=== PATIENT | female | born 1935 | race Caucasian/White ===

== ENCOUNTER → 2020-03-02 08:36 | Outpatient (ROUT) | payer OTHER, SELFPAY ==
[2020-03-02 09:22] LABS: Appearance Urine UA SL CLOUDY; Bilirubin Urine UA NEGATIVE (NEGATIVE); Color Urine UA YELLOW; Glucose Urine UA NEGATIVE (Negative); Ketones Urine UA NEGATIVE (NEGATIVE); Leukocyte Esterase Urine UA 1+ (NEGATIVE); Nitrite Urine UA NEGATIVE (Negative); Occult Blood Urine UA 1+ (Negative); Protein Urine UA TRACE (Negative); Specific Gravity Urine UA 1.015 (1.000-1.035); Urobilinogen Urine UA 0.2 E.U./dL (0.2)
[2020-03-02 09:31] LABS: RBC Urine 1-5/HPF (0-5/HPF); WBC Urine 30-100/HPF (0-5/HPF)
[2020-03-02 09:32] LABS: Bacteria Urine Many (>30); Culture Indicated Urine Specimen Cultured
== END ==
PROVIDERS: PCP Family Medicine; Visit Provider Internal Medicine
DX: N39.0 Urinary tract infection, site not specified (principal)
CPT/HCPCS: 81001; 87077; 87086; 87186

== ENCOUNTER 2020-03-22 11:11 | Emergency (ER) | payer OTHER, SELFPAY ==
[2020-03-22] VITALS (15 sets, daily range): BP systolic 172–206; BP diastolic 74–101; PULSE 75–96; RESP 12–23; TEMP 35.9; O2SAT 90–99; BMI 30.4
--- NOTE | 2020-03-22 12:10 | ED_ITS ---
HPI - Abdominal Pain General Chief Complaint: Abdominal Pain Stated Complaint: Abdominal Pain Time Seen by Provider: 03/22/20 11:28 Source: patient Mode of arrival: EMS Limitations: no limitations History of Present Illness HPI narrative: Patient is an 84-year-old female who resides at [facility] after total hip arthroplasty presenting today with left lower quadrant pain. She says she feels like she needs to have a bowel movement. She feels pressure in her rectum she was given an enema yesterday and manual disimpaction was attempted there as well and unsuccessful. She denies fever chills nausea or vom iting. But she is quite tender in her left lower quadrant pain. This been ongoing for for about 1 week. MD complaint: abdominal pain Onset (ago): day(s) Pain Consistency: constant Related Data Previous Rx's Medication Instructions Recorded prednisone 40 mg PO [facility] 4 Days #0 tab 12/14/15 Allergies Allergy/AdvReac Type Severity Reaction Status Date / Time Sulfa (Sulfonamide Allergy Unknown Unverified 03/22/20 11:18 Antibiotics) [SULFA (SULFONAMIDE ANTIBIOTICS)] Review of Systems Review of Systems Narrative: GENERAL: Denies chills, fatigue, malaise, fever, sweats, travel HEENT: Denies sinus pain, ear pain, sore throat, difficulty swallowing, neck pain RESPIRATORY: Denies dyspnea, cough, wheezing, hemoptysis, sputum. CARDIOVASCULAR: Denies chest pain, palpitations, orthopnea, edema GASTROINTESTINAL: See HPI : Denies dysuria, frequency, incontinence, hematuria, urinary retention, flank pain. MUSCULOSKELETAL: Denies weakness, joint pain, or bony pain SKIN: No rash, no erythema, no pruritus NEUROLOGIC: Denies weakness, dizziness, headache, numbness, change in speech, confusion PSYCHIATRIC: No concerning psychosocial issues. 12 point review of systems is negative except for those stated above and HPI Patient History Social History Smoking Status: Never smoker Smoking Status: Never smoker Substance Use Type: does not use Exam Initial Vital Signs Initial Vital Signs: Vital Signs Pulse Oximetry 90 L 03/22/20 11:11 GENERAL: Alert well-appearing elderly female and in no acute distress. HEENT: Head atraumatic,EOMI, pupils reactive, face symmetric, moist mucous membranes CARDIOVASCULAR: Regular rate and rhythm without murmurs, rubs or gallops. RESPIRATORY: Breath sounds equal bilaterally, no wheezes rales or rhonchi. ABDOMEN: Soft, tender left lower quadrant EXTREMITIES: Normal range of motion, no clubbing or edema. Neurovascularly intact NEUROLOGICAL: Alert and oriented x4.Normal gait and speech. Cranial nerves II th rough XII grossly intact. SKIN: Warm, dry, no laceration, no petechiae, no rashes or lesions. Course Orders Ordered: ED Orders 03/22/20 12:12 Complete Blood Count AUTO DIFF Stat Comprehensive Metabolic Panel Stat Lipase Stat 03/22/20 12:45 CT abdomen pelvis w con Stat 03/22/20 14:50 Urine Microscopic Stat Discontinued Medications Sodium Chloride (Normal Saline 0.9%) 1,000 mls @ 150 mls/hr IV CONT RIAZ Last Infusion: 03/22/20 16:06 Dose: 0 mls/hr Documented by: Admin: 03/22/20 12:26 Dose: 150 mls/hr Documented by: KURTIS Ketorolac Tromethamine (Ketorolac 60 Mg/2 Ml Vial) 30 mg IV NOW ONE Stop: 03/22/20 12:01 Last Admin: 03/22/20 12:29 Dose: 30 mg Documented by: KURTIS Sodium Biphosphate/Sodium Phosphate (Fleets Enema) 1 each VT NOW ONE Stop: 03/22/20 13:51 Last Admin: 03/22/20 15:14 Dose: 1 each Documented by: KURTIS Vital Signs Vital signs: Vital Signs - 8 hr 03/22/20 11:11 03/22/20 11:12 03/22/20 11:16 Temperature 96.7 F L Pulse Rate 83 96 H Respiratory Rate 12 Blood Pressure 201/101 H 201/101 H Pulse Oximetry 90 L 97 98 03/22/20 11:30 03/22/20 12:00 03/22/20 12:30 Temperature Pulse Rate 79 90 81 Respiratory Rate 19 21 21 Blood Pressure 203/82 H 206/86 H Pulse Oximetry 96 97 98 03/22/20 12:33 03/22/20 13:04 03/22/20 13:06 Temperature Pulse Rate 81 76 82 Respiratory Rate 21 23 Blood Pressure 201/92 H 180/75 H Pulse Oximetry 98 98 03/22/20 13:30 03/22/20 14:00 03/22/20 14:30 Temperature Pulse Rate 78 75 75 Respiratory Rate 20 18 17 Blood Pressure 175/74 H 197/84 H 188/80 H Pulse Oximetry 98 97 96 03/22/20 15:00 03/22/20 16:30 03/22/20 17:14 Temperature Pulse Rate 76 80 80 Respiratory Rate 21 16 16 Blood Pressure 174/79 H 172/82 H 172/82 H Pulse Oximetry 98 99 MDM - Abdominal Pain Lab Data Attestation: I reviewed the patient's lab results. Result diagrams: 03/22/20 12:12 03/22/20 12:12 Labs: Lab Results 03/22/20 03/22/20 03/22/20 Range/Units 12:12 12:12 14:50 WBC 12.7 H (4.5-11.0) X10^3/uL RBC 4.08 (4.0-5.2) X10^6/uL Hgb 12.1 (12.0-16.0) g/dL Hct 36.9 (36-46) % MCV 90.6 (80-100) fL MCH 29.8 (26-34) PG MCHC 32.9 (30-36) % RDW 15.6 H (11.6-14.8) % Plt Count 505 H (150-400) X10^3/uL Neut % (Auto) 77.8 H (50-75) % Lymph % (Auto) 9.9 L (25-40) % [place] % (Auto) 8.3 (3-14) % Eos % (Auto) 2.9 (2-4) % Baso % (Auto) 1.1 (0-2) % Neut # (Auto) 9900 H (8971-2049) /uL Lymph # (Auto) 1300 (5641-2085) /uL [place] # (Auto) 1100 H (0-900) /uL Eos # (Auto) 400 (0-450) /uL Baso # (Auto) 100 (0-100) /uL Sodium 135 L (137-145) mmol/L Potassium 3.8 (3.4-5.1) mmol/L Chloride 101 (98-107) mmol/L Carbon Dioxide 32 (22-32) mmol/L BUN 14 (7-17) mg/dL Creatinine 0.61 (0.52-1.04) mg/dL Estimated GFR > 60.0 (>60) mL/min BUN/Creatinine Ratio 23.0 H (6-22) Glucose 117 H (80-110) mg/dL Calcium 9.1 (8.4-10.2) mg/dL Total Bilirubin 0.7 (0.2-1.3) mg/dL AST 66 H (14-36) IU/L ALT 58 H (<35) IU/L Alkaline Phosphatase 201 H (38-126) U/L Total Protein 6.5 (6.3-8.2) g/dL Albumin 3.7 (3.5-5.0) g/dL Globulin 2.8 (1.7-4.1) g/dL Albumin/Globulin Ratio 1.3 (1.0-2.8) Lipase 88 (23-300) U/L Urine RBC 0-1/hpf (0-5/HPF) Urine WBC 0-1/hpf (0-5/HPF) Amorphous Sediment 1+ Urine Bacteria None seen (None) Ur Culture Indicated? Cult not indicated Point of care testing: Urine Dip Bedside Urine Glucose Negative Bedside Urine Bilirubin - Negative Bedside Urine Ketone - Negative Urine Specific [place] 1.010 Bedside Urine Occult Blood + Bedside Urine pH 6 Bedside Urine Protein + 30 Bedside Urine Urobilinogen - Negative Bedside Urine Nitrite - Negative Bedside Urine Leukocytes - Negative Esterase Imaging Data CT scan - abdomen/pelvis: Radiologist's Impression: PROCEDURE: CT ABDOMEN PELVIS W CON COMPARISON: [facility], , CHEST 1 VIEW, 12/14/2015, 18:25. INDICATIONS: LLQ pain FINDINGS: Image quality: Excellent. Lung bases: Lung bases are clear. Heart size is normal. There is mild bibasilar atelectasis. Cardiac chambers are normal. The coronary arteries have atherosclerotic calcifications. Solid organs: Liver: The liver has no mass or intrahepatic biliary ductal dilatation. The portal vein and hepatic veins are patent. Biliary: Status post cholecystectomy. Pancreas: The pancreas has no mass or ductal dilatation. There is no surrounding inflammation. Spleen: Normal size. There are no masses. Adrenals: No hypertrophy or nodules. Kidneys: No obstructive calculus or hydronephrosis. No solid mass. Both kidneys have simple renal cysts. The left lower pole has a septated cyst with thin septation s and a calcification within the septation. The left kidney is several simple cysts. Peritoneum and bowel: The distal esophagus and stomach are normal. The small bowel has a normal caliber and appearance. The terminal ileum is normal. The large bowel has a normal caliber and appearance. The appendix is normal. No free fluid or air. Nodes and vessels: No retroperitoneal or mesenteric adenopathy by size criteria. The aorta has atherosclerosis with no aneurysmal dilatation. Miscellaneous: No abdominal wall mass or hernia. PELVIS: Genitourinary: The bladder is not well visualized due to artifact from both hips.. No bladder calcifications. Miscellaneous: No inguinal hernias or adenopathy. Bones: The lumbar spine as multilevel degenerative changes. There is no vertebral body height loss. There is mild height loss of the L1 vertebral body and concavity of the superior endplate of L3 which both appear remote. Both hips have prior total hip arthroplasty. IMPRESSION: 1. No acute abdominal or pelvic abnormality. 2. Other incidental findings as above. 3. No bowel obstruction. Dictated by: Blas Schilling M.D. on 03/22/2020 at 13:11 MDM Narrative Medical decision making narrative: Mild leukocytosis but no sign of infection. CT is negative. Enema is tried in the again unsuccessful. At this time pain management only. Discharge Plan Departure Patient Disposition: Home Clinical Impression: Abdominal pain Qualifiers: Abdominal location: left lower quadrant Qualified Code(s): R10.32 - Left lower quadrant pain Instructions: Acute Abdominal Pain Activity Restrictions/Additional Instructions: *You have been diagnosed with abdominal pain *What to do: At this time no sign of infection. There is no sign of constipation. However I recommend you continue your bowel regimen of MiraLax you may add Colace and/or Metamucil as well *Continue to take medications as directed *Follow up with your primary care provider in 2-3 days *Return to ER if you should have increasing abdominal pain, fever, confusion or any new, worsening or concerning symptoms Prescriptions: No Action prednisone 20 MG tablet 40 mg PO AMCC 4 Days Qty: 0 RF: 0 Referrals: Navin Steele DO [Primary Care Provider] -
[2020-03-22 12:23] LABS: Add Manual Diff / Slide Review NO; Basophils Absolute Auto 100 /uL (0-100); Basophils Percent Auto 1.1 % (0-2); Eosinophils Absolute Auto 400 /uL (0-450); Eosinophils Percent Auto 2.9 % (2-4); Hematocrit 36.9 % (36-46); Hemoglobin 12.1 g/dL (12.0-16.0); Lymphocytes Absolute Auto 1300 /uL (1100-4500); Lymphocytes Percent Auto 9.9 % (25-40); Mean Corpuscular HGB Conc 32.9 % (30-36); Mean Corpuscular Hemoglobin 29.8 PG (26-34); Mean Corpuscular Volume 90.6 fL (80-100); Monocytes Absolute Auto 1100 /uL (0-900); Monocytes Percent Auto 8.3 % (3-14); Neutrophils Absolute Auto 9900 /uL (1500-7000); Neutrophils Percent Auto 77.8 % (50-75); Platelet Count 505 X10^3/uL (150-400); Red Blood Cell Count 4.08 X10^6/uL (4.0-5.2); Red Cell Distribution Width 15.6 % (11.6-14.8); White Blood Cell Count 12.7 X10^3/uL (4.5-11.0)
[2020-03-22] MEDS: SODIUM CHLORIDE 0.9% 1,000 ML 150 ML IV (12:26)
[2020-03-22] MEDS: KETOROLAC 60 MG/2 ML VIAL 30 MG IV (12:29)
[2020-03-22 12:35] LABS: Alanine Aminotransferase 58 IU/L (<35); Albumin 3.7 g/dL (3.5-5.0); Albumin Globulin Ratio 1.3 (1.0-2.8); Alkaline Phosphatase 201 U/L (38-126); Aspartate Aminotransferase 66 IU/L (14-36); Bilirubin Total 0.7 mg/dL (0.2-1.3); Blood Urea Nitrogen 14 mg/dL (7-17); Calcium 9.1 mg/dL (8.4-10.2); Carbon Dioxide 32 mmol/L (22-32); Chloride 101 mmol/L (98-107); Estimated Glomerular Filt Rate > 60.0 mL/min (>60); Globulin 2.8 g/dL (1.7-4.1); Glucose 117 mg/dL (80-110); HEMOLYSIS 26 (0-50); Lipase 88 U/L (23-300); Potassium 3.8 mmol/L (3.4-5.1); Sodium 135 mmol/L (137-145); Total Protein 6.5 g/dL (6.3-8.2)
--- NOTE | 2020-03-22 12:45 | DI.CT.S_ITS ---
PROCEDURE: CT ABDOMEN PELVIS W CON COMPARISON: [facility], CR, CHEST 1 VIEW, 12/14/2015, 18:25. INDICATIONS: LLQ pain FINDINGS: Image quality: Excellent. Lung bases: Lung bases are clear. Heart size is normal. There is mild bibasilar atelectasis. Cardiac chambers are normal. The coronary arteries have atherosclerotic calcifications. Solid organs: Liver: The liver has no mass or intrahepatic biliary ductal dilatation. The portal vein and hepatic veins are patent. Biliary: Status post cholecystectomy. Pancreas: The pancreas has no mass or ductal dilatation. There is no surrounding inflammation. Spleen: Normal size. There are no masses. Adrenals: No hypertrophy or nodules. Kidneys: No obstructive calculus or hydronephrosis. No solid mass. Both kidneys have simple renal cysts. The left lower pole has a septated cyst with thin septations and a calcification within the septation. The left kidney is several simple cysts. Peritoneum and bowel: The distal esophagus and stomach are normal. The small bowel has a normal caliber and appearance. The terminal ileum is normal. The large bowel has a normal caliber and appearance. The appendix is normal. No free fluid or air. Nodes and vessels: No retroperitoneal or mesenteric adenopathy by size criteria. The aorta has atherosclerosis with no aneurysmal dilatation. Miscellaneous: No abdominal wall mass or hernia. PELVIS: Genitourinary: The bladder is not well visualized due to artifact from both hips.. No bladder calcifications. Miscellaneous: No inguinal hernias or adenopathy. Bones: The lumbar spine as multilevel degenerative changes. There is no vertebral body height loss. There is mild height loss of the L1 vertebral body and concavity of the superior endplate of L3 which both appear remote. Both hips have prior total hip arthroplasty. IMPRESSION: 1. No acute abdominal or pelvic abnormality. 2. Other incidental findings as above. 3. No bowel obstruction. Dictated by: Blas Schilling M.D. on 03/22/2020 at 13:11 Approved by: Blas Schilling M.D. on 03/22/2020 at 13:21
[2020-03-22 15:11] LABS: Bacteria Urine None Seen
[2020-03-22] MEDS: FLEETS ENEMA 1 EACH PR (15:14)
[2020-03-22 15:41] LABS: Amorphous Sediment Urine 1+; Culture Indicated Urine Cult Not Indicated; RBC Urine 0-1/HPF (0-5/HPF); WBC Urine 0-1/HPF (0-5/HPF)
== END 2020-03-22 17:17 | disposition home or self-care (01) ==
PROVIDERS: Emergency Provider Emergency Medicine; PCP Family Medicine
DX: R10.32 Left lower quadrant pain (principal)
CPT/HCPCS: 36415; 74177; 80053; 81003; 81015; 83690; 85025; 96361; 96374; 99283; 99284; J1885; Q9967

== ENCOUNTER 2021-03-30 09:35 | Emergency (ER) | payer OTHER, SELFPAY ==
[2021-03-30] VITALS (13 sets, daily range): BP systolic 136–195; BP diastolic 65–122; PULSE 81–97; RESP 18–28; TEMP 36.2; O2SAT 94–99
--- NOTE | 2021-03-30 09:54 | ED_ITS ---
HPI - Abdominal Pain General Chief Complaint: Abdominal Pain Stated Complaint: R abd pain Time Seen by Provider: 03/30/21 09:53 Source: patient Mode of arrival: Ambulatory Limitations: no limitations History of Present Illness HPI narrative: This an 85-year-old female comes emergency department with complaint of xiong prapubic pain, dysuria and frequency and a sense of incomplete emptying for the past week which has been increasingly painful and up into her right flank. Patient denies fevers or chills. She has had nausea but no vomiting. Patient denies any left-sided back or flank pain. She has developed a bit of a cough in the last 12 hours. Patient states no chest pain or shortness of breath but her pain does go up towards her right posterior ribs. Patient denies any constipation. She has had several episodes of diarrhea yesterday but states they were brown there was no melena or hematochezia. She has not had any urinary retention that she appreciates. 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 She has had a cholecystectomy but denies other surgeries. No prior cardiac interventions cording to the patient. She is allergic to sulfa. She lives independently with her but does normally use a walker. She came in today because her back was continuing to become increasingly painful. She has had prior fractures to her vertebrae which she states she did not have trauma for suggesting osteoporotic compression fractures and has had 2 prior hip frac tures according to the patient. Related Data Previous Rx's Medication Instructions Recorded prednisone 20 mg tablet 40 mg [facility] #0 tab 12/14/15 cephalexin 500 mg capsule 500 mg PO BID #20 cap 03/30/21 hydrocodone 5 mg-acetaminophen 325 1 tab PO Q6H PRN #10 tab 03/30/21 mg tablet Allergies Allergy/AdvReac Type Severity Reaction Status Date / Time Sulfa (Sulfonamide Allergy Unknown Unverified 03/22/20 11:18 Antibiotics) [SULFA (SULFONAMIDE ANTIBIOTICS)] Review of Systems Review of Systems ROS Unobtainable: All systems reviewed & are unremarkable except as noted in HPI and below Patient History Social History Smoking Status: Never smoker Smoking Status: Never smoker Substance Use Type: does not use Exam Narrative Exam Narrative: GENERAL: Alert and oriented x three, elderly female in mild distress. HEENT: Head normocephalic, atraumatic, EOMI, pupils reactive, face symmetric, moist mucous membranes NECK: Supple, full range of motion CARDIOVASCULAR: Regular rate and rhythm without murmurs, rubs or gallops. RESPIRATORY: Breath sounds equal bilaterally, no wheezes rales or rhonchi. ABDOMEN: Soft, mild suprapubic tenderness. Normoactive bowel sounds all 4 quadrants. No guarding or rebound, rigidity, no mass : Positive for right CVA tenderness, negative for left CVA tenderness. EXTREMITIES: Normal range of motion, no clubbing or edema. Neurovascularly intact. Patient did ambulate with walker to the bathroom and back. NEUROLOGICAL: Cranial nerves II through XII grossly intact. Moving all extremities SKIN: Warm, dry, no petechiae, no rashes or lesions. Initial Vital Signs Initial Vital Signs: Vital Signs Pulse Rate 89 03/30/21 09:40 Pulse Oximetry 98 03/30/21 09:40 Course Orders Ordered: ED Orders 03/30/21 10:05 Urine Culture Stat Urine Microscopic Stat 03/30/21 10:33 COVID19 -Nasal swab/Pre-Proc Stat 03/30/21 11:25 Complete Blood Count AUTO DIFF Stat Comprehensive Metabolic Panel Stat Lipase Stat Prothrombin Time INR Stat 03/30/21 11:35 Lactate (Lactic Acid) Stat 03/30/21 11:54 CT kidney ureter bladder (KUB) Stat 03/30/21 12:15 Blood Culture Stat Discontinued Medications Hydrocodone Bitart/Acetaminophen (Hydrocodone/Acet 5/325 Tablet) 2 tab PO NOW ONE Stop: 03/30/21 11:00 Last Admin: 03/30/21 11:07 Dose: 2 tab Documented by: RAVINDER Cephalexin HCl (Cephalexin 250 Mg Capsule) 500 mg PO NOW ONE Stop: 03/30/21 11:00 Last Admin: 03/30/21 11:07 Dose: 500 mg Documented by: RAVINDER Sodium Chloride (Normal Saline 0.9%) 1,000 mls @ 150 mls/hr IV CONT RIAZ Last Admin: 03/30/21 11:00 Dose: Not Given Documented by: RAVINDER Morphine Sulfate (Morphine 2 Mg/Ml Inj) 2 mg IV NOW ONE Stop: 03/30/21 10:19 Last Admin: 03/30/21 11:00 Dose: Not Given Documented by: RAVINDER Vital Signs Vital signs: Vital Signs - 8 hr 03/30/21 11:00 03/30/21 11:30 03/30/21 12:10 Pulse Rate 82 86 92 H Respiratory Rate 20 20 19 Blood Pressure 142/71 H Pulse Oximetry 99 98 03/30/21 12:30 03/30/21 12:31 03/30/21 13:00 Pulse Rate 89 81 87 Respiratory Rate 18 Blood Pressure 174/80 H 188/122 H Pulse Oximetry 97 97 99 MDM - Abdominal Pain Lab Data Result diagrams: 03/30/21 11:25 03/30/21 11:25 Labs: Lab Results 03/30/21 03/30/21 03/30/21 Range/Units 10:05 10:33 11:25 WBC 13.3 H (4.5-11.0) X10^3/uL RBC 4.01 (4.0-5.2) X10^6/uL Hgb 11.6 L (12.0-16.0) g/dL Hct 35.4 L (36-46) % MCV 88.4 (80-100) fL MCH 28.8 (26-34) PG MCHC 32.6 (30-36) % RDW 14.8 (11.6-14.8) % Plt Count 509 H (150-400) X10^3/uL Neut % (Auto) 69.9 (50-75) % Lymph % (Auto) 17.9 L (25-40) % [place] % (Auto) 8.7 (3-14) % Eos % (Auto) 2.6 (2-4) % Baso % (Auto) 0.9 (0-2) % Neut # (Auto) 9300 H (0758-0343) /uL Lymph # (Auto) 2400 (2902-3961) /uL [place] # (Auto) 1200 H (0-900) /uL Eos # (Auto) 300 (0-450) /uL Baso # (Auto) 100 (0-100) /uL PT (10.1-12.7) SECONDS INR (0.9-1.3) Sodium (137-145) mmol/L Potassium (3.4-5.1) mmol/L Chloride (98-107) mmol/L Carbon Dioxide (22-32) mmol/L BUN (7-17) mg/dL Creatinine (0.52-1.04) mg/dL Estimated GFR (>60) mL/min BUN/Creatinine Ratio (6-22) Glucose (80-110) mg/dL Lactate (0.7-2.1) mmol/L Calcium (8.4-10.2) mg/dL Total Bilirubin (0.2-1.3) mg/dL AST (14-36) IU/L ALT (<35) IU/L Alkaline Phosphatase (38-126) U/L Total Protein (6.3-8.2) g/dL Albumin (3.5-5.0) g/dL Globulin (1.7-4.1) g/dL Albumin/Globulin Ratio (1.0-2.8) Lipase (23-300) U/L Urine RBC 0-1/hpf (0-5/HPF) Urine WBC 5-10/hpf H (0-5/HPF) Ur Squamous Epith Cells 0-1 /hpf (0-5/HPF) Urine Bacteria Moderate (10-30) H (None) Ur Culture Indicated? Specimen cultured SARS-CoV-2 (PCR) Negative (Negative) 03/30/21 03/30/21 03/30/21 Range/Units 11:25 11:25 11:35 WBC (4.5-11.0) X10^3/uL RBC (4.0-5.2) X10^6/uL Hgb (12.0-16.0) g/dL Hct (36-46) % MCV (80-100) fL MCH (26-34) PG MCHC (30-36) % RDW (11.6-14.8) % Plt Count (150-400) X10^3/uL Neut % (Auto) (50-75) % Lymph % (Auto) (25-40) % [place] % (Auto) (3-14) % Eos % (Auto) (2-4) % Baso % (Auto) (0-2) % Neut # (Auto) (4358-7011) /uL Lymph # (Auto) (7233-5822) /uL [place] # (Auto) (0-900) /uL Eos # (Auto) (0-450) /uL Baso # (Auto) (0-100) /uL PT 67.5 H (10.1-12.7) SECONDS INR 5.7 H* (0.9-1.3) Sodium 139 (137-145) mmol/L Potassium 3.9 (3.4-5.1) mmol/L Chloride 104 (98-107) mmol/L Carbon Dioxide 28 (22-32) mmol/L BUN 14 (7-17) mg/dL Creatinine 0.55 (0.52-1.04) mg/dL Estimated GFR > 60.0 (>60) mL/min BUN/Creatinine Ratio 25.5 H (6-22) Glucose 81 (80-110) mg/dL Lactate 1.4 (0.7-2.1) mmol/L Calcium 8.9 (8.4-10.2) mg/dL Total Bilirubin 0.5 (0.2-1.3) mg/dL AST 39 H (14-36) IU/L ALT 27 (<35) IU/L Alkaline Phosphatase 173 H (38-126) U/L Total Protein 6.1 L (6.3-8.2) g/dL Albumin 3.7 (3.5-5.0) g/dL Globulin 2.4 (1.7-4.1) g/dL Albumin/Globulin Ratio 1.5 (1.0-2.8) Lipase 167 (23-300) U/L Urine RBC (0-5/HPF) Urine WBC (0-5/HPF) Ur Squamous Epith Cells (0-5/HPF) Urine Bacteria (None) Ur Culture Indicated? SARS-CoV-2 (PCR) (Negative) Point of care testing: Urine Dip Bedside Urine Glucose Negative Bedside Urine Bilirubin - Negative Bedside Urine Ketone - Negative Urine Specific [place] 1.015 Bedside Urine Occult Blood + Bedside Urine pH 7.0 Bedside Urine Protein + 30 Bedside Urine Urobilinogen 0.2 Bedside Urine Nitrite + Positive Bedside Urine Leukocytes + [address] scan - abdomen/pelvis: Radiologist's Impression: Launch?[address] [address] [address] Scan Report Signed Patient: Anna Jamison MR#: [id number] : 1935 Acct:[id number] Age/Sex: 85 / F Date of Service: 03/30/21 Loc: ED Accession Number: [id number] ?? Procedure: CT kidney ureter bladder (KUB) Ordering Provider: Natasha Palomo D.O. PROCEDURE:? CT KIDNEY URETER BLADDER (KUB) ? INDICATIONS:? right flank pain, pelvic pain ? TECHNIQUE:? Axial sections were acquired from the lung bases to the pubic symphysis.? Coronal and sagittal reformats were performed.? For radiation dose reduction, the following was used: ?automated exposure control, adjustment of mA and/or kV according to patient size.? ? COMPARISON:? [facility], CT, CT ABDOMEN PELVIS W CON, 03/22/2020, 12:52. ? FINDINGS:? Image quality:? There is artifact associated with the metallic hardware. ? Artifact from the metallic hardware is reduced by metal reconstruction algorithm.? ? Lung bases:? Unremarkable.? ? Heart:? No significant findings.? Moderate coronary artery calcification is seen. ? URINARY: Right Kidney: ? No stones or hydronephrosis.? At the inferior pole of the right kidney medially, there is a simple cyst cyst seen that measures 1.6 cm.? Mild calcification can be seen along the margin of this cyst. Right Ureter:? No hydroureter.? ? Left Kidney: ? No stones or hydronephrosis.? At the superior pole of the left kidney, there is a cyst that measures 3.3 cm.? A small amount of calcification can be seen along the margins of this cyst.? A simple appearing water density cyst is seen in volving the left kidney that measures 3.5 cm. Left Ureter:? No hydroureter.? ? Bladder:? No significant bladder abnormality is seen. ? ABDOMEN: Liver:? Unremarkable.? ? Gallbladder:? Removed.? ? Biliary ducts:? Unremarkable.? ? Pancreas:? Unremarkable.? ? Spleen:? Unremarkable.? ? Adrenal Glands:? Unremarkable.? ? ? Stomach and Bowel:? Stomach, small bowel loops, and colon are unremarkable.? Peritoneum:? No abnormal intraperitoneal fluid.? No free air.? ? Ventral Wall: ? No hernia.? Abdominal Nodes:? No enlarged retroperitoneal or mesenteric lymph nodes.? Vessels:? Aorta and inferior vena cava are normal in size.? Atherosclerotic calcification is noted.? ? PELVIS: Pelvic Organs:? The uterus is atrophic.? No adnexal masses are seen.? Pelvic Nodes: Unremarkable. Miscellaneous: No inguinal hernias are seen. ? ? ? Bones:? At the T11 level, there is 40-50% loss of height centrally, which is c learly progressed compared to 2020.? At the L1 level, there is approximately 80% loss of height anteriorly, which is clearly progressed compared to the prior 2020 CT examination.? At the L3 level, there is approximately 30% loss of height centrally, which is stable compared to 2020.? ? These fractures do not demonstrate significant posterior displacement of fracture fragments. ? Bilateral hip arthroplasty hardware is seen, with prominent streak artifact through the pelvis. ? IMPRESSION:? ? Negative for kidney stones or obstructive uropathy. ? Clear interval progression of T11 and L1 fractures compared to 2020. No romel acute features are seen.? However, this could be a cause of flank pain. If it would be helpful for clinical management decision making, please consider a dedicated, scheduled lumbar spine MRI for further evaluation (assuming that there is no contraindication).? ? Bilateral renal cysts are seen, with a mild amount of calcification seen along the margins of these cysts.? These cysts demonstrate no suspicious abnormality on the prior contrast-enhanced CT. ? ? Incidental note is made of: Moderate coronary artery calcification Cholecystectomy Stable L3 fracture. Bilateral hip arthroplasty hardware ? Dictated by: Sebastien Max M.D. on 03/30/2021 at 11:15 ? ? Approved by: Sebastien Max M.D. on 03/30/2021 at 11:22?? MDM Narrative Medical decision making narrative: This is an 85-year-old female comes in with lower abdominal patient has had some right-sided flank chest pain. She is noted to have T11-L1 compression fracture that is worsened but not new. She does have UTI. She was difficult stick so had non contrasted CT. Patient's labs otherwise do not show any major abnormalities and patient was discharged home after tolerating oral pain medication and antibiotics. She is noted to have renal cyst but does not appear to have abscess. Does not appear to have kidney stone or to be septic today. Discharge Plan Departure Patient Disposition: Home Clinical Impression: Acute UTI, Renal cyst, Traumatic compression fracture of T11 thoracic vertebra, Closed compression fracture of L1 vertebra Instructions: DI for Urinary Tract Infection (UTI) Activity Restrictions/Additional Instructions: Your labs today show an elevated INR at 5.7. Do not take your warfarin today or tomorrow(Wednesday) and have your level rechecked on Wednesday morning with your physician. Your urine does show signs of an infection today and is likely the cause of her lower pain. Take antibiotics until completely gone. Prescription was sent to [facility] in [place]. It is also noted on your CT imaging that you have compression fractures at T11 and L1 which have worsened compared to 2020 and likely are related to your flank back pain. You may take pain medication as prescribed. This medication can make you sleepy do not drive, perform hazardous activities or make any major decisions while taking it. This medication will make you constipated please take a stool softener once to twice daily until stools are soft and regular. Please return for fevers, new or worsening chest pain, shortness of breath, abdominal, back or flank pain, new numbness, tingling or weakness, lightheadedness or passing out or other new or concerning symptoms. Prescriptions: New cephalexin 500 mg capsule 500 mg PO BID Qty: 20 0RF hydrocodone-acetaminophen 5-325 mg tablet 1 tab PO Q6H PRN (Reason: pain) Qty: 10 0RF No Action prednisone 20 MG tablet 40 mg PO [facility] 4 Days Qty: 0 0RF Referrals: Navin Steele DO [Non-Staff] -
[2021-03-30 10:27] LABS: Bacteria Urine Moderate (10-30); Culture Indicated Urine Specimen Cultured; RBC Urine 0-1/HPF (0-5/HPF); Squamous Epithelial Cell Urine 0-1 /HPF (0-5/HPF); WBC Urine 5-10/HPF (0-5/HPF)
[2021-03-30 10:55] LABS: COVID19 -Nasal RAPID Negative (Negative)
[2021-03-30] MEDS: HYDROCODONE/ACET 5/325 TABLET 2 TAB PO (11:07)
[2021-03-30] MEDS: cephALEXin 250 MG CAPSULE 500 MG PO (11:07)
[2021-03-30 11:40] LABS: Add Manual Diff / Slide Review NO; Basophils Absolute Auto 100 /uL (0-100); Basophils Percent Auto 0.9 % (0-2); Eosinophils Absolute Auto 300 /uL (0-450); Eosinophils Percent Auto 2.6 % (2-4); Hematocrit 35.4 % (36-46); Hemoglobin 11.6 g/dL (12.0-16.0); Lymphocytes Absolute Auto 2400 /uL (1100-4500); Lymphocytes Percent Auto 17.9 % (25-40); Mean Corpuscular HGB Conc 32.6 % (30-36); Mean Corpuscular Hemoglobin 28.8 PG (26-34); Mean Corpuscular Volume 88.4 fL (80-100); Monocytes Absolute Auto 1200 /uL (0-900); Monocytes Percent Auto 8.7 % (3-14); Neutrophils Absolute Auto 9300 /uL (1500-7000); Neutrophils Percent Auto 69.9 % (50-75); Platelet Count 509 X10^3/uL (150-400); Red Blood Cell Count 4.01 X10^6/uL (4.0-5.2); Red Cell Distribution Width 14.8 % (11.6-14.8); White Blood Cell Count 13.3 X10^3/uL (4.5-11.0)
[2021-03-30 11:48] LABS: Alanine Aminotransferase 27 IU/L (<35); Albumin 3.7 g/dL (3.5-5.0); Albumin Globulin Ratio 1.5 (1.0-2.8); Alkaline Phosphatase 173 U/L (38-126); Aspartate Aminotransferase 39 IU/L (14-36); BUN Creatinine Ratio 25.5 (6-22); Bilirubin Total 0.5 mg/dL (0.2-1.3); Blood Urea Nitrogen 14 mg/dL (7-17); Calcium 8.9 mg/dL (8.4-10.2); Carbon Dioxide 28 mmol/L (22-32); Chloride 104 mmol/L (98-107); Estimated Glomerular Filt Rate > 60.0 mL/min (>60); Globulin 2.4 g/dL (1.7-4.1); Glucose 81 mg/dL (80-110); HEMOLYSIS < 15 (0-50); Lipase 167 U/L (23-300); Potassium 3.9 mmol/L (3.4-5.1); Sodium 139 mmol/L (137-145); Total Protein 6.1 g/dL (6.3-8.2)
--- NOTE | 2021-03-30 11:54 | DI.CT.S_ITS ---
PROCEDURE: CT KIDNEY URETER BLADDER (KUB) INDICATIONS: right flank pain, pelvic pain TECHNIQUE: Axial sections were acquired from the lung bases to the pubic symphysis. Coronal and sagittal reformats were performed. For radiation dose reduction, the following was used: automated exposure control, adjustment of mA and/or kV according to patient size. COMPARISON: [facility], CT, CT ABDOMEN PELVIS W CON, 03/22/2020, 12:52. FINDINGS: Image quality: There is artifact associated with the metallic hardware. Artifact from the metallic hardware is reduced by metal reconstruction algorithm. Lung bases: Unremarkable. Heart: No significant findings. Moderate coronary artery calcification is seen. URINARY: Right Kidney: No stones or hydronephrosis. At the inferior pole of the right kidney medially, there is a simple cyst cyst seen that measures 1.6 cm. Mild calcification can be seen along the margin of this cyst. Right Ureter: No hydroureter. Left Kidney: No stones or hydronephrosis. At the superior pole of the left kidney, there is a cyst that measures 3.3 cm. A small amount of calcification can be seen along the margins of this cyst. A simple appearing water density cyst is seen involving the left kidney that measures 3.5 cm. Left Ureter: No hydroureter. Bladder: No significant bladder abnormality is seen. ABDOMEN: Liver: Unremarkable. Gallbladder: Removed. Biliary ducts: Unremarkable. Pancreas: Unremarkable. Spleen: Unremarkable. Adrenal Glands: Unremarkable. Stomach and Bowel: Stomach, small bowel loops, and colon are unremarkable. Peritoneum: No abnormal intraperitoneal fluid. No free air. Ventral Wall: No hernia. Abdominal Nodes: No enlarged retroperitoneal or mesenteric lymph nodes. Vessels: Aorta and inferior vena cava are normal in size. Atherosclerotic calcification is noted. PELVIS: Pelvic Organs: The uterus is atrophic. No adnexal masses are seen. Pelvic Nodes: Unremarkable. Miscellaneous: No inguinal hernias are seen. Bones: At the T11 level, there is 40-50% loss of height centrally, which is clearly progressed compared to 2020. At the L1 level, there is approximately 80% loss of height anteriorly, which is clearly progressed compared to the prior 2019 CT examination. At the L3 level, there is approximately 30% loss of height centrally, which is stable compared to 2020. These fractures do not demonstrate significant posterior displacement of fracture fragments. Bilateral hip arthroplasty hardware is seen, with prominent streak artifact through the pelvis. IMPRESSION: Negative for kidney stones or obstructive uropathy. Clear interval progression of T11 and L1 fractures compared to 2020. No romel acute features are seen. However, this could be a cause of flank pain. If it would be helpful for clinical management decision making, please consider a dedicated, scheduled lumbar spine MRI for further evaluation (assuming that there is no contraindication). Bilateral renal cysts are seen, with a mild amount of calcification seen along the margins of these cysts. These cysts demonstrate no suspicious abnormality on the prior contrast-enhanced CT. Incidental note is made of: Moderate coronary artery calcification Cholecystectomy Stable L3 fracture. Bilateral hip arthroplasty hardware Dictated by: Sebastien Max M.D. on 03/30/2021 at 11:15 Approved by: Sebastien Max M.D. on 03/30/2021 at 11:22
[2021-03-30 11:56] LABS: Prothrombin Time 67.5 SECONDS (10.1-12.7)
[2021-03-30 12:03] LABS: Lactate (Lactic Acid) 1.4 mmol/L (0.7-2.1)
[2021-03-30 12:07] LABS: INR 5.7 (0.9-1.3)
== END 2021-03-30 15:59 | disposition home or self-care (01) ==
PROVIDERS: Emergency Provider Emergency Medicine; PCP Internal Medicine
DX: N39.0 Urinary tract infection, site not specified (principal); Q61.01 Congenital single renal cyst; Z20.822 Contact with and (suspected) exposure to COVID-19
CPT/HCPCS: 36415; 74176; 80053; 81003; 81015; 83605; 83690; 85025; 85610; 87040; 87086; 87635; 99283; 99284; C9803

== ENCOUNTER 2021-04-10 10:50 | Inpatient (IN) | payer OTHER, SELFPAY ==
[2021-04-10] VITALS (40 sets, daily range): BP systolic 105–184; BP diastolic 51–84; PULSE 83–119; RESP 18–32; TEMP 37.6; O2SAT 89–100; BMI 27.8
--- NOTE | 2021-04-10 10:58 | DI.RAD.S_ITS ---
PROCEDURE: XR HIP W PEL IF DONE RT 2V INDICATIONS: pain TECHNIQUE: AP pelvis with lateral view(s) of the right hip(s). COMPARISON: None. FINDINGS: Bones: No fractures or dislocations. Pelvic ring appears intact. No suspicious bony lesions. Bilateral hip arthroplasties with no evidence of hardware failure or loosening. Soft tissues: The visualized bowel gas pattern is normal. No suspicious soft tissue calcifications. IMPRESSION: Expected appearance of bilateral hip arthroplasties. No evidence acute bony abnormality of the pelvis and right hip. Dictated by: Xavi Cornejo M.D. on 04/10/2021 at 11:12 Approved by: Xavi Cornejo M.D. on 04/10/2021 at 11:13
--- NOTE | 2021-04-10 11:01 | DI.RAD.S_ITS ---
PROCEDURE: XR CHEST 1V INDICATIONS: hypoxic TECHNIQUE: One view of the chest was acquired. COMPARISON: [facility], , CHEST 1 VIEW, 12/14/2015, 18:25. FINDINGS: Surgical changes and devices: None. Lungs and pleura: Patchy bibasilar atelectasis. Minimal left pleural effusion. No pleural effusions or pneumothorax. Mediastinum: Mediastinal contours appear normal. Mild cardiomegaly, exaggerated by the presence of a left pericardial fat pad. Bones and chest wall: No suspicious bony lesions. Overlying soft tissues appear unremarkable. IMPRESSION: Mild cardiomegaly, patchy bibasilar atelectasis, minimal left pleural effusion. Dictated by: Xavi Cornejo M.D. on 04/10/2021 at 11:13 Approved by: Xavi Cornejo M.D. on 04/10/2021 at 11:14
--- NOTE | 2021-04-10 11:24 | DI.CT.S_ITS ---
PROCEDURE: CT HEAD/BRAIN WO CON INDICATIONS: fall, headaches, warfarin TECHNIQUE: Noncontrast 4.5 mm thick angled axial sections acquired from the foramen magnum to the vertex, with coronal and sagittal reformats. For radiation dose reduction, the following was used: automated exposure control, adjustment of mA and/or kV according to patient size. COMPARISON: None. FINDINGS: Image quality: Excellent. CSF spaces: Basal cisterns are patent. No extra-axial fluid collections. The ventricles are symmetric in size and shape. Brain: No intracranial bleeds or masses. Small chronic right parietal infarct. There is cerebral volume loss for age, with resultant ventricular and sulcal prominence. There are periventricular and deep white matter chronic small vessel ischemic changes. There is intracranial internal carotid artery and vertebral artery atherosclerosis. Skull and face: Calvarium and visualized facial bones appear intact, without suspicious lesions. Sinuses: Visualized sinuses and mastoids are clear. IMPRESSION: No acute intracranial disease process. Dictated by: Shelley Ferreira MD, PhD on 04/10/2021 at 11:47 Approved by: Shelley Ferreira MD, PhD on 04/10/2021 at 11:49
--- NOTE | 2021-04-10 11:26 | ED.SOB ---
HPI - SOB/Dyspnea <Natashapadmini Palomo, DO - Last Filed: 04/18/21 18:11> General Chief Complaint: Weakness Stated Complaint: R hip pain Time Seen by Provider: 04/10/21 11:13 Source: EMS Mode of arrival: EMS Limitations: no limitations History of Present Illness HPI Narrative: This is an 86-year-old female that arrives via EMS for complaint of right hip pain. Patient had a fall on the and was seen at [facility]. She had negative imaging and has a skin tear on her right gomez with dressing that has not been red or hot or swollen she describes the pain as being a little bit higher up. She has full range of motion. She takes oxycodone but it did not help today. She has also noted some shortness of breath and EMS noted oxygen was 90% upon their arrival. She was started on 4 L in improved. She is also currently on antibiotics for recent UTI or was on antibiotics. She was seen here 03/30. Patient is not aware of any fevers. She does note she has had a headache for several weeks. The light in the room bothers her but has not been bothering her home. She denies any neck pain. She does describe some lower abdominal pain. She has had shortness of breath but denies any chest pain. Patient states her discomfort seems suprapubic. Does not go to or flank or back. Patient denies any new numbness, tingling. She states she has been on cephalexin for her UTI. 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 She has had a cholecystectomy she denies any cardiac interventions. She has had prior compression fractures in her back and prior hip fractures with repair. Patient is allergic for sulfa. Related Data Home Medications Medication Instructions Recorded Confirmed losartan 25 mg tablet 25 mg PO DAILY 04/10/21 04/11/21 metoprolol succinate 25 mg 25 mg PO DAILY 04/10/21 04/11/21 tablet,extended release 24 hr alprazolam 0.5 mg tablet 0.5 mg PO BID PRN 04/11/21 04/11/21 calcitonin (salmon) 200 1 spray INTRANASAL DAILY 04/11/21 04/11/21 unit/actuation nasal spray ibandronate 150 mg tablet 150 mg PO QMONTH 04/11/21 04/11/21 levothyroxine 88 mcg tablet 88 mcg PO QAM 04/11/21 04/11/21 omeprazole 20 mg capsule,delayed 20 mg PO QAM 04/11/21 04/11/21 release prednisone 5 mg tablet 5 mg PO DAILY 04/11/21 04/11/21 Previous Rx's Medication Instructions Recorded alprazolam 0.5 mg tablet (Xanax) 0.5 mg PO BID #30 tab 04/16/21 apixaban 5 mg tablet (Eliquis) 5 mg PO BID 30 Days #60 tab 04/16/21 oxycodone-acetaminophen 5 mg-325 1 tab PO BID PRN #20 tab 04/16/21 mg tablet Allergies Allergy/AdvReac Type Severity Reaction Status Date / Time Sulfa (Sulfonamide Allergy Unknown Verified 04/10/21 12:03 Antibiotics) [SULFA (SULFONAMIDE ANTIBIOTICS)] Review of Systems <Natasha Palomo DO - Last Filed: 04/18/21 18:11> Review of Systems ROS Unobtainable: All systems reviewed & are unremarkable except as noted in HPI and below Patient History <Natasha Palomo DO - Last Filed: 04/18/21 18:11> Medical History (Updated 04/14/21 @ 00:00 by ) Anxiety Essential hypertension GERD (gastroesophageal reflux disease) History of shingles Hyperlipidemia Hypothyroidism (acquired) Osteoporosis Paroxysmal atrial fibrillation with RVR Surgical History (Updated 04/12/21 @ 00:53 by JAZ Qiu) History of bilateral hip replacements History of cholecystectomy Family History (Updated 04/12/21 @ 00:55 by JAZ Qiu) Mother Stroke Brother Diabetes mellitus Sister Heart attack Social History household members: spouse Smoking Status: Former smoker alcohol intake: former Smoking Status: Never smoker Substance Use Type: does not use Exam <Natasha Palmoo DO - Last Filed: 04/18/21 18:11> Narrative Exam Narrative: GEN: Elderly female, alert and oriented x 3, patient appears to be in mild distress. Patient feels warm to touch. HEENT: Atraumatic, pupils are equal round reactive to light, extraocular movements are intact, no photophobia, nares are clear, TMs are clear with no fluid, there is no conjunctival pallor. Throat is clear without any exudates, erythema, tonsillar enlargement or uvular deviation HEART: Irregularly irregular rate and rhythm without murmur, clicks, rubs. Pulses are equal in upper and lower extremities LUNGS:Lungs clear to auscultation, no wheezes, rales, crackles, chest moves symmetrically, no tachypnea. Speaks in full sentences. ABD:bowel sounds normal, soft, non-tender, no guarding, rebound, rigidity, no masses noted, no hepatosplenomegaly :No CVA tenderness MSCL: Non-tender to palpation, no muscle atrophy, muscles strength 5/5 upper and lower extremities, full range of motion of bilateral hips passive and actively. Patient has a large skin tear on her right anterior gomez with ecchymosis underlying. The skin tear itself has a clear reason will bandage over it and I am able to easily visualize that there does not appear to be any warmth, erythema or drainage. NEURO:CN 2-12 intact, sensation normal SKIN: Rash, erythema or other changes noted other than above. Initial Vital Signs Initial Vital Signs: Vital Signs Temperature 99.6 F 04/10/21 10:55 Pulse Rate 112 H 04/10/21 10:55 Respiratory Rate 18 04/10/21 10:55 Blood Pressure 184/75 H 04/10/21 10:55 Pulse Oximetry 93 04/10/21 10:55 <Casper Mendoza DO - Last Filed: 04/11/21 19:51> Initial Vital Signs Initial Vital Signs: Vital Signs Temperature 99.6 F 04/10/21 10:55 Pulse Rate 112 H 04/10/21 10:55 Respiratory Rate 18 04/10/21 10:55 Blood Pressure 184/75 H 04/10/21 10:55 Pulse Oximetry 93 04/10/21 10:55 <Thang Alcaarz MD - Last Filed: 04/11/21 17:56> Initial Vital Signs Initial Vital Signs: Vital Signs Temperature 99.6 F 04/10/21 10:55 Pulse Rate 112 H 04/10/21 10:55 Respiratory Rate 18 04/10/21 10:55 Blood Pressure 184/75 H 04/10/21 10:55 Pulse Oximetry 93 04/10/21 10:55 Scores <Natasha Palomo DO - Last Filed: 04/18/21 18:11> GCS Elke coma scale eye opening: Spontaneous [place] coma scale verbal response: Orientated [place] coma scale motor response: Obey commands [place] coma scale total score: 15 <Casper Mendoza DO - Last Filed: 04/11/21 19:51> GCS Elke coma scale total score: 15 <Thang Alcaraz MD - Last Filed: 04/11/21 17:56> GCS [place] coma scale total score: 15 Course <Natasha Palomo DO - Last Filed: 04/18/21 18:11> Orders Ordered: Discontinued Medications Acetaminophen (Acetaminophen 325 Mg Tablet) 650 mg PO Q6HR PRN PRN Reason: Pain, Moderate (4-6) Last Admin: 04/12/21 05:21 Dose: 650 mg Documented by: PRINCE Acetaminophen (Acetaminophen 325 Mg Tablet) 650 mg PO Q6HR PRN PRN Reason: Fever/Mild Pain (1-3) Last Admin: 04/16/21 07:30 Dose: 650 mg Documented by: Admin: 04/15/21 19:37 Dose: 650 mg Documented by: Admin: 04/15/21 08:18 Dose: 650 mg Documented by: Admin: 04/15/21 00:06 Dose: 650 mg Documented by: Admin: 04/14/21 18:27 Dose: 650 mg Documented by: Admin: 04/14/21 05:33 Dose: 650 mg Documented by: Admin: 04/13/21 21:01 Dose: 650 mg Documented by: Admin: 04/13/21 01:22 Dose: 650 mg Documented by: Admin: 04/12/21 19:56 Dose: 650 mg Documented by: Admin: 04/12/21 09:17 Dose: 650 mg Documented by: PJ Alprazolam (Alprazolam 0.5 Mg Tablet) 0.5 mg PO Q12HR PRN PRN Reason: Anxiety Alprazolam (Alprazolam 0.5 Mg Tablet) 0.5 mg PO BID PRN PRN Reason: Anxiety Last Admin: 04/16/21 00:17 Dose: 0.5 mg Documented by: Admin: 04/14/21 21:08 Dose: 0.5 mg Documented by: Admin: 04/14/21 10:11 Dose: 0.5 mg Documented by: Admin: 04/13/21 05:26 Dose: 0.5 mg Documented by: Admin: 04/12/21 20:42 Dose: 0.5 mg Documented by: PRINCE Apixaban (Apixaban 5 Mg Tablet) 5 mg PO BID [facility] Last Admin: 04/16/21 09:20 Dose: 5 mg Documented by: CARMEN Aspirin (Aspirin 81 Mg Chew Tab) 324 mg PO NOW ONE Stop: 04/10/21 12:32 Last Admin: 04/10/21 12:47 Dose: 324 mg Documented by: BRUCE Aspirin (Aspirin 81 Mg Chew Tab) 324 mg PO DAILY [facility] Last Admin: 04/12/21 09:18 Dose: 324 mg Documented by: Admin: 04/11/21 08:34 Dose: 324 mg Documented by: RAVINDER Aspirin (Aspirin 81 Mg Chew Tab) 81 mg PO DAILY [facility] Last Admin: 04/16/21 09:21 Dose: 81 mg Documented by: Admin: 04/15/21 10:24 Dose: 81 mg Documented by: Admin: 04/14/21 09:38 Dose: 81 mg Documented by: Admin: 04/13/21 09:39 Dose: 81 mg Documented by: PJ Atorvastatin Calcium (Atorvastatin 20 Mg Tablet) 80 mg PO DAILY [facility] Last Admin: 04/10/21 20:44 Dose: 80 mg Documented by: BRUCE Atorvastatin Calcium (Atorvastatin 20 Mg Tablet) 80 mg PO BEDTIME [facility] Last Admin: 04/11/21 21:52 Dose: 80 mg Documented by: PRINCE Atorvastatin Calcium (Atorvastatin 20 Mg Tablet) 40 mg PO BEDTIME [facility] Last Admin: 04/15/21 20:33 Dose: 40 mg Documented by: Admin: 04/14/21 21:03 Dose: 40 mg Documented by: Admin: 04/13/21 21:01 Dose: 40 mg Documented by: Admin: 04/12/21 20:43 Dose: 40 mg Documented by: PRINCE Bisacodyl (Bisacodyl 10 Mg Supp) 10 mg AR DAILY PRN PRN Reason: Constipation Last Admin: 04/12/21 15:58 Dose: 10 mg Documented by: PJ Clopidogrel Bisulfate (Clopidogrel 75 Mg Tablet) 75 mg PO DAILY [facility] Last Admin: 04/16/21 09:21 Dose: 75 mg Documented by: Admin: 04/15/21 10:25 Dose: 75 mg Documented by: Admin: 04/14/21 09:37 Dose: 75 mg Documented by: Admin: 04/13/21 15:15 Dose: 75 mg Documented by: PJ Cyclobenzaprine HCl (Cyclobenzaprine 10 Mg Tablet) 5 mg PO Q8HR PRN PRN Reason: Muscle Pain Last Admin: 04/15/21 15:00 Dose: 5 mg Documented by: Admin: 04/15/21 00:26 Dose: 5 mg Documented by: NELSON Diltiazem HCl (Diltiazem 5 Mg/Ml Sdv) 10 mg IV NOW ONE Stop: 04/10/21 13:43 Last Admin: 04/10/21 14:11 Dose: 10 mg Documented by: BRUCE Fentanyl (Fentanyl 100 Mcg/2 Ml Inj) 25 mcg IV NOW ONE Stop: 04/10/21 16:35 Last Admin: 04/10/21 16:59 Dose: 25 mcg Documented by: ATAYLXIOMY Furosemide (Furosemide 40 Mg/4 Ml Vial) 40 mg IV NOW ONE Stop: 04/10/21 12:37 Last Admin: 04/10/21 12:47 Dose: 40 mg Documented by: ATAOLLIE Furosemide (Furosemide 40 Mg/4 Ml Vial) 40 mg IV BID [facility] Last Admin: 04/15/21 10:25 Dose: 40 mg Documented by: Admin: 04/14/21 21:03 Dose: 40 mg Documented by: Admin: 04/14/21 09:38 Dose: 40 mg Documented by: Admin: 04/13/21 21:01 Dose: 40 mg Documented by: Admin: 04/13/21 09:39 Dose: 40 mg Documented by: Admin: 04/12/21 20:42 Dose: 40 mg Documented by: Admin: 04/12/21 09:16 Dose: 40 mg Documented by: Admin: 04/11/21 21:52 Dose: 40 mg Documented by: Admin: 04/11/21 08:34 Dose: 40 mg Documented by: Admin: 04/10/21 20:45 Dose: 40 mg Documented by: ATAYLOR Heparin Sodium (Porcine) (Heparin 5,000 Unit/Ml Vial) 4,000 unit IV NOW ONE Stop: 04/10/21 14:37 Last Admin: 04/10/21 15:34 Dose: 4,000 unit Documented by: ATAYLOR Heparin Sodium (Porcine) (Heparin 5,000 Unit/Ml Vial) 3,000 unit IV NOW ONE Stop: 04/12/21 09:01 Last Admin: 04/12/21 09:17 Dose: 3,000 unit Documented by: CLEOPAR Sodium Chloride (Normal Saline 0.9%) 1,000 mls @ 1,000 mls/hr IV BOLUS ONE Stop: 04/10/21 12:05 Last Infusion: 04/10/21 12:20 Dose: 0 mls/hr Documented by: Admin: 04/10/21 12:03 Dose: 1,000 mls/hr Documented by: ATAYLOR Piperacillin Sod/Tazobactam (Sod 4.5 gm/ Sodium Chloride) 100 mls @ 200 mls/hr IV NOW ONE Stop: 04/10/21 11:25 Last Infusion: 04/10/21 13:20 Dose: 0 mls/hr Documented by: Admin: 04/10/21 12:46 Dose: 200 mls/hr Documented by: ATAYLOR Diltiazem HCl 125 mg/ Dextrose 125 mls @ 5 mls/hr IV TITRATE RIAZ; Protocol Last Titration: 04/11/21 03:04 Dose: 0 mg/hr, 0 mls/hr Documented by: Titration: 04/11/21 01:06 Dose: 5 mg/hr, 5 mls/hr Documented by: Titration: 04/10/21 15:28 Dose: 10 mg/hr, 10 mls/hr Documented by: Admin: 04/10/21 14:13 Dose: 5 mg/hr, 5 mls/hr Documented by: ATAYLOR Heparin Sodium/Dextrose (Heparin Drip) 25,000 unit in 500 mls @ 17.636 mls/hr IV CONT RIAZ; Protocol Stop: 04/13/21 14:44 Last Titration: 04/12/21 14:20 Dose: 7.89 units/kg/hr, 11.6 mls/hr Documented by: Admin: 04/12/21 05:24 Dose: 6.53 units/kg/hr, 9.6 mls/hr Documented by: Titration: 04/12/21 05:12 Dose: 6.53 units/kg/hr, 9.6 mls/hr Documented by: Titration: 04/12/21 02:09 Dose: 6.53 units/kg/hr, 9.6 mls/hr Documented by: Titration: 04/12/21 01:08 Dose: 0 units/kg/hr, 0 mls/hr Documented by: Titration: 04/11/21 17:52 Dose: 8.57 units/kg/hr, 12.6 mls/hr Documented by: Titration: 04/11/21 05:43 Dose: 9.25 units/kg/hr, 13.6 mls/hr Documented by: Titration: 04/10/21 23:56 Dose: 9.96 units/kg/hr, 14.636 mls/hr Documented by: Titration: 04/10/21 22:55 Dose: 0 units/kg/hr, 0 mls/hr Documented by: Admin: 04/10/21 15:35 Dose: 12 units/kg/hr, 17.636 mls/hr Documented by: ATAYLOR Piperacillin Sod/Tazobactam (Sod 4.5 gm/ Sodium Chloride) 100 mls @ 25 mls/hr IV Q8H [facility] Last Infusion: 04/11/21 09:11 Dose: 0 mls/hr Documented by: Admin: 04/11/21 04:58 Dose: 25 mls/hr Documented by: Infusion: 04/11/21 00:41 Dose: 0 mls/hr Documented by: Admin: 04/10/21 20:43 Dose: 25 mls/hr Documented by: ATAYLOR Piperacillin Sod/Tazobactam (Sod 3.375 gm/ Sodium Chloride) 100 mls @ 25 mls/hr IV Q8H [facility] Last Admin: 04/11/21 13:22 Dose: Not Given Documented by: DENNIS Ceftriaxone Sodium 1,000 mg/ (Sodium Chloride) 100 mls @ 200 mls/hr IV Q24H [facility] Last Infusion: 04/12/21 03:05 Dose: 0 mls/hr Documented by: Admin: 04/12/21 02:24 Dose: 200 mls/hr Documented by: PRINCE Sodium Chloride (Normal Saline 0.9%) 250 mls @ 21 mls/hr IV Q24H PRN PRN Reason: Flush Last Infusion: 04/12/21 15:20 Dose: 0 mls/hr Documented by: Admin: 04/12/21 02:29 Dose: 21 mls/hr Documented by: PRINCE Levothyroxine Sodium (Levothyroxine 88 Mcg Tablet) 88 mcg PO DAILY@0600 [facility] Levothyroxine Sodium (Levothyroxine 88 Mcg Tablet) 88 mcg PO QACBREAK [facility] Last Admin: 04/16/21 06:21 Dose: 88 mcg Documented by: Admin: 04/15/21 06:20 Dose: 88 mcg Documented by: Admin: 04/14/21 05:32 Dose: 88 mcg Documented by: Admin: 04/13/21 05:27 Dose: 88 mcg Documented by: Admin: 04/12/21 06:54 Dose: 88 mcg Documented by: PRINCE Lorazepam (Lorazepam 2 Mg/Ml Inj) 1 mg IV Q4HR PRN PRN Reason: Anxiety Last Admin: 04/16/21 09:50 Dose: 1 mg Documented by: CARMEN Losartan Potassium (Losartan 25 Mg Tablet) 25 mg PO DAILY [facility] Last Admin: 04/11/21 09:47 Dose: 25 mg Documented by: RYAN Losartan Potassium (Losartan 25 Mg Tablet) 25 mg PO DAILY [facility] Last Admin: 04/16/21 09:21 Dose: 25 mg Documented by: Admin: 04/15/21 10:24 Dose: 25 mg Documented by: Admin: 04/14/21 09:38 Dose: 25 mg Documented by: Admin: 04/13/21 15:13 Dose: Not Given Documented by: Admin: 04/12/21 15:03 Dose: 25 mg Documented by: PJ Metoprolol Succinate (Metoprolol Er 25 Mg Tablet) 25 mg PO DAILY [facility] Last Admin: 04/11/21 09:47 Dose: 25 mg Documented by: RYAN Metoprolol Succinate (Metoprolol Er 25 Mg Tablet) 25 mg PO DAILY [facility] Last Admin: 04/16/21 09:21 Dose: 25 mg Documented by: Admin: 04/15/21 10:39 Dose: Not Given Documented by: Admin: 04/14/21 09:38 Dose: 25 mg Documented by: Admin: 04/13/21 13:12 Dose: 25 mg Documented by: Admin: 04/12/21 09:38 Dose: 25 mg Documented by: PJ Naloxone HCl (Naloxone 0.4 Mg/Ml Vial) 0.2 mg IV Q2MIN PRN PRN Reason: Opiate Reversal Nitroglycerin (Nitroglycerin 0.3 Mg Sl Tab) 0.3 mg SL NOW ONE Stop: 04/13/21 00:58 Last Admin: 04/13/21 01:15 Dose: Not Given Documented by: PRINCE Nitroglycerin (Nitroglycerin 0.4 Mg Sl Tab) 0.4 mg SL NOW ONE Stop: 04/13/21 01:10 Last Admin: 04/13/21 01:41 Dose: Not Given Documented by: PRINCE Ondansetron HCl (Ondansetron 4 Mg/2 Ml Inj) 4 mg IV Q8HR PRN PRN Reason: Nausea And Vomiting Last Admin: 04/12/21 09:16 Dose: 4 mg Documented by: Admin: 04/11/21 21:14 Dose: 4 mg Documented by: LIZ Ondansetron HCl (Ondansetron 4 Mg Odt) 4 mg SL Q4HR PRN PRN Reason: Nausea Last Admin: 04/13/21 04:56 Dose: 4 mg Documented by: PRINCE Oxycodone/Acetaminophen (Oxycodone/Acetaminophen 5/325 Tablet) 1 tab PO Q12HR PRN PRN Reason: Pain, Severe (7-10) Last Admin: 04/11/21 09:46 Dose: 1 tab Documented by: RYAN Oxycodone/Acetaminophen (Oxycodone/Acetaminophen 5/325 Tablet) 1 tab PO BID PRN PRN Reason: Pain (Scale Score 7-10) Pantoprazole Sodium (Pantoprazole Dr 20 Mg Tablet) 20 mg PO DAILY [facility] Last Admin: 04/11/21 09:03 Dose: 20 mg Documented by: RAVINDER Pantoprazole Sodium (Pantoprazole Dr 20 Mg Tablet) 20 mg PO 0600 [facility] Last Admin: 04/16/21 06:21 Dose: 20 mg Documented by: Admin: 04/15/21 06:20 Dose: 20 mg Documented by: Admin: 04/14/21 05:33 Dose: 20 mg Documented by: Admin: 04/13/21 05:27 Dose: 20 mg Documented by: Admin: 04/12/21 06:54 Dose: 20 mg Documented by: PRINCE Polyethylene Glycol (Polyethylene Glycol 3350 17 Gm Powd.Pack) 17 gm PO BID [facility] Last Admin: 04/16/21 09:22 Dose: 17 gm Documented by: Admin: 04/15/21 20:34 Dose: Not Given Documented by: Admin: 04/15/21 08:19 Dose: Not Given Documented by: Admin: 04/14/21 21:02 Dose: 17 gm Documented by: Admin: 04/14/21 09:39 Dose: 17 gm Documented by: Admin: 04/13/21 21:00 Dose: 17 gm Documented by: Admin: 04/13/21 09:40 Dose: Not Given Documented by: Admin: 04/12/21 20:42 Dose: 17 gm Documented by: Admin: 04/12/21 09:16 Dose: 17 gm Documented by: PJ Potassium Chloride (Potassium Chloride 20 Meq Tab) 40 meq PO Q6H [facility] Stop: 04/12/21 18:46 Last Admin: 04/12/21 15:21 Dose: Not Given Documented by: PJ Potassium Chloride (Potassium Chloride 20 Meq Tab) 40 meq PO Q6H [facility] Stop: 04/12/21 20:46 Last Admin: 04/12/21 20:44 Dose: 40 meq Documented by: Admin: 04/12/21 15:03 Dose: 40 meq Documented by: PJ Prednisone (Prednisone 20 Mg Tablet) 5 mg PO DAILY [facility] Last Admin: 04/11/21 09:04 Dose: 5 mg Documented by: RAVINDER Prednisone (Prednisone 5 Mg Tablet) 5 mg PO DAILY [facility] Last Admin: 04/16/21 09:20 Dose: 5 mg Documented by: Admin: 04/15/21 10:29 Dose: 5 mg Documented by: Admin: 04/14/21 09:37 Dose: 5 mg Documented by: Admin: 04/13/21 09:39 Dose: 5 mg Documented by: Admin: 04/12/21 09:21 Dose: 5 mg Documented by: PJ Sennosides (Sennosides 8.6 Mg Tablet) 17.2 mg PO BEDTIME [facility] Admin: 04/15/21 20:34 Dose: Not Given Documented by: Admin: 04/14/21 21:03 Dose: 17.2 mg Documented by: Admin: 04/13/21 21:00 Dose: 17.2 mg Documented by: Admin: 04/12/21 20:43 Dose: 17.2 mg Documented by: Admin: 04/11/21 21:52 Dose: 17.2 mg Documented by: PRINCE Sodium Chloride (Sodium Chloride 0.9% Flush) 10 ml IV PRN PRN PRN Reason: Flush Last Admin: 04/12/21 02:25 Dose: 10 ml Documented by: PRINCE Sodium Chloride (Sodium Chloride 0.9% Flush) 10 ml IV BID [facility] Admin: 04/16/21 09:22 Dose: 10 ml Documented by: Admin: 04/15/21 20:34 Dose: 10 ml Documented by: Admin: 04/15/21 10:29 Dose: 10 ml Documented by: Admin: 04/14/21 21:54 Dose: 10 ml Documented by: Admin: 04/14/21 09:39 Dose: 10 ml Documented by: Admin: 04/13/21 21:01 Dose: 10 ml Documented by: Admin: 04/13/21 09:40 Dose: 10 ml Documented by: Admin: 04/12/21 20:44 Dose: 10 ml Documented by: Admin: 04/12/21 09:21 Dose: 10 ml Documented by: Admin: 04/11/21 21:52 Dose: 10 ml Documented by: PRINCE Warfarin Sodium (Warfarin 5 Mg Tablet) 2.5 mg PO DAILY@1700 RIAZ Last Admin: 04/15/21 18:43 Dose: 2.5 mg Documented by: Admin: 04/14/21 16:49 Dose: 2.5 mg Documented by: ALEK Reevaluation(s) Reevaluation #1: Patient and a reviewed her findings today. Plan for CT angio. She positive troponin, she has AFib RVR may be demand ischemia but she has also complained of some suprapubic and right hip pain. With her hypoxia, hip pain and cardiac enzyme changes CT angio was obtained. Patient asked me to speak with her but she states at this time she is full code at least for a day or 2 temporizing she does not wish to be intubated for a prolonged period of time we discussed being transferred for potential cardiology intervention. Reevaluation #2: Reviewed patient's findings. I also spoke with her . They are both in accordance that she would wish to be full code at this time at least for a short period time would be open to intubation. She is reluctant to be transferred but is open to potential cardiac intervention. Consultations Consultation #1: Spoke with Dr. Johnson, recommends aspirin, heparin, diltaizem drip for rate control and transfer for cardiac evaluation if beds at [facility] or other facility. Consultation #2: Spoke with Dr. Hunt, secretarial teacher at [facility] [employer]. Will review with cardiology attending and recontact. Vital Signs Vital signs: Vital Signs - 8 hr 04/11/21 09:55 04/11/21 12:16 04/11/21 14:03 Pulse Rate 91 H 80 83 Respiratory Rate 16 18 Blood Pressure 132/64 110/55 L Blood Pressure [Right Arm] 125/60 Pulse Oximetry 98 93 94 <Casper Mendoza, DO - Last Filed: 04/11/21 19:51> Orders Ordered: Discontinued Medications Acetaminophen (Acetaminophen 325 Mg Tablet) 650 mg PO Q6HR PRN PRN Reason: Pain, Moderate (4-6) Last Admin: 04/12/21 05:21 Dose: 650 mg Documented by: PRINCE Acetaminophen (Acetaminophen 325 Mg Tablet) 650 mg PO Q6HR PRN PRN Reason: Fever/Mild Pain (1-3) Last Admin: 04/16/21 07:30 Dose: 650 mg Documented by: Admin: 04/15/21 19:37 Dose: 650 mg Documented by: Admin: 04/15/21 08:18 Dose: 650 mg Documented by: Admin: 04/15/21 00:06 Dose: 650 mg Documented by: Admin: 04/14/21 18:27 Dose: 650 mg Documented by: Admin: 04/14/21 05:33 Dose: 650 mg Documented by: Admin: 04/13/21 21:01 Dose: 650 mg Documented by: Admin: 04/13/21 01:22 Dose: 650 mg Documented by: Admin: 04/12/21 19:56 Dose: 650 mg Documented by: Admin: 04/12/21 09:17 Dose: 650 mg Documented by: PJ Alprazolam (Alprazolam 0.5 Mg Tablet) 0.5 mg PO Q12HR PRN PRN Reason: Anxiety Alprazolam (Alprazolam 0.5 Mg Tablet) 0.5 mg PO BID PRN PRN Reason: Anxiety Last Admin: 04/16/21 00:17 Dose: 0.5 mg Documented by: Admin: 04/14/21 21:08 Dose: 0.5 mg Documented by: Admin: 04/14/21 10:11 Dose: 0.5 mg Documented by: Admin: 04/13/21 05:26 Dose: 0.5 mg Documented by: Admin: 04/12/21 20:42 Dose: 0.5 mg Documented by: PRINCE Apixaban (Apixaban 5 Mg Tablet) 5 mg PO BID [facility] Last Admin: 04/16/21 09:20 Dose: 5 mg Documented by: CARMEN Aspirin (Aspirin 81 Mg Chew Tab) 324 mg PO NOW ONE Stop: 04/10/21 12:32 Last Admin: 04/10/21 12:47 Dose: 324 mg Documented by: BRUCE Aspirin (Aspirin 81 Mg Chew Tab) 324 mg PO DAILY [facility] Last Admin: 04/12/21 09:18 Dose: 324 mg Documented by: Admin: 04/11/21 08:34 Dose: 324 mg Documented by: RAVINDER Aspirin (Aspirin 81 Mg Chew Tab) 81 mg PO DAILY [facility] Last Admin: 04/16/21 09:21 Dose: 81 mg Documented by: Admin: 04/15/21 10:24 Dose: 81 mg Documented by: Admin: 04/14/21 09:38 Dose: 81 mg Documented by: Admin: 04/13/21 09:39 Dose: 81 mg Documented by: PJ Atorvastatin Calcium (Atorvastatin 20 Mg Tablet) 80 mg PO DAILY [facility] Last Admin: 04/10/21 20:44 Dose: 80 mg Documented by: BRUCE Atorvastatin Calcium (Atorvastatin 20 Mg Tablet) 80 mg PO BEDTIME [facility] Last Admin: 04/11/21 21:52 Dose: 80 mg Documented by: PRINCE Atorvastatin Calcium (Atorvastatin 20 Mg Tablet) 40 mg PO BEDTIME [facility] Last Admin: 04/15/21 20:33 Dose: 40 mg Documented by: Admin: 04/14/21 21:03 Dose: 40 mg Documented by: Admin: 04/13/21 21:01 Dose: 40 mg Documented by: Admin: 04/12/21 20:43 Dose: 40 mg Documented by: PRINCE Bisacodyl (Bisacodyl 10 Mg Supp) 10 mg AR DAILY PRN PRN Reason: Constipation Last Admin: 04/12/21 15:58 Dose: 10 mg Documented by: PJ Clopidogrel Bisulfate (Clopidogrel 75 Mg Tablet) 75 mg PO DAILY [facility] Last Admin: 04/16/21 09:21 Dose: 75 mg Documented by: Admin: 04/15/21 10:25 Dose: 75 mg Documented by: Admin: 04/14/21 09:37 Dose: 75 mg Documented by: Admin: 04/13/21 15:15 Dose: 75 mg Documented by: PJ Cyclobenzaprine HCl (Cyclobenzaprine 10 Mg Tablet) 5 mg PO Q8HR PRN PRN Reason: Muscle Pain Last Admin: 04/15/21 15:00 Dose: 5 mg Documented by: Admin: 04/15/21 00:26 Dose: 5 mg Documented by: NELSON Diltiazem HCl (Diltiazem 5 Mg/Ml Sdv) 10 mg IV NOW ONE Stop: 04/10/21 13:43 Last Admin: 04/10/21 14:11 Dose: 10 mg Documented by: BRUCE Fentanyl (Fentanyl 100 Mcg/2 Ml Inj) 25 mcg IV NOW ONE Stop: 04/10/21 16:35 Last Admin: 04/10/21 16:59 Dose: 25 mcg Documented by: BRUCE Furosemide (Furosemide 40 Mg/4 Ml Vial) 40 mg IV NOW ONE Stop: 04/10/21 12:37 Last Admin: 04/10/21 12:47 Dose: 40 mg Documented by: BRUCE Furosemide (Furosemide 40 Mg/4 Ml Vial) 40 mg IV BID RIAZ Last Admin: 04/15/21 10:25 Dose: 40 mg Documented by: Admin: 04/14/21 21:03 Dose: 40 mg Documented by: Admin: 04/14/21 09:38 Dose: 40 mg Documented by: Admin: 04/13/21 21:01 Dose: 40 mg Documented by: Admin: 04/13/21 09:39 Dose: 40 mg Documented by: Admin: 04/12/21 20:42 Dose: 40 mg Documented by: Admin: 04/12/21 09:16 Dose: 40 mg Documented by: Admin: 04/11/21 21:52 Dose: 40 mg Documented by: Admin: 04/11/21 08:34 Dose: 40 mg Documented by: Admin: 04/10/21 20:45 Dose: 40 mg Documented by: BRUCE Heparin Sodium (Porcine) (Heparin 5,000 Unit/Ml Vial) 4,000 unit IV NOW ONE Stop: 04/10/21 14:37 Last Admin: 04/10/21 15:34 Dose: 4,000 unit Documented by: BRUCE Heparin Sodium (Porcine) (Heparin 5,000 Unit/Ml Vial) 3,000 unit IV NOW ONE Stop: 04/12/21 09:01 Last Admin: 04/12/21 09:17 Dose: 3,000 unit Documented by: PJ Sodium Chloride (Normal Saline 0.9%) 1,000 mls @ 1,000 mls/hr IV BOLUS ONE Stop: 04/10/21 12:05 Last Infusion: 04/10/21 12:20 Dose: 0 mls/hr Documented by: Admin: 04/10/21 12:03 Dose: 1,000 mls/hr Documented by: BRUCE Piperacillin Sod/Tazobactam (Sod 4.5 gm/ Sodium Chloride) 100 mls @ 200 mls/hr IV NOW ONE Stop: 04/10/21 11:25 Last Infusion: 04/10/21 13:20 Dose: 0 mls/hr Documented by: Admin: 04/10/21 12:46 Dose: 200 mls/hr Documented by: ATAYLOR Diltiazem HCl 125 mg/ Dextrose 125 mls @ 5 mls/hr IV TITRATE RIAZ; Protocol Last Titration: 04/11/21 03:04 Dose: 0 mg/hr, 0 mls/hr Documented by: Titration: 04/11/21 01:06 Dose: 5 mg/hr, 5 mls/hr Documented by: Titration: 04/10/21 15:28 Dose: 10 mg/hr, 10 mls/hr Documented by: Admin: 04/10/21 14:13 Dose: 5 mg/hr, 5 mls/hr Documented by: ATAYLOR Heparin Sodium/Dextrose (Heparin Drip) 25,000 unit in 500 mls @ 17.636 mls/hr IV CONT RIAZ; Protocol Stop: 04/13/21 14:44 Last Titration: 04/12/21 14:20 Dose: 7.89 units/kg/hr, 11.6 mls/hr Documented by: Admin: 04/12/21 05:24 Dose: 6.53 units/kg/hr, 9.6 mls/hr Documented by: Titration: 04/12/21 05:12 Dose: 6.53 units/kg/hr, 9.6 mls/hr Documented by: Titration: 04/12/21 02:09 Dose: 6.53 units/kg/hr, 9.6 mls/hr Documented by: Titration: 04/12/21 01:08 Dose: 0 units/kg/hr, 0 mls/hr Documented by: Titration: 04/11/21 17:52 Dose: 8.57 units/kg/hr, 12.6 mls/hr Documented by: Titration: 04/11/21 05:43 Dose: 9.25 units/kg/hr, 13.6 mls/hr Documented by: Titration: 04/10/21 23:56 Dose: 9.96 units/kg/hr, 14.636 mls/hr Documented by: Titration: 04/10/21 22:55 Dose: 0 units/kg/hr, 0 mls/hr Documented by: Admin: 04/10/21 15:35 Dose: 12 units/kg/hr, 17.636 mls/hr Documented by: ATAYLOR Piperacillin Sod/Tazobactam (Sod 4.5 gm/ Sodium Chloride) 100 mls @ 25 mls/hr IV Q8H [facility] Last Infusion: 04/11/21 09:11 Dose: 0 mls/hr Documented by: Admin: 04/11/21 04:58 Dose: 25 mls/hr Documented by: Infusion: 04/11/21 00:41 Dose: 0 mls/hr Documented by: Admin: 04/10/21 20:43 Dose: 25 mls/hr Documented by: JADEYLOR Piperacillin Sod/Tazobactam (Sod 3.375 gm/ Sodium Chloride) 100 mls @ 25 mls/hr IV Q8H [facility] Last Admin: 04/11/21 13:22 Dose: Not Given Documented by: DENNIS Ceftriaxone Sodium 1,000 mg/ (Sodium Chloride) 100 mls @ 200 mls/hr IV Q24H [facility] Last Infusion: 04/12/21 03:05 Dose: 0 mls/hr Documented by: Admin: 04/12/21 02:24 Dose: 200 mls/hr Documented by: PRINCE Sodium Chloride (Normal Saline 0.9%) 250 mls @ 21 mls/hr IV Q24H PRN PRN Reason: Flush Last Infusion: 04/12/21 15:20 Dose: 0 mls/hr Documented by: Admin: 04/12/21 02:29 Dose: 21 mls/hr Documented by: PRINCE Levothyroxine Sodium (Levothyroxine 88 Mcg Tablet) 88 mcg PO DAILY@0600 [facility] Levothyroxine Sodium (Levothyroxine 88 Mcg Tablet) 88 mcg PO QACBREAK [facility] Last Admin: 04/16/21 06:21 Dose: 88 mcg Documented by: Admin: 04/15/21 06:20 Dose: 88 mcg Documented by: Admin: 04/14/21 05:32 Dose: 88 mcg Documented by: Admin: 04/13/21 05:27 Dose: 88 mcg Documented by: Admin: 04/12/21 06:54 Dose: 88 mcg Documented by: PRINCE Lorazepam (Lorazepam 2 Mg/Ml Inj) 1 mg IV Q4HR PRN PRN Reason: Anxiety Last Admin: 04/16/21 09:50 Dose: 1 mg Documented by: CARMEN Losartan Potassium (Losartan 25 Mg Tablet) 25 mg PO DAILY [facility] Last Admin: 04/11/21 09:47 Dose: 25 mg Documented by: RYAN Losartan Potassium (Losartan 25 Mg Tablet) 25 mg PO DAILY [facility] Last Admin: 04/16/21 09:21 Dose: 25 mg Documented by: Admin: 04/15/21 10:24 Dose: 25 mg Documented by: Admin: 04/14/21 09:38 Dose: 25 mg Documented by: Admin: 04/13/21 15:13 Dose: Not Given Documented by: Admin: 04/12/21 15:03 Dose: 25 mg Documented by: PJ Metoprolol Succinate (Metoprolol Er 25 Mg Tablet) 25 mg PO DAILY [facility] Last Admin: 04/11/21 09:47 Dose: 25 mg Documented by: RYAN Metoprolol Succinate (Metoprolol Er 25 Mg Tablet) 25 mg PO DAILY [facility] Last Admin: 04/16/21 09:21 Dose: 25 mg Documented by: Admin: 04/15/21 10:39 Dose: Not Given Documented by: Admin: 04/14/21 09:38 Dose: 25 mg Documented by: Admin: 04/13/21 13:12 Dose: 25 mg Documented by: Admin: 04/12/21 09:38 Dose: 25 mg Documented by: PJ Naloxone HCl (Naloxone 0.4 Mg/Ml Vial) 0.2 mg IV Q2MIN PRN PRN Reason: Opiate Reversal Nitroglycerin (Nitroglycerin 0.3 Mg Sl Tab) 0.3 mg SL NOW ONE Stop: 04/13/21 00:58 Last Admin: 04/13/21 01:15 Dose: Not Given Documented by: PRINCE Nitroglycerin (Nitroglycerin 0.4 Mg Sl Tab) 0.4 mg SL NOW ONE Stop: 04/13/21 01:10 Last Admin: 04/13/21 01:41 Dose: Not Given Documented by: PRINCE Ondansetron HCl (Ondansetron 4 Mg/2 Ml Inj) 4 mg IV Q8HR PRN PRN Reason: Nausea And Vomiting Last Admin: 04/12/21 09:16 Dose: 4 mg Documented by: Admin: 04/11/21 21:14 Dose: 4 mg Documented by: LIZ Ondansetron HCl (Ondansetron 4 Mg Odt) 4 mg SL Q4HR PRN PRN Reason: Nausea Last Admin: 04/13/21 04:56 Dose: 4 mg Documented by: PRINCE Oxycodone/Acetaminophen (Oxycodone/Acetaminophen 5/325 Tablet) 1 tab PO Q12HR PRN PRN Reason: Pain, Severe (7-10) Last Admin: 04/11/21 09:46 Dose: 1 tab Documented by: RYAN Oxycodone/Acetaminophen (Oxycodone/Acetaminophen 5/325 Tablet) 1 tab PO BID PRN PRN Reason: Pain (Scale Score 7-10) Pantoprazole Sodium (Pantoprazole Dr 20 Mg Tablet) 20 mg PO DAILY [facility] Last Admin: 04/11/21 09:03 Dose: 20 mg Documented by: RAVINDER Pantoprazole Sodium (Pantoprazole Dr 20 Mg Tablet) 20 mg PO 0600 [facility] Last Admin: 04/16/21 06:21 Dose: 20 mg Documented by: Admin: 04/15/21 06:20 Dose: 20 mg Documented by: Admin: 04/14/21 05:33 Dose: 20 mg Documented by: Admin: 04/13/21 05:27 Dose: 20 mg Documented by: Admin: 04/12/21 06:54 Dose: 20 mg Documented by: PRINCE Polyethylene Glycol (Polyethylene Glycol 3350 17 Gm Powd.Pack) 17 gm PO BID [facility] Last Admin: 04/16/21 09:22 Dose: 17 gm Documented by: Admin: 04/15/21 20:34 Dose: Not Given Documented by: Admin: 04/15/21 08:19 Dose: Not Given Documented by: Admin: 04/14/21 21:02 Dose: 17 gm Documented by: Admin: 04/14/21 09:39 Dose: 17 gm Documented by: Admin: 04/13/21 21:00 Dose: 17 gm Documented by: Admin: 04/13/21 09:40 Dose: Not Given Documented by: Admin: 04/12/21 20:42 Dose: 17 gm Documented by: Admin: 04/12/21 09:16 Dose: 17 gm Documented by: PJ Potassium Chloride (Potassium Chloride 20 Meq Tab) 40 meq PO Q6H RIAZ Stop: 04/12/21 18:46 Last Admin: 04/12/21 15:21 Dose: Not Given Documented by: PJ Potassium Chloride (Potassium Chloride 20 Meq Tab) 40 meq PO Q6H [facility] Stop: 04/12/21 20:46 Last Admin: 04/12/21 20:44 Dose: 40 meq Documented by: Admin: 04/12/21 15:03 Dose: 40 meq Documented by: PJ Prednisone (Prednisone 20 Mg Tablet) 5 mg PO DAILY [facility] Last Admin: 04/11/21 09:04 Dose: 5 mg Documented by: RAVINDER Prednisone (Prednisone 5 Mg Tablet) 5 mg PO DAILY [facility] Last Admin: 04/16/21 09:20 Dose: 5 mg Documented by: Admin: 04/15/21 10:29 Dose: 5 mg Documented by: Admin: 04/14/21 09:37 Dose: 5 mg Documented by: Admin: 04/13/21 09:39 Dose: 5 mg Documented by: Admin: 04/12/21 09:21 Dose: 5 mg Documented by: PJ Sennosides (Sennosides 8.6 Mg Tablet) 17.2 mg PO BEDTIME [facility] Last Admin: 04/15/21 20:34 Dose: Not Given Documented by: Admin: 04/14/21 21:03 Dose: 17.2 mg Documented by: Admin: 04/13/21 21:00 Dose: 17.2 mg Documented by: Admin: 04/12/21 20:43 Dose: 17.2 mg Documented by: Admin: 04/11/21 21:52 Dose: 17.2 mg Documented by: PRINCE Sodium Chloride (Sodium Chloride 0.9% Flush) 10 ml IV PRN PRN PRN Reason: Flush Last Admin: 04/12/21 02:25 Dose: 10 ml Documented by: PRINCE Sodium Chloride (Sodium Chloride 0.9% Flush) 10 ml IV BID [facility] Last Admin: 04/16/21 09:22 Dose: 10 ml Documented by: Admin: 04/15/21 20:34 Dose: 10 ml Documented by: Admin: 04/15/21 10:29 Dose: 10 ml Documented by: Admin: 04/14/21 21:54 Dose: 10 ml Documented by: Admin: 04/14/21 09:39 Dose: 10 ml Documented by: Admin: 04/13/21 21:01 Dose: 10 ml Documented by: Admin: 04/13/21 09:40 Dose: 10 ml Documented by: Admin: 04/12/21 20:44 Dose: 10 ml Documented by: Admin: 04/12/21 09:21 Dose: 10 ml Documented by: Admin: 04/11/21 21:52 Dose: 10 ml Documented by: PRINCE Warfarin Sodium (Warfarin 5 Mg Tablet) 2.5 mg PO DAILY@1700 [facility] Last Admin: 04/15/21 18:43 Dose: 2.5 mg Documented by: Admin: 04/14/21 16:49 Dose: 2.5 mg Documented by: ALEK Vital Signs Vital signs: Vital Signs - 8 hr 04/11/21 09:55 04/11/21 12:16 04/11/21 14:03 Pulse Rate 91 H 80 83 Respiratory Rate 16 18 Blood Pressure 132/64 110/55 L Blood Pressure [Right Arm] 125/60 Pulse Oximetry 98 93 94 <Thang Alcaraz MD - Last Filed: 04/11/21 17:56> Orders Ordered: Discontinued Medications Acetaminophen (Acetaminophen 325 Mg Tablet) 650 mg PO Q6HR PRN PRN Reason: Pain, Moderate (4-6) Last Admin: 04/12/21 05:21 Dose: 650 mg Documented by: PRINCE Acetaminophen (Acetaminophen 325 Mg Tablet) 650 mg PO Q6HR PRN PRN Reason: Fever/Mild Pain (1-3) Last Admin: 04/16/21 07:30 Dose: 650 mg Documented by: Admin: 04/15/21 19:37 Dose: 650 mg Documented by: Admin: 04/15/21 08:18 Dose: 650 mg Documented by: Admin: 04/15/21 00:06 Dose: 650 mg Documented by: Admin: 04/14/21 18:27 Dose: 650 mg Documented by: Admin: 04/14/21 05:33 Dose: 650 mg Documented by: Admin: 04/13/21 21:01 Dose: 650 mg Documented by: Admin: 04/13/21 01:22 Dose: 650 mg Documented by: Admin: 04/12/21 19:56 Dose: 650 mg Documented by: Admin: 04/12/21 09:17 Dose: 650 mg Documented by: PJ Alprazolam (Alprazolam 0.5 Mg Tablet) 0.5 mg PO Q12HR PRN PRN Reason: Anxiety Alprazolam (Alprazolam 0.5 Mg Tablet) 0.5 mg PO BID PRN PRN Reason: Anxiety Last Admin: 04/16/21 00:17 Dose: 0.5 mg Documented by: Admin: 04/14/21 21:08 Dose: 0.5 mg Documented by: Admin: 04/14/21 10:11 Dose: 0.5 mg Documented by: Admin: 04/13/21 05:26 Dose: 0.5 mg Documented by: Admin: 04/12/21 20:42 Dose: 0.5 mg Documented by: PRINCE Apixaban (Apixaban 5 Mg Tablet) 5 mg PO BID [facility] Last Admin: 04/16/21 09:20 Dose: 5 mg Documented by: CARMEN Aspirin (Aspirin 81 Mg Chew Tab) 324 mg PO NOW ONE Stop: 04/10/21 12:32 Last Admin: 04/10/21 12:47 Dose: 324 mg Documented by: BRUCE Aspirin (Aspirin 81 Mg Chew Tab) 324 mg PO DAILY [facility] Last Admin: 04/12/21 09:18 Dose: 324 mg Documented by: Admin: 04/11/21 08:34 Dose: 324 mg Documented by: RAVINDER Aspirin (Aspirin 81 Mg Chew Tab) 81 mg PO DAILY [facility] Last Admin: 04/16/21 09:21 Dose: 81 mg Documented by: Admin: 04/15/21 10:24 Dose: 81 mg Documented by: Admin: 04/14/21 09:38 Dose: 81 mg Documented by: Admin: 04/13/21 09:39 Dose: 81 mg Documented by: PJ Atorvastatin Calcium (Atorvastatin 20 Mg Tablet) 80 mg PO DAILY [facility] Last Admin: 04/10/21 20:44 Dose: 80 mg Documented by: BRUCE Atorvastatin Calcium (Atorvastatin 20 Mg Tablet) 80 mg PO BEDTIME [facility] Last Admin: 04/11/21 21:52 Dose: 80 mg Documented by: PRINCE Atorvastatin Calcium (Atorvastatin 20 Mg Tablet) 40 mg PO BEDTIME [facility] Last Admin: 04/15/21 20:33 Dose: 40 mg Documented by: Admin: 04/14/21 21:03 Dose: 40 mg Documented by: Admin: 04/13/21 21:01 Dose: 40 mg Documented by: Admin: 04/12/21 20:43 Dose: 40 mg Documented by: PRINCE Bisacodyl (Bisacodyl 10 Mg Supp) 10 mg AR DAILY PRN PRN Reason: Constipation Last Admin: 04/12/21 15:58 Dose: 10 mg Documented by: PJ Clopidogrel Bisulfate (Clopidogrel 75 Mg Tablet) 75 mg PO DAILY [facility] Last Admin: 04/16/21 09:21 Dose: 75 mg Documented by: Admin: 04/15/21 10:25 Dose: 75 mg Documented by: Admin: 04/14/21 09:37 Dose: 75 mg Documented by: Admin: 04/13/21 15:15 Dose: 75 mg Documented by: PJ Cyclobenzaprine HCl (Cyclobenzaprine 10 Mg Tablet) 5 mg PO Q8HR PRN PRN Reason: Muscle Pain Last Admin: 04/15/21 15:00 Dose: 5 mg Documented by: Admin: 04/15/21 00:26 Dose: 5 mg Documented by: NELSON Diltiazem HCl (Diltiazem 5 Mg/Ml Sdv) 10 mg IV NOW ONE Stop: 04/10/21 13:43 Last Admin: 04/10/21 14:11 Dose: 10 mg Documented by: BRUCE Fentanyl (Fentanyl 100 Mcg/2 Ml Inj) 25 mcg IV NOW ONE Stop: 04/10/21 16:35 Last Admin: 04/10/21 16:59 Dose: 25 mcg Documented by: BRUCE Furosemide (Furosemide 40 Mg/4 Ml Vial) 40 mg IV NOW ONE Stop: 04/10/21 12:37 Last Admin: 04/10/21 12:47 Dose: 40 mg Documented by: BRUCE Furosemide (Furosemide 40 Mg/4 Ml Vial) 40 mg IV BID RIAZ Last Admin: 04/15/21 10:25 Dose: 40 mg Documented by: Admin: 04/14/21 21:03 Dose: 40 mg Documented by: Admin: 04/14/21 09:38 Dose: 40 mg Documented by: Admin: 04/13/21 21:01 Dose: 40 mg Documented by: Admin: 04/13/21 09:39 Dose: 40 mg Documented by: Admin: 04/12/21 20:42 Dose: 40 mg Documented by: Admin: 04/12/21 09:16 Dose: 40 mg Documented by: Admin: 04/11/21 21:52 Dose: 40 mg Documented by: Admin: 04/11/21 08:34 Dose: 40 mg Documented by: Admin: 04/10/21 20:45 Dose: 40 mg Documented by: BRUCE Heparin Sodium (Porcine) (Heparin 5,000 Unit/Ml Vial) 4,000 unit IV NOW ONE Stop: 04/10/21 14:37 Last Admin: 04/10/21 15:34 Dose: 4,000 unit Documented by: JADEYLXIOMY Heparin Sodium (Porcine) (Heparin 5,000 Unit/Ml Vial) 3,000 unit IV NOW ONE Stop: 04/12/21 09:01 Last Admin: 04/12/21 09:17 Dose: 3,000 unit Documented by: PJ Sodium Chloride (Normal Saline 0.9%) 1,000 mls @ 1,000 mls/hr IV BOLUS ONE Stop: 04/10/21 12:05 Last Infusion: 04/10/21 12:20 Dose: 0 mls/hr Documented by: Admin: 04/10/21 12:03 Dose: 1,000 mls/hr Documented by: BRUCE Piperacillin Sod/Tazobactam (Sod 4.5 gm/ Sodium Chloride) 100 mls @ 200 mls/hr IV NOW ONE Stop: 04/10/21 11:25 Last Infusion: 04/10/21 13:20 Dose: 0 mls/hr Documented by: Admin: 04/10/21 12:46 Dose: 200 mls/hr Documented by: ATAYLOR Diltiazem HCl 125 mg/ Dextrose 125 mls @ 5 mls/hr IV TITRATE RIAZ; Protocol Last Titration: 04/11/21 03:04 Dose: 0 mg/hr, 0 mls/hr Documented by: Titration: 04/11/21 01:06 Dose: 5 mg/hr, 5 mls/hr Documented by: Titration: 04/10/21 15:28 Dose: 10 mg/hr, 10 mls/hr Documented by: Admin: 04/10/21 14:13 Dose: 5 mg/hr, 5 mls/hr Documented by: ATAYLOR Heparin Sodium/Dextrose (Heparin Drip) 25,000 unit in 500 mls @ 17.636 mls/hr IV CONT RIAZ; Protocol Stop: 04/13/21 14:44 Last Titration: 04/12/21 14:20 Dose: 7.89 units/kg/hr, 11.6 mls/hr Documented by: Admin: 04/12/21 05:24 Dose: 6.53 units/kg/hr, 9.6 mls/hr Documented by: Titration: 04/12/21 05:12 Dose: 6.53 units/kg/hr, 9.6 mls/hr Documented by: Titration: 04/12/21 02:09 Dose: 6.53 units/kg/hr, 9.6 mls/hr Documented by: Titration: 04/12/21 01:08 Dose: 0 units/kg/hr, 0 mls/hr Documented by: Titration: 04/11/21 17:52 Dose: 8.57 units/kg/hr, 12.6 mls/hr Documented by: Titration: 04/11/21 05:43 Dose: 9.25 units/kg/hr, 13.6 mls/hr Documented by: Titration: 04/10/21 23:56 Dose: 9.96 units/kg/hr, 14.636 mls/hr Documented by: Titration: 04/10/21 22:55 Dose: 0 units/kg/hr, 0 mls/hr Documented by: Admin: 04/10/21 15:35 Dose: 12 units/kg/hr, 17.636 mls/hr Documented by: ATAYLOR Piperacillin Sod/Tazobactam (Sod 4.5 gm/ Sodium Chloride) 100 mls @ 25 mls/hr IV Q8H [facility] Last Infusion: 04/11/21 09:11 Dose: 0 mls/hr Documented by: Admin: 04/11/21 04:58 Dose: 25 mls/hr Documented by: Infusion: 04/11/21 00:41 Dose: 0 mls/hr Documented by: Admin: 04/10/21 20:43 Dose: 25 mls/hr Documented by: ATAYLOR Piperacillin Sod/Tazobactam (Sod 3.375 gm/ Sodium Chloride) 100 mls @ 25 mls/hr IV Q8H [facility] Last Admin: 04/11/21 13:22 Dose: Not Given Documented by: DENNIS Ceftriaxone Sodium 1,000 mg/ (Sodium Chloride) 100 mls @ 200 mls/hr IV Q24H [facility] Last Infusion: 04/12/21 03:05 Dose: 0 mls/hr Documented by: Admin: 04/12/21 02:24 Dose: 200 mls/hr Documented by: PRINCE Sodium Chloride (Normal Saline 0.9%) 250 mls @ 21 mls/hr IV Q24H PRN PRN Reason: Flush Last Infusion: 04/12/21 15:20 Dose: 0 mls/hr Documented by: Admin: 04/12/21 02:29 Dose: 21 mls/hr Documented by: PRINCE Levothyroxine Sodium (Levothyroxine 88 Mcg Tablet) 88 mcg PO DAILY@0600 [facility] Levothyroxine Sodium (Levothyroxine 88 Mcg Tablet) 88 mcg PO QACBREAK [facility] Last Admin: 04/16/21 06:21 Dose: 88 mcg Documented by: Admin: 04/15/21 06:20 Dose: 88 mcg Documented by: Admin: 04/14/21 05:32 Dose: 88 mcg Documented by: Admin: 04/13/21 05:27 Dose: 88 mcg Documented by: Admin: 04/12/21 06:54 Dose: 88 mcg Documented by: PRINCE Lorazepam (Lorazepam 2 Mg/Ml Inj) 1 mg IV Q4HR PRN PRN Reason: Anxiety Last Admin: 04/16/21 09:50 Dose: 1 mg Documented by: CARMEN Losartan Potassium (Losartan 25 Mg Tablet) 25 mg PO DAILY [facility] Last Admin: 04/11/21 09:47 Dose: 25 mg Documented by: RYAN Losartan Potassium (Losartan 25 Mg Tablet) 25 mg PO DAILY [facility] Last Admin: 04/16/21 09:21 Dose: 25 mg Documented by: Admin: 04/15/21 10:24 Dose: 25 mg Documented by: Admin: 04/14/21 09:38 Dose: 25 mg Documented by: Admin: 04/13/21 15:13 Dose: Not Given Documented by: Admin: 04/12/21 15:03 Dose: 25 mg Documented by: PJ Metoprolol Succinate (Metoprolol Er 25 Mg Tablet) 25 mg PO DAILY [facility] Last Admin: 04/11/21 09:47 Dose: 25 mg Documented by: RYAN Metoprolol Succinate (Metoprolol Er 25 Mg Tablet) 25 mg PO DAILY [facility] Last Admin: 04/16/21 09:21 Dose: 25 mg Documented by: Admin: 04/15/21 10:39 Dose: Not Given Documented by: Admin: 04/14/21 09:38 Dose: 25 mg Documented by: Admin: 04/13/21 13:12 Dose: 25 mg Documented by: Admin: 04/12/21 09:38 Dose: 25 mg Documented by: PJ Naloxone HCl (Naloxone 0.4 Mg/Ml Vial) 0.2 mg IV Q2MIN PRN PRN Reason: Opiate Reversal Nitroglycerin (Nitroglycerin 0.3 Mg Sl Tab) 0.3 mg SL NOW ONE Stop: 04/13/21 00:58 Last Admin: 04/13/21 01:15 Dose: Not Given Documented by: PRINCE Nitroglycerin (Nitroglycerin 0.4 Mg Sl Tab) 0.4 mg SL NOW ONE Stop: 04/13/21 01:10 Last Admin: 04/13/21 01:41 Dose: Not Given Documented by: PRINCE Ondansetron HCl (Ondansetron 4 Mg/2 Ml Inj) 4 mg IV Q8HR PRN PRN Reason: Nausea And Vomiting Last Admin: 04/12/21 09:16 Dose: 4 mg Documented by: Admin: 04/11/21 21:14 Dose: 4 mg Documented by: LIZ Ondansetron HCl (Ondansetron 4 Mg Odt) 4 mg SL Q4HR PRN PRN Reason: Nausea Last Admin: 04/13/21 04:56 Dose: 4 mg Documented by: PRINCE Oxycodone/Acetaminophen (Oxycodone/Acetaminophen 5/325 Tablet) 1 tab PO Q12HR PRN PRN Reason: Pain, Severe (7-10) Last Admin: 04/11/21 09:46 Dose: 1 tab Documented by: RYAN Oxycodone/Acetaminophen (Oxycodone/Acetaminophen 5/325 Tablet) 1 tab PO BID PRN PRN Reason: Pain (Scale Score 7-10) Pantoprazole Sodium (Pantoprazole Dr 20 Mg Tablet) 20 mg PO DAILY [facility] Last Admin: 04/11/21 09:03 Dose: 20 mg Documented by: RAVINDER Pantoprazole Sodium (Pantoprazole Dr 20 Mg Tablet) 20 mg PO 0600 [facility] Last Admin: 04/16/21 06:21 Dose: 20 mg Documented by: Admin: 04/15/21 06:20 Dose: 20 mg Documented by: Admin: 04/14/21 05:33 Dose: 20 mg Documented by: Admin: 04/13/21 05:27 Dose: 20 mg Documented by: Admin: 04/12/21 06:54 Dose: 20 mg Documented by: PRINCE Polyethylene Glycol (Polyethylene Glycol 3350 17 Gm Powd.Pack) 17 gm PO BID [facility] Last Admin: 04/16/21 09:22 Dose: 17 gm Documented by: Admin: 04/15/21 20:34 Dose: Not Given Documented by: Admin: 04/15/21 08:19 Dose: Not Given Documented by: Admin: 04/14/21 21:02 Dose: 17 gm Documented by: Admin: 04/14/21 09:39 Dose: 17 gm Documented by: Admin: 04/13/21 21:00 Dose: 17 gm Documented by: Admin: 04/13/21 09:40 Dose: Not Given Documented by: Admin: 04/12/21 20:42 Dose: 17 gm Documented by: Admin: 04/12/21 09:16 Dose: 17 gm Documented by: PJ Potassium Chloride (Potassium Chloride 20 Meq Tab) 40 meq PO Q6H [facility] Stop: 04/12/21 18:46 Last Admin: 04/12/21 15:21 Dose: Not Given Documented by: PJ Potassium Chloride (Potassium Chloride 20 Meq Tab) 40 meq PO Q6H [facility] Stop: 04/12/21 20:46 Last Admin: 04/12/21 20:44 Dose: 40 meq Documented by: Admin: 04/12/21 15:03 Dose: 40 meq Documented by: PJ Prednisone (Prednisone 20 Mg Tablet) 5 mg PO DAILY [facility] Last Admin: 04/11/21 09:04 Dose: 5 mg Documented by: RAVINDER Prednisone (Prednisone 5 Mg Tablet) 5 mg PO DAILY [facility] Last Admin: 04/16/21 09:20 Dose: 5 mg Documented by: Admin: 04/15/21 10:29 Dose: 5 mg Documented by: Admin: 04/14/21 09:37 Dose: 5 mg Documented by: Admin: 04/13/21 09:39 Dose: 5 mg Documented by: Admin: 04/12/21 09:21 Dose: 5 mg Documented by: PJ Sennosides (Sennosides 8.6 Mg Tablet) 17.2 mg PO BEDTIME [facility] Last Admin: 04/15/21 20:34 Dose: Not Given Documented by: Admin: 04/14/21 21:03 Dose: 17.2 mg Documented by: Admin: 04/13/21 21:00 Dose: 17.2 mg Documented by: Admin: 04/12/21 20:43 Dose: 17.2 mg Documented by: Admin: 04/11/21 21:52 Dose: 17.2 mg Documented by: PRINCE Sodium Chloride (Sodium Chloride 0.9% Flush) 10 ml IV PRN PRN PRN Reason: Flush Last Admin: 04/12/21 02:25 Dose: 10 ml Documented by: PRINCE Sodium Chloride (Sodium Chloride 0.9% Flush) 10 ml IV BID [facility] Last Admin: 04/16/21 09:22 Dose: 10 ml Documented by: Admin: 04/15/21 20:34 Dose: 10 ml Documented by: Admin: 04/15/21 10:29 Dose: 10 ml Documented by: Admin: 04/14/21 21:54 Dose: 10 ml Documented by: Admin: 04/14/21 09:39 Dose: 10 ml Documented by: Admin: 04/13/21 21:01 Dose: 10 ml Documented by: Admin: 04/13/21 09:40 Dose: 10 ml Documented by: Admin: 04/12/21 20:44 Dose: 10 ml Documented by: Admin: 04/12/21 09:21 Dose: 10 ml Documented by: Admin: 04/11/21 21:52 Dose: 10 ml Documented by: PRINCE Warfarin Sodium (Warfarin 5 Mg Tablet) 2.5 mg PO DAILY@1700 [facility] Admin: 04/15/21 18:43 Dose: 2.5 mg Documented by: Admin: 04/14/21 16:49 Dose: 2.5 mg Documented by: ALEK Vital Signs Vital signs: Vital Signs - 8 hr 04/11/21 09:55 04/11/21 12:16 04/11/21 14:03 Pulse Rate 91 H 80 83 Respiratory Rate 16 18 Blood Pressure 132/64 110/55 L Blood Pressure [Right Arm] 125/60 Pulse Oximetry 98 93 94 MDM - SOB/Dyspnea <Natasha Palomo DO - Last Filed: 04/18/21 18:11> Lab Data Result diagrams: 04/15/21 06:20 04/15/21 06:20 Labs: Lab Results 04/10/21 04/10/21 04/10/21 Range/Units 11:30 11:30 11:30 WBC 17.2 H (4.5-11.0) X10^3/uL RBC 3.55 L (4.0-5.2) X10^6/uL Hgb 10.2 L (12.0-16.0) g/dL Hct 31.0 L (36-46) % MCV 87.3 (80-100) fL MCH 28.8 (26-34) PG MCHC 33.0 (30-36) % RDW 14.8 (11.6-14.8) % Plt Count 563 H (150-400) X10^3/uL Neut % (Auto) 80.5 H (50-75) % Lymph % (Auto) 7.9 L (25-40) % Charles % (Auto) 9.8 (3-14) % Eos % (Auto) 0.9 L (2-4) % Baso % (Auto) 0.9 (0-2) % Neut # (Auto) 36614 H (8037-0872) /uL Lymph # (Auto) 1400 (5998-0808) /uL Charles # (Auto) 1700 H (0-900) /uL Eos # (Auto) 200 (0-450) /uL Baso # (Auto) 200 H (0-100) /uL PT (10.1-12.7) SECONDS INR (0.9-1.3) APTT (26.4-36.2) SECONDS Sodium 137 (137-145) mmol/L Potassium 3.8 (3.4-5.1) mmol/L Chloride 103 (98-107) mmol/L Carbon Dioxide 28 (22-32) mmol/L BUN 13 (7-17) mg/dL Creatinine 0.60 (0.52-1.04) mg/dL Estimated GFR > 60.0 (>60) mL/min BUN/Creatinine Ratio 21.7 (6-22) Glucose 110 (80-110) mg/dL Lactate 1.3 (0.7-2.1) mmol/L Calcium 9.0 (8.4-10.2) mg/dL Magnesium (1.6-2.3) mg/dL Total Bilirubin 1.0 (0.2-1.3) mg/dL AST 120 H (14-36) IU/L ALT 50 H (<35) IU/L Alkaline Phosphatase 201 H (38-126) U/L Total Creatine Kinase (30-135) U/L CK-MB (CK-2) CK-MB (CK-2) Rel Index Troponin I (0.01-0.034) ng/mL NT-Pro-B Natriuret Pep (<450) pg/mL Total Protein 6.1 L (6.3-8.2) g/dL Albumin 3.5 (3.5-5.0) g/dL Globulin 2.6 (1.7-4.1) g/dL Albumin/Globulin Ratio 1.3 (1.0-2.8) Lipase 45 (23-300) U/L Procalcitonin 0.11 (<0.5) ng/mL TSH (0.47-4.68) uIU/mL Urine Color Urine Appearance Urine pH (4.5-8.0) Ur Specific [place] (1.000-1.035) Urine Protein (Negative) Urine Glucose (UA) (Negative) g/dL Urine Ketones (NEGATIVE) Urine Occult Blood (Negative) Urine Nitrate (Negative) Urine Bilirubin (NEGATIVE) Urine Urobilinogen (0.2) E.U./dL Ur Leukocyte Esterase (NEGATIVE) Urine RBC (0-5/HPF) Urine WBC (0-5/HPF) Ur Squamous Epith Cells (0-5/HPF) Amorphous Sediment Urine Bacteria (None) Ur Culture Indicated? Chlamy pneumoniae PCR (Not Detect) Adenovirus (PCR) (Not Detect) B. pertussis DNA (PCR) (Not Detecte) B.parapertussis DNA PCR (Not Detecte) Coronavirus OC43 (PCR) (Not Detect) Coronavirus HKU1 (PCR) (Not Detect) Coronavirus 229E (PCR) (Not Detect) SARS-CoV-2 (PCR) (Not Detecte) Coronavirus NL63 (PCR) (Not Detect) Human Metapneumovir PCR (Not Detect) Influenza Type A (PCR) (Not Detect) Influenza Type B (PCR) (Not Detect) M. pneumoniae (PCR) (Not Detect) Parainfluenza 1 (PCR) (Not Detect) Parainfluenza 2 (PCR) (Not Detect) Parainfluenza 3 (PCR) (Not Detect) Parainfluenza 4 (PCR) (Not Detect) RSV (PCR) (Not Detect) Entero/Rhino (PCR) (Not Detect) 04/10/21 04/10/21 04/10/21 Range/Units 11:30 11:30 11:30 WBC (4.5-11.0) X10^3/uL RBC (4.0-5.2) X10^6/uL Hgb (12.0-16.0) g/dL Hct (36-46) % MCV (80-100) fL MCH (26-34) PG MCHC (30-36) % RDW (11.6-14.8) % Plt Count (150-400) X10^3/uL Neut % (Auto) (50-75) % Lymph % (Auto) (25-40) % Charles % (Auto) (3-14) % Eos % (Auto) (2-4) % Baso % (Auto) (0-2) % Neut # (Auto) (0427-9271) /uL Lymph # (Auto) (6266-1825) /uL [place] # (Auto) (0-900) /uL Eos # (Auto) (0-450) /uL Baso # (Auto) (0-100) /uL PT 13.9 H (10.1-12.7) SECONDS INR 1.2 (0.9-1.3) APTT (26.4-36.2) SECONDS Sodium (137-145) mmol/L Potassium (3.4-5.1) mmol/L Chloride (98-107) mmol/L Carbon Dioxide (22-32) mmol/L BUN (7-17) mg/dL Creatinine (0.52-1.04) mg/dL Estimated GFR (>60) mL/min BUN/Creatinine Ratio (6-22) Glucose (80-110) mg/dL Lactate (0.7-2.1) mmol/L Calcium (8.4-10.2) mg/dL Magnesium (1.6-2.3) mg/dL Total Bilirubin (0.2-1.3) mg/dL AST (14-36) IU/L ALT (<35) IU/L Alkaline Phosphatase (38-126) U/L Total Creatine Kinase 52 (30-135) U/L CK-MB (CK-2) TNP CK-MB (CK-2) Rel Index TNP Troponin I 2.860 H* (0.01-0.034) ng/mL NT-Pro-B Natriuret Pep 1280 H (<450) pg/mL Total Protein (6.3-8.2) g/dL Albumin (3.5-5.0) g/dL Globulin (1.7-4.1) g/dL Albumin/Globulin Ratio (1.0-2.8) Lipase (23-300) U/L Procalcitonin (<0.5) ng/mL TSH (0.47-4.68) uIU/mL Urine Color Urine Appearance Urine pH (4.5-8.0) Ur Specific [place] (1.000-1.035) Urine Protein (Negative) Urine Glucose (UA) (Negative) g/dL Urine Ketones (NEGATIVE) Urine Occult Blood (Negative) Urine Nitrate (Negative) Urine Bilirubin (NEGATIVE) Urine Urobilinogen (0.2) E.U./dL Ur Leukocyte Esterase (NEGATIVE) Urine RBC (0-5/HPF) Urine WBC (0-5/HPF) Ur Squamous Epith Cells (0-5/HPF) Amorphous Sediment Urine Bacteria (None) Ur Culture Indicated? Chlamy pneumoniae PCR Not detected (Not Detect) Adenovirus (PCR) Not detected (Not Detect) B. pertussis DNA (PCR) Not detected (Not Detecte) B.parapertussis DNA PCR Not detected (Not Detecte) Coronavirus OC43 (PCR) Not detected (Not Detect) Coronavirus HKU1 (PCR) Not detected (Not Detect) Coronavirus 229E (PCR) Not detected (Not Detect) SARS-CoV-2 (PCR) Not detected (Not Detecte) Coronavirus NL63 (PCR) Not detected (Not Detect) Human Metapneumovir PCR Not detected (Not Detect) Influenza Type A (PCR) Not detected (Not Detect) Influenza Type B (PCR) Not detected (Not Detect) M. pneumoniae (PCR) Not detected (Not Detect) Parainfluenza 1 (PCR) Not detected (Not Detect) Parainfluenza 2 (PCR) Not detected (Not Detect) Parainfluenza 3 (PCR) Not detected (Not Detect) Parainfluenza 4 (PCR) Not detected (Not Detect) RSV (PCR) Not detected (Not Detect) Entero/Rhino (PCR) Not detected (Not Detect) 04/10/21 04/10/21 04/10/21 Range/Units 11:30 13:53 16:22 WBC (4.5-11.0) X10^3/uL RBC (4.0-5.2) X10^6/uL Hgb (12.0-16.0) g/dL Hct (36-46) % MCV (80-100) fL MCH (26-34) PG MCHC (30-36) % RDW (11.6-14.8) % Plt Count (150-400) X10^3/uL Neut % (Auto) (50-75) % Lymph % (Auto) (25-40) % [place] % (Auto) (3-14) % Eos % (Auto) (2-4) % Baso % (Auto) (0-2) % Neut # (Auto) (4818-9736) /uL Lymph # (Auto) (0196-7296) /uL [place] # (Auto) (0-900) /uL Eos # (Auto) (0-450) /uL Baso # (Auto) (0-100) /uL PT (10.1-12.7) SECONDS INR (0.9-1.3) APTT 29 (26.4-36.2) SECONDS Sodium (137-145) mmol/L Potassium (3.4-5.1) mmol/L Chloride (98-107) mmol/L Carbon Dioxide (22-32) mmol/L BUN (7-17) mg/dL Creatinine (0.52-1.04) mg/dL Estimated GFR (>60) mL/min BUN/Creatinine Ratio (6-22) Glucose (80-110) mg/dL Lactate (0.7-2.1) mmol/L Calcium (8.4-10.2) mg/dL Magnesium (1.6-2.3) mg/dL Total Bilirubin (0.2-1.3) mg/dL AST (14-36) IU/L ALT (<35) IU/L Alkaline Phosphatase (38-126) U/L Total Creatine Kinase (30-135) U/L CK-MB (CK-2) CK-MB (CK-2) Rel Index Troponin I 2.550 H* (0.01-0.034) ng/mL NT-Pro-B Natriuret Pep (<450) pg/mL Total Protein (6.3-8.2) g/dL Albumin (3.5-5.0) g/dL Globulin (1.7-4.1) g/dL Albumin/Globulin Ratio (1.0-2.8) Lipase (23-300) U/L Procalcitonin (<0.5) ng/mL TSH (0.47-4.68) uIU/mL Urine Color Yellow Urine Appearance Clear Urine pH 7.0 (4.5-8.0) Ur Specific [place] 1.010 (1.000-1.035) Urine Protein Trace H (Negative) Urine Glucose (UA) Negative (Negative) g/dL Urine Ketones Negative (NEGATIVE) Urine Occult Blood 1+ H (Negative) Urine Nitrate Negative (Negative) Urine Bilirubin Negative (NEGATIVE) Urine Urobilinogen 0.2 (0.2) E.U./dL Ur Leukocyte Esterase Negative (NEGATIVE) Urine RBC 0-1/hpf (0-5/HPF) Urine WBC 0-1/hpf (0-5/HPF) Ur Squamous Epith Cells 0-1 /hpf (0-5/HPF) Amorphous Sediment 2+ Urine Bacteria Few (2-10) H (None) Ur Culture Indicated? Specimen cultured Chlamy pneumoniae PCR (Not Detect) Adenovirus (PCR) (Not Detect) B. pertussis DNA (PCR) (Not Detecte) B.parapertussis DNA PCR (Not Detecte) Coronavirus OC43 (PCR) (Not Detect) Coronavirus HKU1 (PCR) (Not Detect) Coronavirus 229E (PCR) (Not Detect) SARS-CoV-2 (PCR) (Not Detecte) Coronavirus NL63 (PCR) (Not Detect) Human Metapneumovir PCR (Not Detect) Influenza Type A (PCR) (Not Detect) Influenza Type B (PCR) (Not Detect) M. pneumoniae (PCR) (Not Detect) Parainfluenza 1 (PCR) (Not Detect) Parainfluenza 2 (PCR) (Not Detect) Parainfluenza 3 (PCR) (Not Detect) Parainfluenza 4 (PCR) (Not Detect) RSV (PCR) (Not Detect) Entero/Rhino (PCR) (Not Detect) 04/10/21 04/10/21 04/10/21 Range/Units 22:19 22:19 22:19 WBC 18.8 H (4.5-11.0) X10^3/uL RBC 3.41 L (4.0-5.2) X10^6/uL Hgb 9.7 L (12.0-16.0) g/dL Hct 29.6 L (36-46) % MCV 86.9 (80-100) fL MCH 28.5 (26-34) PG MCHC 32.8 (30-36) % RDW 14.9 H (11.6-14.8) % Plt Count 529 H (150-400) X10^3/uL Neut % (Auto) 69.8 (50-75) % Lymph % (Auto) 16.8 L (25-40) % Charles % (Auto) 12.0 (3-14) % Eos % (Auto) 0.8 L (2-4) % Baso % (Auto) 0.6 (0-2) % Neut # (Auto) 54271 H (7503-2372) /uL Lymph # (Auto) 3200 (3003-9432) /uL [place] # (Auto) 2200 H (0-900) /uL Eos # (Auto) 200 (0-450) /uL Baso # (Auto) 100 (0-100) /uL PT (10.1-12.7) SECONDS INR (0.9-1.3) APTT 145 H* D (26.4-36.2) SECONDS Sodium (137-145) mmol/L Potassium (3.4-5.1) mmol/L Chloride (98-107) mmol/L Carbon Dioxide (22-32) mmol/L BUN (7-17) mg/dL Creatinine (0.52-1.04) mg/dL Estimated GFR (>60) mL/min BUN/Creatinine Ratio (6-22) Glucose (80-110) mg/dL Lactate (0.7-2.1) mmol/L Calcium (8.4-10.2) mg/dL Magnesium (1.6-2.3) mg/dL Total Bilirubin (0.2-1.3) mg/dL AST (14-36) IU/L ALT (<35) IU/L Alkaline Phosphatase (38-126) U/L Total Creatine Kinase (30-135) U/L CK-MB (CK-2) CK-MB (CK-2) Rel Index Troponin I 2.710 H* (0.01-0.034) ng/mL NT-Pro-B Natriuret Pep (<450) pg/mL Total Protein (6.3-8.2) g/dL Albumin (3.5-5.0) g/dL Globulin (1.7-4.1) g/dL Albumin/Globulin Ratio (1.0-2.8) Lipase (23-300) U/L Procalcitonin (<0.5) ng/mL TSH (0.47-4.68) uIU/mL Urine Color Urine Appearance Urine pH (4.5-8.0) Ur Specific [place] (1.000-1.035) Urine Protein (Negative) Urine Glucose (UA) (Negative) g/dL Urine Ketones (NEGATIVE) Urine Occult Blood (Negative) Urine Nitrate (Negative) Urine Bilirubin (NEGATIVE) Urine Urobilinogen (0.2) E.U./dL Ur Leukocyte Esterase (NEGATIVE) Urine RBC (0-5/HPF) Urine WBC (0-5/HPF) Ur Squamous Epith Cells (0-5/HPF) Amorphous Sediment Urine Bacteria (None) Ur Culture Indicated? Chlamy pneumoniae PCR (Not Detect) Adenovirus (PCR) (Not Detect) B. pertussis DNA (PCR) (Not Detecte) B.parapertussis DNA PCR (Not Detecte) Coronavirus OC43 (PCR) (Not Detect) Coronavirus HKU1 (PCR) (Not Detect) Coronavirus 229E (PCR) (Not Detect) SARS-CoV-2 (PCR) (Not Detecte) Coronavirus NL63 (PCR) (Not Detect) Human Metapneumovir PCR (Not Detect) Influenza Type A (PCR) (Not Detect) Influenza Type B (PCR) (Not Detect) M. pneumoniae (PCR) (Not Detect) Parainfluenza 1 (PCR) (Not Detect) Parainfluenza 2 (PCR) (Not Detect) Parainfluenza 3 (PCR) (Not Detect) Parainfluenza 4 (PCR) (Not Detect) RSV (PCR) (Not Detect) Entero/Rhino (PCR) (Not Detect) 04/11/21 04/11/21 04/11/21 Range/Units 05:05 05:05 05:08 WBC 16.8 H (4.5-11.0) X10^3/uL RBC 3.44 L (4.0-5.2) X10^6/uL Hgb 9.9 L (12.0-16.0) g/dL Hct 30.1 L (36-46) % MCV 87.5 (80-100) fL MCH 28.7 (26-34) PG MCHC 32.9 (30-36) % RDW 15.0 H (11.6-14.8) % Plt Count 493 H (150-400) X10^3/uL Neut % (Auto) 71.7 (50-75) % Lymph % (Auto) 14.3 L (25-40) % [place] % (Auto) 11.6 (3-14) % Eos % (Auto) 1.8 L (2-4) % Baso % (Auto) 0.6 (0-2) % Neut # (Auto) 39029 H (3545-2189) /uL Lymph # (Auto) 2400 (9814-6487) /uL [place] # (Auto) 2000 H (0-900) /uL Eos # (Auto) 300 (0-450) /uL Baso # (Auto) 100 (0-100) /uL PT (10.1-12.7) SECONDS INR (0.9-1.3) APTT 76 H* D (26.4-36.2) SECONDS Sodium 135 L (137-145) mmol/L Potassium 3.3 L (3.4-5.1) mmol/L Chloride 98 (98-107) mmol/L Carbon Dioxide 33 H (22-32) mmol/L BUN 14 (7-17) mg/dL Creatinine 0.77 (0.52-1.04) mg/dL Estimated GFR > 60.0 (>60) mL/min BUN/Creatinine Ratio 18.2 (6-22) Glucose 112 H (80-110) mg/dL Lactate (0.7-2.1) mmol/L Calcium 8.5 (8.4-10.2) mg/dL Magnesium (1.6-2.3) mg/dL Total Bilirubin 1.0 (0.2-1.3) mg/dL AST 84 H (14-36) IU/L ALT 48 H (<35) IU/L Alkaline Phosphatase 176 H (38-126) U/L Total Creatine Kinase (30-135) U/L CK-MB (CK-2) CK-MB (CK-2) Rel Index Troponin I 2.380 H* (0.01-0.034) ng/mL NT-Pro-B Natriuret Pep (<450) pg/mL Total Protein 5.6 L (6.3-8.2) g/dL Albumin 3.2 L (3.5-5.0) g/dL Globulin 2.4 (1.7-4.1) g/dL Albumin/Globulin Ratio 1.3 (1.0-2.8) Lipase 77 D (23-300) U/L Procalcitonin 0.20 (<0.5) ng/mL TSH (0.47-4.68) uIU/mL Urine Color Urine Appearance Urine pH (4.5-8.0) Ur Specific [place] (1.000-1.035) Urine Protein (Negative) Urine Glucose (UA) (Negative) g/dL Urine Ketones (NEGATIVE) Urine Occult Blood (Negative) Urine Nitrate (Negative) Urine Bilirubin (NEGATIVE) Urine Urobilinogen (0.2) E.U./dL Ur Leukocyte Esterase (NEGATIVE) Urine RBC (0-5/HPF) Urine WBC (0-5/HPF) Ur Squamous Epith Cells (0-5/HPF) Amorphous Sediment Urine Bacteria (None) Ur Culture Indicated? Chlamy pneumoniae PCR (Not Detect) Adenovirus (PCR) (Not Detect) B. pertussis DNA (PCR) (Not Detecte) B.parapertussis DNA PCR (Not Detecte) Coronavirus OC43 (PCR) (Not Detect) Coronavirus HKU1 (PCR) (Not Detect) Coronavirus 229E (PCR) (Not Detect) SARS-CoV-2 (PCR) (Not Detecte) Coronavirus NL63 (PCR) (Not Detect) Human Metapneumovir PCR (Not Detect) Influenza Type A (PCR) (Not Detect) Influenza Type B (PCR) (Not Detect) M. pneumoniae (PCR) (Not Detect) Parainfluenza 1 (PCR) (Not Detect) Parainfluenza 2 (PCR) (Not Detect) Parainfluenza 3 (PCR) (Not Detect) Parainfluenza 4 (PCR) (Not Detect) RSV (PCR) (Not Detect) Entero/Rhino (PCR) (Not Detect) 04/11/21 04/11/21 04/11/21 Range/Units 12:15 17:00 18:06 WBC (4.5-11.0) X10^3/uL RBC (4.0-5.2) X10^6/uL Hgb (12.0-16.0) g/dL Hct (36-46) % MCV (80-100) fL MCH (26-34) PG MCHC (30-36) % RDW (11.6-14.8) % Plt Count (150-400) X10^3/uL Neut % (Auto) (50-75) % Lymph % (Auto) (25-40) % [place] % (Auto) (3-14) % Eos % (Auto) (2-4) % Baso % (Auto) (0-2) % Neut # (Auto) (9140-1322) /uL Lymph # (Auto) (7873-7876) /uL [place] # (Auto) (0-900) /uL Eos # (Auto) (0-450) /uL Baso # (Auto) (0-100) /uL PT (10.1-12.7) SECONDS INR (0.9-1.3) APTT 70 H 76 H* (26.4-36.2) SECONDS Sodium (137-145) mmol/L Potassium (3.4-5.1) mmol/L Chloride (98-107) mmol/L Carbon Dioxide (22-32) mmol/L BUN (7-17) mg/dL Creatinine (0.52-1.04) mg/dL Estimated GFR (>60) mL/min BUN/Creatinine Ratio (6-22) Glucose (80-110) mg/dL Lactate (0.7-2.1) mmol/L Calcium (8.4-10.2) mg/dL Magnesium (1.6-2.3) mg/dL Total Bilirubin (0.2-1.3) mg/dL AST (14-36) IU/L ALT (<35) IU/L Alkaline Phosphatase (38-126) U/L Total Creatine Kinase (30-135) U/L CK-MB (CK-2) CK-MB (CK-2) Rel Index Troponin I 1.330 H* (0.01-0.034) ng/mL NT-Pro-B Natriuret Pep (<450) pg/mL Total Protein (6.3-8.2) g/dL Albumin (3.5-5.0) g/dL Globulin (1.7-4.1) g/dL Albumin/Globulin Ratio (1.0-2.8) Lipase (23-300) U/L Procalcitonin (<0.5) ng/mL TSH (0.47-4.68) uIU/mL Urine Color Urine Appearance Urine pH (4.5-8.0) Ur Specific [place] (1.000-1.035) Urine Protein (Negative) Urine Glucose (UA) (Negative) g/dL Urine Ketones (NEGATIVE) Urine Occult Blood (Negative) Urine Nitrate (Negative) Urine Bilirubin (NEGATIVE) Urine Urobilinogen (0.2) E.U./dL Ur Leukocyte Esterase (NEGATIVE) Urine RBC (0-5/HPF) Urine WBC (0-5/HPF) Ur Squamous Epith Cells (0-5/HPF) Amorphous Sediment Urine Bacteria (None) Ur Culture Indicated? Chlamy pneumoniae PCR (Not Detect) Adenovirus (PCR) (Not Detect) B. pertussis DNA (PCR) (Not Detecte) B.parapertussis DNA PCR (Not Detecte) Coronavirus OC43 (PCR) (Not Detect) Coronavirus HKU1 (PCR) (Not Detect) Coronavirus 229E (PCR) (Not Detect) SARS-CoV-2 (PCR) (Not Detecte) Coronavirus NL63 (PCR) (Not Detect) Human Metapneumovir PCR (Not Detect) Influenza Type A (PCR) (Not Detect) Influenza Type B (PCR) (Not Detect) M. pneumoniae (PCR) (Not Detect) Parainfluenza 1 (PCR) (Not Detect) Parainfluenza 2 (PCR) (Not Detect) Parainfluenza 3 (PCR) (Not Detect) Parainfluenza 4 (PCR) (Not Detect) RSV (PCR) (Not Detect) Entero/Rhino (PCR) (Not Detect) 04/11/21 04/11/21 04/11/21 Range/Units 18:06 18:06 18:06 WBC (4.5-11.0) X10^3/uL RBC (4.0-5.2) X10^6/uL Hgb (12.0-16.0) g/dL Hct (36-46) % MCV (80-100) fL MCH (26-34) PG MCHC (30-36) % RDW (11.6-14.8) % Plt Count (150-400) X10^3/uL Neut % (Auto) (50-75) % Lymph % (Auto) (25-40) % [place] % (Auto) (3-14) % Eos % (Auto) (2-4) % Baso % (Auto) (0-2) % Neut # (Auto) (7380-9855) /uL Lymph # (Auto) (9119-9682) /uL [place] # (Auto) (0-900) /uL Eos # (Auto) (0-450) /uL Baso # (Auto) (0-100) /uL PT (10.1-12.7) SECONDS INR (0.9-1.3) APTT (26.4-36.2) SECONDS Sodium 136 L (137-145) mmol/L Potassium 3.4 (3.4-5.1) mmol/L Chloride 99 (98-107) mmol/L Carbon Dioxide 34 H (22-32) mmol/L BUN 19 H (7-17) mg/dL Creatinine 0.88 (0.52-1.04) mg/dL Estimated GFR > 60.0 (>60) mL/min BUN/Creatinine Ratio 21.6 (6-22) Glucose 191 H (80-110) mg/dL Lactate (0.7-2.1) mmol/L Calcium 8.4 (8.4-10.2) mg/dL Magnesium 1.9 (1.6-2.3) mg/dL Total Bilirubin (0.2-1.3) mg/dL AST (14-36) IU/L ALT (<35) IU/L Alkaline Phosphatase (38-126) U/L Total Creatine Kinase (30-135) U/L CK-MB (CK-2) CK-MB (CK-2) Rel Index Troponin I (0.01-0.034) ng/mL NT-Pro-B Natriuret Pep (<450) pg/mL Total Protein (6.3-8.2) g/dL Albumin (3.5-5.0) g/dL Globulin (1.7-4.1) g/dL Albumin/Globulin Ratio (1.0-2.8) Lipase (23-300) U/L Procalcitonin (<0.5) ng/mL TSH 2.57 (0.47-4.68) uIU/mL Urine Color Urine Appearance Urine pH (4.5-8.0) Ur Specific [place] (1.000-1.035) Urine Protein (Negative) Urine Glucose (UA) (Negative) g/dL Urine Ketones (NEGATIVE) Urine Occult Blood (Negative) Urine Nitrate (Negative) Urine Bilirubin (NEGATIVE) Urine Urobilinogen (0.2) E.U./dL Ur Leukocyte Esterase (NEGATIVE) Urine RBC (0-5/HPF) Urine WBC (0-5/HPF) Ur Squamous Epith Cells (0-5/HPF) Amorphous Sediment Urine Bacteria (None) Ur Culture Indicated? Chlamy pneumoniae PCR (Not Detect) Adenovirus (PCR) (Not Detect) B. pertussis DNA (PCR) (Not Detecte) B.parapertussis DNA PCR (Not Detecte) Coronavirus OC43 (PCR) (Not Detect) Coronavirus HKU1 (PCR) (Not Detect) Coronavirus 229E (PCR) (Not Detect) SARS-CoV-2 (PCR) (Not Detecte) Coronavirus NL63 (PCR) (Not Detect) Human Metapneumovir PCR (Not Detect) Influenza Type A (PCR) (Not Detect) Influenza Type B (PCR) (Not Detect) M. pneumoniae (PCR) (Not Detect) Parainfluenza 1 (PCR) (Not Detect) Parainfluenza 2 (PCR) (Not Detect) Parainfluenza 3 (PCR) (Not Detect) Parainfluenza 4 (PCR) (Not Detect) RSV (PCR) (Not Detect) Entero/Rhino (PCR) (Not Detect) 04/11/21 Range/Units 18:06 WBC (4.5-11.0) X10^3/uL RBC (4.0-5.2) X10^6/uL Hgb (12.0-16.0) g/dL Hct (36-46) % MCV (80-100) fL MCH (26-34) PG MCHC (30-36) % RDW (11.6-14.8) % Plt Count (150-400) X10^3/uL Neut % (Auto) (50-75) % Lymph % (Auto) (25-40) % [place] % (Auto) (3-14) % Eos % (Auto) (2-4) % Baso % (Auto) (0-2) % Neut # (Auto) (5656-5684) /uL Lymph # (Auto) (7711-2453) /uL [place] # (Auto) (0-900) /uL Eos # (Auto) (0-450) /uL Baso # (Auto) (0-100) /uL PT (10.1-12.7) SECONDS INR (0.9-1.3) APTT (26.4-36.2) SECONDS Sodium (137-145) mmol/L Potassium (3.4-5.1) mmol/L Chloride (98-107) mmol/L Carbon Dioxide (22-32) mmol/L BUN (7-17) mg/dL Creatinine (0.52-1.04) mg/dL Estimated GFR (>60) mL/min BUN/Creatinine Ratio (6-22) Glucose (80-110) mg/dL Lactate (0.7-2.1) mmol/L Calcium (8.4-10.2) mg/dL Magnesium (1.6-2.3) mg/dL Total Bilirubin (0.2-1.3) mg/dL AST (14-36) IU/L ALT (<35) IU/L Alkaline Phosphatase (38-126) U/L Total Creatine Kinase (30-135) U/L CK-MB (CK-2) CK-MB (CK-2) Rel Index Troponin I (0.01-0.034) ng/mL NT-Pro-B Natriuret Pep 653 H (<450) pg/mL Total Protein (6.3-8.2) g/dL Albumin (3.5-5.0) g/dL Globulin (1.7-4.1) g/dL Albumin/Globulin Ratio (1.0-2.8) Lipase (23-300) U/L Procalcitonin (<0.5) ng/mL TSH (0.47-4.68) uIU/mL Urine Color Urine Appearance Urine pH (4.5-8.0) Ur Specific [place] (1.000-1.035) Urine Protein (Negative) Urine Glucose (UA) (Negative) g/dL Urine Ketones (NEGATIVE) Urine Occult Blood (Negative) Urine Nitrate (Negative) Urine Bilirubin (NEGATIVE) Urine Urobilinogen (0.2) E.U./dL Ur Leukocyte Esterase (NEGATIVE) Urine RBC (0-5/HPF) Urine WBC (0-5/HPF) Ur Squamous Epith Cells (0-5/HPF) Amorphous Sediment Urine Bacteria (None) Ur Culture Indicated? Chlamy pneumoniae PCR (Not Detect) Adenovirus (PCR) (Not Detect) B. pertussis DNA (PCR) (Not Detecte) B.parapertussis DNA PCR (Not Detecte) Coronavirus OC43 (PCR) (Not Detect) Coronavirus HKU1 (PCR) (Not Detect) Coronavirus 229E (PCR) (Not Detect) SARS-CoV-2 (PCR) (Not Detecte) Coronavirus NL63 (PCR) (Not Detect) Human Metapneumovir PCR (Not Detect) Influenza Type A (PCR) (Not Detect) Influenza Type B (PCR) (Not Detect) M. pneumoniae (PCR) (Not Detect) Parainfluenza 1 (PCR) (Not Detect) Parainfluenza 2 (PCR) (Not Detect) Parainfluenza 3 (PCR) (Not Detect) Parainfluenza 4 (PCR) (Not Detect) RSV (PCR) (Not Detect) Entero/Rhino (PCR) (Not Detect) Imaging Data Chest x-ray: Radiologist's Impression: [address] [address] XRay Report Signed Patient: Anna Jamison MR#: [id number] : 1935 Acct:[id number] Age/Sex: 86 / F Date of Service: 04/10/21 Loc: ED Accession Number: [id number] ?? Procedure: XR chest 1V Ordering Provider: Natasha Palomo D.O. PROCEDURE:? XR CHEST 1V ? INDICATIONS:? hypoxic ? TECHNIQUE:? One view of the chest was acquired.? ? COMPARISON:? [facility] , CHEST 1 VIEW, 12/14/2015, 18:25. ? FINDINGS:? ? Surgical changes and devices:? None.? ? Lungs and pleura:? Patchy bibasilar atelectasis.? Minimal left pleural effusion.? No pleural effusions or pneumothorax.? ? Mediastinum:? Mediastinal contours appear normal.? Mild cardiomegaly, exaggerated by the presence of a left pericardial fat pad. ? Bones and chest wall:? No suspicious bony lesions.? Overlying soft tissues appear unremarkable.? ? IMPRESSION:? Mild cardiomegaly, patchy bibasilar atelectasis, minimal left pleural effusion. ? ? Dictated by: Xavi Cornejo M.D. on 04/10/2021 at 11:13 ? ? Approved by: Xavi Cornejo M.D. on 04/10/2021 at 11:14?? Extremity x-ray #1: Radiologist's Impression: no acute changes. CTA chest/abd/pelvis: Radiologist's Impression: [place] [address] CT Scan Report Signed Patient: Anna Jamison MR#: [id number] : 1935 Acct:[id number] Age/Sex: 86 / F Date of Service: 04/10/21 Loc: ED Accession Number: [id number] ?? Procedure: CT angio chest abdomen pelvis Ordering Provider: Natasha Palomo D.O. PROCEDURE:? CT ANGIO CHEST ABDOMEN PELVIS ? INDICATIONS:? r/o PE, aneurysm ? TECHNIQUE:? Precontrast 5 mm thick sections acquired from the lung apices to the iliac crests.? After the administration of intravenous contrast, 2.5 mm thick sections again acquired from the lung apices to the iliac crests.? Maximum intensity projection (MIP) oblique sagittal and coronal reformats were then acquired.? For radiation dose reduction, the following was used:? automated exposure control.? ? COMPARISON:? [facility], CT, CT ABDOMEN PELVIS W CON, 03/22/2020, 12:52. ? FINDINGS:? Image quality:? Excellent.? ? AORTA and its attachments:? No thoracic or abdominal aortic dissection or aneurysm or significant stenosis.? Classic three-vessel arch anatomy.? No significant great vessel origin stenosis.? Celiac, SMA, and DAVID are grossly patent.? No significant renal artery stenosis noted.? Diffuse atherosclerotic calcifications.? Question hemodynamically significant left common iliac artery stenosis. ? CHEST:? Lungs and pleura:? No evidence acute pulmonary emboli.? No acute airspace opacities.? No pleural effusions or pneumothorax.? Patchy bilateral bronchiectasis and bronchial wall thickening. ? Mediastinum:? Heart size is normal.? No pericardial effusion.? No mediastinal or hilar adenopathy by size criteria.? Central pulmonary arteries are normal in size.? Esophagus is normal in caliber.? No hiatal hernias.? ? Bones and chest wall:? No axillary adenopathy by size criteria.? Thyroid gland unremarkable as visualized .? No suspicious bony lesions.? No vertebral body compression fractures.? ? ? ABDOMEN:? Vasculature:? Celiac trunk and mesenteric arteries are patent.? Renal arteries are also patent.? ? Solid organs:? Surface nodularity of the liver suggests cirrhosis.? No focal mass.? Gallbladder is surgically absent.? Biliary system is non dilated.? Pancreas enhances normally.? Spleen quite small.? No adrenal nodules.? Both kidneys are normal in size and enhancement, without hydronephrosis.? ? Peritoneum and bowel:? Diverticulosis without evidence of diverticulitis.? No free air or free fluid or abscess. ? Nodes and vessels:? No retroperitoneal or mesenteric adenopathy by size criteria.? Inferior vena cava is normal in morphology.? ? Miscellaneous:? No ventral hernias.? ? ? PELVIS:? Genitourinary:? Bladder wall thickness is normal.? ? Miscellaneous:? No inguinal hernias or adenopathy.? No ventral hernias.? ? Bones:? Numerous compression fractures.? Probable subacute moderate T11 compression, severe chronic L1 compression, and mild to moderate chronic L3 compression.? Extensive metal artifact in the pelvis from bilateral total hip arthroplasties. ? ? IMPRESSION:? ? 1. Normal caliber aorta, with no evidence of dissection or aneurysm. ? 2. No evidence of acute pulmonary emboli. ? 3. Patchy bilateral bronchiectasis and bronchial wall thickening. ? 4. Question hemodynamically significant left common iliac artery stenosis. ? 5. Multiple compression fractures, including a probably subacute moderate T11 compression.? ? 6. Cirrhosis. ? Dictated by: Xavi Cornejo M.D. on 04/10/2021 at 13:21 ? ? Approved by: Xavi Cornejo M.D. on 04/10/2021 at 13:35?? ECG Data Attestation: I personally reviewed and interpreted this ECG as follows: Interpretation: AFib RVR, rate of 123, QRS of 74 and QTC of 443. No acute ST changes depression noted. Patient has nonspecific change. MDM Narrative Medical decision making narrative: This is an 86-year-old female who initially comes in with complaint of right hip pain that is not controlled with her pain medications but also has some shortness of breath. She was found to be hypoxic by EMS, she continues to have hypoxia and she appears to be in AFib RVR with a positive troponin but no acute ST changes indicating NSTEMI are verses demand ischemia, CHF with an elevated BNP. She does have a leukocytosis and on her CT angio of chest abdomen pelvis has bronchiectasis and some bronchial changes and may also have a pneumonia as well although procalcitonin is negative and patient has been afebrile. Patient does not have any acute renal failure. She used to be on warfarin but does not appear to be taking it any longer and her INR is negative today. She does have a history of AFib but no other known cardiac interventions or history. Patient at this time requested be full code. She is open to possible interventions in although the reluctant to transfer is also open to potential cardiac catheterization if it would be helpful. Patient signed out to Dr. Mendoza while awaiting transfer. No beds regionally at this time. Patient rate controlled. <Casper Mendoza, - Last Filed: 04/11/21 19:51> Lab Data Labs: Lab Results 04/10/21 04/10/21 04/10/21 Range/Units 11:30 11:30 11:30 WBC 17.2 H (4.5-11.0) X10^3/uL RBC 3.55 L (4.0-5.2) X10^6/uL Hgb 10.2 L (12.0-16.0) g/dL Hct 31.0 L (36-46) % MCV 87.3 (80-100) fL MCH 28.8 (26-34) PG MCHC 33.0 (30-36) % RDW 14.8 (11.6-14.8) % Plt Count 563 H (150-400) X10^3/uL Neut % (Auto) 80.5 H (50-75) % Lymph % (Auto) 7.9 L (25-40) % Charles % (Auto) 9.8 (3-14) % Eos % (Auto) 0.9 L (2-4) % Baso % (Auto) 0.9 (0-2) % Neut # (Auto) 15790 H (4834-3112) /uL Lymph # (Auto) 1400 (1055-4089) /uL Charles # (Auto) 1700 H (0-900) /uL Eos # (Auto) 200 (0-450) /uL Baso # (Auto) 200 H (0-100) /uL PT (10.1-12.7) SECONDS INR (0.9-1.3) APTT (26.4-36.2) SECONDS Sodium 137 (137-145) mmol/L Potassium 3.8 (3.4-5.1) mmol/L Chloride 103 (98-107) mmol/L Carbon Dioxide 28 (22-32) mmol/L BUN 13 (7-17) mg/dL Creatinine 0.60 (0.52-1.04) mg/dL Estimated GFR > 60.0 (>60) mL/min BUN/Creatinine Ratio 21.7 (6-22) Glucose 110 (80-110) mg/dL Lactate 1.3 (0.7-2.1) mmol/L Calcium 9.0 (8.4-10.2) mg/dL Magnesium (1.6-2.3) mg/dL Total Bilirubin 1.0 (0.2-1.3) mg/dL AST 120 H (14-36) IU/L ALT 50 H (<35) IU/L Alkaline Phosphatase 201 H (38-126) U/L Total Creatine Kinase (30-135) U/L CK-MB (CK-2) CK-MB (CK-2) Rel Index Troponin I (0.01-0.034) ng/mL NT-Pro-B Natriuret Pep (<450) pg/mL Total Protein 6.1 L (6.3-8.2) g/dL Albumin 3.5 (3.5-5.0) g/dL Globulin 2.6 (1.7-4.1) g/dL Albumin/Globulin Ratio 1.3 (1.0-2.8) Lipase 45 (23-300) U/L Procalcitonin 0.11 (<0.5) ng/mL TSH (0.47-4.68) uIU/mL Urine Color Urine Appearance Urine pH (4.5-8.0) Ur Specific [place] (1.000-1.035) Urine Protein (Negative) Urine Glucose (UA) (Negative) g/dL Urine Ketones (NEGATIVE) Urine Occult Blood (Negative) Urine Nitrate (Negative) Urine Bilirubin (NEGATIVE) Urine Urobilinogen (0.2) E.U./dL Ur Leukocyte Esterase (NEGATIVE) Urine RBC (0-5/HPF) Urine WBC (0-5/HPF) Ur Squamous Epith Cells (0-5/HPF) Amorphous Sediment Urine Bacteria (None) Ur Culture Indicated? Chlamy pneumoniae PCR (Not Detect) Adenovirus (PCR) (Not Detect) B. pertussis DNA (PCR) (Not Detecte) B.parapertussis DNA PCR (Not Detecte) Coronavirus OC43 (PCR) (Not Detect) Coronavirus HKU1 (PCR) (Not Detect) Coronavirus 229E (PCR) (Not Detect) SARS-CoV-2 (PCR) (Not Detecte) Coronavirus NL63 (PCR) (Not Detect) Human Metapneumovir PCR (Not Detect) Influenza Type A (PCR) (Not Detect) Influenza Type B (PCR) (Not Detect) M. pneumoniae (PCR) (Not Detect) Parainfluenza 1 (PCR) (Not Detect) Parainfluenza 2 (PCR) (Not Detect) Parainfluenza 3 (PCR) (Not Detect) Parainfluenza 4 (PCR) (Not Detect) RSV (PCR) (Not Detect) Entero/Rhino (PCR) (Not Detect) 04/10/21 04/10/21 04/10/21 Range/Units 11:30 11:30 11:30 WBC (4.5-11.0) X10^3/uL RBC (4.0-5.2) X10^6/uL Hgb (12.0-16.0) g/dL Hct (36-46) % MCV (80-100) fL MCH (26-34) PG MCHC (30-36) % RDW (11.6-14.8) % Plt Count (150-400) X10^3/uL Neut % (Auto) (50-75) % Lymph % (Auto) (25-40) % Charles % (Auto) (3-14) % Eos % (Auto) (2-4) % Baso % (Auto) (0-2) % Neut # (Auto) (4800-5321) /uL Lymph # (Auto) (3192-8113) /uL Charles # (Auto) (0-900) /uL Eos # (Auto) (0-450) /uL Baso # (Auto) (0-100) /uL PT 13.9 H (10.1-12.7) SECONDS INR 1.2 (0.9-1.3) APTT (26.4-36.2) SECONDS Sodium (137-145) mmol/L Potassium (3.4-5.1) mmol/L Chloride (98-107) mmol/L Carbon Dioxide (22-32) mmol/L BUN (7-17) mg/dL Creatinine (0.52-1.04) mg/dL Estimated GFR (>60) mL/min BUN/Creatinine Ratio (6-22) Glucose (80-110) mg/dL Lactate (0.7-2.1) mmol/L Calcium (8.4-10.2) mg/dL Magnesium (1.6-2.3) mg/dL Total Bilirubin (0.2-1.3) mg/dL AST (14-36) IU/L ALT (<35) IU/L Alkaline Phosphatase (38-126) U/L Total Creatine Kinase 52 (30-135) U/L CK-MB (CK-2) TNP CK-MB (CK-2) Rel Index TNP Troponin I 2.860 H* (0.01-0.034) ng/mL NT-Pro-B Natriuret Pep 1280 H (<450) pg/mL Total Protein (6.3-8.2) g/dL Albumin (3.5-5.0) g/dL Globulin (1.7-4.1) g/dL Albumin/Globulin Ratio (1.0-2.8) Lipase (23-300) U/L Procalcitonin (<0.5) ng/mL TSH (0.47-4.68) uIU/mL Urine Color Urine Appearance Urine pH (4.5-8.0) Ur Specific [place] (1.000-1.035) Urine Protein (Negative) Urine Glucose (UA) (Negative) g/dL Urine Ketones (NEGATIVE) Urine Occult Blood (Negative) Urine Nitrate (Negative) Urine Bilirubin (NEGATIVE) Urine Urobilinogen (0.2) E.U./dL Ur Leukocyte Esterase (NEGATIVE) Urine RBC (0-5/HPF) Urine WBC (0-5/HPF) Ur Squamous Epith Cells (0-5/HPF) Amorphous Sediment Urine Bacteria (None) Ur Culture Indicated? Chlamy pneumoniae PCR Not detected (Not Detect) Adenovirus (PCR) Not detected (Not Detect) B. pertussis DNA (PCR) Not detected (Not Detecte) B.parapertussis DNA PCR Not detected (Not Detecte) Coronavirus OC43 (PCR) Not detected (Not Detect) Coronavirus HKU1 (PCR) Not detected (Not Detect) Coronavirus 229E (PCR) Not detected (Not Detect) SARS-CoV-2 (PCR) Not detected (Not Detecte) Coronavirus NL63 (PCR) Not detected (Not Detect) Human Metapneumovir PCR Not detected (Not Detect) Influenza Type A (PCR) Not detected (Not Detect) Influenza Type B (PCR) Not detected (Not Detect) M. pneumoniae (PCR) Not detected (Not Detect) Parainfluenza 1 (PCR) Not detected (Not Detect) Parainfluenza 2 (PCR) Not detected (Not Detect) Parainfluenza 3 (PCR) Not detected (Not Detect) Parainfluenza 4 (PCR) Not detected (Not Detect) RSV (PCR) Not detected (Not Detect) Entero/Rhino (PCR) Not detected (Not Detect) 04/10/21 04/10/21 04/10/21 Range/Units 11:30 13:53 16:22 WBC (4.5-11.0) X10^3/uL RBC (4.0-5.2) X10^6/uL Hgb (12.0-16.0) g/dL Hct (36-46) % MCV (80-100) fL MCH (26-34) PG MCHC (30-36) % RDW (11.6-14.8) % Plt Count (150-400) X10^3/uL Neut % (Auto) (50-75) % Lymph % (Auto) (25-40) % Charles % (Auto) (3-14) % Eos % (Auto) (2-4) % Baso % (Auto) (0-2) % Neut # (Auto) (8968-4645) /uL Lymph # (Auto) (3094-0130) /uL Charles # (Auto) (0-900) /uL Eos # (Auto) (0-450) /uL Baso # (Auto) (0-100) /uL PT (10.1-12.7) SECONDS INR (0.9-1.3) APTT 29 (26.4-36.2) SECONDS Sodium (137-145) mmol/L Potassium (3.4-5.1) mmol/L Chloride (98-107) mmol/L Carbon Dioxide (22-32) mmol/L BUN (7-17) mg/dL Creatinine (0.52-1.04) mg/dL Estimated GFR (>60) mL/min BUN/Creatinine Ratio (6-22) Glucose (80-110) mg/dL Lactate (0.7-2.1) mmol/L Calcium (8.4-10.2) mg/dL Magnesium (1.6-2.3) mg/dL Total Bilirubin (0.2-1.3) mg/dL AST (14-36) IU/L ALT (<35) IU/L Alkaline Phosphatase (38-126) U/L Total Creatine Kinase (30-135) U/L CK-MB (CK-2) CK-MB (CK-2) Rel Index Troponin I 2.550 H* (0.01-0.034) ng/mL NT-Pro-B Natriuret Pep (<450) pg/mL Total Protein (6.3-8.2) g/dL Albumin (3.5-5.0) g/dL Globulin (1.7-4.1) g/dL Albumin/Globulin Ratio (1.0-2.8) Lipase (23-300) U/L Procalcitonin (<0.5) ng/mL TSH (0.47-4.68) uIU/mL Urine Color Yellow Urine Appearance Clear Urine pH 7.0 (4.5-8.0) Ur Specific [place] 1.010 (1.000-1.035) Urine Protein Trace H (Negative) Urine Glucose (UA) Negative (Negative) g/dL Urine Ketones Negative (NEGATIVE) Urine Occult Blood 1+ H (Negative) Urine Nitrate Negative (Negative) Urine Bilirubin Negative (NEGATIVE) Urine Urobilinogen 0.2 (0.2) E.U./dL Ur Leukocyte Esterase Negative (NEGATIVE) Urine RBC 0-1/hpf (0-5/HPF) Urine WBC 0-1/hpf (0-5/HPF) Ur Squamous Epith Cells 0-1 /hpf (0-5/HPF) Amorphous Sediment 2+ Urine Bacteria Few (2-10) H (None) Ur Culture Indicated? Specimen cultured Chlamy pneumoniae PCR (Not Detect) Adenovirus (PCR) (Not Detect) B. pertussis DNA (PCR) (Not Detecte) B.parapertussis DNA PCR (Not Detecte) Coronavirus OC43 (PCR) (Not Detect) Coronavirus HKU1 (PCR) (Not Detect) Coronavirus 229E (PCR) (Not Detect) SARS-CoV-2 (PCR) (Not Detecte) Coronavirus NL63 (PCR) (Not Detect) Human Metapneumovir PCR (Not Detect) Influenza Type A (PCR) (Not Detect) Influenza Type B (PCR) (Not Detect) M. pneumoniae (PCR) (Not Detect) Parainfluenza 1 (PCR) (Not Detect) Parainfluenza 2 (PCR) (Not Detect) Parainfluenza 3 (PCR) (Not Detect) Parainfluenza 4 (PCR) (Not Detect) RSV (PCR) (Not Detect) Entero/Rhino (PCR) (Not Detect) 04/10/21 04/10/21 04/10/21 Range/Units 22:19 22:19 22:19 WBC 18.8 H (4.5-11.0) X10^3/uL RBC 3.41 L (4.0-5.2) X10^6/uL Hgb 9.7 L (12.0-16.0) g/dL Hct 29.6 L (36-46) % MCV 86.9 (80-100) fL MCH 28.5 (26-34) PG MCHC 32.8 (30-36) % RDW 14.9 H (11.6-14.8) % Plt Count 529 H (150-400) X10^3/uL Neut % (Auto) 69.8 (50-75) % Lymph % (Auto) 16.8 L (25-40) % Charles % (Auto) 12.0 (3-14) % Eos % (Auto) 0.8 L (2-4) % Baso % (Auto) 0.6 (0-2) % Neut # (Auto) 00222 H (9488-8566) /uL Lymph # (Auto) 3200 (8919-6578) /uL Charles # (Auto) 2200 H (0-900) /uL Eos # (Auto) 200 (0-450) /uL Baso # (Auto) 100 (0-100) /uL PT (10.1-12.7) SECONDS INR (0.9-1.3) APTT 145 H* D (26.4-36.2) SECONDS Sodium (137-145) mmol/L Potassium (3.4-5.1) mmol/L Chloride (98-107) mmol/L Carbon Dioxide (22-32) mmol/L BUN (7-17) mg/dL Creatinine (0.52-1.04) mg/dL Estimated GFR (>60) mL/min BUN/Creatinine Ratio (6-22) Glucose (80-110) mg/dL Lactate (0.7-2.1) mmol/L Calcium (8.4-10.2) mg/dL Magnesium (1.6-2.3) mg/dL Total Bilirubin (0.2-1.3) mg/dL AST (14-36) IU/L ALT (<35) IU/L Alkaline Phosphatase (38-126) U/L Total Creatine Kinase (30-135) U/L CK-MB (CK-2) CK-MB (CK-2) Rel Index Troponin I 2.710 H* (0.01-0.034) ng/mL NT-Pro-B Natriuret Pep (<450) pg/mL Total Protein (6.3-8.2) g/dL Albumin (3.5-5.0) g/dL Globulin (1.7-4.1) g/dL Albumin/Globulin Ratio (1.0-2.8) Lipase (23-300) U/L Procalcitonin (<0.5) ng/mL TSH (0.47-4.68) uIU/mL Urine Color Urine Appearance Urine pH (4.5-8.0) Ur Specific [place] (1.000-1.035) Urine Protein (Negative) Urine Glucose (UA) (Negative) g/dL Urine Ketones (NEGATIVE) Urine Occult Blood (Negative) Urine Nitrate (Negative) Urine Bilirubin (NEGATIVE) Urine Urobilinogen (0.2) E.U./dL Ur Leukocyte Esterase (NEGATIVE) Urine RBC (0-5/HPF) Urine WBC (0-5/HPF) Ur Squamous Epith Cells (0-5/HPF) Amorphous Sediment Urine Bacteria (None) Ur Culture Indicated? Chlamy pneumoniae PCR (Not Detect) Adenovirus (PCR) (Not Detect) B. pertussis DNA (PCR) (Not Detecte) B.parapertussis DNA PCR (Not Detecte) Coronavirus OC43 (PCR) (Not Detect) Coronavirus HKU1 (PCR) (Not Detect) Coronavirus 229E (PCR) (Not Detect) SARS-CoV-2 (PCR) (Not Detecte) Coronavirus NL63 (PCR) (Not Detect) Human Metapneumovir PCR (Not Detect) Influenza Type A (PCR) (Not Detect) Influenza Type B (PCR) (Not Detect) M. pneumoniae (PCR) (Not Detect) Parainfluenza 1 (PCR) (Not Detect) Parainfluenza 2 (PCR) (Not Detect) Parainfluenza 3 (PCR) (Not Detect) Parainfluenza 4 (PCR) (Not Detect) RSV (PCR) (Not Detect) Entero/Rhino (PCR) (Not Detect) 04/11/21 04/11/21 04/11/21 Range/Units 05:05 05:05 05:08 WBC 16.8 H (4.5-11.0) X10^3/uL RBC 3.44 L (4.0-5.2) X10^6/uL Hgb 9.9 L (12.0-16.0) g/dL Hct 30.1 L (36-46) % MCV 87.5 (80-100) fL MCH 28.7 (26-34) PG MCHC 32.9 (30-36) % RDW 15.0 H (11.6-14.8) % Plt Count 493 H (150-400) X10^3/uL Neut % (Auto) 71.7 (50-75) % Lymph % (Auto) 14.3 L (25-40) % Charles % (Auto) 11.6 (3-14) % Eos % (Auto) 1.8 L (2-4) % Baso % (Auto) 0.6 (0-2) % Neut # (Auto) 31737 H (6593-8999) /uL Lymph # (Auto) 2400 (1883-5343) /uL Charles # (Auto) 2000 H (0-900) /uL Eos # (Auto) 300 (0-450) /uL Baso # (Auto) 100 (0-100) /uL PT (10.1-12.7) SECONDS INR (0.9-1.3) APTT 76 H* D (26.4-36.2) SECONDS Sodium 135 L (137-145) mmol/L Potassium 3.3 L (3.4-5.1) mmol/L Chloride 98 (98-107) mmol/L Carbon Dioxide 33 H (22-32) mmol/L BUN 14 (7-17) mg/dL Creatinine 0.77 (0.52-1.04) mg/dL Estimated GFR > 60.0 (>60) mL/min BUN/Creatinine Ratio 18.2 (6-22) Glucose 112 H (80-110) mg/dL Lactate (0.7-2.1) mmol/L Calcium 8.5 (8.4-10.2) mg/dL Magnesium (1.6-2.3) mg/dL Total Bilirubin 1.0 (0.2-1.3) mg/dL AST 84 H (14-36) IU/L ALT 48 H (<35) IU/L Alkaline Phosphatase 176 H (38-126) U/L Total Creatine Kinase (30-135) U/L CK-MB (CK-2) CK-MB (CK-2) Rel Index Troponin I 2.380 H* (0.01-0.034) ng/mL NT-Pro-B Natriuret Pep (<450) pg/mL Total Protein 5.6 L (6.3-8.2) g/dL Albumin 3.2 L (3.5-5.0) g/dL Globulin 2.4 (1.7-4.1) g/dL Albumin/Globulin Ratio 1.3 (1.0-2.8) Lipase 77 D (23-300) U/L Procalcitonin 0.20 (<0.5) ng/mL TSH (0.47-4.68) uIU/mL Urine Color Urine Appearance Urine pH (4.5-8.0) Ur Specific [place] (1.000-1.035) Urine Protein (Negative) Urine Glucose (UA) (Negative) g/dL Urine Ketones (NEGATIVE) Urine Occult Blood (Negative) Urine Nitrate (Negative) Urine Bilirubin (NEGATIVE) Urine Urobilinogen (0.2) E.U./dL Ur Leukocyte Esterase (NEGATIVE) Urine RBC (0-5/HPF) Urine WBC (0-5/HPF) Ur Squamous Epith Cells (0-5/HPF) Amorphous Sediment Urine Bacteria (None) Ur Culture Indicated? Chlamy pneumoniae PCR (Not Detect) Adenovirus (PCR) (Not Detect) B. pertussis DNA (PCR) (Not Detecte) B.parapertussis DNA PCR (Not Detecte) Coronavirus OC43 (PCR) (Not Detect) Coronavirus HKU1 (PCR) (Not Detect) Coronavirus 229E (PCR) (Not Detect) SARS-CoV-2 (PCR) (Not Detecte) Coronavirus NL63 (PCR) (Not Detect) Human Metapneumovir PCR (Not Detect) Influenza Type A (PCR) (Not Detect) Influenza Type B (PCR) (Not Detect) M. pneumoniae (PCR) (Not Detect) Parainfluenza 1 (PCR) (Not Detect) Parainfluenza 2 (PCR) (Not Detect) Parainfluenza 3 (PCR) (Not Detect) Parainfluenza 4 (PCR) (Not Detect) RSV (PCR) (Not Detect) Entero/Rhino (PCR) (Not Detect) 04/11/21 04/11/21 04/11/21 Range/Units 12:15 17:00 18:06 WBC (4.5-11.0) X10^3/uL RBC (4.0-5.2) X10^6/uL Hgb (12.0-16.0) g/dL Hct (36-46) % MCV (80-100) fL MCH (26-34) PG MCHC (30-36) % RDW (11.6-14.8) % Plt Count (150-400) X10^3/uL Neut % (Auto) (50-75) % Lymph % (Auto) (25-40) % [place] % (Auto) (3-14) % Eos % (Auto) (2-4) % Baso % (Auto) (0-2) % Neut # (Auto) (2838-4580) /uL Lymph # (Auto) (5175-0362) /uL [place] # (Auto) (0-900) /uL Eos # (Auto) (0-450) /uL Baso # (Auto) (0-100) /uL PT (10.1-12.7) SECONDS INR (0.9-1.3) APTT 70 H 76 H* (26.4-36.2) SECONDS Sodium (137-145) mmol/L Potassium (3.4-5.1) mmol/L Chloride (98-107) mmol/L Carbon Dioxide (22-32) mmol/L BUN (7-17) mg/dL Creatinine (0.52-1.04) mg/dL Estimated GFR (>60) mL/min BUN/Creatinine Ratio (6-22) Glucose (80-110) mg/dL Lactate (0.7-2.1) mmol/L Calcium (8.4-10.2) mg/dL Magnesium (1.6-2.3) mg/dL Total Bilirubin (0.2-1.3) mg/dL AST (14-36) IU/L ALT (<35) IU/L Alkaline Phosphatase (38-126) U/L Total Creatine Kinase (30-135) U/L CK-MB (CK-2) CK-MB (CK-2) Rel Index Troponin I 1.330 H* (0.01-0.034) ng/mL NT-Pro-B Natriuret Pep (<450) pg/mL Total Protein (6.3-8.2) g/dL Albumin (3.5-5.0) g/dL Globulin (1.7-4.1) g/dL Albumin/Globulin Ratio (1.0-2.8) Lipase (23-300) U/L Procalcitonin (<0.5) ng/mL TSH (0.47-4.68) uIU/mL Urine Color Urine Appearance Urine pH (4.5-8.0) Ur Specific [place] (1.000-1.035) Urine Protein (Negative) Urine Glucose (UA) (Negative) g/dL Urine Ketones (NEGATIVE) Urine Occult Blood (Negative) Urine Nitrate (Negative) Urine Bilirubin (NEGATIVE) Urine Urobilinogen (0.2) E.U./dL Ur Leukocyte Esterase (NEGATIVE) Urine RBC (0-5/HPF) Urine WBC (0-5/HPF) Ur Squamous Epith Cells (0-5/HPF) Amorphous Sediment Urine Bacteria (None) Ur Culture Indicated? Chlamy pneumoniae PCR (Not Detect) Adenovirus (PCR) (Not Detect) B. pertussis DNA (PCR) (Not Detecte) B.parapertussis DNA PCR (Not Detecte) Coronavirus OC43 (PCR) (Not Detect) Coronavirus HKU1 (PCR) (Not Detect) Coronavirus 229E (PCR) (Not Detect) SARS-CoV-2 (PCR) (Not Detecte) Coronavirus NL63 (PCR) (Not Detect) Human Metapneumovir PCR (Not Detect) Influenza Type A (PCR) (Not Detect) Influenza Type B (PCR) (Not Detect) M. pneumoniae (PCR) (Not Detect) Parainfluenza 1 (PCR) (Not Detect) Parainfluenza 2 (PCR) (Not Detect) Parainfluenza 3 (PCR) (Not Detect) Parainfluenza 4 (PCR) (Not Detect) RSV (PCR) (Not Detect) Entero/Rhino (PCR) (Not Detect) 04/11/21 04/11/21 04/11/21 Range/Units 18:06 18:06 18:06 WBC (4.5-11.0) X10^3/uL RBC (4.0-5.2) X10^6/uL Hgb (12.0-16.0) g/dL Hct (36-46) % MCV (80-100) fL MCH (26-34) PG MCHC (30-36) % RDW (11.6-14.8) % Plt Count (150-400) X10^3/uL Neut % (Auto) (50-75) % Lymph % (Auto) (25-40) % [place] % (Auto) (3-14) % Eos % (Auto) (2-4) % Baso % (Auto) (0-2) % Neut # (Auto) (2627-6361) /uL Lymph # (Auto) (5082-1238) /uL [place] # (Auto) (0-900) /uL Eos # (Auto) (0-450) /uL Baso # (Auto) (0-100) /uL PT (10.1-12.7) SECONDS INR (0.9-1.3) APTT (26.4-36.2) SECONDS Sodium 136 L (137-145) mmol/L Potassium 3.4 (3.4-5.1) mmol/L Chloride 99 (98-107) mmol/L Carbon Dioxide 34 H (22-32) mmol/L BUN 19 H (7-17) mg/dL Creatinine 0.88 (0.52-1.04) mg/dL Estimated GFR > 60.0 (>60) mL/min BUN/Creatinine Ratio 21.6 (6-22) Glucose 191 H (80-110) mg/dL Lactate (0.7-2.1) mmol/L Calcium 8.4 (8.4-10.2) mg/dL Magnesium 1.9 (1.6-2.3) mg/dL Total Bilirubin (0.2-1.3) mg/dL AST (14-36) IU/L ALT (<35) IU/L Alkaline Phosphatase (38-126) U/L Total Creatine Kinase (30-135) U/L CK-MB (CK-2) CK-MB (CK-2) Rel Index Troponin I (0.01-0.034) ng/mL NT-Pro-B Natriuret Pep (<450) pg/mL Total Protein (6.3-8.2) g/dL Albumin (3.5-5.0) g/dL Globulin (1.7-4.1) g/dL Albumin/Globulin Ratio (1.0-2.8) Lipase (23-300) U/L Procalcitonin (<0.5) ng/mL TSH 2.57 (0.47-4.68) uIU/mL Urine Color Urine Appearance Urine pH (4.5-8.0) Ur Specific [place] (1.000-1.035) Urine Protein (Negative) Urine Glucose (UA) (Negative) g/dL Urine Ketones (NEGATIVE) Urine Occult Blood (Negative) Urine Nitrate (Negative) Urine Bilirubin (NEGATIVE) Urine Urobilinogen (0.2) E.U./dL Ur Leukocyte Esterase (NEGATIVE) Urine RBC (0-5/HPF) Urine WBC (0-5/HPF) Ur Squamous Epith Cells (0-5/HPF) Amorphous Sediment Urine Bacteria (None) Ur Culture Indicated? Chlamy pneumoniae PCR (Not Detect) Adenovirus (PCR) (Not Detect) B. pertussis DNA (PCR) (Not Detecte) B.parapertussis DNA PCR (Not Detecte) Coronavirus OC43 (PCR) (Not Detect) Coronavirus HKU1 (PCR) (Not Detect) Coronavirus 229E (PCR) (Not Detect) SARS-CoV-2 (PCR) (Not Detecte) Coronavirus NL63 (PCR) (Not Detect) Human Metapneumovir PCR (Not Detect) Influenza Type A (PCR) (Not Detect) Influenza Type B (PCR) (Not Detect) M. pneumoniae (PCR) (Not Detect) Parainfluenza 1 (PCR) (Not Detect) Parainfluenza 2 (PCR) (Not Detect) Parainfluenza 3 (PCR) (Not Detect) Parainfluenza 4 (PCR) (Not Detect) RSV (PCR) (Not Detect) Entero/Rhino (PCR) (Not Detect) 04/11/21 Range/Units 18:06 WBC (4.5-11.0) X10^3/uL RBC (4.0-5.2) X10^6/uL Hgb (12.0-16.0) g/dL Hct (36-46) % MCV (80-100) fL MCH (26-34) PG MCHC (30-36) % RDW (11.6-14.8) % Plt Count (150-400) X10^3/uL Neut % (Auto) (50-75) % Lymph % (Auto) (25-40) % Charles % (Auto) (3-14) % Eos % (Auto) (2-4) % Baso % (Auto) (0-2) % Neut # (Auto) (5129-7025) /uL Lymph # (Auto) (6910-3756) /uL Charles # (Auto) (0-900) /uL Eos # (Auto) (0-450) /uL Baso # (Auto) (0-100) /uL PT (10.1-12.7) SECONDS INR (0.9-1.3) APTT (26.4-36.2) SECONDS Sodium (137-145) mmol/L Potassium (3.4-5.1) mmol/L Chloride (98-107) mmol/L Carbon Dioxide (22-32) mmol/L BUN (7-17) mg/dL Creatinine (0.52-1.04) mg/dL Estimated GFR (>60) mL/min BUN/Creatinine Ratio (6-22) Glucose (80-110) mg/dL Lactate (0.7-2.1) mmol/L Calcium (8.4-10.2) mg/dL Magnesium (1.6-2.3) mg/dL Total Bilirubin (0.2-1.3) mg/dL AST (14-36) IU/L ALT (<35) IU/L Alkaline Phosphatase (38-126) U/L Total Creatine Kinase (30-135) U/L CK-MB (CK-2) CK-MB (CK-2) Rel Index Troponin I (0.01-0.034) ng/mL NT-Pro-B Natriuret Pep 653 H (<450) pg/mL Total Protein (6.3-8.2) g/dL Albumin (3.5-5.0) g/dL Globulin (1.7-4.1) g/dL Albumin/Globulin Ratio (1.0-2.8) Lipase (23-300) U/L Procalcitonin (<0.5) ng/mL TSH (0.47-4.68) uIU/mL Urine Color Urine Appearance Urine pH (4.5-8.0) Ur Specific [place] (1.000-1.035) Urine Protein (Negative) Urine Glucose (UA) (Negative) g/dL Urine Ketones (NEGATIVE) Urine Occult Blood (Negative) Urine Nitrate (Negative) Urine Bilirubin (NEGATIVE) Urine Urobilinogen (0.2) E.U./dL Ur Leukocyte Esterase (NEGATIVE) Urine RBC (0-5/HPF) Urine WBC (0-5/HPF) Ur Squamous Epith Cells (0-5/HPF) Amorphous Sediment Urine Bacteria (None) Ur Culture Indicated? Chlamy pneumoniae PCR (Not Detect) Adenovirus (PCR) (Not Detect) B. pertussis DNA (PCR) (Not Detecte) B.parapertussis DNA PCR (Not Detecte) Coronavirus OC43 (PCR) (Not Detect) Coronavirus HKU1 (PCR) (Not Detect) Coronavirus 229E (PCR) (Not Detect) SARS-CoV-2 (PCR) (Not Detecte) Coronavirus NL63 (PCR) (Not Detect) Human Metapneumovir PCR (Not Detect) Influenza Type A (PCR) (Not Detect) Influenza Type B (PCR) (Not Detect) M. pneumoniae (PCR) (Not Detect) Parainfluenza 1 (PCR) (Not Detect) Parainfluenza 2 (PCR) (Not Detect) Parainfluenza 3 (PCR) (Not Detect) Parainfluenza 4 (PCR) (Not Detect) RSV (PCR) (Not Detect) Entero/Rhino (PCR) (Not Detect) MDM Narrative Medical decision making narrative: This is an 86-year-old female who initially comes in with complaint of right hip pain that is not controlled with her pain medications but also has some shortness of breath. She was found to be hypoxic by EMS, she continues to have hypoxia and she appears to be in AFib RVR with a positive troponin but no acute ST changes indicating NSTEMI are verses demand ischemia, CHF with an elevated BNP. She does have a leukocytosis and on her CT angio of chest abdomen pelvis has bronchiectasis and some bronchial changes and may also have a pneumonia as well although procalcitonin is negative and patient has been afebrile. Patient does not have any acute renal failure. She used to be on warfarin but does not appear to be taking it any longer and her INR is negative today. She does have a history of AFib but no other known cardiac interventions or history. Patient at this time requested be full code. She is open to possible interventions in although the reluctant to transfer is also open to potential cardiac catheterization if it would be helpful. Patient signed out to Dr. Mendoza while awaiting transfer. No beds regionally at this time. Patient rate controlled. Dr mendoza: Received turned over. Review patient's history and physical. Patient continues to be rate controlled him were able to wean her off of her diltiazem drip. Her blood pressure has been within normal range with a systolic around 120. She continues to be in AFib. Patient has received 3 doses of antibiotics. Repeat labs do show a decrease in her leukocytosis. Her troponin has remained relatively unchanged. Care turned over to day provider to continue with disposition. <Thang Alcaraz MD - Last Filed: 04/11/21 17:56> Lab Data Labs: Lab Results 04/10/21 04/10/21 04/10/21 Range/Units 11:30 11:30 11:30 WBC 17.2 H (4.5-11.0) X10^3/uL RBC 3.55 L (4.0-5.2) X10^6/uL Hgb 10.2 L (12.0-16.0) g/dL Hct 31.0 L (36-46) % MCV 87.3 (80-100) fL MCH 28.8 (26-34) PG MCHC 33.0 (30-36) % RDW 14.8 (11.6-14.8) % Plt Count 563 H (150-400) X10^3/uL Neut % (Auto) 80.5 H (50-75) % Lymph % (Auto) 7.9 L (25-40) % Charles % (Auto) 9.8 (3-14) % Eos % (Auto) 0.9 L (2-4) % Baso % (Auto) 0.9 (0-2) % Neut # (Auto) 81660 H (1905-6506) /uL Lymph # (Auto) 1400 (0652-1213) /uL Charles # (Auto) 1700 H (0-900) /uL Eos # (Auto) 200 (0-450) /uL Baso # (Auto) 200 H (0-100) /uL PT (10.1-12.7) SECONDS INR (0.9-1.3) APTT (26.4-36.2) SECONDS Sodium 137 (137-145) mmol/L Potassium 3.8 (3.4-5.1) mmol/L Chloride 103 (98-107) mmol/L Carbon Dioxide 28 (22-32) mmol/L BUN 13 (7-17) mg/dL Creatinine 0.60 (0.52-1.04) mg/dL Estimated GFR > 60.0 (>60) mL/min BUN/Creatinine Ratio 21.7 (6-22) Glucose 110 (80-110) mg/dL Lactate 1.3 (0.7-2.1) mmol/L Calcium 9.0 (8.4-10.2) mg/dL Magnesium (1.6-2.3) mg/dL Total Bilirubin 1.0 (0.2-1.3) mg/dL AST 120 H (14-36) IU/L ALT 50 H (<35) IU/L Alkaline Phosphatase 201 H (38-126) U/L Total Creatine Kinase (30-135) U/L CK-MB (CK-2) CK-MB (CK-2) Rel Index Troponin I (0.01-0.034) ng/mL NT-Pro-B Natriuret Pep (<450) pg/mL Total Protein 6.1 L (6.3-8.2) g/dL Albumin 3.5 (3.5-5.0) g/dL Globulin 2.6 (1.7-4.1) g/dL Albumin/Globulin Ratio 1.3 (1.0-2.8) Lipase 45 (23-300) U/L Procalcitonin 0.11 (<0.5) ng/mL TSH (0.47-4.68) uIU/mL Urine Color Urine Appearance Urine pH (4.5-8.0) Ur Specific [place] (1.000-1.035) Urine Protein (Negative) Urine Glucose (UA) (Negative) g/dL Urine Ketones (NEGATIVE) Urine Occult Blood (Negative) Urine Nitrate (Negative) Urine Bilirubin (NEGATIVE) Urine Urobilinogen (0.2) E.U./dL Ur Leukocyte Esterase (NEGATIVE) Urine RBC (0-5/HPF) Urine WBC (0-5/HPF) Ur Squamous Epith Cells (0-5/HPF) Amorphous Sediment Urine Bacteria (None) Ur Culture Indicated? Chlamy pneumoniae PCR (Not Detect) Adenovirus (PCR) (Not Detect) B. pertussis DNA (PCR) (Not Detecte) B.parapertussis DNA PCR (Not Detecte) Coronavirus OC43 (PCR) (Not Detect) Coronavirus HKU1 (PCR) (Not Detect) Coronavirus 229E (PCR) (Not Detect) SARS-CoV-2 (PCR) (Not Detecte) Coronavirus NL63 (PCR) (Not Detect) Human Metapneumovir PCR (Not Detect) Influenza Type A (PCR) (Not Detect) Influenza Type B (PCR) (Not Detect) M. pneumoniae (PCR) (Not Detect) Parainfluenza 1 (PCR) (Not Detect) Parainfluenza 2 (PCR) (Not Detect) Parainfluenza 3 (PCR) (Not Detect) Parainfluenza 4 (PCR) (Not Detect) RSV (PCR) (Not Detect) Entero/Rhino (PCR) (Not Detect) 04/10/21 04/10/21 04/10/21 Range/Units 11:30 11:30 11:30 WBC (4.5-11.0) X10^3/uL RBC (4.0-5.2) X10^6/uL Hgb (12.0-16.0) g/dL Hct (36-46) % MCV (80-100) fL MCH (26-34) PG MCHC (30-36) % RDW (11.6-14.8) % Plt Count (150-400) X10^3/uL Neut % (Auto) (50-75) % Lymph % (Auto) (25-40) % Charles % (Auto) (3-14) % Eos % (Auto) (2-4) % Baso % (Auto) (0-2) % Neut # (Auto) (3322-1154) /uL Lymph # (Auto) (5294-0989) /uL Charles # (Auto) (0-900) /uL Eos # (Auto) (0-450) /uL Baso # (Auto) (0-100) /uL PT 13.9 H (10.1-12.7) SECONDS INR 1.2 (0.9-1.3) APTT (26.4-36.2) SECONDS Sodium (137-145) mmol/L Potassium (3.4-5.1) mmol/L Chloride (98-107) mmol/L Carbon Dioxide (22-32) mmol/L BUN (7-17) mg/dL Creatinine (0.52-1.04) mg/dL Estimated GFR (>60) mL/min BUN/Creatinine Ratio (6-22) Glucose (80-110) mg/dL Lactate (0.7-2.1) mmol/L Calcium (8.4-10.2) mg/dL Magnesium (1.6-2.3) mg/dL Total Bilirubin (0.2-1.3) mg/dL AST (14-36) IU/L ALT (<35) IU/L Alkaline Phosphatase (38-126) U/L Total Creatine Kinase 52 (30-135) U/L CK-MB (CK-2) TNP CK-MB (CK-2) Rel Index TNP Troponin I 2.860 H* (0.01-0.034) ng/mL NT-Pro-B Natriuret Pep 1280 H (<450) pg/mL Total Protein (6.3-8.2) g/dL Albumin (3.5-5.0) g/dL Globulin (1.7-4.1) g/dL Albumin/Globulin Ratio (1.0-2.8) Lipase (23-300) U/L Procalcitonin (<0.5) ng/mL TSH (0.47-4.68) uIU/mL Urine Color Urine Appearance Urine pH (4.5-8.0) Ur Specific [place] (1.000-1.035) Urine Protein (Negative) Urine Glucose (UA) (Negative) g/dL Urine Ketones (NEGATIVE) Urine Occult Blood (Negative) Urine Nitrate (Negative) Urine Bilirubin (NEGATIVE) Urine Urobilinogen (0.2) E.U./dL Ur Leukocyte Esterase (NEGATIVE) Urine RBC (0-5/HPF) Urine WBC (0-5/HPF) Ur Squamous Epith Cells (0-5/HPF) Amorphous Sediment Urine Bacteria (None) Ur Culture Indicated? Chlamy pneumoniae PCR Not detected (Not Detect) Adenovirus (PCR) Not detected (Not Detect) B. pertussis DNA (PCR) Not detected (Not Detecte) B.parapertussis DNA PCR Not detected (Not Detecte) Coronavirus OC43 (PCR) Not detected (Not Detect) Coronavirus HKU1 (PCR) Not detected (Not Detect) Coronavirus 229E (PCR) Not detected (Not Detect) SARS-CoV-2 (PCR) Not detected (Not Detecte) Coronavirus NL63 (PCR) Not detected (Not Detect) Human Metapneumovir PCR Not detected (Not Detect) Influenza Type A (PCR) Not detected (Not Detect) Influenza Type B (PCR) Not detected (Not Detect) M. pneumoniae (PCR) Not detected (Not Detect) Parainfluenza 1 (PCR) Not detected (Not Detect) Parainfluenza 2 (PCR) Not detected (Not Detect) Parainfluenza 3 (PCR) Not detected (Not Detect) Parainfluenza 4 (PCR) Not detected (Not Detect) RSV (PCR) Not detected (Not Detect) Entero/Rhino (PCR) Not detected (Not Detect) 04/10/21 04/10/21 04/10/21 Range/Units 11:30 13:53 16:22 WBC (4.5-11.0) X10^3/uL RBC (4.0-5.2) X10^6/uL Hgb (12.0-16.0) g/dL Hct (36-46) % MCV (80-100) fL MCH (26-34) PG MCHC (30-36) % RDW (11.6-14.8) % Plt Count (150-400) X10^3/uL Neut % (Auto) (50-75) % Lymph % (Auto) (25-40) % Charles % (Auto) (3-14) % Eos % (Auto) (2-4) % Baso % (Auto) (0-2) % Neut # (Auto) (9047-6615) /uL Lymph # (Auto) (1058-7778) /uL Charles # (Auto) (0-900) /uL Eos # (Auto) (0-450) /uL Baso # (Auto) (0-100) /uL PT (10.1-12.7) SECONDS INR (0.9-1.3) APTT 29 (26.4-36.2) SECONDS Sodium (137-145) mmol/L Potassium (3.4-5.1) mmol/L Chloride (98-107) mmol/L Carbon Dioxide (22-32) mmol/L BUN (7-17) mg/dL Creatinine (0.52-1.04) mg/dL Estimated GFR (>60) mL/min BUN/Creatinine Ratio (6-22) Glucose (80-110) mg/dL Lactate (0.7-2.1) mmol/L Calcium (8.4-10.2) mg/dL Magnesium (1.6-2.3) mg/dL Total Bilirubin (0.2-1.3) mg/dL AST (14-36) IU/L ALT (<35) IU/L Alkaline Phosphatase (38-126) U/L Total Creatine Kinase (30-135) U/L CK-MB (CK-2) CK-MB (CK-2) Rel Index Troponin I 2.550 H* (0.01-0.034) ng/mL NT-Pro-B Natriuret Pep (<450) pg/mL Total Protein (6.3-8.2) g/dL Albumin (3.5-5.0) g/dL Globulin (1.7-4.1) g/dL Albumin/Globulin Ratio (1.0-2.8) Lipase (23-300) U/L Procalcitonin (<0.5) ng/mL TSH (0.47-4.68) uIU/mL Urine Color Yellow Urine Appearance Clear Urine pH 7.0 (4.5-8.0) Ur Specific [place] 1.010 (1.000-1.035) Urine Protein Trace H (Negative) Urine Glucose (UA) Negative (Negative) g/dL Urine Ketones Negative (NEGATIVE) Urine Occult Blood 1+ H (Negative) Urine Nitrate Negative (Negative) Urine Bilirubin Negative (NEGATIVE) Urine Urobilinogen 0.2 (0.2) E.U./dL Ur Leukocyte Esterase Negative (NEGATIVE) Urine RBC 0-1/hpf (0-5/HPF) Urine WBC 0-1/hpf (0-5/HPF) Ur Squamous Epith Cells 0-1 /hpf (0-5/HPF) Amorphous Sediment 2+ Urine Bacteria Few (2-10) H (None) Ur Culture Indicated? Specimen cultured Chlamy pneumoniae PCR (Not Detect) Adenovirus (PCR) (Not Detect) B. pertussis DNA (PCR) (Not Detecte) B.parapertussis DNA PCR (Not Detecte) Coronavirus OC43 (PCR) (Not Detect) Coronavirus HKU1 (PCR) (Not Detect) Coronavirus 229E (PCR) (Not Detect) SARS-CoV-2 (PCR) (Not Detecte) Coronavirus NL63 (PCR) (Not Detect) Human Metapneumovir PCR (Not Detect) Influenza Type A (PCR) (Not Detect) Influenza Type B (PCR) (Not Detect) M. pneumoniae (PCR) (Not Detect) Parainfluenza 1 (PCR) (Not Detect) Parainfluenza 2 (PCR) (Not Detect) Parainfluenza 3 (PCR) (Not Detect) Parainfluenza 4 (PCR) (Not Detect) RSV (PCR) (Not Detect) Entero/Rhino (PCR) (Not Detect) 04/10/21 04/10/21 04/10/21 Range/Units 22:19 22:19 22:19 WBC 18.8 H (4.5-11.0) X10^3/uL RBC 3.41 L (4.0-5.2) X10^6/uL Hgb 9.7 L (12.0-16.0) g/dL Hct 29.6 L (36-46) % MCV 86.9 (80-100) fL MCH 28.5 (26-34) PG MCHC 32.8 (30-36) % RDW 14.9 H (11.6-14.8) % Plt Count 529 H (150-400) X10^3/uL Neut % (Auto) 69.8 (50-75) % Lymph % (Auto) 16.8 L (25-40) % Charles % (Auto) 12.0 (3-14) % Eos % (Auto) 0.8 L (2-4) % Baso % (Auto) 0.6 (0-2) % Neut # (Auto) 21013 H (3910-0669) /uL Lymph # (Auto) 3200 (1669-9461) /uL Charles # (Auto) 2200 H (0-900) /uL Eos # (Auto) 200 (0-450) /uL Baso # (Auto) 100 (0-100) /uL PT (10.1-12.7) SECONDS INR (0.9-1.3) APTT 145 H* D (26.4-36.2) SECONDS Sodium (137-145) mmol/L Potassium (3.4-5.1) mmol/L Chloride (98-107) mmol/L Carbon Dioxide (22-32) mmol/L BUN (7-17) mg/dL Creatinine (0.52-1.04) mg/dL Estimated GFR (>60) mL/min BUN/Creatinine Ratio (6-22) Glucose (80-110) mg/dL Lactate (0.7-2.1) mmol/L Calcium (8.4-10.2) mg/dL Magnesium (1.6-2.3) mg/dL Total Bilirubin (0.2-1.3) mg/dL AST (14-36) IU/L ALT (<35) IU/L Alkaline Phosphatase (38-126) U/L Total Creatine Kinase (30-135) U/L CK-MB (CK-2) CK-MB (CK-2) Rel Index Troponin I 2.710 H* (0.01-0.034) ng/mL NT-Pro-B Natriuret Pep (<450) pg/mL Total Protein (6.3-8.2) g/dL Albumin (3.5-5.0) g/dL Globulin (1.7-4.1) g/dL Albumin/Globulin Ratio (1.0-2.8) Lipase (23-300) U/L Procalcitonin (<0.5) ng/mL TSH (0.47-4.68) uIU/mL Urine Color Urine Appearance Urine pH (4.5-8.0) Ur Specific [place] (1.000-1.035) Urine Protein (Negative) Urine Glucose (UA) (Negative) g/dL Urine Ketones (NEGATIVE) Urine Occult Blood (Negative) Urine Nitrate (Negative) Urine Bilirubin (NEGATIVE) Urine Urobilinogen (0.2) E.U./dL Ur Leukocyte Esterase (NEGATIVE) Urine RBC (0-5/HPF) Urine WBC (0-5/HPF) Ur Squamous Epith Cells (0-5/HPF) Amorphous Sediment Urine Bacteria (None) Ur Culture Indicated? Chlamy pneumoniae PCR (Not Detect) Adenovirus (PCR) (Not Detect) B. pertussis DNA (PCR) (Not Detecte) B.parapertussis DNA PCR (Not Detecte) Coronavirus OC43 (PCR) (Not Detect) Coronavirus HKU1 (PCR) (Not Detect) Coronavirus 229E (PCR) (Not Detect) SARS-CoV-2 (PCR) (Not Detecte) Coronavirus NL63 (PCR) (Not Detect) Human Metapneumovir PCR (Not Detect) Influenza Type A (PCR) (Not Detect) Influenza Type B (PCR) (Not Detect) M. pneumoniae (PCR) (Not Detect) Parainfluenza 1 (PCR) (Not Detect) Parainfluenza 2 (PCR) (Not Detect) Parainfluenza 3 (PCR) (Not Detect) Parainfluenza 4 (PCR) (Not Detect) RSV (PCR) (Not Detect) Entero/Rhino (PCR) (Not Detect) 04/11/21 04/11/21 04/11/21 Range/Units 05:05 05:05 05:08 WBC 16.8 H (4.5-11.0) X10^3/uL RBC 3.44 L (4.0-5.2) X10^6/uL Hgb 9.9 L (12.0-16.0) g/dL Hct 30.1 L (36-46) % MCV 87.5 (80-100) fL MCH 28.7 (26-34) PG MCHC 32.9 (30-36) % RDW 15.0 H (11.6-14.8) % Plt Count 493 H (150-400) X10^3/uL Neut % (Auto) 71.7 (50-75) % Lymph % (Auto) 14.3 L (25-40) % Charles % (Auto) 11.6 (3-14) % Eos % (Auto) 1.8 L (2-4) % Baso % (Auto) 0.6 (0-2) % Neut # (Auto) 29987 H (1947-7910) /uL Lymph # (Auto) 2400 (2967-2065) /uL Charles # (Auto) 2000 H (0-900) /uL Eos # (Auto) 300 (0-450) /uL Baso # (Auto) 100 (0-100) /uL PT (10.1-12.7) SECONDS INR (0.9-1.3) APTT 76 H* D (26.4-36.2) SECONDS Sodium 135 L (137-145) mmol/L Potassium 3.3 L (3.4-5.1) mmol/L Chloride 98 (98-107) mmol/L Carbon Dioxide 33 H (22-32) mmol/L BUN 14 (7-17) mg/dL Creatinine 0.77 (0.52-1.04) mg/dL Estimated GFR > 60.0 (>60) mL/min BUN/Creatinine Ratio 18.2 (6-22) Glucose 112 H (80-110) mg/dL Lactate (0.7-2.1) mmol/L Calcium 8.5 (8.4-10.2) mg/dL Magnesium (1.6-2.3) mg/dL Total Bilirubin 1.0 (0.2-1.3) mg/dL AST 84 H (14-36) IU/L ALT 48 H (<35) IU/L Alkaline Phosphatase 176 H (38-126) U/L Total Creatine Kinase (30-135) U/L CK-MB (CK-2) CK-MB (CK-2) Rel Index Troponin I 2.380 H* (0.01-0.034) ng/mL NT-Pro-B Natriuret Pep (<450) pg/mL Total Protein 5.6 L (6.3-8.2) g/dL Albumin 3.2 L (3.5-5.0) g/dL Globulin 2.4 (1.7-4.1) g/dL Albumin/Globulin Ratio 1.3 (1.0-2.8) Lipase 77 D (23-300) U/L Procalcitonin 0.20 (<0.5) ng/mL TSH (0.47-4.68) uIU/mL Urine Color Urine Appearance Urine pH (4.5-8.0) Ur Specific [place] (1.000-1.035) Urine Protein (Negative) Urine Glucose (UA) (Negative) g/dL Urine Ketones (NEGATIVE) Urine Occult Blood (Negative) Urine Nitrate (Negative) Urine Bilirubin (NEGATIVE) Urine Urobilinogen (0.2) E.U./dL Ur Leukocyte Esterase (NEGATIVE) Urine RBC (0-5/HPF) Urine WBC (0-5/HPF) Ur Squamous Epith Cells (0-5/HPF) Amorphous Sediment Urine Bacteria (None) Ur Culture Indicated? Chlamy pneumoniae PCR (Not Detect) Adenovirus (PCR) (Not Detect) B. pertussis DNA (PCR) (Not Detecte) B.parapertussis DNA PCR (Not Detecte) Coronavirus OC43 (PCR) (Not Detect) Coronavirus HKU1 (PCR) (Not Detect) Coronavirus 229E (PCR) (Not Detect) SARS-CoV-2 (PCR) (Not Detecte) Coronavirus NL63 (PCR) (Not Detect) Human Metapneumovir PCR (Not Detect) Influenza Type A (PCR) (Not Detect) Influenza Type B (PCR) (Not Detect) M. pneumoniae (PCR) (Not Detect) Parainfluenza 1 (PCR) (Not Detect) Parainfluenza 2 (PCR) (Not Detect) Parainfluenza 3 (PCR) (Not Detect) Parainfluenza 4 (PCR) (Not Detect) RSV (PCR) (Not Detect) Entero/Rhino (PCR) (Not Detect) 04/11/21 04/11/21 04/11/21 Range/Units 12:15 17:00 18:06 WBC (4.5-11.0) X10^3/uL RBC (4.0-5.2) X10^6/uL Hgb (12.0-16.0) g/dL Hct (36-46) % MCV (80-100) fL MCH (26-34) PG MCHC (30-36) % RDW (11.6-14.8) % Plt Count (150-400) X10^3/uL Neut % (Auto) (50-75) % Lymph % (Auto) (25-40) % [place] % (Auto) (3-14) % Eos % (Auto) (2-4) % Baso % (Auto) (0-2) % Neut # (Auto) (4367-9737) /uL Lymph # (Auto) (1633-3446) /uL [place] # (Auto) (0-900) /uL Eos # (Auto) (0-450) /uL Baso # (Auto) (0-100) /uL PT (10.1-12.7) SECONDS INR (0.9-1.3) APTT 70 H 76 H* (26.4-36.2) SECONDS Sodium (137-145) mmol/L Potassium (3.4-5.1) mmol/L Chloride (98-107) mmol/L Carbon Dioxide (22-32) mmol/L BUN (7-17) mg/dL Creatinine (0.52-1.04) mg/dL Estimated GFR (>60) mL/min BUN/Creatinine Ratio (6-22) Glucose (80-110) mg/dL Lactate (0.7-2.1) mmol/L Calcium (8.4-10.2) mg/dL Magnesium (1.6-2.3) mg/dL Total Bilirubin (0.2-1.3) mg/dL AST (14-36) IU/L ALT (<35) IU/L Alkaline Phosphatase (38-126) U/L Total Creatine Kinase (30-135) U/L CK-MB (CK-2) CK-MB (CK-2) Rel Index Troponin I 1.330 H* (0.01-0.034) ng/mL NT-Pro-B Natriuret Pep (<450) pg/mL Total Protein (6.3-8.2) g/dL Albumin (3.5-5.0) g/dL Globulin (1.7-4.1) g/dL Albumin/Globulin Ratio (1.0-2.8) Lipase (23-300) U/L Procalcitonin (<0.5) ng/mL TSH (0.47-4.68) uIU/mL Urine Color Urine Appearance Urine pH (4.5-8.0) Ur Specific [place] (1.000-1.035) Urine Protein (Negative) Urine Glucose (UA) (Negative) g/dL Urine Ketones (NEGATIVE) Urine Occult Blood (Negative) Urine Nitrate (Negative) Urine Bilirubin (NEGATIVE) Urine Urobilinogen (0.2) E.U./dL Ur Leukocyte Esterase (NEGATIVE) Urine RBC (0-5/HPF) Urine WBC (0-5/HPF) Ur Squamous Epith Cells (0-5/HPF) Amorphous Sediment Urine Bacteria (None) Ur Culture Indicated? Chlamy pneumoniae PCR (Not Detect) Adenovirus (PCR) (Not Detect) B. pertussis DNA (PCR) (Not Detecte) B.parapertussis DNA PCR (Not Detecte) Coronavirus OC43 (PCR) (Not Detect) Coronavirus HKU1 (PCR) (Not Detect) Coronavirus 229E (PCR) (Not Detect) SARS-CoV-2 (PCR) (Not Detecte) Coronavirus NL63 (PCR) (Not Detect) Human Metapneumovir PCR (Not Detect) Influenza Type A (PCR) (Not Detect) Influenza Type B (PCR) (Not Detect) M. pneumoniae (PCR) (Not Detect) Parainfluenza 1 (PCR) (Not Detect) Parainfluenza 2 (PCR) (Not Detect) Parainfluenza 3 (PCR) (Not Detect) Parainfluenza 4 (PCR) (Not Detect) RSV (PCR) (Not Detect) Entero/Rhino (PCR) (Not Detect) 04/11/21 04/11/21 04/11/21 Range/Units 18:06 18:06 18:06 WBC (4.5-11.0) X10^3/uL RBC (4.0-5.2) X10^6/uL Hgb (12.0-16.0) g/dL Hct (36-46) % MCV (80-100) fL MCH (26-34) PG MCHC (30-36) % RDW (11.6-14.8) % Plt Count (150-400) X10^3/uL Neut % (Auto) (50-75) % Lymph % (Auto) (25-40) % [place] % (Auto) (3-14) % Eos % (Auto) (2-4) % Baso % (Auto) (0-2) % Neut # (Auto) (8089-5172) /uL Lymph # (Auto) (7925-0657) /uL [place] # (Auto) (0-900) /uL Eos # (Auto) (0-450) /uL Baso # (Auto) (0-100) /uL PT (10.1-12.7) SECONDS INR (0.9-1.3) APTT (26.4-36.2) SECONDS Sodium 136 L (137-145) mmol/L Potassium 3.4 (3.4-5.1) mmol/L Chloride 99 (98-107) mmol/L Carbon Dioxide 34 H (22-32) mmol/L BUN 19 H (7-17) mg/dL Creatinine 0.88 (0.52-1.04) mg/dL Estimated GFR > 60.0 (>60) mL/min BUN/Creatinine Ratio 21.6 (6-22) Glucose 191 H (80-110) mg/dL Lactate (0.7-2.1) mmol/L Calcium 8.4 (8.4-10.2) mg/dL Magnesium 1.9 (1.6-2.3) mg/dL Total Bilirubin (0.2-1.3) mg/dL AST (14-36) IU/L ALT (<35) IU/L Alkaline Phosphatase (38-126) U/L Total Creatine Kinase (30-135) U/L CK-MB (CK-2) CK-MB (CK-2) Rel Index Troponin I (0.01-0.034) ng/mL NT-Pro-B Natriuret Pep (<450) pg/mL Total Protein (6.3-8.2) g/dL Albumin (3.5-5.0) g/dL Globulin (1.7-4.1) g/dL Albumin/Globulin Ratio (1.0-2.8) Lipase (23-300) U/L Procalcitonin (<0.5) ng/mL TSH 2.57 (0.47-4.68) uIU/mL Urine Color Urine Appearance Urine pH (4.5-8.0) Ur Specific [place] (1.000-1.035) Urine Protein (Negative) Urine Glucose (UA) (Negative) g/dL Urine Ketones (NEGATIVE) Urine Occult Blood (Negative) Urine Nitrate (Negative) Urine Bilirubin (NEGATIVE) Urine Urobilinogen (0.2) E.U./dL Ur Leukocyte Esterase (NEGATIVE) Urine RBC (0-5/HPF) Urine WBC (0-5/HPF) Ur Squamous Epith Cells (0-5/HPF) Amorphous Sediment Urine Bacteria (None) Ur Culture Indicated? Chlamy pneumoniae PCR (Not Detect) Adenovirus (PCR) (Not Detect) B. pertussis DNA (PCR) (Not Detecte) B.parapertussis DNA PCR (Not Detecte) Coronavirus OC43 (PCR) (Not Detect) Coronavirus HKU1 (PCR) (Not Detect) Coronavirus 229E (PCR) (Not Detect) SARS-CoV-2 (PCR) (Not Detecte) Coronavirus NL63 (PCR) (Not Detect) Human Metapneumovir PCR (Not Detect) Influenza Type A (PCR) (Not Detect) Influenza Type B (PCR) (Not Detect) M. pneumoniae (PCR) (Not Detect) Parainfluenza 1 (PCR) (Not Detect) Parainfluenza 2 (PCR) (Not Detect) Parainfluenza 3 (PCR) (Not Detect) Parainfluenza 4 (PCR) (Not Detect) RSV (PCR) (Not Detect) Entero/Rhino (PCR) (Not Detect) 04/11/21 Range/Units 18:06 WBC (4.5-11.0) X10^3/uL RBC (4.0-5.2) X10^6/uL Hgb (12.0-16.0) g/dL Hct (36-46) % MCV (80-100) fL MCH (26-34) PG MCHC (30-36) % RDW (11.6-14.8) % Plt Count (150-400) X10^3/uL Neut % (Auto) (50-75) % Lymph % (Auto) (25-40) % Charles % (Auto) (3-14) % Eos % (Auto) (2-4) % Baso % (Auto) (0-2) % Neut # (Auto) (4308-6718) /uL Lymph # (Auto) (5904-3321) /uL [place] # (Auto) (0-900) /uL Eos # (Auto) (0-450) /uL Baso # (Auto) (0-100) /uL PT (10.1-12.7) SECONDS INR (0.9-1.3) APTT (26.4-36.2) SECONDS Sodium (137-145) mmol/L Potassium (3.4-5.1) mmol/L Chloride (98-107) mmol/L Carbon Dioxide (22-32) mmol/L BUN (7-17) mg/dL Creatinine (0.52-1.04) mg/dL Estimated GFR (>60) mL/min BUN/Creatinine Ratio (6-22) Glucose (80-110) mg/dL Lactate (0.7-2.1) mmol/L Calcium (8.4-10.2) mg/dL Magnesium (1.6-2.3) mg/dL Total Bilirubin (0.2-1.3) mg/dL AST (14-36) IU/L ALT (<35) IU/L Alkaline Phosphatase (38-126) U/L Total Creatine Kinase (30-135) U/L CK-MB (CK-2) CK-MB (CK-2) Rel Index Troponin I (0.01-0.034) ng/mL NT-Pro-B Natriuret Pep 653 H (<450) pg/mL Total Protein (6.3-8.2) g/dL Albumin (3.5-5.0) g/dL Globulin (1.7-4.1) g/dL Albumin/Globulin Ratio (1.0-2.8) Lipase (23-300) U/L Procalcitonin (<0.5) ng/mL TSH (0.47-4.68) uIU/mL Urine Color Urine Appearance Urine pH (4.5-8.0) Ur Specific [place] (1.000-1.035) Urine Protein (Negative) Urine Glucose (UA) (Negative) g/dL Urine Ketones (NEGATIVE) Urine Occult Blood (Negative) Urine Nitrate (Negative) Urine Bilirubin (NEGATIVE) Urine Urobilinogen (0.2) E.U./dL Ur Leukocyte Esterase (NEGATIVE) Urine RBC (0-5/HPF) Urine WBC (0-5/HPF) Ur Squamous Epith Cells (0-5/HPF) Amorphous Sediment Urine Bacteria (None) Ur Culture Indicated? Chlamy pneumoniae PCR (Not Detect) Adenovirus (PCR) (Not Detect) B. pertussis DNA (PCR) (Not Detecte) B.parapertussis DNA PCR (Not Detecte) Coronavirus OC43 (PCR) (Not Detect) Coronavirus HKU1 (PCR) (Not Detect) Coronavirus 229E (PCR) (Not Detect) SARS-CoV-2 (PCR) (Not Detecte) Coronavirus NL63 (PCR) (Not Detect) Human Metapneumovir PCR (Not Detect) Influenza Type A (PCR) (Not Detect) Influenza Type B (PCR) (Not Detect) M. pneumoniae (PCR) (Not Detect) Parainfluenza 1 (PCR) (Not Detect) Parainfluenza 2 (PCR) (Not Detect) Parainfluenza 3 (PCR) (Not Detect) Parainfluenza 4 (PCR) (Not Detect) RSV (PCR) (Not Detect) Entero/Rhino (PCR) (Not Detect) MDM Narrative Medical decision making narrative: This is an 86-year-old female who initially comes in with complaint of right hip pain that is not controlled with her pain medications but also has some shortness of breath. She was found to be hypoxic by EMS, she continues to have hypoxia and she appears to be in AFib RVR with a positive troponin but no acute ST changes indicating NSTEMI are verses demand ischemia, CHF with an elevated BNP. She does have a leukocytosis and on her CT angio of chest abdomen pelvis has bronchiectasis and some bronchial changes and may also have a pneumonia as well although procalcitonin is negative and patient has been afebrile. Patient does not have any acute renal failure. She used to be on warfarin but does not appear to be taking it any longer and her INR is negative today. She does have a history of AFib but no other known cardiac interventions or history. Patient at this time requested be full code. She is open to possible interventions in although the reluctant to transfer is also open to potential cardiac catheterization if it would be helpful. Patient signed out to Dr. Mendoza while awaiting transfer. No beds regionally at this time. Patient rate controlled. Dr mendoza: Received turned over. Review patient's history and physical. Patient continues to be rate controlled him were able to wean her off of her diltiazem drip. Her blood pressure has been within normal range with a systolic around 120. She continues to be in AFib. Patient has received 3 doses of antibiotics. Repeat labs do show a decrease in her leukocytosis. Her troponin has remained relatively unchanged. Care turned over to day provider to continue with disposition. 04/11/21@09:44. The patient was previously evaluated by Dr. Palomo, and Dr. Mendoza. The patient had AFib with RVR, and a non-STEMI. Upon my evaluation her heart rate is now under control. The Cardizem drip is off. Other than hip pain when moving about she has no complaints. She has no chest pain, no dyspnea, no weakness or dizziness. She was initially start antibiotics. She has no headache, sore throat, cough or dyspnea. She denies GI symptoms. She denies symptoms. She is afebrile. She remains on a waiting list at [facility]. She is still on heparin. She seems to be doing quite well. Care will continue here in the ER awaiting transfer. Avi RIVERA Critical Care Time <Natasha Palomo DO - Last Filed: 04/18/21 18:11> Critical Care Time Critical Care Time: Yes Attestation: The high probability of a clinically significant, sudden or life threatening deterioration of the [] system(s) required my full and direct attention, intervention and personal management. The aggregate critical care time was [] minutes. This time is in addition to time spent performing reported procedures but includes the following: [x] Data Review and interpretation [x] Patient assessment and monitoring of vital signs [x] Documentation [x] Medication orders and management <Casper Mendoza DO - Last Filed: 04/11/21 19:51> Critical Care Time Total Critical Care Time: 45 Discharge Plan Departure Patient Disposition: Admitted As Inpatient Clinical Impression: Atrial fibrillation with rapid ventricular response, Non-ST elevation [place] (NSTEMI), CHF (congestive heart failure), Pneumonia, Acute respiratory failure with hypoxia Admit Date/Time: 04/11/21 19:40 Admit Provider: Zaynab Domingo
--- NOTE | 2021-04-10 11:39 | PC.NURSE ---
Pt transferred to/from xray without oxygen, 89% upon arrival back to room. 2L NC placed.
[2021-04-10 11:49] LABS: INR 1.2 (0.9-1.3); Prothrombin Time 13.9 SECONDS (10.1-12.7)
[2021-04-10 11:52] LABS: Creatine Kinase 52 U/L (30-135)
[2021-04-10 12:02] LABS: NT-proBNP (BNP-Adult 18+) 1280 pg/mL (<450)
[2021-04-10] MEDS: SODIUM CHLORIDE 0.9% 1,000 ML 1000 ML IV (12:03)
[2021-04-10 12:14] LABS: Lactate (Lactic Acid) 1.3 mmol/L (0.7-2.1)
[2021-04-10 12:15] LABS: Alanine Aminotransferase 50 IU/L (<35); Albumin 3.5 g/dL (3.5-5.0); Albumin Globulin Ratio 1.3 (1.0-2.8); Alkaline Phosphatase 201 U/L (38-126); Aspartate Aminotransferase 120 IU/L (14-36); BUN Creatinine Ratio 21.7 (6-22); Blood Urea Nitrogen 13 mg/dL (7-17); Carbon Dioxide 28 mmol/L (22-32); Chloride 103 mmol/L (98-107); Estimated Glomerular Filt Rate > 60.0 mL/min (>60); Globulin 2.6 g/dL (1.7-4.1); Glucose 110 mg/dL (80-110); HEMOLYSIS < 15 (0-50); Lipase 45 U/L (23-300); Potassium 3.8 mmol/L (3.4-5.1); Sodium 137 mmol/L (137-145); Total Protein 6.1 g/dL (6.3-8.2)
[2021-04-10 12:18] LABS: Add Manual Diff / Slide Review NO; Basophils Absolute Auto 200 /uL (0-100); Basophils Percent Auto 0.9 % (0-2); Eosinophils Absolute Auto 200 /uL (0-450); Eosinophils Percent Auto 0.9 % (2-4); Hemoglobin 10.2 g/dL (12.0-16.0); Lymphocytes Absolute Auto 1400 /uL (1100-4500); Lymphocytes Percent Auto 7.9 % (25-40); Mean Corpuscular Hemoglobin 28.8 PG (26-34); Mean Corpuscular Volume 87.3 fL (80-100); Monocytes Absolute Auto 1700 /uL (0-900); Monocytes Percent Auto 9.8 % (3-14); Neutrophils Absolute Auto 13900 /uL (1500-7000); Neutrophils Percent Auto 80.5 % (50-75); Platelet Count 563 X10^3/uL (150-400); Red Blood Cell Count 3.55 X10^6/uL (4.0-5.2); Red Cell Distribution Width 14.8 % (11.6-14.8); White Blood Cell Count 17.2 X10^3/uL (4.5-11.0)
--- NOTE | 2021-04-10 12:30 | DI.CT.S_ITS ---
PROCEDURE: CT ANGIO CHEST ABDOMEN PELVIS INDICATIONS: r/o PE, aneurysm TECHNIQUE: Precontrast 5 mm thick sections acquired from the lung apices to the iliac crests. After the administration of intravenous contrast, 2.5 mm thick sections again acquired from the lung apices to the iliac crests. Maximum intensity projection (MIP) oblique sagittal and coronal reformats were then acquired. For radiation dose reduction, the following was used: automated exposure control. COMPARISON: [facility], CT, CT ABDOMEN PELVIS W CON, 03/22/2020, 12:52. FINDINGS: Image quality: Excellent. AORTA and its attachments: No thoracic or abdominal aortic dissection or aneurysm or significant stenosis. Classic three-vessel arch anatomy. No significant great vessel origin stenosis. Celiac, SMA, and DAVID are grossly patent. No significant renal artery stenosis noted. Diffuse atherosclerotic calcifications. Question hemodynamically significant left common iliac artery stenosis. CHEST: Lungs and pleura: No evidence acute pulmonary emboli. No acute airspace opacities. No pleural effusions or pneumothorax. Patchy bilateral bronchiectasis and bronchial wall thickening. Mediastinum: Heart size is normal. No pericardial effusion. No mediastinal or hilar adenopathy by size criteria. Central pulmonary arteries are normal in size. Esophagus is normal in caliber. No hiatal hernias. Bones and chest wall: No axillary adenopathy by size criteria. Thyroid gland unremarkable as visualized . No suspicious bony lesions. No vertebral body compression fractures. ABDOMEN: Vasculature: Celiac trunk and mesenteric arteries are patent. Renal arteries are also patent. Solid organs: Surface nodularity of the liver suggests cirrhosis. No focal mass. Gallbladder is surgically absent. Biliary system is non dilated. Pancreas enhances normally. Spleen quite small. No adrenal nodules. Both kidneys are normal in size and enhancement, without hydronephrosis. Peritoneum and bowel: Diverticulosis without evidence of diverticulitis. No free air or free fluid or abscess. Nodes and vessels: No retroperitoneal or mesenteric adenopathy by size criteria. Inferior vena cava is normal in morphology. Miscellaneous: No ventral hernias. PELVIS: Genitourinary: Bladder wall thickness is normal. Miscellaneous: No inguinal hernias or adenopathy. No ventral hernias. Bones: Numerous compression fractures. Probable subacute moderate T11 compression, severe chronic L1 compression, and mild to moderate chronic L3 compression. Extensive metal artifact in the pelvis from bilateral total hip arthroplasties. IMPRESSION: 1. Normal caliber aorta, with no evidence of dissection or aneurysm. 2. No evidence of acute pulmonary emboli. 3. Patchy bilateral bronchiectasis and bronchial wall thickening. 4. Question hemodynamically significant left common iliac artery stenosis. 5. Multiple compression fractures, including a probably subacute moderate T11 compression. 6. Cirrhosis. Dictated by: Xavi Cornejo M.D. on 04/10/2021 at 13:21 Approved by: Xavi Cornejo M.D. on 04/10/2021 at 13:35
[2021-04-10 12:31] LABS: Procalcitonin 0.11 ng/mL (<0.5)
[2021-04-10 12:32] LABS: Adenovirus Not Detected (Not Detect); B. parapertussis Not Detected (Not Detecte); Bordetella pertussis Not Detected (Not Detecte); Chlamydophila pneumoniae Not Detected (Not Detect); Coronavirus 229E Not Detected (Not Detect); Coronavirus HKU1 Not Detected (Not Detect); Coronavirus NL 63 Not Detected (Not Detect); Coronavirus OC43 Not Detected (Not Detect); Human Metapneumovirus Not Detected (Not Detect); Human Rhinovirus/Enterovirus Not Detected (Not Detect); Influenza A Not Detected (Not Detect); Influenza B Not Detected (Not Detect); Mycoplasma pneumoniae Not Detected (Not Detect); Parainfluenza Virus 1 Not Detected (Not Detect); Parainfluenza Virus 2 Not Detected (Not Detect); Parainfluenza Virus 3 Not Detected (Not Detect); Parainfluenza Virus 4 Not Detected (Not Detect); Respiratory Syncytial Virus Not Detected (Not Detect); SARS- CoV-2 Not Detected (Not Detecte)
[2021-04-10] MEDS: PIPERACILLIN/TAZO 4.5 GM in SODIUM CHLORIDE 0.9% 100 ML 200 ML IV (12:46)
[2021-04-10] MEDS: FUROSEMIDE 40 MG/4 ML VIAL IV ×2 (12:47→20:45)
[2021-04-10] MEDS: ASPIRIN 81 MG CHEW TAB 324 MG PO (12:47)
[2021-04-10 13:58] LABS: Appearance Urine UA CLEAR; Bilirubin Urine UA NEGATIVE (NEGATIVE); Color Urine UA YELLOW; Glucose Urine UA NEGATIVE (Negative); Ketones Urine UA NEGATIVE (NEGATIVE); Leukocyte Esterase Urine UA NEGATIVE (NEGATIVE); Nitrite Urine UA NEGATIVE (Negative); Occult Blood Urine UA 1+ (Negative); Protein Urine UA TRACE (Negative); Urobilinogen Urine UA 0.2 E.U./dL (0.2)
[2021-04-10] MEDS: dilTIAZem 5 MG/ML SDV 10 MG IV (14:11)
[2021-04-10] MEDS: dilTIAZem 125 MG in DEXTROSE 5 % IN WATER 100 ML IV (14:13)
[2021-04-10 14:21] LABS: Amorphous Sediment Urine 2+; Bacteria Urine Few (2-10); RBC Urine 0-1/HPF (0-5/HPF); Squamous Epithelial Cell Urine 0-1 /HPF (0-5/HPF); WBC Urine 0-1/HPF (0-5/HPF)
[2021-04-10 14:22] LABS: Culture Indicated Urine Specimen Cultured
[2021-04-10 14:51] LABS: PTT Partial Thromboplastin Tim 29 SECONDS (26.4-36.2)
--- NOTE | 2021-04-10 15:26 | PC.NURSE ---
Pt having unmeasurable incontinent voids, notified Dr Palomo.
[2021-04-10] MEDS: HEPARIN 5,000 UNIT/ML VIAL 4000 UNIT IV (15:34)
[2021-04-10] MEDS: HEPARIN DRIP 25,000 UNIT/500 ML IV.SOLN 17.636 UNIT IV (15:35)
--- NOTE | 2021-04-10 15:35 | PC.NURSE ---
Heparin verified with Ericka WICK.
[2021-04-10] MEDS: fentaNYL 100 MCG/2 ML INJ 25 MCG IV (16:59)
[2021-04-10] MEDS: PIPERACILLIN/TAZO 4.5 GM in SODIUM CHLORIDE 0.9% 100 ML 25 ML IV (20:43)
[2021-04-10] MEDS: ATORVASTATIN 20 MG TABLET 80 MG PO (20:44)
--- NOTE | 2021-04-10 20:50 | PC.NURSE ---
Addendum entered by Herson Olson CNA 04/10/21 21:01: Irving from [facility] called back stating that Dr. Wright could not be reach (erp specialist Dr. Palomo consulted with), so they got ahold of the Cardiology Attending Dr. Apodaca who was accepted the patient PENDING bed availability. Irving stated no bed tonight, possible chance of a bed available tomorrow. Original Note: Patient is [employer] insurance; Lindy from [facility] says Dr. Yunier [place] has accepted patient as a transfer and we can continue to seek bed placement. They will call back to check on us and if we were able to secure a bed. [facility] waitlist [facility] waitlist [facility] waitlist [facility] waitlist [facility] refuses waitlist [place] refuses non trauma transfers, refuses waitlist
[2021-04-10 22:28] LABS: Add Manual Diff / Slide Review NO; Basophils Absolute Auto 100 /uL (0-100); Basophils Percent Auto 0.6 % (0-2); Eosinophils Absolute Auto 200 /uL (0-450); Eosinophils Percent Auto 0.8 % (2-4); Hematocrit 29.6 % (36-46); Hemoglobin 9.7 g/dL (12.0-16.0); Lymphocytes Absolute Auto 3200 /uL (1100-4500); Lymphocytes Percent Auto 16.8 % (25-40); Mean Corpuscular HGB Conc 32.8 % (30-36); Mean Corpuscular Hemoglobin 28.5 PG (26-34); Mean Corpuscular Volume 86.9 fL (80-100); Monocytes Absolute Auto 2200 /uL (0-900); Neutrophils Absolute Auto 13100 /uL (1500-7000); Neutrophils Percent Auto 69.8 % (50-75); Platelet Count 529 X10^3/uL (150-400); Red Blood Cell Count 3.41 X10^6/uL (4.0-5.2); Red Cell Distribution Width 14.9 % (11.6-14.8); White Blood Cell Count 18.8 X10^3/uL (4.5-11.0)
[2021-04-10 22:52] LABS: PTT Partial Thromboplastin Tim 145 SECONDS (26.4-36.2)
[2021-04-11] VITALS (29 sets, daily range): BP systolic 102–157; BP diastolic 52–87; PULSE 74–102; RESP 16–48; TEMP 37.2; O2SAT 93–99; BMI 27.8; BMI 26.8
--- NOTE | 2021-04-11 03:04 | PC.NURSE ---
Cardizem stopped at this time per providers order
[2021-04-11] MEDS: PIPERACILLIN/TAZO 4.5 GM in SODIUM CHLORIDE 0.9% 100 ML 25 ML IV (04:58)
[2021-04-11 05:16] LABS: Add Manual Diff / Slide Review NO; Basophils Absolute Auto 100 /uL (0-100); Basophils Percent Auto 0.6 % (0-2); Eosinophils Absolute Auto 300 /uL (0-450); Eosinophils Percent Auto 1.8 % (2-4); Hematocrit 30.1 % (36-46); Hemoglobin 9.9 g/dL (12.0-16.0); Lymphocytes Absolute Auto 2400 /uL (1100-4500); Lymphocytes Percent Auto 14.3 % (25-40); Mean Corpuscular HGB Conc 32.9 % (30-36); Mean Corpuscular Hemoglobin 28.7 PG (26-34); Mean Corpuscular Volume 87.5 fL (80-100); Monocytes Absolute Auto 2000 /uL (0-900); Monocytes Percent Auto 11.6 % (3-14); Neutrophils Absolute Auto 12100 /uL (1500-7000); Neutrophils Percent Auto 71.7 % (50-75); Platelet Count 493 X10^3/uL (150-400); Red Blood Cell Count 3.44 X10^6/uL (4.0-5.2); White Blood Cell Count 16.8 X10^3/uL (4.5-11.0)
[2021-04-11 05:25] LABS: PTT Partial Thromboplastin Tim 76 SECONDS (26.4-36.2)
[2021-04-11 05:27] LABS: Alanine Aminotransferase 48 IU/L (<35); Albumin 3.2 g/dL (3.5-5.0); Albumin Globulin Ratio 1.3 (1.0-2.8); Alkaline Phosphatase 176 U/L (38-126); Aspartate Aminotransferase 84 IU/L (14-36); BUN Creatinine Ratio 18.2 (6-22); Blood Urea Nitrogen 14 mg/dL (7-17); Calcium 8.5 mg/dL (8.4-10.2); Carbon Dioxide 33 mmol/L (22-32); Chloride 98 mmol/L (98-107); Estimated Glomerular Filt Rate > 60.0 mL/min (>60); Globulin 2.4 g/dL (1.7-4.1); Glucose 112 mg/dL (80-110); Lipase 77 U/L (23-300); Potassium 3.3 mmol/L (3.4-5.1); Sodium 135 mmol/L (137-145); Total Protein 5.6 g/dL (6.3-8.2)
[2021-04-11 05:40] LABS: HEMOLYSIS 16 (0-50)
[2021-04-11] MEDS: FUROSEMIDE 40 MG/4 ML VIAL IV ×2 (08:34→21:52)
[2021-04-11] MEDS: ASPIRIN 81 MG CHEW TAB 324 MG PO (08:34)
[2021-04-11] MEDS: PANTOPRAZOLE DR 20 MG TABLET PO (09:03)
[2021-04-11] MEDS: predniSONE 20 MG TABLET 5 MG PO (09:04)
[2021-04-11] MEDS: OXYCODONE/ACETAMINOPHEN 5/325 TABLET 1 TAB PO (09:46)
[2021-04-11] MEDS: LOSARTAN 25 MG TABLET PO (09:47)
[2021-04-11] MEDS: METOPROLOL ER 25 MG TABLET PO (09:47)
[2021-04-11 12:31] LABS: PTT Partial Thromboplastin Tim 70 SECONDS (26.4-36.2)
--- NOTE | 2021-04-11 15:18 | PC.NURSE ---
Spoke w/ [facility] who told me that we could attempt to find a bed anywhere and it would be covered as there are so few beds available in the general area. Called [place]: they are boarding tele and are not accepting anyone to their wait list. Called [place] and paged [facility] janitor supervisor and am awaiting a call back.
[2021-04-11 17:50] LABS: PTT Partial Thromboplastin Tim 76 SECONDS (26.4-36.2)
[2021-04-11 19:58] LABS: BUN Creatinine Ratio 21.6 (6-22); Blood Urea Nitrogen 19 mg/dL (7-17); Calcium 8.4 mg/dL (8.4-10.2); Carbon Dioxide 34 mmol/L (22-32); Chloride 99 mmol/L (98-107); Estimated Glomerular Filt Rate > 60.0 mL/min (>60); Glucose 191 mg/dL (80-110); HEMOLYSIS < 15 (0-50); Potassium 3.4 mmol/L (3.4-5.1); Sodium 136 mmol/L (137-145)
[2021-04-11 20:57] LABS: Magnesium 1.9 mg/dL (1.6-2.3)
[2021-04-11 21:06] LABS: NT-proBNP (BNP-Adult 18+) 653 pg/mL (<450)
[2021-04-11] MEDS: ONDANSETRON 4 MG/2 ML INJ IV (21:14)
[2021-04-11 21:28] LABS: Thyroid Stimulating Hormone 2.57 uIU/mL (0.47-4.68)
[2021-04-11] MEDS: SODIUM CHLORIDE 0.9% FLUSH 10 ML IV (21:52)
[2021-04-11] MEDS: SENNOSIDES 8.6 MG TABLET 17.2 MG PO (21:52)
[2021-04-11] MEDS: ATORVASTATIN 20 MG TABLET 80 MG PO (21:52)
[2021-04-12] VITALS (8 sets, daily range): BP systolic 118–140; BP diastolic 53–76; PULSE 78–85; RESP 15–16; TEMP 36.4–37.4; O2SAT 93–97
--- NOTE | 2021-04-12 00:25 | P.HP_ITS ---
History of Present Illness History of Present Illness Date Patient Seen: 04/11/21 Time Patient Seen: 20:28 Chief complaint: R hip pain Narrative: Anna Jamison is a 86-year-old female with a medical history of atrial fibrillation, essential hypertension, hyperlipidemia, hypothyroidism, GERD, autoimmune gallbladder disease, and anxiety that arrived to the ED 0n 04/10/21 via EMS for complaint of right hip pain (Hx of bilateral hip replacement).? Patient had a fall (ambulates with a walker) on the 04/08 and was seen at [facility].? She had negative imaging, and a skin tear on her right gomez with dressing. She has also noted some shortness of breath and EMS noted oxygen was in the 80's% on rm air upon their arrival.?Patient presented in acute respiratory failure, she was started on 4 L/NC.? Patient was seen in ED 03/30, for UTI- prescribed Keflex 500mg BID which she states she did not complete. ? Patient is not aware of any fevers.? She does note she has had a headache for several weeks.? The light in the room bothers her but has not been bothering her home.? She denies any neck pain.? She does describe some lower abdominal ache/pain, and suprapubic pain 6/10, constant, nothing improves or worsens the pain, and it does not radiate.? She has had shortness of breath but denies any chest pain.?Patient denies any new numbness, tingling, extremity swelling, new weakness, falls.?She has a history of atrial fibrillation is on warfarin, losartan, metoprolol, omeprazole and your so dial for a ?autoimmune gallbladder disease?.? She has had a cholecystectomy she denies any cardiac interventions.? She has had prior compression fractures in her back and prior hip replacements.? Patient is allergic for sulfa. Patient was found to be in atrial fibrillation RVR in ED EKG Rate 123 atrial fibrillation with rapid ventricular response with premature ventricular or aberrantly conducted complexes Nonspecific ST abnormality. Her initial troponin 2.860,#2 2.550, #3 2.710-patient was started on heparin drip and the emergency room attempted to transfer the patient to [facility] for cardiac intervention. No beds were available. Today 04/11/21 Her troponin was down trending, on the heparin drip, and Atrial Fib had resolved and gone back into NSR Rate 83, tappered off of Cardizem drip. She states she is feeling much better.? Patient had been in the emergency department for approximately 32 hours and her symptoms seem to be improving.? Her labs were improving as well.? Dr. Mendoza discussed the case with Cardiology- who stated that the patient is a stable candidate to admit to [facility], and should continue on heparin for a total of 72 hours and should receive an echocardiogram.?I agreed to admit the patient for further evaluation and treatment.? Upon admit patient's temp 99.6?, BP 102/54, HR 89, RR 18, O2 saturation 96% on 2 L nasal cannula, patient remains in normal sinus rhythm with a controlled rate. Patient does have white count of 16.8, neutrophils 34423, mono 2000, HGB 9.9, HCT 30.1, PLT 493. Na 135, Cl 33, K 3.3, glucose 112, AST 84, ALT 48, alk-phos 176, PTT 76, albumin 3.2, lipase WNL, procalcitonin WNL. Troponin #4 2.380, #5 1.330. Patient admitted for Acute hypoxic respiratory failure second to NSTEMI, paroxysmal atrial fibrillation with RVR, and UTI. Patient History Medical History (Updated 04/12/21 @ 00:53 by FADY Qiu-NESHA) Anxiety Essential hypertension GERD (gastroesophageal reflux disease) History of shingles Hyperlipidemia Hypothyroidism (acquired) Osteoporosis Paroxysmal atrial fibrillation with RVR Surgical History (Updated 04/12/21 @ 00:53 by FADY Qiu-NESHA) History of bilateral hip replacements History of cholecystectomy Family & Social History Family History (Updated 04/12/21 @ 00:55 by FADY Qiu-NESHA) Mother Stroke Brother Diabetes mellitus Sister Heart attack Social History: household members spouse - pt lives with her , uses a walker Prior Living Arrangements House Safety & Behavioral: Feels Safe in Current Yes Environment Been Physically Hurt or No Threatened By a Person Suicidal Ideation Description None Suicide Plan Description No Plan Tobacco & Substance use: Smoking Status Former smoker alcohol intake former Substance Use Type does not use Meds Home Medications and Allergies Home Medications Medication Instructions Recorded Confirmed Type losartan 25 mg tablet 25 mg PO DAILY 04/10/21 04/11/21 History metoprolol succinate 25 mg 25 mg PO DAILY 04/10/21 04/11/21 History tablet,extended release 24 hr alprazolam 0.5 mg tablet 0.5 mg PO BID PRN 04/11/21 04/11/21 History calcitonin (salmon) 200 1 spray INTRANASAL DAILY 04/11/21 04/11/21 History unit/actuation nasal spray ibandronate 150 mg tablet 150 mg PO QMONTH 04/11/21 04/11/21 History levothyroxine 88 mcg tablet 88 mcg PO QAM 04/11/21 04/11/21 History omeprazole 20 mg capsule,delayed 20 mg PO QAM 04/11/21 04/11/21 History release oxycodone-acetaminophen 5 mg-325 1 tab PO BID PRN 04/11/21 04/11/21 History mg tablet prednisone 5 mg tablet 5 mg PO DAILY 04/11/21 04/11/21 History Allergies Allergy/AdvReac Type Severity Reaction Status Date / Time Sulfa (Sulfonamide Allergy Unknown Verified 04/10/21 12:03 Antibiotics) [SULFA (SULFONAMIDE ANTIBIOTICS)] Review of Systems Review of Systems Narrative: All 12 point systems reviewed with the patient and are negative except otherwise documented. Exam Vital Signs (past 8 hours): - 04/11/21 18:25 04/11/21 21:00 04/11/21 21:39 Temperature 98.9 F Pulse Rate 89 99 H Respiratory Rate 18 Blood Pressure 157/67 H Blood Pressure [Right Arm] 102/54 L Pulse Oximetry 96 98 99 Oxygen Delivery Method Nasal Cannula Oxygen Flow Rate 2 Narrative Exam Narrative: GEN:? Elderly female, alert and oriented x 3, patient is relaxed calm, in no distress at this time. HEENT: Atraumatic, pupils are equal round reactive to light, extraocular movements are intact, no photophobia, nares are clear, TMs are clear with no fluid, there is no conjunctival pallor.? Throat is clear without any exudates, erythema, tonsillar enlargement or uvular deviation HEART: regular rate and rhythm without murmur, clicks, rubs.? Pulses are equal in upper and lower extremities LUNGS:Lungs clear to auscultation, no wheezes, rales, crackles, chest moves symmetrically, no tachypnea.? Speaks in full sentences. ABD:bowel sounds normal, soft, mild tenderness diffuse to lower abd w/palpation, positive mild suprapubictenderness, no guarding, rebound, rigidity, no masses noted, no hepatosplenomegaly :Positive right CVA tenderness MSCL: Non-tender to palpation, no muscle atrophy, muscles strength 5/5 upper and lower extremities, full range of motion of bilateral hips passive and actively.? Patient has a large skin tear on her right anterior gomez with ecchymosis underlying.? The skin tear itself has a clear reason will bandage over it and I am able to easily visualize that there does not appear to be any warmth, erythema or drainage. NEURO:CN 2-12 intact, sensation normal SKIN:? Rash, erythema or other changes noted other than above. Objective Labs Result Diagrams: 04/11/21 05:05 04/11/21 18:06 Labs: Laboratory Results - last 24 hr 04/11/21 04/11/21 04/11/21 05:05 05:05 05:08 WBC 16.8 H RBC 3.44 L Hgb 9.9 L Hct 30.1 L MCV 87.5 MCH 28.7 MCHC 32.9 RDW 15.0 H Plt Count 493 H Neut % (Auto) 71.7 Lymph % (Auto) 14.3 L [place] % (Auto) 11.6 Eos % (Auto) 1.8 L Baso % (Auto) 0.6 Neut # (Auto) 67618 H Lymph # (Auto) 2400 [place] # (Auto) 2000 H Eos # (Auto) 300 Baso # (Auto) 100 APTT 76 H* D Sodium 135 L Potassium 3.3 L Chloride 98 Carbon Dioxide 33 H BUN 14 Creatinine 0.77 Estimated GFR > 60.0 BUN/Creatinine Ratio 18.2 Glucose 112 H Calcium 8.5 Magnesium Total Bilirubin 1.0 AST 84 H ALT 48 H Alkaline Phosphatase 176 H Troponin I 2.380 H* NT-Pro-B Natriuret Pep Total Protein 5.6 L Albumin 3.2 L Globulin 2.4 Albumin/Globulin Ratio 1.3 Lipase 77 D Procalcitonin 0.20 TSH 04/11/21 04/11/21 04/11/21 12:15 17:00 18:06 WBC RBC Hgb Hct MCV MCH MCHC RDW Plt Count Neut % (Auto) Lymph % (Auto) [place] % (Auto) Eos % (Auto) Baso % (Auto) Neut # (Auto) Lymph # (Auto) [place] # (Auto) Eos # (Auto) Baso # (Auto) APTT 70 H 76 H* Sodium Potassium Chloride Carbon Dioxide BUN Creatinine Estimated GFR BUN/Creatinine Ratio Glucose Calcium Magnesium Total Bilirubin AST ALT Alkaline Phosphatase Troponin I 1.330 H* NT-Pro-B Natriuret Pep Total Protein Albumin Globulin Albumin/Globulin Ratio Lipase Procalcitonin TSH 04/11/21 04/11/21 04/11/21 18:06 18:06 18:06 WBC RBC Hgb Hct MCV MCH MCHC RDW Plt Count Neut % (Auto) Lymph % (Auto) [place] % (Auto) Eos % (Auto) Baso % (Auto) Neut # (Auto) Lymph # (Auto) [place] # (Auto) Eos # (Auto) Baso # (Auto) APTT Sodium 136 L Potassium 3.4 Chloride 99 Carbon Dioxide 34 H BUN 19 H Creatinine 0.88 Estimated GFR > 60.0 BUN/Creatinine Ratio 21.6 Glucose 191 H Calcium 8.4 Magnesium 1.9 Total Bilirubin AST ALT Alkaline Phosphatase Troponin I NT-Pro-B Natriuret Pep Total Protein Albumin Globulin Albumin/Globulin Ratio Lipase Procalcitonin TSH 2.57 04/11/21 18:06 WBC RBC Hgb Hct MCV MCH MCHC RDW Plt Count Neut % (Auto) Lymph % (Auto) [place] % (Auto) Eos % (Auto) Baso % (Auto) Neut # (Auto) Lymph # (Auto) [place] # (Auto) Eos # (Auto) Baso # (Auto) APTT Sodium Potassium Chloride Carbon Dioxide BUN Creatinine Estimated GFR BUN/Creatinine Ratio Glucose Calcium Magnesium Total Bilirubin AST ALT Alkaline Phosphatase Troponin I NT-Pro-B Natriuret Pep 653 H Total Protein Albumin Globulin Albumin/Globulin Ratio Lipase Procalcitonin TSH Assessment & Plan Assessment & Plan narrative: Anna Jamison is a 86-year-old female with a medical history of atrial fibrillation, essential hypertension, hyperlipidemia, hypothyroidism, GERD, autoimmune gallbladder disease, and anxiety that arrived to the ED 0n 04/10/21 via EMS for complaint of right hip pain (Hx of bilateral hip replacement).?Patient presented in acute respiratory failure, she was started on 4 L/NC.? EMS noted oxygen was in the 80's% on rm air upon their arrival. Patient was found to be in atrial fibrillation w/RVR in ED. Patient admitted for Acute hypoxic respiratory failure second to NSTEMI, paroxysmal atrial fibrillation with RVR, and UTI. 1. Acute hypoxic respiratory failure secondary to NSTEMI with myocardial injury, acute, in the setting proximal atrial fibrillation with RVR, acute on chronic, present on admission -patient to be admitted to continue on heparin drip for a total of 72 hours, risk stratification, stabilization, echo, to be followed by outpatient Cardiology follow-up. -BNP-653 this may be a heart failure exacerbation Echo ordered -Heart Score:8 -Initial EKG Rate 123 atrial fibrillation with rapid ventricular response with premature ventricular or aberrantly conducted complexes Nonspecific ST abnormality. -troponin #1 2.860,#2 2.550, #3 2.710- Today 04/11/21 Her troponin was down trending (#4 2.380, #5 1.330), heparin drip continued. -EKG 04/11/21 NSR Rate 83, has been tappered off of Cardizem drip. -Dr. Mendoza discussed the case with Cardiology- who stated that the patient is a stable candidate to admit to [facility], and should continue on heparin for a total of 72 hours and should receive an echocardiogram.?I agreed to admit the patient for further evaluation and treatment.? - temp 99.6?, BP 102/54, HR 89, RR 18, O2 saturation 96% on 2 L nasal cannula. -echo ordered for tomorrow- continue tele-monitoring -continue trending troponins -Holding patients Coumadin -continue heparin drip- stop 04/13/21 1444-assess for bleeding, monitor aPTT - HGB 9.9, HCT 30.1, PLT 493. -Resp Consult, Continue oxygen to maintain an O2 saturation greater than 90%. Patient currently on 2 L nasal cannula with an O2 saturation of 96%. 2. UTI, acute, present on admission -white count of 16.8, neutrophils 02223, mono 2000, Na 135, Cl 33, K 3.3, glucose 112, AST 84, ALT 48, alk-phos 176, PTT 76, albumin 3.2, lipase WNL, procalcitonin WNL. -Repeat urine culture, blood culture pending -Grande placed in ED -Will tx w/standard -spectrum antimicrobial -Rocephin [id number] -does not meet SIRS/Sepsis criteria 3. Hip pain, Right, post mechnical fall, in the setting of history of bilateral hip arthroplasty, osteoporosis, gait instability, acute on chronic, present on admission -resolved -PT consult -Ambulates with walker. -Continue patient Lane 4. Constipation, acute, present on admission -patient reports last BM 1 wk ago -senna QHS, miralax BID -until BM 5. Essential hypertension, hypertensive urgency, acute on chronic, present on admission -initial presenting blood pressure is 184/75, 176/63. Hypertensive urgency resolved- Admit BP 102/54 -continue patient's metoprolol, losartan. 6. Hyperlipidemia, chronic, present on admission -continue patient's Lipitor 80 mg 7. Hypothyroidism, acquired, chronic, present on admission -continue patient's levothyroxine -TSH 2.57 8. GERD, chronic, present on admission -continue patient's omeprazole 9. Anxiety, chronic, present on admission -continue patient's alprazolam 10. Autoimmune gallbladder disease, chronic, present on admission -continue patient's prednisone Code status:Full Surrogate decision maker: Blaslacey Jamison COVID PCR:Negative COVID vaccination: Unknown DVT/VTE prophylaxis:Heparin Drip & SCD's Disposition: Expected length of stay greater than 2 midnights. I have utilized all available immediate resources to obtain, update, or review the patient's current medications. I confirmed that the patient's advanced care plan is present, Code status is documented and/or surrogate decision maker is listed in the patient's medical record. Time Spent With Patient Critical Care time: I spent a total of [] minutes of critical care time on this patient's care today; this time is exclusive of procedural time. Scores GCS [place] coma scale eye opening: Spontaneous [place] coma scale verbal response: Orientated [place] coma scale motor response: Obey commands [place] coma scale total score: 15 Wells' Criteria for PE Clinical signs and symptoms of DVT: No PE is #1 Dx or equally likely: No Heart rate > 100: Yes Immobilization at least 3 days or surg in previous 4 weeks: No History of PE or DVT: No Hemoptysis: No Malignancy w/Treatment within 6 months or palliative: No Wells' PE Score total: 1.5 Quality VTE Deep Vein Thrombosis/Pulmonary Embolism Present on Admission: No
[2021-04-12 00:31] LABS: Add Manual Diff / Slide Review NO; Basophils Absolute Auto 100 /uL (0-100); Basophils Percent Auto 0.5 % (0-2); Eosinophils Absolute Auto 100 /uL (0-450); Eosinophils Percent Auto 0.7 % (2-4); Hematocrit 25.9 % (36-46); Hemoglobin 8.5 g/dL (12.0-16.0); Lymphocytes Absolute Auto 1900 /uL (1100-4500); Lymphocytes Percent Auto 11.3 % (25-40); Mean Corpuscular HGB Conc 32.9 % (30-36); Mean Corpuscular Hemoglobin 28.5 PG (26-34); Mean Corpuscular Volume 86.6 fL (80-100); Monocytes Absolute Auto 1700 /uL (0-900); Monocytes Percent Auto 10.4 % (3-14); Neutrophils Absolute Auto 12800 /uL (1500-7000); Neutrophils Percent Auto 77.1 % (50-75); Platelet Count 509 X10^3/uL (150-400); Red Cell Distribution Width 14.8 % (11.6-14.8); White Blood Cell Count 16.5 X10^3/uL (4.5-11.0)
[2021-04-12 01:08] LABS: PTT Partial Thromboplastin Tim 112 SECONDS (26.4-36.2)
[2021-04-12] MEDS: cefTRIAXone 1,000 MG in SODIUM CHLORIDE 0.9% 100 ML 200 ML IV (02:24)
[2021-04-12] MEDS: SODIUM CHLORIDE 0.9% FLUSH 10 ML IV ×3 (02:25→20:44)
[2021-04-12] MEDS: SODIUM CHLORIDE 0.9% 250 ML 21 ML IV (02:29)
--- NOTE | 2021-04-12 02:38 | PC.ADMIT ---
Patient admitted to room 214 per stretcher from ER at 2100. Is alert and oriented but can be forgetful. Breath sounds CTA with sat of 99% on oxygen at 2L/min per NC at time of admission and 97% at 0031 so decreased oxygen to 1L/min. HRR with telemetry reading of SR and SR w/1st degree AVB. Denied nausea. BT present but has not had BM x 5 days; [facility] has now ordered Miralax BID. Indwelling catheter is patent; urine is clear, light yellow. Is able to move herself in bed. Gait not assessed at this time but reports she was using a walker at home. Bilateral calf SCD's applied. Denied pain. Dressing to skin tear on right LE is CDI. Extensive bruising on bilateral upper/lower extremities. Fall risk score is high (recent fall 04/08) and bed alarm is activated. Oriented to bed controls and call light. Heparin gtt infusing. PTT was drawn earlier and result called as PTT was 112. Heparin infusion stopped for 60 minutes and then restarted at 9.6ml/h. [facility] that h&h dropped from 9.9/30.1 to 8.5/25.9. Instructed to continue heparin gtt as per protocol with recheck at 0710. [id number] [facility] Admission Note: The patient,Anna Jamison,86 y/o, was given written information regarding hospital policies, unit procedures and contact persons. Patient's smoking status: Former smoker. Vital Signs - 8 hr 04/11/21 21:00 04/11/21 21:39 04/12/21 00:31 Temperature 98.9 F 97.6 F Pulse Rate 99 H 80 Respiratory Rate 18 16 Blood Pressure 157/67 H 125/57 L Pulse Oximetry 98 99 97
[2021-04-12] MEDS: ACETAMINOPHEN 325 MG TABLET 650 MG PO ×3 (05:21→19:56)
[2021-04-12] MEDS: HEPARIN DRIP 25,000 UNIT/500 ML IV.SOLN 9.6 UNIT IV (05:24)
[2021-04-12] MEDS: PANTOPRAZOLE DR 20 MG TABLET PO (06:54)
[2021-04-12] MEDS: LEVOTHYROXINE 88 MCG TABLET PO (06:54)
[2021-04-12 07:20] LABS: Add Manual Diff / Slide Review NO; Basophils Absolute Auto 100 /uL (0-100); Basophils Percent Auto 0.7 % (0-2); Eosinophils Absolute Auto 400 /uL (0-450); Hematocrit 27.2 % (36-46); Hemoglobin 9.1 g/dL (12.0-16.0); Lymphocytes Absolute Auto 2600 /uL (1100-4500); Lymphocytes Percent Auto 14.7 % (25-40); Mean Corpuscular HGB Conc 33.5 % (30-36); Mean Corpuscular Hemoglobin 28.9 PG (26-34); Mean Corpuscular Volume 86.3 fL (80-100); Monocytes Absolute Auto 2000 /uL (0-900); Monocytes Percent Auto 11.4 % (3-14); Neutrophils Absolute Auto 12400 /uL (1500-7000); Neutrophils Percent Auto 71.2 % (50-75); Platelet Count 479 X10^3/uL (150-400); Red Blood Cell Count 3.15 X10^6/uL (4.0-5.2); Red Cell Distribution Width 15.2 % (11.6-14.8); White Blood Cell Count 17.5 X10^3/uL (4.5-11.0)
[2021-04-12 07:32] LABS: Alanine Aminotransferase 43 IU/L (<35); Albumin 3.1 g/dL (3.5-5.0); Albumin Globulin Ratio 1.3 (1.0-2.8); Alkaline Phosphatase 160 U/L (38-126); Aspartate Aminotransferase 57 IU/L (14-36); BUN Creatinine Ratio 29.4 (6-22); Bilirubin Total 0.3 mg/dL (0.2-1.3); Blood Urea Nitrogen 25 mg/dL (7-17); Calcium 8.2 mg/dL (8.4-10.2); Carbon Dioxide 33 mmol/L (22-32); Chloride 99 mmol/L (98-107); Cholesterol 141 mg/dL (140-199); Estimated Glomerular Filt Rate > 60.0 mL/min (>60); Globulin 2.3 g/dL (1.7-4.1); Glucose 108 mg/dL (80-110); HDL Cholesterol 36 mg/dL (40-60); HEMOLYSIS < 15 (0-50); LDL Cholesterol Calculated 83 mg/dL (<100); PTT Partial Thromboplastin Tim 37 SECONDS (26.4-36.2); Potassium 3.3 mmol/L (3.4-5.1); Sodium 135 mmol/L (137-145); Total Protein 5.4 g/dL (6.3-8.2); Triglycerides 108 mg/dL (35-150)
[2021-04-12] MEDS: polyethylene glycoL 3350 17 GM POWD.PACK PO ×2 (09:16→20:42)
[2021-04-12] MEDS: FUROSEMIDE 40 MG/4 ML VIAL IV ×2 (09:16→20:42)
[2021-04-12] MEDS: ONDANSETRON 4 MG/2 ML INJ IV (09:16)
[2021-04-12] MEDS: HEPARIN 5,000 UNIT/ML VIAL 3000 UNIT IV (09:17)
[2021-04-12] MEDS: ASPIRIN 81 MG CHEW TAB 324 MG PO (09:18)
--- NOTE | 2021-04-12 09:20 | DI.CT.S_ITS ---
PROCEDURE: CT HEAD/BRAIN WO CON INDICATIONS: headache, nausea, evidence of bleeding? TECHNIQUE: Noncontrast 4.5 mm thick angled axial sections acquired from the foramen magnum to the vertex, with coronal and sagittal reformats. For radiation dose reduction, the following was used: automated exposure control, adjustment of mA and/or kV according to patient size. COMPARISON: [facility], CT, CT HEAD/BRAIN WO CON, 04/10/2021, 11:41. FINDINGS: Image quality: Excellent. CSF spaces: Basal cisterns are patent. No extra-axial fluid collections. The ventricles are symmetric in size and shape. Brain: No intracranial bleeds or masses. There is cerebral volume loss for age, with resultant ventricular and sulcal prominence. There are periventricular and deep white matter chronic small vessel ischemic changes. There is intracranial internal carotid artery atherosclerosis. Skull and face: Calvarium and visualized facial bones appear intact, without suspicious lesions. Sinuses: Visualized sinuses and mastoids are clear. IMPRESSION: No acute intracranial abnormality. Dictated by: Carley Dunbar M.D. on 04/12/2021 at 9:12 Approved by: Carley Dunbar M.D. on 04/12/2021 at 9:14
[2021-04-12] MEDS: predniSONE 5 MG TABLET PO (09:21)
[2021-04-12] MEDS: METOPROLOL ER 25 MG TABLET PO (09:38)
--- NOTE | 2021-04-12 10:45 | PT.IIE ---
Current Diagnoses Non-ST elevation (NSTEMI) myocardial infarction (04/11/21) Medical History (Last Updated 04/12/21 @ 00:53 by SUNDAY Qiu) Anxiety Essential hypertension GERD (gastroesophageal reflux disease) History of shingles Hyperlipidemia Hypothyroidism (acquired) Osteoporosis Paroxysmal atrial fibrillation with RVR Physical Therapy Inpatient Evaluation/Re-Eval M1 PT/OT-IP Prior Functional Status Start: 04/12/21 12:08 Freq: NEEDED Status: Active Protocol: Document 04/12/21 10:45 AB (Rec: 04/12/21 12:19 AB [id number]) Medical Review Prior Functional Status Medical History Reviewed Yes Communication able to make needs known Mobility and Gait pt stated that she is able to ambulate using 4WW indoors/ house but uses a w/c at night indoors and also for mobility outdoors; stated that she walks with a SPC and PREDATOR CONTROL TRAPPER from the house to the car. Social History Household Members spouse Living Arrangements House Number of Floors (Floors) Two Floors Number of Stairs To Enter/Railing? pt stays on main level fo the house Home Environment High Toilet,Tub/Shower,Ramp Home Equipment Four Wheel Walker,Straight Cane,Manual Wheelchair,Shower Seat with Backrest,Hand Held Shower,Grab Bars Near Toilet, Grab Bars In Shower Additional Social History Comment pt stated that she sleeps on a recliner pt stated that there is a caregiver that comes in 5x/ week for ~ 3 hours to assist her with house chores M2 PT-IP Current Condition Start: 04/12/21 12:08 Freq: NEEDED Status: Active Protocol: Document 04/12/21 10:45 AB (Rec: 04/12/21 12:19 AB [id number]) Physical Therapy Current Condition Current Condition Evaluation Date 04/12/21 Treatment Diagnosis NSTEMI; difficulty in walking Onset Date 04/11/21 M3 PT-IP Subjective Start: 04/12/21 12:08 Freq: NEEDED Status: Active Protocol: Document 04/12/21 10:45 AB (Rec: 04/12/21 12:19 AB [id number]) Subjective Physical Therapy Visit Type Type Initial Evaluation Visit Start Time 10:45 Visit Stop Time 11:15 Total Visit Minutes 30 Number of CNC LATHE MACHINIST Visits 0 Physical Therapy Visit Comments Patient Comments pt is agreeable to do PT M4 PT-IP Mobility and Gait Start: 04/12/21 12:08 Freq: NEEDED Status: Active Protocol: Document 04/12/21 10:45 AB (Rec: 04/12/21 12:19 AB [id number]) PT-Bed Mobility Assessment Supine to Sit Supine to Sit Maximum Assistance PT-Transfer Assessment Sit to and From Stand Sit to and from Stand Contact Guard Assistance,1 Person Assistance,Use of Upper Extremities Equipment Transfer Assistive Device Gait Belt,Front Wheeled Walker Orthotic/Prosthetic Devices or Brace: No Transfers Transfer Destination Chair Transfer Technique Stand Step Pivot Transfer Ability Level of Assist Contact Guard Assistance,1 Person Assistance,Use of Upper Extremities Comments Mobility Comments pt completed supine to sit max A and max cues. pt was able to sit on EOB SBA. completed sit to stand CGA and completed step transfer to chair using FWW CGA. pt stated that she is tired but agreed to ambulate some. completed sit to stand from chair CGA and ambulated 3 ft forward and then backwards using FWW CGA. pt agreed to sit up on chair. postiioned on chair. call ight and table placed within reach. Gait Assessment Gait Gait Assistance Required: Contact Guard Assist,1 Person Assist Distance (Feet) 6 Able to Maintain Weight Bearing Status Yes During Gait Assistive Devices Assistive Device Gait Belt,Front Wheeled Walker Orthotic/Prosthetic Devices or Brace: No Gait Deviations General Gait Pattern Antalgic,Decreased Stride Length,Decreased Feet Clearance,Step-to Gait Factors Limiting Gait Function Factors Limiting Gait Function Decreased Activity Tolerance, Decreased Strength,Limited Range of Motion,Pain,Poor Balance,Poor Safety Awareness PT-Balance Assessment Sitting Balance and Reactions Static Sitting Balance Ability Good Dynamic Sitting Balance Ability Good Standing Balance and Reactions Static Standing Balance Ability Fair Dynamic Standing Balance Ability Fair Device Used FWW M5 PT-IP Objective Assessments Start: 04/12/21 12:08 Freq: NEEDED Status: Active Protocol: Document 04/12/21 10:45 AB (Rec: 04/12/21 12:19 AB [id number]) Orientation Orientation/Cognition Level of Alertness Alert Orientation Name,Place,Situation Language Function Ability No Deficits Noted Safety Awareness Decreased Safety Awareness Gross Range of Motion Lower Extremity ROM Assessment Within Functional Limits Strength Lower Extremity Strength Hip 4-/5 Knee 4-/5 Sensation Assessment Sensation Gross Sensation WNL Muscle Tone Muscle Tone WNL Yes M6 PT-IP Treatment Start: 04/12/21 12:08 Freq: NEEDED Status: Active Protocol: Document 04/12/21 10:45 AB (Rec: 04/12/21 12:19 AB [id number]) Physical Therapy Treatment Education Education Provided Safety M7 PT-IP Assessment and Plan Start: 04/12/21 12:08 Freq: NEEDED Status: Active Protocol: Document 04/12/21 10:45 AB (Rec: 04/12/21 12:19 AB [id number]) PT Summary Assessment and Plan Potential Rehabilitation Potential Good Status of Condition at Evaluation Stable Summary Impairments Pain,ROM,Strength,Balance, Cognition,Bed Mobility, Transfers,Gait,Activity Tolerance Assessment Summary pt requirng CGA with transfers and ambulation but has decrease activity tolerance and unable to tolerate much activity. pt judson have her spouse to assist her at home. will conduct caregiver training when appropriate. will continue to assess progress Goals Bed Mobility Goal Independent Transfer Goal Independent,Front Wheeled Walker,Four Wheeled Walker Gait Goal Independent,Front Wheel Walker ,Four Wheel Walker Gait Distance 50 Other Goals ambulation using SPC/PREDATOR CONTROL TRAPPER 30 ft CGA Days to Meet Goals 5 Frequency of Treatment Frequency Of Treatment Once a Day Treatment Plan Physical Therapy Treatment Plan Bed Mobility Training,Transfer Training,Gait Training, Therapeutic Exercise,Balance Retraining,Discharge Planning, Hot or Cold Pack,Neuromuscular Re-ed,Coordination Retraining Precautions Other Precautions falls Recommendations To Nursing Amount of Assist Needed 1 Person Assist Discharge Recommendations PT Discharge Recommendations Home with 23/11 Assist Available,Home Health Equipment Needed for Home Before FWW if not safe with 4WW Discharge Transportation Needs at Discharge Private Vehicle
--- NOTE | 2021-04-12 10:50 | CM.DANOTE ---
Discharge Planning Assessment Patient is 86yo F who was admitted for acute hypoxic resp. failure secondary to NSTEMI and UTI. Patient resides at home with her spouse. Patient is independent with ADLs at baseline but no longer driving herself. Patient has 4WW, cane, and wheelchair available for personal use as needed; most often using the walker. Patient's home is 2 story but patient and spouse reside on the main floor and do not use stairs at home. Patient has prior used [facility] and if needed again would prefer same agency. Patient has prior placement history at [facility]. Patient currently pending Echo and has completed CT but didn't hear from provider on test results at time of assessment. Plan: Patient is anticipated to discharge home w/spouse providing transportation at time of discharge. Possible HH or O2 need, not yet determined. Case management will continue to follow through course of admission for discharge planning needs. Ins: [facility] Valdez LICSW Discharge Planning/Care Management CM Discharge Assessment Start: 04/12/21 10:45 Freq: Status: Active Protocol: Document 04/12/21 10:45 MEGHAN (Rec: 04/12/21 10:50 MEGHAN [id number]) Discharge Planning Assessment Assigned Ham Rolling Machine Operator [facility] DPOA/Assigned Designee Name Spouse Blas Campbell Contact Information [phone] Advance Directives? Yes Advance Directives on File No History Provided By Patient,Medical Record Has Patient been admitted in last 30 No days? Prior Living Arrangements House Comment w/Spouse. Household Members spouse Type of transporation used prior to Relies on Others admit Independent with ADL's Yes Is patient alert and oriented? Yes Caregiver for Another No DME Already Rented / Owned Wheelchair,FWW / Walker,Cane, Other Comment shower chair and grab bars at toilet Barriers to Discharge No Discharge Plan Home Referrals Initiated None needed Whiteboard Updated in Patient Room with Yes name and ext. # of Ham Rolling Machine Operator Review Status In Process Next Review Type Continued Stay Review
--- NOTE | 2021-04-12 12:15 | P.PN_ITS ---
Subjective Subjective Date Patient Seen: 04/12/21 Time Patient Seen: 08:00 Exam Vital Signs (past 8 hours): - 04/12/21 05:07 04/12/21 08:30 Temperature 99.4 F 98.5 F Pulse Rate 82 85 Respiratory Rate 15 16 Blood Pressure 123/76 118/59 L Pulse Oximetry 96 93 Oxygen Delivery Method Nasal Cannula Oxygen Flow Rate 0 Narrative Exam Narrative: GEN:? no acute distress HEART: irregular, no murmurs LUNGS: clear bilaterally, no wheezes, rhonchi, rales ABD: soft, nontender, nondistended, EXT: skin tear on right gomez Objective Labs Result Diagrams: 04/12/21 07:10 04/12/21 07:10 Labs: Laboratory Results - last 24 hr 04/11/21 04/11/21 04/11/21 12:15 17:00 18:06 WBC RBC Hgb Hct MCV MCH MCHC RDW Plt Count Neut % (Auto) Lymph % (Auto) [place] % (Auto) Eos % (Auto) Baso % (Auto) Neut # (Auto) Lymph # (Auto) [place] # (Auto) Eos # (Auto) Baso # (Auto) APTT 70 H 76 H* Sodium Potassium Chloride Carbon Dioxide BUN Creatinine Estimated GFR BUN/Creatinine Ratio Glucose Calcium Magnesium Total Bilirubin AST ALT Alkaline Phosphatase Troponin I 1.330 H* NT-Pro-B Natriuret Pep Total Protein Albumin Globulin Albumin/Globulin Ratio Triglycerides Cholesterol LDL Cholesterol, Calc HDL Cholesterol TSH 04/11/21 04/11/21 04/11/21 18:06 18:06 18:06 WBC RBC Hgb Hct MCV MCH MCHC RDW Plt Count Neut % (Auto) Lymph % (Auto) [place] % (Auto) Eos % (Auto) Baso % (Auto) Neut # (Auto) Lymph # (Auto) [place] # (Auto) Eos # (Auto) Baso # (Auto) APTT Sodium 136 L Potassium 3.4 Chloride 99 Carbon Dioxide 34 H BUN 19 H Creatinine 0.88 Estimated GFR > 60.0 BUN/Creatinine Ratio 21.6 Glucose 191 H Calcium 8.4 Magnesium 1.9 Total Bilirubin AST ALT Alkaline Phosphatase Troponin I NT-Pro-B Natriuret Pep Total Protein Albumin Globulin Albumin/Globulin Ratio Triglycerides Cholesterol LDL Cholesterol, Calc HDL Cholesterol TSH 2.57 04/11/21 04/12/21 04/12/21 18:06 00:15 00:15 WBC 16.5 H RBC 3.00 L Hgb 8.5 L Hct 25.9 L MCV 86.6 MCH 28.5 MCHC 32.9 RDW 14.8 Plt Count 509 H Neut % (Auto) 77.1 H Lymph % (Auto) 11.3 L [place] % (Auto) 10.4 Eos % (Auto) 0.7 L Baso % (Auto) 0.5 Neut # (Auto) 68438 H Lymph # (Auto) 1900 [place] # (Auto) 1700 H Eos # (Auto) 100 Baso # (Auto) 100 APTT 112 H* D Sodium Potassium Chloride Carbon Dioxide BUN Creatinine Estimated GFR BUN/Creatinine Ratio Glucose Calcium Magnesium Total Bilirubin AST ALT Alkaline Phosphatase Troponin I NT-Pro-B Natriuret Pep 653 H Total Protein Albumin Globulin Albumin/Globulin Ratio Triglycerides Cholesterol LDL Cholesterol, Calc HDL Cholesterol TSH 04/12/21 04/12/21 04/12/21 07:10 07:10 07:10 WBC 17.5 H RBC 3.15 L Hgb 9.1 L Hct 27.2 L MCV 86.3 MCH 28.9 MCHC 33.5 RDW 15.2 H Plt Count 479 H Neut % (Auto) 71.2 Lymph % (Auto) 14.7 L [place] % (Auto) 11.4 Eos % (Auto) 2.0 Baso % (Auto) 0.7 Neut # (Auto) 19277 H Lymph # (Auto) 2600 [place] # (Auto) 2000 H Eos # (Auto) 400 Baso # (Auto) 100 APTT 37 H D Sodium 135 L Potassium 3.3 L Chloride 99 Carbon Dioxide 33 H BUN 25 H Creatinine 0.85 Estimated GFR > 60.0 BUN/Creatinine Ratio 29.4 H Glucose 108 Calcium 8.2 L Magnesium Total Bilirubin 0.3 AST 57 H ALT 43 H Alkaline Phosphatase 160 H Troponin I 1.350 H* NT-Pro-B Natriuret Pep Total Protein 5.4 L Albumin 3.1 L Globulin 2.3 Albumin/Globulin Ratio 1.3 Triglycerides 108 Cholesterol 141 LDL Cholesterol, Calc 83 HDL Cholesterol 36 L [facility] Medical History (Updated 04/12/21 @ 00:53 by FADY Qiu-NESHA) Anxiety Essential hypertension GERD (gastroesophageal reflux disease) History of shingles Hyperlipidemia Hypothyroidism (acquired) Osteoporosis Paroxysmal atrial fibrillation with RVR Surgical History (Updated 04/12/21 @ 00:[address] [facility]) History of bilateral hip replacements History of cholecystectomy Family History (Updated 04/12/21 @ 00:[address] [facility]) Mother Stroke Brother Diabetes mellitus Sister Heart attack Social History household members: spouse Smoking Status: Former smoker alcohol intake: former Assessment & Plan Assessment & Plan narrative: 1. Acute hypoxic respiratory failure with NSTEMI -per cardiology recommend 72 hours of heparin gtt -transfer attempted to higher level of care and unable -ECHO ordered -continue aspirin/statin 2. Atrial fibrillation with RVR -coumadin held -on heparin as above -ECHO as above 3. UA positive, acute, present on admission -WBC of 18 on admission -urine culture contaminated -Repeat urine culture, blood culture pending -Grande placed in ED -has received 3 days of antibiotics will stop 4. Leukocytosis -possibly secondary to steroids -stop antibiotics -watch closely for infectious signs/symptoms 5. Hip pain, Right, post mechnical fall, in the setting of history of bilateral hip arthroplasty, osteoporosis -resolved -PT consult -Ambulates with walker. -Continue patient Boniva 6. Constipation, acute, present on admission -patient reports last BM 1 wk ago -senna QHS, miralax BID -until BM 7. Essential hypertension, hypertensive urgency, acute on chronic, present on admission -initial presenting blood pressure is 184/75, 176/63.? Hypertensive urgency resolved- Admit BP 102/54 -continue patient's metoprolol, losartan. 8. Hyperlipidemia, chronic, present on admission -continue patient's Lipitor 80 mg 9. Hypothyroidism, acquired, chronic, present on admission -continue patient's levothyroxine 10. GERD, chronic, present on admission -continue patient's omeprazole 11. Anxiety, chronic, present on admission -continue patient's alprazolam 12. Autoimmune gallbladder disease, chronic, present on admission -continue patient's prednisone Time Spent With Patient Critical Care time: I spent a total of [] minutes of critical care time on this patient's care today; this time is exclusive of procedural time. Quality VTE Deep Vein Thrombosis/Pulmonary Embolism Present on Admission: No
--- NOTE | 2021-04-12 12:25 | PC.NURSE ---
Addendum entered by Corrina Zepeda R.N. 04/12/21 18:43: Patient had an xl bowel movement after suppository given. She is back to bed now and resting. Addendum entered by Corrina Zepeda R.N. 04/12/21 16:18: Patient just given a suppository and is resting in bed. Addendum entered by Corrina Zepeda R.N. 04/12/21 16:17: Patients most recent troponin is 1.35. aware, no changes. Addendum entered by Corrina Zepeda R.N. 04/12/21 15:13: Anna complains of abdominal pain, she has not had a bowel movement for several days. Called Dr. Blanton and he will put orders in for patient. She is lying in bed and resting. Awaiting results of PTT. Original Note: Assess- Patients ptt was 37 at 0730, a 3000u bolus of heparin given and rate increased by 100u/hr which rate is know at 11.6ml/hr. Next PTT to be drawn at 1330. Patient is tolerating heparin drip without difficulty. She is also up in the chair and worked with physical therapy. ANNA denies pain, she is also alert and oriented x3. She does have some skin issues, bruising, excoriation, and fungal area under her breast, and also a skin tear that is noted under physical assessment. She is talking to her grandaughter on the phone now.
[2021-04-12 14:51] LABS: PTT Partial Thromboplastin Tim 59 SECONDS (26.4-36.2)
[2021-04-12] MEDS: LOSARTAN 25 MG TABLET PO (15:03)
[2021-04-12] MEDS: POTASSIUM CHLORIDE 20 MEQ TAB 40 MEQ PO ×2 (15:03→20:44)
[2021-04-12] MEDS: BISACODYL 10 MG SUPP PR (15:58)
[2021-04-12] MEDS: ALPRAZolam 0.5 MG TABLET PO (20:42)
[2021-04-12] MEDS: ATORVASTATIN 20 MG TABLET 40 MG PO (20:43)
[2021-04-12] MEDS: SENNOSIDES 8.6 MG TABLET 17.2 MG PO (20:43)
--- NOTE | 2021-04-12 22:37 | PC.NURSE ---
Addendum entered by Marbella Navarro R.N. 04/13/21 05:30: Complained of nausea earlier and requested peppermint which she was given without relief so medicated with Zofran ODT. Asking now if she may be dying. States she just doesn't feel well. Still feeling slightly nauseated but improved but also complains of feeling dizzy with upper extremity weakness and feeling cold. Allowed patient to vent and provided reassurance. States the way she is feeling currently, she would not want CPR done if she were to ; will make hospitalist aware. Seems to be more fatigued than last night and more than at start of shift. Requested/medicated again with Alprazolam. Addendum entered by Marbella Navarro R.N. 04/13/21 01:24: Complaining of pain over both breasts with severity of 5/10 and is constant and without radiation. Is not SOB or diaphoretic. BP 135/66 with HR of 77. RA sat is 95%. Placed on oxygen at 2L/min. Jose L GIRON, informed and order received for NTG x 1. Pain improved to 3/10 after NTG but BP dropped to 95/55 with HR of 87 and now complains of headache. Patient is pale and states I just don't feel good. Jose L GIRON, informed and order received for EKG. MACK also stated patient could have additional Tylenol dose at this time for her headache. Medicated with Tylenol and RT here now to do EKG. Original Note: Patient is alert and oriented although off on day of month by 1 day. Breath sounds CTA with RA sat of 97%. HRR w/telemetry reading of SR with 1st degree AVB + PAC's. BT present and abdomen is soft; had BM just prior to shift change and states she now feels so much better. Indwelling catheter is patent; urine is clear, yellow. Able to move self in bed. Did complain of mid lower back pain and was medicated with Tylenol and is now asleep. Dressing to right LE is CDI. Agreeable to having bilateral calf SCD's put on just before bedtime. Was up earlier with walker and 1 assist. Denies bilateral LE weakness but feels she is weak in upper body/extremities. Extensive bruising on all extremities and left buttock. Continues on heparin gtt and will have PTT drawn again in a.m. Fall risk score is high and bed alarm is activated although patient makes no attempts to get up on her own.
[2021-04-13] VITALS (10 sets, daily range): BP systolic 106–141; BP diastolic 55–66; PULSE 76–96; RESP 14–17; TEMP 36.1–37.4; O2SAT 95–99
[2021-04-13] MEDS: NITROGLYCERIN 0.4 MG SL TAB SL (01:11)
[2021-04-13] MEDS: ACETAMINOPHEN 325 MG TABLET 650 MG PO ×2 (01:22→21:01)
[2021-04-13] MEDS: ONDANSETRON 4 MG ODT SL (04:56)
[2021-04-13] MEDS: ALPRAZolam 0.5 MG TABLET PO (05:26)
[2021-04-13] MEDS: LEVOTHYROXINE 88 MCG TABLET PO (05:27)
[2021-04-13] MEDS: PANTOPRAZOLE DR 20 MG TABLET PO (05:27)
[2021-04-13 06:03] LABS: Add Manual Diff / Slide Review NO; Basophils Absolute Auto 100 /uL (0-100); Basophils Percent Auto 0.7 % (0-2); Eosinophils Absolute Auto 200 /uL (0-450); Eosinophils Percent Auto 1.3 % (2-4); Hematocrit 27.1 % (36-46); Hemoglobin 9.1 g/dL (12.0-16.0); Lymphocytes Absolute Auto 2000 /uL (1100-4500); Lymphocytes Percent Auto 12.4 % (25-40); Mean Corpuscular HGB Conc 33.7 % (30-36); Mean Corpuscular Hemoglobin 29.2 PG (26-34); Mean Corpuscular Volume 86.6 fL (80-100); Monocytes Absolute Auto 1300 /uL (0-900); Monocytes Percent Auto 7.8 % (3-14); Neutrophils Absolute Auto 12800 /uL (1500-7000); Neutrophils Percent Auto 77.8 % (50-75); Platelet Count 553 X10^3/uL (150-400); Red Blood Cell Count 3.14 X10^6/uL (4.0-5.2); Red Cell Distribution Width 15.1 % (11.6-14.8); White Blood Cell Count 16.5 X10^3/uL (4.5-11.0)
[2021-04-13 06:10] LABS: PTT Partial Thromboplastin Tim 66 SECONDS (26.4-36.2)
[2021-04-13 06:12] LABS: Alanine Aminotransferase 46 IU/L (<35); Albumin 3.1 g/dL (3.5-5.0); Albumin Globulin Ratio 1.2 (1.0-2.8); Alkaline Phosphatase 195 U/L (38-126); Aspartate Aminotransferase 67 IU/L (14-36); BUN Creatinine Ratio 23.8 (6-22); Bilirubin Total 0.5 mg/dL (0.2-1.3); Blood Urea Nitrogen 20 mg/dL (7-17); Calcium 8.5 mg/dL (8.4-10.2); Carbon Dioxide 33 mmol/L (22-32); Chloride 102 mmol/L (98-107); Estimated Glomerular Filt Rate > 60.0 mL/min (>60); Globulin 2.5 g/dL (1.7-4.1); Glucose 101 mg/dL (80-110); HEMOLYSIS < 15 (0-50); Potassium 4.1 mmol/L (3.4-5.1); Sodium 137 mmol/L (137-145); Total Protein 5.6 g/dL (6.3-8.2)
[2021-04-13 06:30] LABS: Troponin I 0.737 ng/mL (0.01-0.034)
--- NOTE | 2021-04-13 08:41 | PC.NURSE ---
Addendum entered by Corrina Zepeda R.N. 04/13/21 14:31: Patients heparin drip stopped per . She is working with physical therapy at this time. Addendum entered by Corrina Zepeda R.N. 04/13/21 13:20: Patient just given 0900 metoprolol, bp was low this morning. Will also give her the losartan after blood pressure rechecked in an hour. Addendum entered by Corrina Zepeda R.N. 04/13/21 12:55: Patients heparin drip will stop at 1400, is aware and does not want to continue this. Original Note: 0841- Patient incontinent of a large amount of soft stool in bed, she got up to the [facility] with one person assist and had another medium soft stool. She has bruising to her l.side of legs and skin tear with some moistness under her breats. Patient is hunched over when she gets up and cannot stand for long periods of time. Heparin drip remains at 11.6ml/hr and she is tolerating this well. Talking on the phone to her family member as she is sitting up in the chair and eating breakfast.
[2021-04-13] MEDS: ASPIRIN 81 MG CHEW TAB PO (09:39)
[2021-04-13] MEDS: predniSONE 5 MG TABLET PO (09:39)
[2021-04-13] MEDS: FUROSEMIDE 40 MG/4 ML VIAL IV ×2 (09:39→21:01)
[2021-04-13] MEDS: SODIUM CHLORIDE 0.9% FLUSH 10 ML IV ×2 (09:40→21:01)
--- NOTE | 2021-04-13 12:56 | CM.DPC ---
Addendum entered by David Valdez 04/13/21 15:31: LEATHER DRIER left voicemail for [facility] and faxed clinicals to them for review. LEATHER DRIER spoke to Kari at [facility] who will review patient and contact CM team tomorrow. Kari aware that [place] auth has been requested. JEFFRY Valadez spoke to Aura Lobo (Jacquie) who have an opening for which they will review patient. Clinicals faxed for review. LEATHER DRIER faxed clinicals to [facility] [place] and requested auth for SNF. Original Note: DC plan continued Patient reporting today that her spouse has concerns about her coming home and she and spouse would prefer SNF or JAIL placement. LEATHER DRIER contacted spouse who reported he is worried about his physical ability to provide care for patient in the home and he is working with [facility] where he anticipated insurance to pay. LEATHER DRIER and JEFFRY Valadez informed spouse that insurance would not pay for JAIL. Spouse reported he would private pay for this and reported [facility] has an opening for patient. LEATHER DRIER and JEFFRY Valadez explained that CM team will attempt to find SNF placement for patient but this would be dependent on insurance authorization for this level of care. Spouse informed if SNF not auth'd by [facility] that patient would be dc'd home with as recommended by PT. Updated PT eval/note pending for 04/13. LEATHER DRIER spoke to Letty at [facility] who confirmed they would be able to open HH within 48-72 hours. Clinicals faxed to [facility] with F2F and orders pending and needing to be sent. RN/PT/OT/Aide/FAVIOLA requested. LEATHER DRIER and JEFFRY Valadez spoke with patient about discharge plan and reiterated that SNF auth would be requested through [facility] [place], secondary plan of dc home with , and notified that Dorothy Valadez would contact [facility] to inquire about JAIL placement but that this would not be covered by insurance and patient would not remain in hospital pending [facility]YRON assessment and placement. Patient confirmed caregiver (TRACER LATHE SET UP OPERATOR) in home daily for multiple hours as well as willingness to work with . Patient reported she might have a friend able to pick her up at time of discharge. Information shared regarding other transportation options and probability that insurance may not cover BLS or cabulance for wheelchair. Patient confirmed she uses in community due to balance issues. David Valdez [facility]
[2021-04-13] MEDS: METOPROLOL ER 25 MG TABLET PO (13:12)
--- NOTE | 2021-04-13 13:52 | PM.PN.1 ---
Subjective Subjective Date Patient Seen: 04/13/21 Interval history: 86-year-old female admitted to the hospital with AFib RVR and an NSTEMI. Patient apparently fell. She is unclear whether was because of the STEMI or not. In the event she denies any shortness of breath. She has no chest pain. Patient has been on heparin drip for 72 hours. She will be transitioned off on to medical management. Plans were underway for transfer to a higher level of care for the patient to get cardiac catheterization. However she has been unable to obtain a bed. She is pain free. Overall she is making excellent progress Exam Vital Signs (past 8 hours): - 04/13/21 08:34 04/13/21 09:00 04/13/21 13:10 Temperature 97.9 F 97.2 F L Pulse Rate 91 H 83 Respiratory Rate 14 17 Blood Pressure 106/56 L 125/60 Pulse Oximetry 97 97 99 Oxygen Delivery Method Room Air Oxygen Flow Rate 0 Narrative Exam Narrative: Pleasant female lying in bed Resp Other: Lungs clear to auscultation Cardio Other: Cardiac exam: Irregularly irregular normal S1-S2 GI Other: Abdomen: Soft nontender nondistended Extrem Other: Extremities: No edema Objective Labs Result Diagrams: 04/13/21 05:45 04/13/21 05:45 Labs: Laboratory Results - last 24 hr 04/12/21 04/13/21 04/13/21 14:20 05:45 05:45 WBC 16.5 H RBC 3.14 L Hgb 9.1 L Hct 27.1 L MCV 86.6 MCH 29.2 MCHC 33.7 RDW 15.1 H Plt Count 553 H Neut % (Auto) 77.8 H Lymph % (Auto) 12.4 L [place] % (Auto) 7.8 Eos % (Auto) 1.3 L Baso % (Auto) 0.7 Neut # (Auto) 45781 H Lymph # (Auto) 2000 [place] # (Auto) 1300 H Eos # (Auto) 200 Baso # (Auto) 100 APTT 59 H D 66 H Sodium Potassium Chloride Carbon Dioxide BUN Creatinine Estimated GFR BUN/Creatinine Ratio Glucose Calcium Total Bilirubin AST ALT Alkaline Phosphatase Troponin I Total Protein Albumin Globulin Albumin/Globulin Ratio 04/13/21 05:45 WBC RBC Hgb Hct MCV MCH MCHC RDW Plt Count Neut % (Auto) Lymph % (Auto) Schoolcraft % (Auto) Eos % (Auto) Baso % (Auto) Neut # (Auto) Lymph # (Auto) School[place] # (Auto) Eos # (Auto) Baso # (Auto) APTT Sodium 137 Potassium 4.1 Chloride 102 Carbon Dioxide 33 H BUN 20 H Creatinine 0.84 Estimated GFR > 60.0 BUN/Creatinine Ratio 23.8 H Glucose 101 Calcium 8.5 Total Bilirubin 0.5 AST 67 H ALT 46 H Alkaline Phosphatase 195 H Troponin I 0.737 H* Total Protein 5.6 L Albumin 3.1 L Globulin 2.5 Albumin/Globulin Ratio 1.2 [facility] Medical History (Updated 04/12/21 @ 00:53 by FADY Qiu-NESHA) Anxiety Essential hypertension GERD (gastroesophageal reflux disease) History of shingles Hyperlipidemia Hypothyroidism (acquired) Osteoporosis Paroxysmal atrial fibrillation with RVR Surgical History (Updated 04/12/21 @ 00:53 by FADY Qiu-NESHA) History of bilateral hip replacements History of cholecystectomy Family History (Updated 04/12/21 @ 00:55 by FADY Qiu-NESHA) Mother Stroke Brother Diabetes mellitus Sister Heart attack Social History household members: spouse Smoking Status: Former smoker alcohol intake: former Assessment & Plan Assessment & Plan narrative: Acute hypoxic respiratory failure with NSTEMI -per cardiology recommend 72 hours of heparin gtt -transfer attempted to higher level of care and unable -ECHO ordered -continue aspirin/statin -troponin 0.737 down from 1.350 -echo results pending 2. Atrial fibrillation with RVR -coumadin held -on heparin as above -ECHO as above -will resume Coumadin, as it is unclear whether the patient will be able to transfer to higher level of care 3. UA positive, acute, present on admission -WBC of 18 on admission -urine culture contaminated -Repeat urine culture, blood culture pending -Grande placed in ED -has received 3 days of antibiotics will stop 4. Leukocytosis -possibly secondary to steroids -stop antibiotics -watch closely for infectious signs/symptoms 5. Hip pain, Right, post mechnical fall, in the setting of history of bilateral hip arthroplasty, osteoporosis -resolved -PT consult -Ambulates with walker. -Continue patient Boniva 6. Constipation, acute, present on admission -patient reports last BM 1 wk ago -frantzna QHS, miralax BID -until BM 7. Essential hypertension, hypertensive urgency, acute on chronic, present on admission -initial presenting blood pressure is 184/75, 176/63.? Hypertensive urgency resolved- Admit BP 102/54 -continue patient's metoprolol, losartan. 8. Hyperlipidemia, chronic, present on admission -continue patient's Lipitor 80 mg 9. Hypothyroidism, acquired, chronic, present on admission -continue patient's levothyroxine 10. GERD, chronic, present on admission -continue patient's omeprazole 11. Anxiety, chronic, present on admission -continue patient's alprazolam 12. Autoimmune gallbladder disease, chronic, present on admission -continue patient's prednisone I have utilized all available methods to review update and confirm the patient's current medication Patient requested to review her code status. She has requested to be DNR DNI. Time Spent With Patient Critical Care time: I spent a total of [] minutes of critical care time on this patient's care today; this time is exclusive of procedural time. Quality VTE Deep Vein Thrombosis/Pulmonary Embolism Present on Admission: No
--- NOTE | 2021-04-13 14:40 | PT.IPTN ---
Addendum entered by David Valdez 04/13/21 15:51: Updated PT note faxed to [facility] for SNF auth request. Awaiting auth accept or decline at this time. Original Note: Current Diagnoses Non-ST elevation (NSTEMI) myocardial infarction (04/11/21) Physical Therapy Treatment Note M2 PT-IP Current Condition Start: 04/12/21 12:08 Freq: NEEDED Status: Active Protocol: Document 04/12/21 10:45 AB (Rec: 04/12/21 12:19 AB [id number]) Physical Therapy Current Condition Current Condition Evaluation Date 04/12/21 Treatment Diagnosis NSTEMI; difficulty in walking Onset Date 04/11/21 M3 PT-IP Subjective Start: 04/12/21 12:08 Freq: NEEDED Status: Active Protocol: Document 04/13/21 14:49 JG (Rec: 04/13/21 15:20 JG [id number]) Subjective Physical Therapy Visit Type Type Treatment Note Visit Start Time 14:02 Visit Stop Time 14:45 Total Visit Minutes 38 Notes 38 minutes of treatment time MEHDI Christopher directly supervised by MELECIO Teixeira Number of BUSINESS AND FINANCIAL COUNSEL Visits 0 Physical Therapy Visit Comments Patient Comments pt is agreeable to do PT though feels very tired and feels like arms are weak. Patient Goals pt would like to walk/fly out of hospital like [facility], but since that's not possible, would like to amb and transfer without becoming overly fatigued Therapy Pain Assessment Pain When Pain Assessed During Mobility Pain Present Pain Present Pain Reported Location Lower Back Scale Used observation Description Acute,Sharp,With Movement Pain Behaviors Facial Grimacing,Wincing Pain Management Techniques Modification of Treatment,Re- positioning M4 PT-IP Mobility and Gait Start: 04/12/21 12:08 Freq: NEEDED Status: Active Protocol: Document 04/13/21 14:49 JG (Rec: 04/13/21 15:20 JG [id number]) PT-Bed Mobility Assessment Rolling Type of Rolling Log Rolling,Roll to Right,Roll to Left,Bilateral Level of Assist Moderate Assistance,Maximal Assistance,1 Person Assistance Supine to Sit Supine to Sit Moderate Assistance,1 Person Assistance,Bedrails Sit to Supine Sit to Supine Moderate Assistance,1 Person Assistance,Head of Bed Elevated,Bedrails Scooting Scooting to Edge of Bed Moderate Assistance Scooting Up and Down in Bed Maximum Assistance PT-Transfer Assessment Sit to and From Stand Sit to and from Stand Contact Guard Assistance, Minimal Assistance,1 Person Assistance,Use of Upper Extremities Equipment Transfer Assistive Device Gait Belt,4 Wheeled Walker Orthotic/Prosthetic Devices or Brace: No Transfers Transfer Destination Bed Transfer Technique amb w/4WW Transfer Ability Level of Assist Contact Guard Assistance, Minimal Assistance,1 Person Assistance,Use of Upper Extremities Comments Mobility Comments Pt was in bed supine w/HOB elevated upon arrival. Pt was able to complete bed mobility including rolling but req significant verbal cueing, hand placement, and gentle tactile cues. Pt req little cueing and demostrated adequate endurance for supine exercises. Gait Assessment Gait Gait Assistance Required: Contact Guard Assist,1 Person Assist Distance (Feet) 15 Able to Maintain Weight Bearing Status Yes During Gait Assistive Devices Assistive Device Gait Belt,4 Wheeled Walker Gait Deviations General Gait Pattern Antalgic,Decreased Stride Length,Decreased Feet Clearance,Step-to Gait Factors Limiting Gait Function Factors Limiting Gait Function Decreased Activity Tolerance, Decreased Strength,Limited Range of Motion,Pain,Poor Balance,Poor Safety Awareness Comments Gait Comments Pt stood and amb w/excessive trunk flexion which lowered pt 's line of vision significantly. Pt also attempted to move quickly due to wanting to complete amb as quickly as possible because she was feeling dizzy and fatigued. Pt amb CGA - min A w /4WW. Pt needed reminders to lock 4WW before sitting down which she unsuccessfully attempted to do while she was sitting. PT-Balance Assessment Sitting Balance and Reactions Static Sitting Balance Ability Good Dynamic Sitting Balance Ability Good Standing Balance and Reactions Static Standing Balance Ability Poor Dynamic Standing Balance Ability Poor Device Used 4WW M5 PT-IP Objective Assessments Start: 04/12/21 12:08 Freq: NEEDED Status: Active Protocol: Document 04/12/21 10:45 AB (Rec: 04/12/21 12:19 AB [id number]) Orientation Orientation/Cognition Level of Alertness Alert Orientation Name,Place,Situation Language Function Ability No Deficits Noted Safety Awareness Decreased Safety Awareness Gross Range of Motion Lower Extremity ROM Assessment Within Functional Limits Strength Lower Extremity Strength Hip 4-/5 Knee 4-/5 Sensation Assessment Sensation Gross Sensation WNL Muscle Tone Muscle Tone WNL Yes M6 PT-IP Treatment Start: 04/12/21 12:08 Freq: NEEDED Status: Active Protocol: Document 04/13/21 14:49 JG (Rec: 04/13/21 15:20 DAVID [id number]) Physical Therapy Treatment Exercises Exercises Ankle Pumps,Heel Slides, Straight Leg Raises,Shoulder Flexion,Elbow Flexion/ Extension Education Education Provided Safety Other Treatments Other Treatment Performed Supine: ankle pumps, heel slides, straight leg raises, ER/IR w/straight legs, bridging, shld flex, elbow flex/ext in 90 of shld flex, and horizontal abd/add M7 PT-IP Assessment and Plan Start: 04/12/21 12:08 Freq: NEEDED Status: Active Protocol: Document 04/13/21 14:49 DAVID (Rec: 04/13/21 15:20 DAVID [id number]) PT Summary Assessment and Plan Potential Rehabilitation Potential Good Status of Condition at Evaluation Stable Summary Impairments Pain,ROM,Strength,Balance, Cognition,Bed Mobility, Transfers,Gait,Activity Tolerance Assessment Summary Pt happily engaged in PT while reporting feeling generally fatigued today. Pt completed supine therapeutic exercise w/ min cueing beyond explanation of desired movement which appeared to increase pt's self -assessed functional ability. Pt was quite fatigued after in -room amb and req 2P assist for bed positioning once pt moved herself sit>supine. Pt voiced feeling frustrated w/ general weakness and fatigue as she has lived active lifestyle including golfing. Pt's has several co- morbidities that decrease his caregiving ability. Given pt's recent decline in functional mobility and increase in general fatigue, SNF would be ideal setting to provide rehab to bring pt back to baseline. Goals Bed Mobility Goal Independent Transfer Goal Independent,Front Wheeled Walker,Four Wheeled Walker Gait Goal Independent,Front Wheel Walker ,Four Wheel Walker Gait Distance 50 Other Goals ambulation using SPC/MENDER HAND 30 ft CGA Days to Meet Goals 5 Frequency of Treatment Frequency Of Treatment Once a Day Treatment Plan Physical Therapy Treatment Plan Bed Mobility Training,Transfer Training,Gait Training, Therapeutic Exercise,Balance Retraining,Discharge Planning, Hot or Cold Pack,Neuromuscular Re-ed,Coordination Retraining Other Recommendations and Next Treatment Continue bed mobility, supine, Focus and EOB exercises and activities. Progress and/or continue standing and amb activities if pt tolerates. Pt education re HEP, FWW vs 4WW. Precautions Other Precautions falls Weight Bearing Status Weight Bearing Status Full Weight Bearing Recommendations To Nursing Amount of Assist Needed 1 Person Assist Discharge Recommendations PT Discharge Recommendations Home with 24/ Assist Available,Home Health,SNF Rehab,Home vs SNF Equipment Needed for Home Before Recommend FWW as pt only has Discharge 4WW at home Transportation Needs at Discharge Private Vehicle,Wheelchair/ Cabulance Treatment was provided by Candi Camacho, SPT and supervised by Lluvia Del Valle, PT. I personally reviewed this note and agree with its contents.
[2021-04-13] MEDS: CLOPIDOGREL 75 MG TABLET PO (15:15)
--- NOTE | 2021-04-13 20:21 | DI.ECHO.S_ITS ---
[place] [place] +---------+ Hospital +---------+ : : [address] : : : : [id number] : : : : Phone: [phone]+ Echocardiogram Report + + :Name: MAYELIN ELDRIDGE Study Date: 04/13/2021 Height: 64 in : :[facility] ReadingLocation: Weight: 162 lb : : Gender: Female BSA: 1.8 m2 : :: 1935 Age: 86 yrs BP: 106/56 mmHg: :Reason For Study: NSTEMI : :Ordering Physician: Yumi : :Hospitalist Performed By: Suly Correia : :Referring: ZEN POWER : + + Interpretation Summary The left ventricle is normal in size and wall thickness. Left ventricular systolic function is normal. The ejection fraction is estimated to be 60-65%. There are no obvious focal wall motion abnormalities noted but poor endocardial definition reduces the sensitivity for the detection of such. Diastolic parameters suggest a relaxation abnormality of the left ventricle, consistent with probable normal filling pressures. The right ventricle is normal in size and function. The right ventricular systolic pressure is estimated to be at least 25 mmHg based on an estimated right atrial pressure of 3 mm Hg. Both atria are normal in size. The mitral valve chordae are thickened and/or calcified. There is mild mitral regurgitation. The aortic valve is not well visualized. The aortic valve is moderately calcified. There is moderately reduced leaflet mobility. The peak aortic velocity is 2.6 m/sec which is probably underestimated.. The calculated aortic valve area is 0.91 cm2.. Considering all of the above mentioned, there is moderate to severe aortic stenosis. There is no other significant valvular heart disease. The aortic root is normal size. Procedure: A two-dimensional transthoracic echocardiogram with color flow and Doppler was performed. The study quality was technically adequate. There is no prior echocardiogram noted for this patient. The patient was in normal sinus rhythm during the exam. The patient had frequent PVCs during the exam. Left Ventricle: The left ventricle is normal in size and wall thickness. Left ventricular systolic function is normal. The ejection fraction is estimated to be 60-65%. There are no obvious focal wall motion abnormalities noted but poor endocardial definition reduces the sensitivity for the detection of such. Diastolic parameters suggest a relaxation abnormality of the left ventricle, consistent with probable normal filling pressures. Right Ventricle: The right ventricle is normal in size and function. Atria: Both atria are normal in size. There is no Doppler evidence for an interatrial shunt. Mitral Valve: The mitral valve chordae are thickened and/or calcified. There is mild mitral annular calcification. There is mild mitral regurgitation. Aortic Valve: The aortic valve is not well visualized. The aortic valve is moderately calcified. There is moderately reduced leaflet mobility. There is moderate aortic stenosis. The peak aortic velocity is 2.6 m/sec. The calculated aortic valve area is 0.91 cm2. The aortic valve mean gradient is 11.4 mmHg. There is trace aortic regurgitation. Tricuspid Valve: The tricuspid valve leaflets are thin and pliable. There is trace tricuspid regurgitation. The right ventricular systolic pressure is estimated to be at least 25 mmHg based on an estimated right atrial pressure of 3 mm Hg. Pulmonic Valve: The pulmonic valve is not well visualized. There is no other significant valvular heart disease. Great Vessels: The aortic root is normal size. The ascending aorta is normal in size. The IVC is of normal diameter and collapses greater than 50% with a sniff. This suggests a low right atrial pressure of 3 mm Hg. Pericardium/ Pleura There is no pericardial effusion. MMode/2D Measurements & Calculations LVIDd: 3.5 cm LVOT diam: 2.0 cm LVIDs: 2.6 cm Ao root diam: 3.1 cm FS: 25.1 % asc Aorta Diam: 2.7 cm EPSS: 0.88 cm IVSd: 1.0 cm LVPWd: 0.81 cm LV davis. diameter/BSA (cm/m^2): 1.9 LV sys. diameter/BSA (cm/m^2): 1.5 LA A2 area: 13.9 cm2 RA long axis: 4.4 cm LA A4 area: 13.6 cm2 RA area: 10.3 cm2 LA length (vol): 4.8 cm RA vol: 20.6 ml LA vol: 33.7 ml RA : 11.5 ml/m2 LA vol index: 18.8 ml/m2 RVD1 (basal): 3.2 cm TAPSE: 2.7 cm Doppler Measurements & Calculations Ao V2 max: 260.1 cm/sec LVOT Max Marlon: 72.1 cm/sec Ao V2 mean: 152.8 cm/sec LV V1 max P.1 mmHg Ao max P.1 mmHg LV V1 VTI: 13.6 cm Ao mean P.4 mmHg SAIMA(I,D): 0.91 cm2 Ao V2 VTI: 47.7 cm SAIMA(V,D): 0.88 cm2 sev ratio: 0.29 SAIMA indexed to BSA (cm^2/m^2): 0.51 MV E max marlon: 89.0 cm/sec TR max marlon: 235.5 cm/sec MV A max marlon: 104.7 cm/sec TR max P.2 mmHg MV E/A: 0.85 PA V2 max: 74.5 cm/sec Med Peak E' Marlon: 4.8 cm/sec PA V2 mean: 55.6 cm/sec E/E' med: 18.5 PA mean P.3 mmHg Lat Peak E' Marlon: 6.6 cm/sec PA pr(Accel): 18.6 mmHg E/E' lat: 13.5 E/e' average: 16.0 MV dec time: 0.24 sec SV(LVOT): 43.3 ml Reading Physician:03:27 PM
[2021-04-13] MEDS: SENNOSIDES 8.6 MG TABLET 17.2 MG PO (21:00)
[2021-04-13] MEDS: polyethylene glycoL 3350 17 GM POWD.PACK PO (21:00)
[2021-04-13] MEDS: ATORVASTATIN 20 MG TABLET 40 MG PO (21:01)
[2021-04-14] VITALS (13 sets, daily range): BP systolic 121–164; BP diastolic 56–71; PULSE 61–84; RESP 14–18; TEMP 35.7–37.5; O2SAT 95–98
[2021-04-14] MEDS: LEVOTHYROXINE 88 MCG TABLET PO (05:32)
[2021-04-14] MEDS: PANTOPRAZOLE DR 20 MG TABLET PO (05:33)
[2021-04-14] MEDS: ACETAMINOPHEN 325 MG TABLET 650 MG PO ×2 (05:33→18:27)
[2021-04-14 06:39] LABS: Add Manual Diff / Slide Review NO; Basophils Absolute Auto 100 /uL (0-100); Basophils Percent Auto 0.9 % (0-2); Eosinophils Absolute Auto 400 /uL (0-450); Eosinophils Percent Auto 2.9 % (2-4); Hematocrit 28.5 % (36-46); Hemoglobin 9.5 g/dL (12.0-16.0); Lymphocytes Absolute Auto 2800 /uL (1100-4500); Lymphocytes Percent Auto 21.8 % (25-40); Mean Corpuscular HGB Conc 33.4 % (30-36); Mean Corpuscular Hemoglobin 28.8 PG (26-34); Mean Corpuscular Volume 86.4 fL (80-100); Monocytes Absolute Auto 1500 /uL (0-900); Monocytes Percent Auto 11.5 % (3-14); Neutrophils Absolute Auto 8200 /uL (1500-7000); Neutrophils Percent Auto 62.9 % (50-75); Platelet Count 586 X10^3/uL (150-400); Red Cell Distribution Width 14.9 % (11.6-14.8)
[2021-04-14 06:51] LABS: Alanine Aminotransferase 52 IU/L (<35); Albumin 3.3 g/dL (3.5-5.0); Albumin Globulin Ratio 1.3 (1.0-2.8); Alkaline Phosphatase 237 U/L (38-126); Aspartate Aminotransferase 78 IU/L (14-36); BUN Creatinine Ratio 32.9 (6-22); Bilirubin Total 0.5 mg/dL (0.2-1.3); Blood Urea Nitrogen 28 mg/dL (7-17); Calcium 8.9 mg/dL (8.4-10.2); Carbon Dioxide 33 mmol/L (22-32); Chloride 96 mmol/L (98-107); Estimated Glomerular Filt Rate > 60.0 mL/min (>60); Globulin 2.6 g/dL (1.7-4.1); Glucose 87 mg/dL (80-110); HEMOLYSIS < 15 (0-50); Potassium 3.9 mmol/L (3.4-5.1); Sodium 134 mmol/L (137-145); Total Protein 5.9 g/dL (6.3-8.2)
[2021-04-14 07:07] LABS: Troponin I 0.511 ng/mL (0.01-0.034)
[2021-04-14] MEDS: CLOPIDOGREL 75 MG TABLET PO (09:37)
[2021-04-14] MEDS: predniSONE 5 MG TABLET PO (09:37)
[2021-04-14] MEDS: METOPROLOL ER 25 MG TABLET PO (09:38)
[2021-04-14] MEDS: LOSARTAN 25 MG TABLET PO (09:38)
[2021-04-14] MEDS: FUROSEMIDE 40 MG/4 ML VIAL IV ×2 (09:38→21:03)
[2021-04-14] MEDS: ASPIRIN 81 MG CHEW TAB PO (09:38)
--- NOTE | 2021-04-14 09:38 | CM.DPC ---
Addendum entered by Mercy Kaur R.N. 04/14/21 14:15: Spoke to Sue at [facility]. She indicated, her provider is authorizing her to go to skilled rehab, but do not yet have an authorization number as of yet. Met with patient in her room. Asked her if she had preference of skilled rehab. She stated, I'm ok going anywhere. She is ok going to [facility]. She stated, 'I think I didn't have the greatest experience when I was there before because of my hip surgery and the pain. She is having a stress test today, and the outcome will depend upon if she can work with P.T. today, or if she will need a higher level cardiac facility. Updated Sue that as soon as she is deemed medically stable with therapy, will fax her. Addendum entered by Mercy Kaur R.N. 04/14/21 12:05: Spoke to Jacquie at [facility]. She can also accept patient. Was informed, patient would rather not go to [facility], had been there before. Will need to confirm with patient. Sue at [facility] called back and indicated that she had to send the skilled request to their medical provider, as P.T. note indicated skilled versus home health. Did fax her over yesterday's P.T. note. According to team rounds, P.T, is on hold, for she is to be having a stress test today. Will be unable to send [facility] over the updated note for today. They will review. Original Note: DCP Cont: Spoke to Kari at [facility]. Confirmed, she can accept patient today. Currently awaiting [facility] auth. Spoke to Sue at [facility], and updated her. She will call back and let this case management associate know if patient can be authorized for long term. Had Vera print out COVID vaccine information. P: DCP to continue to work with [facility] to see if patient would be eligible for long term. Mercy Kaur RN/Director Of Video Analytics
[2021-04-14] MEDS: polyethylene glycoL 3350 17 GM POWD.PACK PO ×2 (09:39→21:02)
[2021-04-14] MEDS: SODIUM CHLORIDE 0.9% FLUSH 10 ML IV ×2 (09:39→21:54)
[2021-04-14] MEDS: ALPRAZolam 0.5 MG TABLET PO ×2 (10:11→21:08)
--- NOTE | 2021-04-14 11:41 | PT-IP ANOTE ---
Per MD, pt inappropriate to be seen today and will be having stress test and then possibly MRI.
--- NOTE | 2021-04-14 13:44 | PM.PN.1 ---
Subjective Subjective Date Patient Seen: 04/14/21 Interval history: 86 y/o female admitted with AFIB RVR and NSTEMI. She denies chest pain or shortness of breath. She complains of bilateral upper extremity weakness and numbness and tingling of both hands. These symptoms have been present for some time. Her cardiac enzymes are trending downward. Her heparin drip has been discontinued and she is now back on coumadin. Exam Vital Signs (past 8 hours): - 04/14/21 07:39 04/14/21 08:00 04/14/21 09:38 Temperature 97.2 F L Pulse Rate 61 61 Respiratory Rate 16 Blood Pressure 164/64 H 164/64 H Pulse Oximetry 98 98 04/14/21 10:16 04/14/21 10:17 04/14/21 11:20 Temperature 97.2 F L Pulse Rate 83 83 61 Respiratory Rate 14 Blood Pressure 163/59 H 163/59 H 155/71 H Pulse Oximetry 97 04/14/21 12:00 Temperature Pulse Rate Respiratory Rate Blood Pressure Pulse Oximetry 97 Oxygen Delivery Method Room Air Oxygen Flow Rate 0 Narrative Exam Narrative: Pleasant female lying in bed in no distress Resp Other: Lungs: clear to auscultation Cardio Other: CV: Irregluarly, irregular, nl Sl S2 GI Other: Abd: soft/ non tender non distended Skin Other: bruising of upper and lower extremities which appears chronic Extrem Other: no edema Objective Labs Result Diagrams: 04/14/21 06:00 04/14/21 06:00 Labs: Laboratory Results - last 24 hr 04/14/21 04/14/21 06:00 06:00 WBC 13.0 H RBC 3.30 L Hgb 9.5 L Hct 28.5 L MCV 86.4 MCH 28.8 MCHC 33.4 RDW 14.9 H Plt Count 586 H Neut % (Auto) 62.9 Lymph % (Auto) 21.8 L [place] % (Auto) 11.5 Eos % (Auto) 2.9 Baso % (Auto) 0.9 Neut # (Auto) 8200 H Lymph # (Auto) 2800 [place] # (Auto) 1500 H Eos # (Auto) 400 Baso # (Auto) 100 Sodium 134 L Potassium 3.9 Chloride 96 L Carbon Dioxide 33 H BUN 28 H Creatinine 0.85 Estimated GFR > 60.0 BUN/Creatinine Ratio 32.9 H Glucose 87 Calcium 8.9 Total Bilirubin 0.5 AST 78 H ALT 52 H Alkaline Phosphatase 237 H Troponin I 0.511 H* Total Protein 5.9 L Albumin 3.3 L Globulin 2.6 Albumin/Globulin Ratio 1.3 PFSH Medical History (Updated 04/14/21 @ 00:00 by ) Anxiety Essential hypertension GERD (gastroesophageal reflux disease) History of shingles Hyperlipidemia Hypothyroidism (acquired) Osteoporosis Paroxysmal atrial fibrillation with RVR Surgical History (Updated 04/12/21 @ 00:53 by FADY Qiu-NESHA) History of bilateral hip replacements History of cholecystectomy Family History (Updated 04/12/21 @ 00:55 by FADY Qiu-NESHA) Mother Stroke Brother Diabetes mellitus Sister Heart attack Social History household members: spouse Smoking Status: Former smoker alcohol intake: former Assessment & Plan Assessment & Plan narrative: Acute hypoxic respiratory failure with NSTEMI -per cardiology recommend 72 hours of heparin gtt -transfer attempted to higher level of care and unable -ECHO ordered -continue aspirin/statin -troponin 0.737 down from 1.350 -echo, he left ventricle is normal in size and wall thickness. Left ventricular systolic function is normal. The ejection fraction is estimated to be 60-65%. There are no obvious focal wall motion abnormalities noted but poor endocardial definition reduces the sensitivity for the detection of such. Diastolic parameters suggest a relaxation abnormality of the left ventricle, consistent with probable normal filling pressures. ? The right ventricle is normal in size and function. The right ventricular systolic pressure is estimated to be at least 25 mmHg based on an estimated right atrial pressure of 3 mm Hg. ? Both atria are normal in size. ? The mitral valve chordae are thickened and/or calcified. There is mild mitral regurgitation. ? The aortic valve is not well visualized. The aortic valve is moderately calcified. There is moderately reduced leaflet mobility. The peak aortic velocity is 2.6 m/sec which is probably underestimated.. The calculated aortic valve area is 0.91 cm2.. Considering all of the above mentioned, there is moderate to severe aortic stenosis. There is no other significant valvular heart disease. ? The aortic root is normal size. Heparin discontinued, coumadin restarted Will get Stress Test today, if negative continue medical management If stress test positive, will consult cardiology - 2. Atrial fibrillation with RVR -coumadin restarted -rate controlled 3. UA positive, acute, present on admission -WBC of 18 on admission -urine culture contaminated -Repeat urine culture, blood culture pending -Grande placed in ED -has received 3 days of antibiotics will stop 4. Leukocytosis -possibly secondary to steroids -stop antibiotics -watch closely for infectious signs/symptoms 5. Hip pain, Right, post mechnical fall, in the setting of history of bilateral hip arthroplasty, osteoporosis -resolved -PT consult -Ambulates with walker. -Continue patient Boniva 6. Constipation, acute, present on admission -patient reports last BM 1 wk ago -senna QHS, miralax BID -until BM 7. Essential hypertension, hypertensive urgency, acute on chronic, present on admission -initial presenting blood pressure is 184/75, 176/63.? Hypertensive urgency resolved- Admit BP 102/54 -continue patient's metoprolol, losartan. 8. Hyperlipidemia, chronic, present on admission -continue patient's Lipitor 80 mg 9. Hypothyroidism, acquired, chronic, present on admission -continue patient's levothyroxine 10. GERD, chronic, present on admission -continue patient's omeprazole 11. 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 Disposition -PT/OT, may need SNF at discharge. Time Spent With Patient Critical Care time: I spent a total of [] minutes of critical care time on this patient's care today; this time is exclusive of procedural time. Quality VTE Deep Vein Thrombosis/Pulmonary Embolism Present on Admission: No
[2021-04-14] MEDS: WARFARIN 5 MG TABLET 2.5 MG PO (16:49)
--- NOTE | 2021-04-14 19:34 | PC.NURSE ---
A&Ox4. Reported having anxiety around cost of stay and being alone at home. Encouraged patient to call and talk with him, aslo sat with patient for a while to help calm her. Gave PRN alprazolam which also helped. Saline locked. Heart healthy diet, minimal appetite. Extensive ecchymosis to BLLE and BLUE especially the left hip. Call light within reach, bed low. This evening patient reported worsening tingling and pain in BLUE and her right chest. Gave PRN Tylenol and provider ordered an EKG and stat triponins.
[2021-04-14 20:04] LABS: PTT Partial Thromboplastin Tim 30 SECONDS (26.4-36.2)
[2021-04-14] MEDS: SENNOSIDES 8.6 MG TABLET 17.2 MG PO (21:03)
[2021-04-14] MEDS: ATORVASTATIN 20 MG TABLET 40 MG PO (21:03)
[2021-04-14 21:25] LABS: Troponin I 0.298 ng/mL (0.01-0.034)
[2021-04-15] VITALS (15 sets, daily range): BP systolic 95–133; BP diastolic 41–73; PULSE 72–100; RESP 16–20; TEMP 35.8–36.6; O2SAT 94–98
[2021-04-15] MEDS: ACETAMINOPHEN 325 MG TABLET 650 MG PO ×3 (00:06→19:37)
[2021-04-15] MEDS: CYCLOBENZAPRINE 10 MG TABLET 5 MG PO ×2 (00:26→15:00)
[2021-04-15] MEDS: PANTOPRAZOLE DR 20 MG TABLET PO (06:20)
[2021-04-15] MEDS: LEVOTHYROXINE 88 MCG TABLET PO (06:20)
[2021-04-15 06:44] LABS: Add Manual Diff / Slide Review NO; Basophils Absolute Auto 200 /uL (0-100); Basophils Percent Auto 1.3 % (0-2); Eosinophils Absolute Auto 500 /uL (0-450); Eosinophils Percent Auto 3.4 % (2-4); Hematocrit 29.3 % (36-46); Hemoglobin 9.6 g/dL (12.0-16.0); Lymphocytes Absolute Auto 3200 /uL (1100-4500); Lymphocytes Percent Auto 21.1 % (25-40); Mean Corpuscular HGB Conc 32.7 % (30-36); Mean Corpuscular Hemoglobin 28.2 PG (26-34); Mean Corpuscular Volume 86.1 fL (80-100); Monocytes Absolute Auto 1400 /uL (0-900); Monocytes Percent Auto 9.5 % (3-14); Neutrophils Absolute Auto 9700 /uL (1500-7000); Neutrophils Percent Auto 64.7 % (50-75); Platelet Count 635 X10^3/uL (150-400); Red Cell Distribution Width 14.9 % (11.6-14.8)
[2021-04-15 06:53] LABS: INR 1.1 (0.9-1.3); Prothrombin Time 12.1 SECONDS (10.1-12.7)
[2021-04-15 06:57] LABS: Alanine Aminotransferase 54 IU/L (<35); Albumin 3.5 g/dL (3.5-5.0); Albumin Globulin Ratio 1.5 (1.0-2.8); Alkaline Phosphatase 250 U/L (38-126); Aspartate Aminotransferase 77 IU/L (14-36); BUN Creatinine Ratio 33.3 (6-22); Bilirubin Total 0.4 mg/dL (0.2-1.3); Blood Urea Nitrogen 29 mg/dL (7-17); Calcium 9.1 mg/dL (8.4-10.2); Carbon Dioxide 33 mmol/L (22-32); Chloride 97 mmol/L (98-107); Estimated Glomerular Filt Rate > 60.0 mL/min (>60); Globulin 2.4 g/dL (1.7-4.1); Glucose 96 mg/dL (80-110); HEMOLYSIS < 15 (0-50); Sodium 135 mmol/L (137-145); Total Protein 5.9 g/dL (6.3-8.2)
[2021-04-15 07:07] LABS: NT-proBNP (BNP-Adult 18+) 661 pg/mL (<450)
[2021-04-15 07:12] LABS: Troponin I 0.274 ng/mL (0.01-0.034)
[2021-04-15] MEDS: LOSARTAN 25 MG TABLET PO (10:24)
[2021-04-15] MEDS: ASPIRIN 81 MG CHEW TAB PO (10:24)
[2021-04-15] MEDS: FUROSEMIDE 40 MG/4 ML VIAL IV (10:25)
[2021-04-15] MEDS: CLOPIDOGREL 75 MG TABLET PO (10:25)
[2021-04-15] MEDS: predniSONE 5 MG TABLET PO (10:29)
[2021-04-15] MEDS: SODIUM CHLORIDE 0.9% FLUSH 10 ML IV ×2 (10:29→20:34)
--- NOTE | 2021-04-15 10:30 | CM.DPC ---
Addendum entered by Mercy Kaur R.N. 04/15/21 15:28: Patient will not be discharged to [facility] today due to the time of stress test, and has to be reviewed. Kari at [facility] stated that they can set up a time of sheepskin pickler at 11:30am. Asked nurse if COVID swab can be obtained today. Kaitlin, the human resources executive assistant from [facility] called. Her phone number is: [phone], ext [phone]. She indicated that patient's spouse is working on getting patient an apartment at their facility, so when she discharges, can go to [facility]. Asked Kaitlin if this liaison planner can give her number to Kari at [facility]. She indicated, it would be ok to do so. Updated October about discharge plan after [facility], going to [facility]. She will give this information to social insurance administrator at their facility. P: DCP to plan on patient going to [facility] tomorrow, but will depend upon results of stress test. Mercy Kaur RN/[employer] Operator Original Note: DCP Cont: Discussed patient during team rounds and patient is to be getting a stress test today, but according to hospitalist, may not have the results until after 1600, which would determine if she needs any type of cardiac cath procedure, which would need to be done at a higher level hospital. Nurse coordinator will see if results can be sooner, as the plan is for her to go to [facility]. Called Jae Rogers outsole caser. Asked her if she had auth number yet for usp. She gave auth number of: [id number]. Sue indicated that auth is still good for tomorrow, should she not go today. P.T. can't work with patient secondary to her not yet having stress test. Patient is still authorized for skilled. Will still have COVID swab done, and did set up time for 1500 in case stress test is read. Will update October if this will not work. P: DCP to continue to follow. If stress test results are in prior to 1500, she can go to [facility] at 1500. Will follow up with Joanne, nursing home physician, as well. She will still get COVID swab on patient. Mercy Kaur RN/[employer] Operator
--- NOTE | 2021-04-15 11:27 | PT-IP ANOTE ---
Per MD, hold PT. Pt waiting on stress test and MRI.
--- NOTE | 2021-04-15 15:38 | PC.NURSE ---
Addendum entered by Grisel Araya R.N. 04/15/21 19:03: Pt COVID test completed results are negative Original Note: Pt is A&Ox3. She reports feeling fatigued and tired and that the last few days have been kind of a blur and that she feels like her concept and sequence and time was off. She is taken for a stress test this a.m. and the 2nd part this afternoon. Her farias is removed this a.m. and she is voiding this afternoon. Although she is able to stand to transfer to wheelchair or the chair with one person assist she is requesting to use the bedpan because she feels fatigued and her body feels sore. She is medicated with tylenol this a.m. with minimal affect. Flexeril 5 mg PRN given this afternoon for c/o body soreness with good affect. She is able to eat a meal and rest afterward. Plan for discharge to [facility] at 1100 a.m. tomorrow per CM, COVID swab sent this afternoon.
[2021-04-15 15:53] LABS: COVID19 -Nasal RAPID Negative (Negative)
[2021-04-15] MEDS: WARFARIN 5 MG TABLET 2.5 MG PO (18:43)
--- NOTE | 2021-04-15 18:56 | PM.PN.1 ---
Subjective Subjective Date Patient Seen: 04/15/21 Interval history: The patient is an 86-year-old female admitted to the hospital with AFib RVR, she had elevated troponins felt to be secondary to an NSTEMI. She has had no chest pain. She has no shortness of breath. Her major complaint is bilateral tingling of her hands Exam Vital Signs (past 8 hours): - 04/15/21 11:00 04/15/21 11:29 04/15/21 12:29 Temperature 96.8 F L Pulse Rate 81 Respiratory Rate 16 Blood Pressure 133/56 L Pulse Oximetry 94 96 94 04/15/21 15:00 04/15/21 16:54 04/15/21 18:51 Temperature 97.8 F Pulse Rate 94 H 100 H Respiratory Rate 16 Blood Pressure 95/41 L 101/53 L Pulse Oximetry 95 95 Oxygen Delivery Method Room Air Oxygen Flow Rate 0 Narrative Exam Narrative: Pleasant female resting comfortably in no obvious distress Resp Other: Lungs: Clear to auscultation Cardio Other: Cardiac exam: Irregularly irregular normal S1-S2 GI Other: Abdomen: Soft nontender nondistended Extrem Other: Extremities: No edema Objective Labs Result Diagrams: 04/15/21 06:20 04/15/21 06:20 Labs: Laboratory Results - last 24 hr 04/14/21 04/14/21 04/15/21 19:47 19:47 06:20 WBC 15.0 H RBC 3.40 L Hgb 9.6 L Hct 29.3 L MCV 86.1 MCH 28.2 MCHC 32.7 RDW 14.9 H Plt Count 635 H Neut % (Auto) 64.7 Lymph % (Auto) 21.1 L [place] % (Auto) 9.5 Eos % (Auto) 3.4 Baso % (Auto) 1.3 Neut # (Auto) 9700 H Lymph # (Auto) 3200 [place] # (Auto) 1400 H Eos # (Auto) 500 H Baso # (Auto) 200 H PT INR APTT 30 D Sodium Potassium Chloride Carbon Dioxide BUN Creatinine Estimated GFR BUN/Creatinine Ratio Glucose Calcium Total Bilirubin AST ALT Alkaline Phosphatase Troponin I 0.298 H* NT-Pro-B Natriuret Pep Total Protein Albumin Globulin Albumin/Globulin Ratio SARS-CoV-2 (PCR) 12/14/21 12/14/21 12/14/21 06:20 06:20 06:20 WBC RBC Hgb Hct MCV MCH MCHC RDW Plt Count Neut % (Auto) Lymph % (Auto) [place] % (Auto) Eos % (Auto) Baso % (Auto) Neut # (Auto) Lymph # (Auto) [place] # (Auto) Eos # (Auto) Baso # (Auto) PT 12.1 INR 1.1 APTT Sodium 135 L Potassium 4.0 Chloride 97 L Carbon Dioxide 33 H BUN 29 H Creatinine 0.87 Estimated GFR > 60.0 BUN/Creatinine Ratio 33.3 H Glucose 96 Calcium 9.1 Total Bilirubin 0.4 AST 77 H ALT 54 H Alkaline Phosphatase 250 H Troponin I 0.274 H* NT-Pro-B Natriuret Pep 661 H Total Protein 5.9 L Albumin 3.5 Globulin 2.4 Albumin/Globulin Ratio 1.5 SARS-CoV-2 (PCR) 04/15/21 14:54 WBC RBC Hgb Hct MCV MCH MCHC RDW Plt Count Neut % (Auto) Lymph % (Auto) [place] % (Auto) Eos % (Auto) Baso % (Auto) Neut # (Auto) Lymph # (Auto) [place] # (Auto) Eos # (Auto) Baso # (Auto) PT INR APTT Sodium Potassium Chloride Carbon Dioxide BUN Creatinine Estimated GFR BUN/Creatinine Ratio Glucose Calcium Total Bilirubin AST ALT Alkaline Phosphatase Troponin I NT-Pro-B Natriuret Pep Total Protein Albumin Globulin Albumin/Globulin Ratio SARS-CoV-2 (PCR) Negative PFSH Medical History (Updated 04/14/21 @ 00:00 by ) Anxiety Essential hypertension GERD (gastroesophageal reflux disease) History of shingles Hyperlipidemia Hypothyroidism (acquired) Osteoporosis Paroxysmal atrial fibrillation with RVR Surgical History (Updated 04/12/21 @ 00:53 by FADY Qiu-NESHA) History of bilateral hip replacements History of cholecystectomy Family History (Updated 04/12/21 @ 00:55 by JAZ Qiu) Mother Stroke Brother Diabetes mellitus Sister Heart attack Social History household members: spouse Smoking Status: Former smoker alcohol intake: former Assessment & Plan Assessment & Plan narrative: Acute hypoxic respiratory failure with NSTEMI -per cardiology recommend 72 hours of heparin gtt -transfer attempted to higher level of care and unable -ECHO ordered -continue aspirin/statin -troponin 0.737 down from 1.350 -echo, he left ventricle is normal in size and wall thickness. Left ventricular systolic function is normal. The ejection fraction is estimated to be 60-65%. There are no obvious focal wall motion abnormalities noted but poor endocardial definition reduces the sensitivity for the detection of such. Diastolic parameters suggest a relaxation abnormality of the left ventricle, consistent with probable normal filling pressures. ? The right ventricle is normal in size and function. The right ventricular systolic pressure is estimated to be at least 25 mmHg based on an estimated right atrial pressure of 3 mm Hg. ? Both atria are normal in size. ? The mitral valve chordae are thickened and/or calcified. There is mild mitral regurgitation. ? The aortic valve is not well visualized. The aortic valve is moderately calcified. There is moderately reduced leaflet mobility. The peak aortic velocity is 2.6 m/sec which is probably underestimated.. The calculated aortic valve area is 0.91 cm2.. Considering all of the above mentioned, there is moderate to severe aortic stenosis. There is no other significant valvular heart disease. ? The aortic root is normal size. Heparin discontinued, coumadin restarted Will get Stress Test today, if negative continue medical management If stress test positive, will consult cardiology -stress test result negative, no evidence of reversible ischemia, suspect the patient's elevated troponins are related to demand ischemia, no evidence to suggest an NSTEMI at this time - 2. Atrial fibrillation with RVR -coumadin restarted -rate controlled 3. UA positive, acute, present on admission -WBC of 18 on admission -urine culture contaminated -Repeat urine culture, blood culture pending -Grande placed in ED -has received 3 days of antibiotics will stop 4. Leukocytosis -possibly secondary to steroids -stop antibiotics -watch closely for infectious signs/symptoms 5. Hip pain, Right, post mechnical fall, in the setting of history of bilateral hip arthroplasty, osteoporosis -resolved -PT consult -Ambulates with walker. -Continue patient Boniva 6. Constipation, acute, present on admission -patient reports last BM 1 wk ago -senna QHS, miralax BID -until BM 7. Essential hypertension, hypertensive urgency, acute on chronic, present on admission -initial presenting blood pressure is 184/75, 176/63.? Hypertensive urgency resolved- Admit BP 102/54 -continue patient's metoprolol, losartan. 8. Hyperlipidemia, chronic, present on admission -continue patient's Lipitor 80 mg 9. Hypothyroidism, acquired, chronic, present on admission -continue patient's levothyroxine 10. GERD, chronic, present on admission -continue patient's omeprazole 11. 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 Disposition -PT/OT, may need SNF at discharge. Time Spent With Patient Critical Care time: I spent a total of [] minutes of critical care time on this patient's care today; this time is exclusive of procedural time. Quality VTE Deep Vein Thrombosis/Pulmonary Embolism Present on Admission: No
[2021-04-15] MEDS: ATORVASTATIN 20 MG TABLET 40 MG PO (20:33)
[2021-04-16] VITALS (7 sets, daily range): BP systolic 98–129; BP diastolic 50–58; PULSE 81–107; RESP 15–18; TEMP 36.1–36.4; O2SAT 95–99
--- NOTE | 2021-04-16 00:04 | PC.NURSE ---
Patient is alert and oriented. Did complain of headache at shift change and was medicated with Tylenol with good relief. Breath sounds CTA with RA sat of 94%; did seem SOB when gotten up to BSC. HRR but tachy at 102bpm; telemetry reading was ST. BP has been trending low and does complain of dizziness when up to BSC. Dr. Mccarthy contacted about continuing IV Lasix BID and order received to DC Lasix. Stated she felt slightly nauseated but declined antiemetic. BT present and abdomen is soft; bowel meds held as previous RN reported earlier loose stool. Had farias removed on previous shift and has been incontinent of urine. Did get up to BSC at shift change and voided 50cc. Is not moving herself as well in bed so will have staff turn q2h. When up to BSC was able to transfer with 1 assist + walker but when getting back to bed was much weaker and required 2 assists. Extensive bruising on all extremities. Dressing to right LE is CDI. Buttocks pink but blanchable. Refused SCD's so reminded to ankle wave. Fall risk score is high and bed alarm is activated.
[2021-04-16] MEDS: ALPRAZolam 0.5 MG TABLET PO (00:17)
[2021-04-16] MEDS: LEVOTHYROXINE 88 MCG TABLET PO (06:21)
[2021-04-16] MEDS: PANTOPRAZOLE DR 20 MG TABLET PO (06:21)
--- NOTE | 2021-04-16 07:27 | DI.MRI.S_ITS ---
PROCEDURE: MR CERVICAL SPINE WO/W CON INDICATIONS: r/o cervical canal stenosis TECHNIQUE: Noncontrast sagittal T1 spin echo and T2 fast spin echo, sagittal STIR, foraminal oblique sagittal T2 fast spin echo, axial gradient echo or T2 fast spin echo through the cervical spine. After the administration of contrast, axial and sagittal T1 spin echo with fat saturation through the cervical spine. COMPARISON: None. FINDINGS: Image quality: Excellent. Alignment and curvature: Degenerative anterolisthesis of C3 on C4 measures 4 mm. Trace degenerative anterolisthesis of C4 on C5. Marrow: Marrow is normal in overall signal, without suspicious enhancement. Spinal cord: Visualized spinal cord has normal size and signal. However, there is marked canal stenosis at C3-C4. No cerebellar tonsillar herniation. No abnormal intramedullary enhancement. Paraspinous soft tissues: No paravertebral masses or suspicious enhancement. C2-3: Mild central posterior disc protrusion abutting the cord. AP diameter of the canal is 8.8 mm. Mild left foraminal stenosis. C3-4: Prominent bilateral facet hypertrophy. Prominent posterior ligamentous hypertrophy. Degenerative anterolisthesis of C3 on C4 with unroofing disc and posterior disc protrusion. Marked canal stenosis. AP diameter of the canal is approximately 3.9 mm. Severe bilateral foraminal narrowing with bilateral foraminal C4 nerve root impingement. C4-5: Mild disc bulge. Mild anterolisthesis of C4 on C5. AP diameter of the canal is 7.8 mm. Right foramen is patent. Mild to moderate left foraminal narrowing. C5-6: Fairly wide based right paracentral disc protrusion with marked narrowing of the right side of the canal and moderate to severe narrowing of the central canal. Bilateral uncovertebral joint hypertrophy. Severe right and moderate to severe left foraminal narrowing with impingement on the exiting bilateral C6 nerve roots. C6-7: Diffuse disc bulge. AP diameter of the canal is 7 mm. Bilateral uncovertebral joint hypertrophy. Severe right and moderate to severe left foraminal narrowing with bilateral foraminal C7 nerve root impingement. C7-T1: Disc bulge, eccentric to the right. AP diameter of the canal is 9.8 mm. There is [id number] narrowing of the right side of the canal. Mild bilateral foraminal stenosis. IMPRESSION: 1. Extensive cervical spondylitic change. 2. Extensive significant canal stenosis. At C3-C4, there is marked canal stenosis with an AP diameter of the canal of 3.9 mm. There is moderate canal stenosis at C4-C5. At C5-C6, there was marked narrowing of the right side of the canal and severe narrowing of the central canal. There is severe canal stenosis at C6-C7. 3. Significant multilevel foraminal narrowing as described above. Dictated by: Xavi Cornejo M.D. on 04/16/2021 at 10:33 Approved by: Xavi Cornejo M.D. on 04/16/2021 at 10:44
[2021-04-16] MEDS: ACETAMINOPHEN 325 MG TABLET 650 MG PO (07:30)
--- NOTE | 2021-04-16 07:46 | P.DS_ITS ---
History of Present Illness History of Present Illness Date Patient Seen: 04/16/21 Chief complaint: R hip pain Narrative: Anna Jamison is a 86-year-old female with a medical history of atrial fibrillation, essential hypertension, hyperlipidemia, hypothyroidism, GERD, autoimmune gallbladder disease, and anxiety that arrived to the ED 0n 04/10/21 via EMS for complaint of right hip pain (Hx of bilateral hip replacement).? Patient had a fall (ambulates with a walker) on the 04/08 and was seen at [facility].? She had negative imaging, and a skin tear on her right gomez with dressing.? She has also noted some shortness of breath and EMS noted oxygen was in the 80's% on rm air upon their arrival.?Patient presented in acute respiratory failure, she was started on 4 L/NC.? Patient was seen in ED 03/30, for UTI- prescribed Keflex 500mg BID which she states she did not complete. ? Patient is not aware of any fevers.? She does note she has had a headache for several weeks.? The light in the room bothers her but has not been bothering her home.? She denies any neck pain.? She does describe some lower abdominal ache/pain, and suprapubic pain 6/10, constant, nothing improves or worsens the pain, and it does not radiate.? She has had shortness of breath but denies any chest pain.?Patient denies any new numbness, tingling, extremity swelling, new weakness, falls.?She has a history of atrial fibrillation is on warfarin, losartan, metoprolol, omeprazole and your so dial for a ?autoimmune gallbladder disease?.? She has had a cholecystectomy she denies any cardiac interventions.? She has had prior compression fractures in her back and prior hip replacements.? Patient is allergic for sulfa.? Patient was found to be in atrial fibrillation RVR in ED EKG Rate 123 atrial fibrillation with rapid ventricular response with premature ventricular or aberrantly conducted complexes Nonspecific ST abnormality.? Her initial troponin 2.860,#2 2.550, #3 2.710-patient was started on heparin drip and the emergency room attempted to transfer the patient to [facility] for cardiac intervention.? No beds were available. Today 04/11/21 Her troponin was down trending, on the heparin drip, and Atrial Fib had resolved and gone back into NSR Rate 83, tappered off of Cardizem drip. She states she is feeling much better.? Patient had been in the emergency department for approximately 32 hours and her symptoms seem to be improving.? Her labs were improving as well.? Dr. Mendoza discussed the case with Cardiology- who stated that the patient is a stable candidate to admit to [place], and should continue on heparin for a total of 72 hours and should receive an echocardiogram.?I agreed to admit the patient for further evaluation and treatment.? Upon admit patient's temp 99.6?, BP 102/54, HR 89, RR 18, O2 saturation 96% on 2 L nasal cannula, patient remains in normal sinus rhythm with a controlled rate.? Patient does have white count of 16.8, neutrophils 74508, mono 2000, HGB 9.9, HCT 30.1, PLT 493.? Na 135, Cl 33, K 3.3, glucose 112, AST 84, ALT 48, alk-phos 176, PTT 76, albumin 3.2, lipase WNL, procalcitonin WNL.? Troponin #4 2.380, #5 1.330.? Patient admitted for Acute hypoxic respiratory failure second to NSTEMI, paroxysmal atrial fibrillation with RVR, and UTI. Discharge Providers Provider Date of admission: 04/11/21 19:40 Discharge Date: 04/16/21 Primary care physician: Jose Daniel Herrera MD Consults: 04/10/21 11:32 Consult to NUT ORCHARDIST - Net Development Manager Stat Comment: 04/12/21 01:39 Consult to Physical Therapy Evaluate & Treat Comment: Hip pain, fall, gait instability Physician Instructions: Evaluate and Treat Discharge provider: Starr Mccarthy MD Summary Hospital Course Discharge Diagnosis: 1. Atrial fibrillation with rapid ventricular response rate 2. Myocardial injury 3. Acute hypoxic respiratory failure, resolved 4 Hypertension 5. Hyperlipidemia 6. GERD 7. Autoimmune gallbladder disease 9 Hypothyroidism 10. Bilateral hand numbness 11. Hip pain 12. Urinary tract infection, resolved Hospital Course: The patient is an 86-year-old female who was admitted to the hospital following a fall. She was evaluated [facility] with negative results. The patient presented with shortness of breath. She was found to be in rapid atrial fibrillation. In addition she was hypoxic and required 4 L of oxygen. The patient's troponins were elevated at 2.86. The patient was placed on IV heparin for presumed NSTEMI. In addition the patient was diuresed with IV Lasix. She was able to come off oxygen with improvement of her oxygenation. She remained on IV heparin for a total of 72 hours. The troponins trended down to from 2.82.274. The patient continued to have intermittent chest pain however EKGs were unremarkable and troponins continue trending downward. Cardiac echo revealed the following findings: he left ventricle is normal in size and wall thickness. Left ventricular systolic function is normal. The ejection fraction is estimated to be 60-65%.There are no obvious focal wall motion abnormalities noted but poor endocardial definition reduces the sensitivity for the detection of such.Diastolic parameters suggest a relaxation abnormality of the left ventricle,consistent with probable normal filling pressures.The right ventricle is normal in size and function. The right ventricular systolic pressure is estimated to be at least 25 mmHg based on an estimated right atrial pressure of 3 mm Hg.Both atria are normal in size. The mitral valve chordae are thickened and/or calcified. There is mild mitral regurgitation. ? The aortic valve is not well visualized. The aortic valve is moderately calcified. There is moderately reduced leaflet mobility. The peak aortic velocity is 2.6 m/sec which is probably underestimated.. The calculated aortic valve area is 0.91 cm2.. Considering all of the above mentioned, there is moderate to severe aortic stenosis. There is no other significant valvular heart disease. The patient underwent a myocardial perfusion study, there was no evidence of reversible ischemia. This study was read as a normal study. The patient did complained of bilateral hand numbness, he also complained of upper extremity weakness. The patient will undergo an MRI of her cervical spine to rule out the possibility of cervical stenosis. Given her moderate to severe aortic stenosis the patient should follow-up with cardiology as an outpatient for further evaluation. Patient underwent MRI of the cervical spine. Results are as follows: ?Extensive cervical spondylitic change. ? 2. Extensive significant canal stenosis.? At C3-C4, there is marked canal stenosis with an AP diameter of the canal of 3.9 mm.? There is moderate canal stenosis at C4- C5.? At C5-C6, there was marked narrowing of the right side of the canal and severe narrowing of the central canal.? There is severe canal stenosis at C6-C7. ? 3. Significant multilevel foraminal narrowing as described above.? ? Patient was deemed appropriate for discharge and arrangements were made for her to discharge to [facility] for ongoing rehabilitation Status at Discharge Cognitive/behavioral status at discharge: oriented Functional status at discharge: uses cane/walker Overall status at discharge: patient is progressing back to baseline Exam Vital Signs (past 8 hours): - 04/16/21 00:29 04/16/21 04:19 Temperature 97.0 F L 97.2 F L Pulse Rate 90 81 Respiratory Rate 16 15 Blood Pressure 98/52 L 129/54 L Pulse Oximetry 99 97 Oxygen Delivery Method Room Air Oxygen Flow Rate 0 Narrative Exam Narrative: Pleasant female lying in bed in no obvious distress Resp Other: Lungs clear to auscultation Cardio Other: Cardiac exam: Irregularly irregular, normal S1-S2, 2/6 systolic ejection murmur GI Other: Abdomen: Soft nontender nondistended Skin Other: Multiple bruising of the upper and lower extremity Extrem Other: No edema Objective Labs Result Diagrams: 04/15/21 06:20 04/15/21 06:20 Labs: Laboratory Results - last 24 hr 04/15/21 14:54 SARS-CoV-2 (PCR) Negative [facility] Medical History (Updated 04/14/21 @ 00:00 by ) Anxiety Essential hypertension GERD (gastroesophageal reflux disease) History of shingles Hyperlipidemia Hypothyroidism (acquired) Osteoporosis Paroxysmal atrial fibrillation with RVR Surgical History (Updated 04/12/21 @ 00:53 by FADY QiuNESHA) History of bilateral hip replacements History of cholecystectomy Family History (Updated 04/12/21 @ 00:55 by JAZ Qiu) Mother Stroke Brother Diabetes mellitus Sister Heart attack Social History household members: spouse Smoking Status: Former smoker alcohol intake: former Discharge Assessment & Plan Assessment and Plan Assessment: 1. Atrial fibrillation with rapid ventricular response rate 2. Acute hypoxic respiratory failure 3. Moderate to severe aortic stenosis 4. Myocardial injury 5. Hypertension 6. Hyperlipidemia 7. Hypothyroidism 8. Cervical Spine Stenosis Plan of Treatment: Discharged to [facility] Discharge Plan Discharge Plan Patient Disposition: SNF Transfer to: [facility] Consult as needed: Dental, Hearing, Mental health, Podiatry and Vision Discharge orders & Medications Prescriptions: New oxycodone-acetaminophen 5-325 mg Tablet 1 tab PO BID PRN (Reason: Pain (Scale Score 7-10)) Qty: 20 0RF Eliquis 5 mg Tablet 5 mg PO BID 30 Days Qty: 60 0RF Continued metoprolol succinate 25 mg tablet extended release 24 hr 25 mg PO DAILY 0RF losartan 25 mg tablet 25 mg PO DAILY 0RF prednisone 5 mg tablet 5 mg PO DAILY 0RF levothyroxine 88 mcg Tablet 88 mcg PO QAM 0RF alprazolam 0.5 mg tablet 0.5 mg PO BID PRN (Reason: Anxiety) 0RF calcitonin (salmon) 200 unit/actuation spray,non-aerosol 1 spray intranasal DAILY 0RF Rx Instructions: alternate nostrils omeprazole 20 mg capsule,delayed release(DR/EC) 20 mg PO QAM 0RF ibandronate 150 mg tablet 150 mg PO QMONTH 0RF Discontinued oxycodone-acetaminophen 5-325 mg tablet 1 tab PO BID PRN (Reason: Pain (Scale Score 7-10)) 0RF Follow up/Referrals: Jose Daniel Herrera MD [Primary Care Provider] - Discharge Health Status Multidrug resistant organism: No MDRO Diet/Activity/Treatments Diet: Low-sodium and Low-cholesterol Liquid consistency: Normal/Thin Food texture: Regular Skin/Wound/Dressing Care Report to your healthcare provider any signs of infection, such as:: increased pain Special Rehabilitation Services Reason for rehabilitation: Post-operative therapy and Therapy following stroke Rehab type: Physical therapy and Occupational therapy Visit Report/Discharge Packet Instructions: Heart Attack Discharge Data Primary Care Provider: Jose Daniel Herrera Quality VTE Deep Vein Thrombosis/Pulmonary Embolism Present on Admission: No
--- NOTE | 2021-04-16 08:32 | DI.NM.S_ITS ---
DATE OF SERVICE: 04/15/2021 PROCEDURE: Pharmacological perfusion study. DATE OF STUDY: April 15, 2021 INDICATIONS: Abnormal troponin in the setting of atrial fibrillation with fast ventricular rate, as well as hypoxic respiratory failure, chest pain. RADIOPHARMACEUTICAL: 26.8 millicurie technetium-99m Myoview IV was injected at stress and 12.5 millicurie during technetium-99m Myoview IV was injected at rest. CARDIAC STRESS: The patient underwent IV Lexiscan perfusion study under the supervision of an attending staff using standard protocol. Baseline rhythm was sinus with first-degree AV block with some nonspecific ST/T changes and occasional PACs. During stress there were no convincing new ischemic changes. The patient had occasional PVCs and the PACs without any sustained ventricular arrhythmia or atrial fibrillation. Has baseline chest discomfort. During Lexiscan, patient felt bilateral arm heaviness as well. RAW DATA: Raw data there was breast shadow seen. GATED STUDY: Resting LV ejection fraction 71 percent and stress LV ejection fraction 88 percent. Resting end-diastolic volume 28, which is small. TID ratio 0.38, which is within normal limits. Lung/heart ratio 0.36 which is within normal limits. MYOCARDIAL PERFUSION SCAN: The stress supine and resting supine images were compared to each other. No prone images were obtained. Stress supine images revealed normal myocardial perfusion. Resting supine images revealed small size, mildly decreased perfusion of distal anterior wall. CONCLUSION: The stress supine images revealed normal myocardial perfusion. Hyperdynamic left ventricular function with small lung volume. No regional wall motion abnormalities. Normal TID ratio. Baseline chest discomfort. As far as perfusion scan is concerned, this is a low-risk myocardial perfusion scan. Clinical correlation is recommended. Anna Jamison - PASSENGER SERVICE REPRESENTATIVE/german/danny doc#: [id number]/job#: [id number] dd: 04/15/2021 16:48:00 dt: 04/15/2021 17:11:00 DICTATING MD/COPIES TO: Jeremías Johnson MD COPIES MNE: ANDREA;
[2021-04-16] MEDS: APIXABAN 5 MG TABLET PO (09:20)
[2021-04-16] MEDS: predniSONE 5 MG TABLET PO (09:20)
[2021-04-16] MEDS: ASPIRIN 81 MG CHEW TAB PO (09:21)
[2021-04-16] MEDS: METOPROLOL ER 25 MG TABLET PO (09:21)
[2021-04-16] MEDS: CLOPIDOGREL 75 MG TABLET PO (09:21)
[2021-04-16] MEDS: LOSARTAN 25 MG TABLET PO (09:21)
[2021-04-16] MEDS: polyethylene glycoL 3350 17 GM POWD.PACK PO (09:22)
[2021-04-16] MEDS: SODIUM CHLORIDE 0.9% FLUSH 10 ML IV (09:22)
[2021-04-16] MEDS: LORazepam 2 MG/ML INJ 1 MG IV (09:50)
--- NOTE | 2021-04-16 10:09 | PC.NURSE ---
Day shift: Pt off unit for MRI at approx 1005.
--- NOTE | 2021-04-16 10:54 | PC.NURSE ---
Day shift: Pt back on AC unit at approx 1035. Placed back on tele. Pt sleeping in bed at this time (1055).
--- NOTE | 2021-04-16 11:31 | CM.DPC ---
DCP Discharge SNF Per MD, pt had an Echo and MRI with negative results and medically stable to d/c to SNF today. DIONTE Gamez confirmed with [facility] that they can transport around 1500 and pt's negative COVID swab was obtained yesterday and copy of COVID vaccination printed. MOUNA called pt's spouse and updated him on d/c to [facility] today around 1500 and he is agreeable and will bring in a bag of pt's clothing today prior to d/c and to visit bedside with pt. MOUNA updated RN, marble mason, and JAVA ENTERPRISE ARCHITECT. DIONTE Gamez kindly faxing pt's d/c packet to [facility] for review. MOUNA called [facility] at [facility] and updated on pt d/c to SNF today. Plan: Patient to d/c to [facility] around 1500 via facility van prior to safe return home with spouse. Laverne Valencia, SCLEROSCOPE TESTER
--- NOTE | 2021-04-16 12:17 | PT.IPTN ---
Current Diagnoses Non-ST elevation (NSTEMI) myocardial infarction (04/11/21) Physical Therapy Treatment Note M2 PT-IP Current Condition Start: 04/12/21 12:08 Freq: NEEDED Status: Active Protocol: Document 04/16/21 11:54 SP (Rec: 04/16/21 13:55 SP [id number]) Physical Therapy Current Condition Current Condition Evaluation Date 04/12/21 Treatment Diagnosis NSTEMI; difficulty in walking Onset Date 04/11/21 M3 PT-IP Subjective Start: 04/12/21 12:08 Freq: NEEDED Status: Active Protocol: Document 04/16/21 11:54 SP (Rec: 04/16/21 13:55 SP [id number]) Subjective Physical Therapy Visit Type Type Treatment Note Visit Start Time 11:54 Visit Stop Time 12:17 Total Visit Minutes 23 Notes MILKER MACHINE discussed with supervising nurse Lindy if safe to work with pt with continued trending high of Troponin, was told is safe to mobilize today, 0.274. Vitals taken during tx: supine flat HOB: BP 92/52 HR 87 seated at EOB dizziness: 96/54 HR 106 resolved after couple minutes standing front chair after SPT : BP 112/50 HR 101 Seated in chair: 113/45 HR 103 99% John 2 on RA. Number of MILKER MACHINE Visits 1 Physical Therapy Visit Comments Patient Comments Pt agreeable to working with therapy. Therapy Pain Assessment Pain When Pain Assessed During Mobility Pain Present Pain Present Pain Reported Location Lower Back Scale Used mentioned low level Description With Movement Pain Behaviors Facial Grimacing,Wincing Pain Management Techniques Modification of Treatment,Re- positioning M4 PT-IP Mobility and Gait Start: 04/12/21 12:08 Freq: NEEDED Status: Active Protocol: Document 04/16/21 11:54 SP (Rec: 04/16/21 13:55 SP [id number]) PT-Bed Mobility Assessment Rolling Type of Rolling Log Rolling,Roll to Right,Roll to Left,Bilateral Level of Assist Moderate Assistance,Maximal Assistance,1 Person Assistance Supine to Sit Supine to Sit Maximum Assistance,1 Person Assistance Scooting Scooting to Edge of Bed Minimal Assistance,Moderate Assistance PT-Transfer Assessment Sit to and From Stand Sit to and from Stand Contact Guard Assistance, Minimal Assistance,1 Person Assistance,Use of Upper Extremities Equipment Transfer Assistive Device Gait Belt,Front Wheeled Walker Orthotic/Prosthetic Devices or Brace: No Transfers Transfer Destination Chair Transfer Technique Stand Step Pivot w/ FWW Transfer Ability Level of Assist Contact Guard Assistance, Minimal Assistance,1 Person Assistance,Use of Upper Extremities Comments Mobility Comments Pt in bed when arrived. Completed supine>sit with strap on LLE to self assist to EOB, Max A for trunk righting and cues for pushing from bed for self support. Mod A for scooting to EOB via transfer pad, able suport self with BUE . Sit>stand Min A x1, stood still to acclimate to pos change due to reported dizziness, able and wanted to progress, SPT to chair at R using FWW Min A trunk balance, stood front chair for BP assessment CGA, no LOB. Cued reach back Min A for slow descent to chair. Pt reported to tired to progress gait and dizziness wanted to just rest in chair. Pt had call light and all needs in reach before left. MILKER MACHINE assisted LE elevation in chair per pt request. MILKER MACHINE notified nursing fall risk and may require chair alarm for safety. Updated communication board. Gait Assessment Gait Gait Assistance Required: Contact Guard Assist,Minimum Assistance,1 Person Assist Distance (Feet) 2 Able to Maintain Weight Bearing Status Yes During Gait Assistive Devices Assistive Device Gait Belt,Front Wheeled Walker Gait Deviations General Gait Pattern Antalgic,Decreased Stride Length,Decreased Feet Clearance,Step-to Gait Factors Limiting Gait Function Factors Limiting Gait Function Decreased Activity Tolerance, Decreased Strength,Poor Balance,Poor Safety Awareness Comments Gait Comments SPT only bed> chair using FWW. Dizziness and decrease strength, activity tolerance. PT-Balance Assessment Sitting Balance and Reactions Static Sitting Balance Ability Good Dynamic Sitting Balance Ability Fair Standing Balance and Reactions Static Standing Balance Ability Fair Dynamic Standing Balance Ability Fair Device Used FWW M5 PT-IP Objective Assessments Start: 04/12/21 12:08 Freq: NEEDED Status: Active Protocol: Document 04/12/21 10:45 AB (Rec: 04/12/21 12:19 AB [id number]) Orientation Orientation/Cognition Level of Alertness Alert Orientation Name,Place,Situation Language Function Ability No Deficits Noted Safety Awareness Decreased Safety Awareness Gross Range of Motion Lower Extremity ROM Assessment Within Functional Limits Strength Lower Extremity Strength Hip 4-/5 Knee 4-/5 Sensation Assessment Sensation Gross Sensation WNL Muscle Tone Muscle Tone WNL Yes M6 PT-IP Treatment Start: 04/12/21 12:08 Freq: NEEDED Status: Active Protocol: Document 04/16/21 11:54 SP (Rec: 04/16/21 13:55 SP [id number]) Physical Therapy Treatment Education Education Provided Safety M7 PT-IP Assessment and Plan Start: 04/12/21 12:08 Freq: NEEDED Status: Active Protocol: Document 04/16/21 11:54 SP (Rec: 04/16/21 13:55 SP [id number]) PT Summary Assessment and Plan Potential Rehabilitation Potential Good Status of Condition at Evaluation Stable Summary Impairments Pain,ROM,Strength,Balance, Cognition,Bed Mobility, Transfers,Gait,Activity Tolerance Progress Towards Goals Progressing Toward Goals,Slow Progress due to Activity Tolerance Assessment Summary Pt required Max A for bed mob, CG- Min A tranfers w/ FWW, gait SPT w/ FWW only today due to dizziness. Pt requiring SNF for improved strength and funtional mobility back to baseline. Goals Bed Mobility Goal Independent Transfer Goal Independent,Front Wheeled Walker,Four Wheeled Walker Gait Goal Independent,Front Wheel Walker ,Four Wheel Walker Gait Distance 50 Other Goals ambulation using SPC/GLOBAL COMMODITY MANAGER 30 ft CGA Days to Meet Goals 5 Frequency of Treatment Frequency Of Treatment Once a Day Treatment Plan Physical Therapy Treatment Plan Bed Mobility Training,Transfer Training,Gait Training, Therapeutic Exercise,Balance Retraining,Discharge Planning, Hot or Cold Pack,Neuromuscular Re-ed,Coordination Retraining Other Recommendations and Next Treatment bed mob, transfers, LE ex, Focus progress gait w/ fWW or 4WW if safe vitals. Precautions Other Precautions falls Weight Bearing Status Weight Bearing Status Full Weight Bearing Recommendations To Nursing Amount of Assist Needed 1 Person Assist Discharge Recommendations PT Discharge Recommendations SNF Rehab Equipment Needed for Home Before Recommend FWW as pt only has Discharge 4WW at home Transportation Needs at Discharge Private Vehicle,Wheelchair/ Cabulance
--- NOTE | 2021-04-16 12:17 | PT.IPTN ---
Current Diagnoses Non-ST elevation (NSTEMI) myocardial infarction (04/11/21) Physical Therapy Treatment Note M2 PT-IP Current Condition Start: 04/12/21 12:08 Freq: NEEDED Status: Active Protocol: Document 04/16/21 11:54 SP (Rec: 04/16/21 13:55 SP [id number]) Physical Therapy Current Condition Current Condition Evaluation Date 04/12/21 Treatment Diagnosis NSTEMI; difficulty in walking Onset Date 04/11/21 M3 PT-IP Subjective Start: 04/12/21 12:08 Freq: NEEDED Status: Active Protocol: Document 04/16/21 11:54 SP (Rec: 04/16/21 13:55 SP [id number]) Subjective Physical Therapy Visit Type Type Treatment Note Visit Start Time 11:54 Visit Stop Time 12:17 Total Visit Minutes 23 Notes CONTACT LENS FITTER discussed with supervising nurse Lindy if safe to work with pt with continued trending high of Troponin, was told is safe to mobilize today, 0.274. Vitals taken during tx: supine flat HOB: BP 92/52 HR 87 seated at EOB dizziness: 96/54 HR 106 resolved after couple minutes standing front chair after SPT : BP 112/50 HR 101 Seated in chair: 113/45 HR 103 99% John 2 on RA. Number of CONTACT LENS FITTER Visits 1 Physical Therapy Visit Comments Patient Comments Pt agreeable to working with therapy up to the chair with what can do. Therapy Pain Assessment Pain When Pain Assessed During Mobility Pain Present Pain Present Pain Reported Location Lower Back Scale Used mentioned low level Description With Movement Pain Behaviors Facial Grimacing,[place] Pain Management Techniques Modification of Treatment,Re- positioning M4 PT-IP Mobility and Gait Start: 04/12/21 12:08 Freq: NEEDED Status: Active Protocol: Document 04/16/21 11:54 SP (Rec: 04/16/21 13:55 SP [id number]) PT-Bed Mobility Assessment Supine to Sit Supine to Sit Moderate Assistance,1 Person Assistance Scooting Scooting to Edge of Bed Contact Guard Assistance, Minimal Assistance PT-Transfer Assessment Sit to and From Stand Sit to and from Stand Contact Guard Assistance, Minimal Assistance,1 Person Assistance,Use of Upper Extremities Equipment Transfer Assistive Device Gait Belt,Front Wheeled Walker Orthotic/Prosthetic Devices or Brace: No Transfers Transfer Destination Chair Transfer Technique Stand Step Pivot w/ FWW Transfer Ability Level of Assist Contact Guard Assistance, Minimal Assistance,1 Person Assistance,Use of Upper Extremities Comments Mobility Comments Pt in bed when arrived. Completed laying in L sidelying, completed L SL>sit with support for trunk righting Mod A for trunk righting and cues for pushing from bed for self support. CG- Min A for scooting to EOB, able support self with BUE at EOB while complete vital assessment. Sit>stand CG-Min A x1, stood still to acclimate to pos change due to reported little dizziness, able and wanted to progress, SPT to chair at R using FWW Min A trunk balance, stood front chair for BP assessment CGA, no LOB. Cued reach back Min A for slow descent to chair. Pt agreeable to progress gait to room bench, sit>stand from chair Min A, cued push from chair, occasional cues for improved upright posture and body/ BLEs stay inside FWW, SPT front bench, cued reach back, Min A slow descent onto bench. Pt immediately relaxed back due to tiring sitting unsupported, SBA. Sit>Stand from bench Min A with good HP, walked back to chair CGA using FWW, cued for centering front chair and reaching back, Min A to sit, cued to scoot back self SBA, provide more pillows for upright posture support, assisted elevation BLE requested help. Pt had call light and all needs in reach before left. CONTACT LENS FITTER notified nursing fall risk and may require chair alarm for safety. Updated communication board. Gait Assessment Gait Gait Assistance Required: Contact Guard Assist,Minimum Assistance,1 Person Assist Distance (Feet) 12 Able to Maintain Weight Bearing Status Yes During Gait Assistive Devices Assistive Device Gait Belt,Front Wheeled Walker Gait Deviations General Gait Pattern Antalgic,Decreased Stride Length,Decreased Feet Clearance,Flexed Trunk,Step-to Gait,Wide Based Gait Factors Limiting Gait Function Factors Limiting Gait Function Decreased Activity Tolerance, Decreased Strength,Difficulty Following Directions,Pain,Poor Balance,Poor Safety Awareness Comments Gait Comments SPT bed>chair 2 ft, ambulted to bench 5 ft, bench > chair 5 ft using FWW, WBOS, cues for posture, staying inside FWW CGA- Min A. PT-Balance Assessment Sitting Balance and Reactions Static Sitting Balance Ability Good Dynamic Sitting Balance Ability Fair Standing Balance and Reactions Static Standing Balance Ability Fair Dynamic Standing Balance Ability Fair Device Used FWW M5 PT-IP Objective Assessments Start: 04/12/21 12:08 Freq: NEEDED Status: Active Protocol: Document 04/12/21 10:45 AB (Rec: 04/12/21 12:19 AB [id number]) Orientation Orientation/Cognition Level of Alertness Alert Orientation Name,Place,Situation Language Function Ability No Deficits Noted Safety Awareness Decreased Safety Awareness Gross Range of Motion Lower Extremity ROM Assessment Within Functional Limits Strength Lower Extremity Strength Hip 4-/5 Knee 4-/5 Sensation Assessment Sensation Gross Sensation WNL Muscle Tone Muscle Tone WNL Yes M6 PT-IP Treatment Start: 04/12/21 12:08 Freq: NEEDED Status: Active Protocol: Document 04/16/21 11:54 SP (Rec: 04/16/21 13:55 SP [id number]) Physical Therapy Treatment Education Education Provided Safety M7 PT-IP Assessment and Plan Start: 04/12/21 12:08 Freq: NEEDED Status: Active Protocol: Document 04/16/21 11:54 SP (Rec: 04/16/21 13:55 SP [id number]) PT Summary Assessment and Plan Potential Rehabilitation Potential Good Status of Condition at Evaluation Stable Summary Impairments Pain,ROM,Strength,Balance, Cognition,Bed Mobility, Transfers,Gait,Activity Tolerance Progress Towards Goals Progressing Toward Goals,Slow Progress due to Activity Tolerance Assessment Summary Pt required MOd A for bed mob, CG- Min A tranfers w/ FWW, gait 2 ft, 5ft, 5ft w/ FWW CG- Min A. Pt requiring SNF for improved strength and funtional mobility back to baseline. Goals Bed Mobility Goal Independent Transfer Goal Independent,Front Wheeled Walker,Four Wheeled Walker Gait Goal Independent,Front Wheel Walker ,Four Wheel Walker Gait Distance 50 Other Goals ambulation using SPC/PROFILING MACHINE OPERATOR 30 ft CGA Days to Meet Goals 5 Frequency of Treatment Frequency Of Treatment Once a Day Treatment Plan Physical Therapy Treatment Plan Bed Mobility Training,Transfer Training,Gait Training, Therapeutic Exercise,Balance Retraining,Discharge Planning, Hot or Cold Pack,Neuromuscular Re-ed,Coordination Retraining Other Recommendations and Next Treatment check vitals, bed mob, Focus transfers, LE ex, progress gait w/ fWW or 4WW if safe. Precautions Other Precautions falls Weight Bearing Status Weight Bearing Status Full Weight Bearing Recommendations To Nursing Amount of Assist Needed 1 Person Assist Discharge Recommendations PT Discharge Recommendations SNF Rehab Equipment Needed for Home Before Recommend FWW as pt only has Discharge 4WW at home Transportation Needs at Discharge Private Vehicle,Wheelchair/ Cabulance
--- NOTE | 2021-04-16 12:22 | PC.NURSE ---
Day shift: Pt to d/c today at 1500 to [facility]. MELANIE w/ Dr Mccarthy d/c tele.
--- NOTE | 2021-04-16 14:01 | PC.NURSE ---
Day shift: Report given to Bryan SAMANIEGO RN today at approx 1300 by this freelance writer.
--- NOTE | 2021-04-16 15:06 | PC.NURSE ---
Day shift: Pt left unit and on her way to [facility]. Taken by transport person from that facility. SHe has all personal belongings and the suitcase her spouse brought her today. Transport person has the SNF packet. Transported via at approx 1515.
== END 2021-04-16 15:12 | DRG 280 ==
LOC: ED 04-11 19:38 → AC 04-11 19:41
PROVIDERS: Emergency Medicine; Internal Medicine; Admitting Provider Nurse Practitioner Family; Emergency Provider Emergency Medicine; PCP Internal Medicine; Referring Provider Emergency Medicine; Visit Provider Nurse Practitioner Family
DX: I21.4 Non-ST elevation (NSTEMI) myocardial infarction (principal); J96.01 Acute respiratory failure with hypoxia; N39.0 Urinary tract infection, site not specified; I48.0 Paroxysmal atrial fibrillation; I16.0 Hypertensive urgency; M25.551 Pain in right hip; D89.89 Other specified disorders involving the immune mechanism, not elsewhere classified; E03.9 Hypothyroidism, unspecified; Z79.52 Long term (current) use of systemic steroids; D64.9 Anemia, unspecified; K21.9 Gastro-esophageal reflux disease without esophagitis; F41.9 Anxiety disorder, unspecified; Z20.822 Contact with and (suspected) exposure to COVID-19; E78.5 Hyperlipidemia, unspecified; Z87.891 Personal history of nicotine dependence; K59.00 Constipation, unspecified; R53.1 Weakness; R20.2 Paresthesia of skin; M81.0 Age-related osteoporosis without current pathological fracture
CPT/HCPCS: 36415; 70450; 71045; 71275; 72156; 73502; 74174; 78452; 80048; 80053; 80061; 81001; 82550; 83605; 83690; 83735; 83880; 84145; 84443; 84484; 85025; 85610; 85730; 87040; 87086; 87633; 87635; 93005; 93010; 93017; 93306; 94760; 96365; 96366; 96367; 96368; 96375; 97110; 97116; 97161; 97530; 99285; 99291; C9803; A9502; J0696; J1644; J1940; J2060; J2405; J2543; J2785; J3010; Q9967

== ENCOUNTER 2021-04-20 14:40 | Inpatient (IN) | payer OTHER, SELFPAY ==
[2021-04-11 21:44] VITALS: BMI 26.8
[2021-04-20] VITALS (13 sets, daily range): BP systolic 96–131; BP diastolic 41–58; PULSE 86–110; RESP 9–27; TEMP 36.3–36.8; O2SAT 93–98; BMI 56.7; BMI 25.8
--- NOTE | 2021-04-20 14:51 | ED_ITS ---
HPI - General Adult General Chief complaint: GI Bleed Stated complaint: Black Stools Time Seen by Provider: 04/20/21 14:44 Source: patient and EMS Mode of arrival: EMS Limitations: no limitations History of Present Illness HPI narrative: Patient is an 86-year-old female. She is a DNR with selective treatment. Her PLOST form is at bedside. She is on anticoagulation for paroxysmal atrial fibrillation. She was sent over from the living facility where she is staying for evaluation of dark colored stools, hypotension and ?word salad? on several different episodes this morning. She was not having any ?word salad? issues upon arrival. Apparently she has been taking all of her medications. Upon arrival patient states she just generally does not feel very well. She denies chest pain. No shortness of breath. She does have some abdominal tenderness but states that is all over her abdomen. She is unsure as to whether not she is having black colored stools but states that she was told she was. No fevers. Patient states she does not know of any problems with speaking. Related Data Home Medications Medication Instructions Recorded Confirmed losartan 25 mg tablet 25 mg PO DAILY 04/10/21 04/11/21 metoprolol succinate 25 mg 25 mg PO DAILY 04/10/21 04/11/21 tablet,extended release 24 hr alprazolam 0.5 mg tablet 0.5 mg PO BID PRN 04/11/21 04/11/21 calcitonin (salmon) 200 1 spray INTRANASAL DAILY 04/11/21 04/11/21 unit/actuation nasal spray ibandronate 150 mg tablet 150 mg PO QMONTH 04/11/21 04/11/21 levothyroxine 88 mcg tablet 88 mcg PO QAM 04/11/21 04/11/21 omeprazole 20 mg capsule,delayed 20 mg PO QAM 04/11/21 04/11/21 release prednisone 5 mg tablet 5 mg PO DAILY 04/11/21 04/11/21 Previous Rx's Medication Instructions Recorded alprazolam 0.5 mg tablet (Xanax) 0.5 mg PO BID #30 tab 04/16/21 apixaban 5 mg tablet (Eliquis) 5 mg PO BID 30 Days #60 tab 04/16/21 oxycodone-acetaminophen 5 mg-325 1 tab PO BID PRN #20 tab 04/16/21 mg tablet Allergies Allergy/AdvReac Type Severity Reaction Status Date / Time Sulfa (Sulfonamide Allergy Unknown Verified 04/10/21 12:03 Antibiotics) [SULFA (SULFONAMIDE ANTIBIOTICS)] Review of Systems Constitutional Constitutional: Denies headache(s) ENT Ears, Nose, Mouth, and Throat: Denies headache(s) Cardiovascular Cardiovascular: Denies chest pain and Denies dyspnea Respiratory Respiratory: Denies dyspnea Gastrointestinal Gastrointestinal: Reports as per HPI and Reports system reviewed and no additional complaints, except as documented Musculoskeletal Musculoskeletal: Reports back pain Integumentary/Breasts Skin/Breast: Reports system reviewed and no additional complaints, except as do cumented Neurologic Neurologic: Reports system reviewed and no additional complaints, except as documented, Reports as per HPI and Denies headache(s) Hematologic/Lymphatic On Anticoagulants: Yes Patient History Medical History Anxiety Essential hypertension GERD (gastroesophageal reflux disease) History of shingles Hyperlipidemia Hypothyroidism (acquired) Osteoporosis Paroxysmal atrial fibrillation with RVR Surgical History (Updated 04/12/21 @ 00:53 by JAZ Qiu) History of bilateral hip replacements History of cholecystectomy Family History (Updated 04/12/21 @ 00:55 by JAZ Qiu) Mother Stroke Brother Diabetes mellitus Sister Heart attack Social History household members: spouse Smoking Status: Former smoker alcohol intake: former Smoking Status: Former smoker Substance Use Type: does not use Exam Initial Vital Signs Initial Vital Signs: Vital Signs Pulse Rate 86 04/20/21 14:45 Respiratory Rate 16 04/20/21 14:45 Blood Pressure 98/47 L 04/20/21 14:45 Pulse Oximetry 97 04/20/21 14:45 Const General: comfortable and other (Pale) Limitations: mental status not altered HENND Head: normal to inspection and normocephalic Resp Effort & Inspection: normal respiratory effort Auscultation: clear to auscultation bilaterally Cardio Rate: regular rate Rhythm: regular rhythm GI Inspection: non-distended Palpation: soft, No firm and tender (Slight tenderness in lower abdomen) Rectal Exam: visual inspection normal and heme positive stool External Female Exam: normal external appearance Skin Other: Multiple lesions to lower extremities in various stages of healing no signs of infection. No drainage. Neuro General: patient alert, patient awake, patient oriented x3 (Oriented to person and place and year but somewhat confused about why ) and moves all extremities Extrem General: capillary refill normal Psych Appearance: grossly normal Scores GCS [place] coma scale eye opening: Spontaneous [place] coma scale verbal response: Orientated [place] coma scale motor response: Obey commands [place] coma scale total score: 15 Course Orders Ordered: ED Orders 04/20/21 14:45 EKG-12 Lead Stat 04/20/21 15:21 COVID19 - ADMIT ([employer] swab/PCR) Stat 04/20/21 15:45 Complete Blood Count AUTO DIFF Stat Comprehensive Metabolic Panel Stat Lactate (Lactic Acid) Stat Lipase Stat Packed Cells Stat Partial Thromboplastin Time Stat Prothrombin Time INR Stat TSH [Thyroid Stimulating Hormone] Stat Type and Screen Stat 04/20/21 17:23 Consult to General Surgery Stat Discontinued Medications Pantoprazole Sodium (Pantoprazole 40 Mg Vial) 80 mg IV NOW ONE Stop: 04/20/21 18:08 Last Admin: 04/20/21 18:11 Dose: 80 mg Documented by: BRUCE Vital Signs Vital signs: Vital Signs - 8 hr 04/20/21 14:45 04/20/21 15:32 04/20/21 15:45 Pulse Rate 86 97 H 95 H Respiratory Rate 16 27 H 20 Blood Pressure 98/47 L 102/49 L Pulse Oximetry 97 94 93 04/20/21 16:00 04/20/21 16:15 04/20/21 16:30 Pulse Rate 95 H 96 H 89 Respiratory Rate 22 20 22 Blood Pressure 101/58 L 101/54 L 96/53 L Pulse Oximetry 93 97 96 04/20/21 16:45 04/20/21 17:00 Pulse Rate 86 86 Respiratory Rate 24 9 L Blood Pressure 108/52 L 104/51 L Pulse Oximetry 96 Medical Decision Making Lab Data Lab results reviewed: Yes I reviewed the patient's lab results. Result diagrams: 04/20/21 15:45 04/20/21 15:45 Labs: Lab Results 04/20/21 04/20/21 04/20/21 Range/Units 15:21 15:45 15:45 WBC 29.9 H (4.5-11.0) X10^3/uL RBC 1.62 L (4.0-5.2) X10^6/uL Hgb 4.7 L* (12.0-16.0) g/dL Hct 14.4 L* (36-46) % MCV 88.4 (80-100) fL MCH 29.1 (26-34) PG MCHC 33.0 (30-36) % RDW 16.2 H (11.6-14.8) % Plt Count 610 H (150-400) X10^3/uL Neut % (Auto) Not Reportable Lymph % (Auto) Not Reportable [place] % (Auto) Not Reportable Eos % (Auto) Not Reportable Baso % (Auto) Not Reportable Lymph # (Auto) Not Reportable [place] # (Auto) Not Reportable Baso # (Auto) Not Reportable Total Counted 100 Seg Neutrophils % 63.0 (38-70) % Band Neutrophils % 11.0 H (3-7) % Lymphocytes % (Manual) 14.0 L (25-45) % Monocytes % (Manual) 7.0 (2-11) % Metamyelocytes % 4.0 H (-0) % Myelocytes % 1.0 H (-0) % Neutrophils # (Manual) 66725 H (6641-1295) /uL RBC Morphology Normal morphology PT (10.1-12.7) SECONDS INR (0.9-1.3) APTT (26.4-36.2) SECONDS Sodium 128 L (137-145) mmol/L Potassium 4.6 (3.4-5.1) mmol/L Chloride 96 L (98-107) mmol/L Carbon Dioxide 27 (22-32) mmol/L BUN 70 H (7-17) mg/dL Creatinine 1.03 (0.52-1.04) mg/dL Estimated GFR 50.8 L (>60) mL/min BUN/Creatinine Ratio 68.0 H (6-22) Glucose 138 H (80-110) mg/dL Lactate (0.7-2.1) mmol/L Calcium 8.3 L (8.4-10.2) mg/dL Total Bilirubin 0.4 (0.2-1.3) mg/dL AST 40 H (14-36) IU/L ALT 34 (<35) IU/L Alkaline Phosphatase 193 H (38-126) U/L Total Protein 4.9 L (6.3-8.2) g/dL Albumin 2.9 L (3.5-5.0) g/dL Globulin 2.0 (1.7-4.1) g/dL Albumin/Globulin Ratio 1.5 (1.0-2.8) Lipase (23-300) U/L TSH (0.47-4.68) uIU/mL SARS-CoV-2 (PCR) Negative (Negative) Blood Type Antibody Screen Crossmatch 04/20/21 04/20/21 04/20/21 Range/Units 15:45 15:45 15:45 WBC (4.5-11.0) X10^3/uL RBC (4.0-5.2) X10^6/uL Hgb (12.0-16.0) g/dL Hct (36-46) % MCV (80-100) fL MCH (26-34) PG MCHC (30-36) % RDW (11.6-14.8) % Plt Count (150-400) X10^3/uL Neut % (Auto) Lymph % (Auto) [place] % (Auto) Eos % (Auto) Baso % (Auto) Lymph # (Auto) [place] # (Auto) Baso # (Auto) Total Counted Seg Neutrophils % (38-70) % Band Neutrophils % (3-7) % Lymphocytes % (Manual) (25-45) % Monocytes % (Manual) (2-11) % Metamyelocytes % (-0) % Myelocytes % (-0) % Neutrophils # (Manual) (7631-7174) /uL RBC Morphology PT 23.0 H D (10.1-12.7) SECONDS INR 2.0 H (0.9-1.3) APTT 27 (26.4-36.2) SECONDS Sodium (137-145) mmol/L Potassium (3.4-5.1) mmol/L Chloride (98-107) mmol/L Carbon Dioxide (22-32) mmol/L BUN (7-17) mg/dL Creatinine (0.52-1.04) mg/dL Estimated GFR (>60) mL/min BUN/Creatinine Ratio (6-22) Glucose (80-110) mg/dL Lactate 2.9 H (0.7-2.1) mmol/L Calcium (8.4-10.2) mg/dL Total Bilirubin (0.2-1.3) mg/dL AST (14-36) IU/L ALT (<35) IU/L Alkaline Phosphatase (38-126) U/L Total Protein (6.3-8.2) g/dL Albumin (3.5-5.0) g/dL Globulin (1.7-4.1) g/dL Albumin/Globulin Ratio (1.0-2.8) Lipase 187 D (23-300) U/L TSH (0.47-4.68) uIU/mL SARS-CoV-2 (PCR) (Negative) Blood Type Antibody Screen Crossmatch 04/20/21 04/20/21 Range/Units 15:45 15:45 WBC (4.5-11.0) X10^3/uL RBC (4.0-5.2) X10^6/uL Hgb (12.0-16.0) g/dL Hct (36-46) % MCV (80-100) fL MCH (26-34) PG MCHC (30-36) % RDW (11.6-14.8) % Plt Count (150-400) X10^3/uL Neut % (Auto) Lymph % (Auto) [place] % (Auto) Eos % (Auto) Baso % (Auto) Lymph # (Auto) [place] # (Auto) Baso # (Auto) Total Counted Seg Neutrophils % (38-70) % Band Neutrophils % (3-7) % Lymphocytes % (Manual) (25-45) % Monocytes % (Manual) (2-11) % Metamyelocytes % (-0) % Myelocytes % (-0) % Neutrophils # (Manual) (8754-5003) /uL RBC Morphology PT (10.1-12.7) SECONDS INR (0.9-1.3) APTT (26.4-36.2) SECONDS Sodium (137-145) mmol/L Potassium (3.4-5.1) mmol/L Chloride (98-107) mmol/L Carbon Dioxide (22-32) mmol/L BUN (7-17) mg/dL Creatinine (0.52-1.04) mg/dL Estimated GFR (>60) mL/min BUN/Creatinine Ratio (6-22) Glucose (80-110) mg/dL Lactate (0.7-2.1) mmol/L Calcium (8.4-10.2) mg/dL Total Bilirubin (0.2-1.3) mg/dL AST (14-36) IU/L ALT (<35) IU/L Alkaline Phosphatase (38-126) U/L Total Protein (6.3-8.2) g/dL Albumin (3.5-5.0) g/dL Globulin (1.7-4.1) g/dL Albumin/Globulin Ratio (1.0-2.8) Lipase (23-300) U/L TSH 7.97 H D (0.47-4.68) uIU/mL SARS-CoV-2 (PCR) (Negative) Blood Type A Positive Antibody Screen Negative Crossmatch See Detail ECG Data Attestation: I personally reviewed and interpreted this ECG as follows: Interpretation: Sinus rhythm Ventricular rate of 97 Normal axis Normal QRS Normal QTC Nonspecific ST T wave changes MDM Narrative Medical decision making narrative: Patient is anemic. On Eliquis. Has heme-positive stool. Is alert oriented x3. Did discuss blood transfusions with the patient. We did discuss risks and benefits. She did provide consent for blood transfusion. We will hold on her Eliquis. We will hold on PCC for now. I did discuss the case with Dr. Patel on-call for General surgery who will see the patient as an inpatient. I then discussed the case with Internal Medicine who will admit for further evaluation and treatment. I discussed the need for admission with the patient as well. She expressed understanding and agreement. Discharge Plan Departure Patient Disposition: Admitted As Inpatient Clinical Impression: Anemia
--- NOTE | 2021-04-20 15:28 | PC.NURSE ---
EMS reports attempting an IV x6 tries, RN attempted IV x2 tries without success, Dr. Mendoza aware. Lab called for blood draw, another RN attempting.
[2021-04-20 15:56] LABS: Mean Corpuscular Hemoglobin 29.1 PG (26-34); Mean Corpuscular Volume 88.4 fL (80-100); Platelet Count 610 X10^3/uL (150-400); Red Blood Cell Count 1.62 X10^6/uL (4.0-5.2); Red Cell Distribution Width 16.2 % (11.6-14.8); White Blood Cell Count 29.9 X10^3/uL (4.5-11.0)
[2021-04-20 15:57] LABS: Add Manual Diff / Slide Review YES; Hematocrit 14.4 % (36-46); Hemoglobin 4.7 g/dL (12.0-16.0)
[2021-04-20 16:02] LABS: Neutrophils Absolute Manual 22126 /uL (3000-5900); RBC Morphology Normal Morphology; Total Cells Counted 100
[2021-04-20 16:03] LABS: Alanine Aminotransferase 34 IU/L (<35); Albumin 2.9 g/dL (3.5-5.0); Albumin Globulin Ratio 1.5 (1.0-2.8); Alkaline Phosphatase 193 U/L (38-126); Aspartate Aminotransferase 40 IU/L (14-36); Bilirubin Total 0.4 mg/dL (0.2-1.3); Blood Urea Nitrogen 70 mg/dL (7-17); Calcium 8.3 mg/dL (8.4-10.2); Carbon Dioxide 27 mmol/L (22-32); Chloride 96 mmol/L (98-107); Estimated Glomerular Filt Rate 50.8 mL/min (>60); Glucose 138 mg/dL (80-110); HEMOLYSIS < 15 (0-50); Potassium 4.6 mmol/L (3.4-5.1); Sodium 128 mmol/L (137-145); Total Protein 4.9 g/dL (6.3-8.2)
[2021-04-20 16:04] LABS: Lactate (Lactic Acid) 2.9 mmol/L (0.7-2.1); Lipase 187 U/L (23-300)
[2021-04-20 16:09] LABS: PTT Partial Thromboplastin Tim 27 SECONDS (26.4-36.2)
[2021-04-20 16:18] LABS: COVID19 - ADMIT (NP swab/PCR) Negative (Negative)
[2021-04-20 16:34] LABS: Thyroid Stimulating Hormone 7.97 uIU/mL (0.47-4.68)
[2021-04-20 17:47] LABS: Reflexed Lactate in 2 Hours Y
[2021-04-20] MEDS: PANTOPRAZOLE 40 MG VIAL 80 MG IV (18:11)
--- NOTE | 2021-04-20 19:10 | PM.HP.1 ---
History of Present Illness History of Present Illness Date Patient Seen: 04/20/21 Chief complaint: Black Stools Narrative: 86-YEAR-OLD FEMALE WHO IS A POOR HISTORIAN AND APPEARED TO HAVE SOME UNDERLYING DEMENTIA PATIENTS LIVE AT ASSISTED LIVING OR SOME TYPE OF NURSING FOR FACILITY AND WAS SENT TO THE HOSPITAL DUE TO BLACK TARRY STOOL. DUE TO HER INABILITY TO PROVIDE A RELIABLE HISTORY. THE HISTORY WAS TAKEN FROM THE ER RECORDS AND NURSING NOTES. PATIENT AGAIN WAS SENT TO THE HOSPITAL WITH REPORTED CHANGE IN MENTATION WITH WHAT THE FACILITIES DESCRIBED WORD STARTED WELL BLACK TARRY STOOL. SHE REPORTEDLY IS ON LONG-TERM ANTICOAGULANT FOR STROKE PREVENTION DUE TO ATRIAL FIBRILLATION. SHE IS ON ELIQUIS. IN THE ER, IT IS NOTED ON LAB DATA HEMOGLOBIN IS AROUND 4 %. COMPARED TO BASELINE HEMOGLOBIN OF 9 ON PRIOR ADMISSION. HAD WBC IS AROUND 30,000. HOWEVER THIS APPEARED TO BE CHRONIC IN NATURE. THROMBOCYTOSIS WITH A PLATELET LEVEL ABOVE 600,000 ALSO NOTED. HER INR IS AROUND 2. SHE IS NOT ON COUMADIN BUT ON ELIQUIS PER RECORD METABOLIC PANEL SHOWING LOW SODIUM AT 128 BUN IS 70. CREATININE IS FAIRLY REASONABLE. SHE IS ON CHRONIC PREDNISONE 5 MG. FROM AN OLD MEDICATION LIST, IT APPEARS SHE HAS HYPERTENSION, ACID REFLUX DISEASE, OSTEOPOROSIS AND HYPOTHYROIDISM. NO MENTION OF CARCINOMA DESPITE HER LAB EXHIBITING EVIDENCE OF POSSIBLE LYMPHOMA. Patient History Medical History Anxiety Essential hypertension GERD (gastroesophageal reflux disease) History of shingles Hyperlipidemia Hypothyroidism (acquired) Osteoporosis Paroxysmal atrial fibrillation with RVR Surgical History (Updated 04/12/21 @ 00:53 by JAZ Qiu) History of bilateral hip replacements History of cholecystectomy Family & Social History Family History (Updated 04/12/21 @ 00:55 by JAZ Qiu) Mother Stroke Brother Diabetes mellitus Sister Heart attack Social History: household members spouse Safety & Behavioral: Feels Safe in Current Yes Environment Been Physically Hurt or No Threatened By a Person Tobacco & Substance use: Smoking Status Former smoker alcohol intake former Substance Use Type does not use Meds Home Medications and Allergies Home Medications Medication Instructions Recorded Confirmed Type losartan 25 mg tablet 25 mg PO DAILY 04/10/21 04/11/21 History metoprolol succinate 25 mg 25 mg PO DAILY 04/10/21 04/11/21 History tablet,extended release 24 hr alprazolam 0.5 mg tablet 0.5 mg PO BID PRN 04/11/21 04/11/21 History calcitonin (salmon) 200 1 spray INTRANASAL DAILY 04/11/21 04/11/21 History unit/actuation nasal spray ibandronate 150 mg tablet 150 mg PO QMONTH 04/11/21 04/11/21 History levothyroxine 88 mcg tablet 88 mcg PO QAM 04/11/21 04/11/21 History omeprazole 20 mg capsule,delayed 20 mg PO QAM 04/11/21 04/11/21 History release prednisone 5 mg tablet 5 mg PO DAILY 04/11/21 04/11/21 History alprazolam 0.5 mg tablet (Xanax) 0.5 mg PO BID #30 tab 04/16/21 Rx apixaban 5 mg tablet (Eliquis) 5 mg PO BID 30 Days #60 tab 04/16/21 Rx oxycodone-acetaminophen 5 mg-325 1 tab PO BID PRN #20 tab 04/16/21 Rx mg tablet Allergies Allergy/AdvReac Type Severity Reaction Status Date / Time Sulfa (Sulfonamide Allergy Unknown Verified 04/10/21 12:03 Antibiotics) [SULFA (SULFONAMIDE ANTIBIOTICS)] Review of Systems Review of Systems Narrative: UNABLE TO OBTAIN DUE TO PATIENT'S CURRENT MENTATION Exam Vital Signs (past 8 hours): - 04/20/21 14:45 04/20/21 15:32 04/20/21 15:45 Pulse Rate 86 97 H 95 H Respiratory Rate 16 27 H 20 Blood Pressure 98/47 L 102/49 L Pulse Oximetry 97 94 93 04/20/21 16:00 04/20/21 16:15 04/20/21 16:30 Pulse Rate 95 H 96 H 89 Respiratory Rate 22 20 22 Blood Pressure 101/58 L 101/54 L 96/53 L Pulse Oximetry 93 97 96 04/20/21 16:45 04/20/21 17:00 Pulse Rate 86 86 Respiratory Rate 24 9 L Blood Pressure 108/52 L 104/51 L Pulse Oximetry 96 Oxygen Delivery Method Room Air Narrative Exam Narrative: NO ACUTE DISTRESS. PATIENT IS ALERT, AWAKE, ORIENTED TO PLACE AND PERSON. HEAD ATRAUMATIC NORMOCEPHALIC NECK : SUPPLE WITHOUT ADENOPATHY NO CAROTID BRUITS EYE: EOMI, PERRLA, NORMAL CONJUNCTIVA; NO JAUNDICE CHEST: REGULAR RATE. NO RUBS. PMI IS NON DISPLACED. NO MURMURS; NORMAL S1-S2 PULMONARY: DECREASED BS OVER THE BASES. MILD BIBASILAR CRACKLES NOTED; NO INCREASED DULLNESS TO PERCUSSION. NO WHEEZING. NO RHONCHI. NO RALES. NO PLEURAL RUBS ABDOMEN: SOFT. NONTENDER. NONDISTENDED. BOWEL SOUNDS ARE PRESENT IN ALL 4 QUADRANTS AND NORMOACTIVE. NO CARDIOMEGALY EXTREMITIES: NO EDEMA.. NO CYANOSIS CLUBBING NOTED. NEURO: CRANIAL NERVES 2-12 GROSSLY INTACT. NO FOCAL NEUROLOGICAL DEFICIT NOTED. ENCEPHALOPATHY. POSSIBLE DEMENTIA MSK: NORMAL RANGE OF MOTION FOR AGE. NO JOINT EFFUSION. SKIN: FAIR SKIN TURGOR FOR AGE. NO OBVIOUS LESIONS. NO ECCHYMOSIS. NO PETECHIAE : NORMAL EXTERNAL GENITALIA. PSYCH : CALM. COOPERATIVE. Objective Labs Result Diagrams: 04/20/21 15:45 04/20/21 15:45 Labs: Laboratory Results - last 24 hr 04/20/21 04/20/21 04/20/21 15:21 15:45 15:45 WBC 29.9 H RBC 1.62 L Hgb 4.7 L* Hct 14.4 L* MCV 88.4 MCH 29.1 MCHC 33.0 RDW 16.2 H Plt Count 610 H Neut % (Auto) Not Reportable Lymph % (Auto) Not Reportable Gregg % (Auto) Not Reportable Eos % (Auto) Not Reportable Baso % (Auto) Not Reportable Lymph # (Auto) Not Reportable Gregg # (Auto) Not Reportable Baso # (Auto) Not Reportable Total Counted 100 Seg Neutrophils % 63.0 Band Neutrophils % 11.0 H Lymphocytes % (Manual) 14.0 L Monocytes % (Manual) 7.0 Metamyelocytes % 4.0 H Myelocytes % 1.0 H Neutrophils # (Manual) 12851 H RBC Morphology Normal morphology PT INR APTT Sodium 128 L Potassium 4.6 Chloride 96 L Carbon Dioxide 27 BUN 70 H Creatinine 1.03 Estimated GFR 50.8 L BUN/Creatinine Ratio 68.0 H Glucose 138 H Lactate Calcium 8.3 L Total Bilirubin 0.4 AST 40 H ALT 34 Alkaline Phosphatase 193 H Total Protein 4.9 L Albumin 2.9 L Globulin 2.0 Albumin/Globulin Ratio 1.5 Lipase TSH SARS-CoV-2 (PCR) Negative Blood Type Antibody Screen Crossmatch 04/20/21 04/20/21 04/20/21 15:45 15:45 15:45 WBC RBC Hgb Hct MCV MCH MCHC RDW Plt Count Neut % (Auto) Lymph % (Auto) Gregg % (Auto) Eos % (Auto) Baso % (Auto) Lymph # (Auto) Gregg # (Auto) Baso # (Auto) Total Counted Seg Neutrophils % Band Neutrophils % Lymphocytes % (Manual) Monocytes % (Manual) Metamyelocytes % Myelocytes % Neutrophils # (Manual) RBC Morphology PT 23.0 H D INR 2.0 H APTT 27 Sodium Potassium Chloride Carbon Dioxide BUN Creatinine Estimated GFR BUN/Creatinine Ratio Glucose Lactate 2.9 H Calcium Total Bilirubin AST ALT Alkaline Phosphatase Total Protein Albumin Globulin Albumin/Globulin Ratio Lipase 187 D TSH SARS-CoV-2 (PCR) Blood Type Antibody Screen Crossmatch 04/20/21 04/20/21 15:45 15:45 WBC RBC Hgb Hct MCV MCH MCHC RDW Plt Count Neut % (Auto) Lymph % (Auto) Gregg % (Auto) Eos % (Auto) Baso % (Auto) Lymph # (Auto) Gregg # (Auto) Baso # (Auto) Total Counted Seg Neutrophils % Band Neutrophils % Lymphocytes % (Manual) Monocytes % (Manual) Metamyelocytes % Myelocytes % Neutrophils # (Manual) RBC Morphology PT INR APTT Sodium Potassium Chloride Carbon Dioxide BUN Creatinine Estimated GFR BUN/Creatinine Ratio Glucose Lactate Calcium Total Bilirubin AST ALT Alkaline Phosphatase Total Protein Albumin Globulin Albumin/Globulin Ratio Lipase TSH 7.97 H D SARS-CoV-2 (PCR) Blood Type A Positive Antibody Screen Negative Crossmatch See Detail Assessment & Plan Assessment & Plan narrative: PROBLEM LIST POSSIBLE ACUTE GI BLEED. LIKELY RELATED TO ELIQUIS COAGULOPATHY ANEMIA OF ACUTE BLOOD LOSS VERSUS ACUTE ON CHRONIC BLOOD LOSS. WILL TRANSFUSE PRBC ELIQUIS COAGULOPATHY. INR AROUND 2 LEUKOCYTOSIS. DOUBT THIS IS RELATED TO INFECTIOUS PROCESS. COULD BE LYMPHOMA LIKE PROCESS POSSIBLE ACUTE KIDNEY INJURY. SIGNIFICANTLY ELEVATED BUN. THIS COULD ALSO INDICATE CHRONIC BLOOD LOSS. CONSIDER PRERENAL AZOTEMIA WELL THROMBOCYTOSIS. CONSIDER LYMPHOMA. COULD BE CLL HYPONATREMIA. COULD BE DUE TO DECREASED ORAL INTAKE HYPOCHLOREMIA. COULD BE DUE TO DECREASED ORAL INTAKE ELEVATED LIVER ENZYME. IS UNCLEAR HYPOTHYROIDISM. TSH AROUND 8. HYPERTENSION PER HISTORY MORBID OBESITY. LIFESTYLE CHANGES TO BE RECOMMENDED ONCE APPROPRIATE PLAN WILL TRANSFUSE 3 UNITS OF PRBC REPEAT H&H 1 HOUR POST TRANSFUSION ADDITIONAL TRANSFUSIONS DICTATED CLINICALLY PATIENT IS NOT EXHIBITING ANY SIGN OF RESPIRATORY FAILURE VITAL SIGNS ARE FAIRLY STABLE. NO TACHYCARDIA APPRECIATED WILL HOLD ORAL ANTICOAGULANT/ANTI-PLATELET THERAPY FOR NOW MEME ZUNIGA WILL BE ORDERED TO LOWER EXTREMITIES SCDS FOR DVT PROPHYLAXIS PATIENT WILL BE STARTED ON IV FLUID WELL MONITOR ELECTROLYTES CLOSELY REGARD TO HER ABNORMAL BLOOD COUNT IF INDICATED, SHE COULD BE REFERRED TO HEMATOLOGY OUTPATIENT FOR FURTHER WORKUP AT THIS POINT I SUSPECT POSSIBLE LYMPHOMA. WILL VERIFY WITH HER PRIMARY CARE PHYSICIAN AVOID ALL NEPHROTOXINS DOSE MEDS PER GFR AVOID LIVER TOXIC SUBSTANCES WELL DUE TO ELEVATED LFTS FOLLOW CLINICALLY AND WITH SERIAL LABS FOR THE SAME MANAGEMENT PROGNOSIS IS GUARDED DURATION OF STAY COULD BE BETWEEN 2-5 DAYS Time Spent With Patient Critical Care time: I spent a total of [] minutes of critical care time on this patient's care today; this time is exclusive of procedural time.
[2021-04-21] VITALS (22 sets, daily range): BP systolic 101–152; BP diastolic 43–69; PULSE 73–114; RESP 16–40; TEMP 36.1–37; O2SAT 93–100
[2021-04-21] MEDS: FUROSEMIDE 40 MG/4 ML VIAL 20 MG IV (00:23)
--- NOTE | 2021-04-21 00:33 | DI.RAD.S_ITS ---
PROCEDURE: XR CHEST 1V INDICATIONS: Short of breath TECHNIQUE: One view of the chest was acquired. COMPARISON: [facility], CT, CT ANGIO CHEST ABDOMEN PELVIS, 04/10/2021, 13:03. [facility], CR, XR CHEST 1V, 04/10/2021, 10:57. FINDINGS: Surgical changes and devices: None. Lungs and pleura: An incomplete inspiratory result is noted, causing a crowded appearance to the lung markings. No focal infiltrates are seen. No pneumothorax or significant pleural effusions are seen. Mediastinum: The cardiac contours are within normal limits. The aorta demonstrates calcification and tortuosity. Bones and chest wall: No suspicious bony lesions. Age-appropriate bony degenerative changes are seen. Overlying soft tissues appear unremarkable. IMPRESSION: Limited portable chest examination, without a significant cardiopulmonary abnormality identified. Dictated by: Sebastien Max M.D. on 04/21/2021 at 0:16 Approved by: Sebastien Max M.D. on 04/21/2021 at 0:17
[2021-04-21] MEDS: ONDANSETRON 4 MG/2 ML INJ IV (01:01)
[2021-04-21] MEDS: FUROSEMIDE 40 MG/4 ML VIAL IV (01:01)
[2021-04-21 01:50] LABS: Fractionated Inspired Oxygen 36; HCO3 ABG 27 mmol/L (22-26); Oxygen Saturation ABG 99 % (95-100); PCO2 ABG 32.5 mmHg (35-45); PO2 ABG 129 mmHg (80-100); TCO2 ABG 28 mmol/L (21-31); pH ABG 7.52 (7.35-7.45)
[2021-04-21] MEDS: CEFEPIME 1 GM in SODIUM CHLORIDE 0.9% 100 ML 200 ML IV ×2 (01:55→12:44)
[2021-04-21 02:00] LABS: Lactate (Lactic Acid) 2.2 mmol/L (0.7-2.1)
[2021-04-21 02:01] LABS: Hematocrit 21.1 % (36-46); Mean Corpuscular HGB Conc 32.7 % (30-36); Mean Corpuscular Hemoglobin 27.5 PG (26-34); Mean Corpuscular Volume 84.3 fL (80-100); Platelet Count 565 X10^3/uL (150-400); Red Cell Distribution Width 16.1 % (11.6-14.8)
[2021-04-21 02:05] LABS: Add Manual Diff / Slide Review YES; Hemoglobin 6.9 g/dL (12.0-16.0); White Blood Cell Count 33.4 X10^3/uL (4.5-11.0)
[2021-04-21 02:09] LABS: NT-proBNP (BNP-Adult 18+) 1080 pg/mL (<450)
[2021-04-21 02:13] LABS: Troponin I 0.033 ng/mL (0.01-0.034)
[2021-04-21 02:40] LABS: Alanine Aminotransferase 35 IU/L (<35); Albumin 3.2 g/dL (3.5-5.0); Albumin Globulin Ratio 1.5 (1.0-2.8); Alkaline Phosphatase 213 U/L (38-126); Aspartate Aminotransferase 42 IU/L (14-36); Bilirubin Total 1.8 mg/dL (0.2-1.3); Blood Urea Nitrogen 66 mg/dL (7-17); Calcium 8.5 mg/dL (8.4-10.2); Carbon Dioxide 27 mmol/L (22-32); Chloride 96 mmol/L (98-107); Estimated Glomerular Filt Rate 47.1 mL/min (>60); Globulin 2.1 g/dL (1.7-4.1); Glucose 159 mg/dL (80-110); HEMOLYSIS < 15 (0-50); Sodium 128 mmol/L (137-145); Total Protein 5.3 g/dL (6.3-8.2)
[2021-04-21] MEDS: VANCOMYCIN 1,500 MG/300 ML PIGGYBACK 150 MG IV (02:47)
[2021-04-21 03:47] LABS: Reflexed Lactate in 2 Hours Y
[2021-04-21 04:05] LABS: Appearance Urine UA CLEAR; Bilirubin Urine UA NEGATIVE (NEGATIVE); Glucose Urine UA NEGATIVE (Negative); Ketones Urine UA NEGATIVE (NEGATIVE); Leukocyte Esterase Urine UA 1+ (NEGATIVE); Nitrite Urine UA NEGATIVE (Negative); Protein Urine UA NEGATIVE (Negative); Urobilinogen Urine UA 0.2 E.U./dL (0.2)
--- NOTE | 2021-04-21 04:10 | PC.NURSE ---
Addendum entered by Joi Kapoor R.N. 04/21/21 06:55: Error: Patient started on cefepime, not ceftriaxone. Original Note: Patient received one unit of blood per MD order: VS taken at 21:07, BP 119/44, HR 110, R 18, T 97.4. Blood started at 21:12. VS at 21:27: 127/41, HR 105, R 20 T 98.2. No adverse reaction noted. VS taken at end of transfusion at 00:12: 104/69, HR 103, R 40, T 97.8. After transfusion finished patient reported brief chest pain lasting approximately 5 minutes across her chest, then stated it didn't hurt but felt heavy. Also reported nausea and had noted flushing to face and stated my face feels hot. Dr. Blanton and charge nurse notified. Dr. Blanton evaluated patient and placed new orders, orders administered. Patient started on vancomycin and ceftriaxone. Zofran was administered for nausea, minimally effective. Placed on 4L oxygen via nasal canula, SPO2 99-100%. Patient reported headache and leg pain pointing to her thighs, when I went to give her pain medication, she was sleeping. Appears comfortable at this time.
[2021-04-21 04:12] LABS: Color Urine UA Straw; Occult Blood Urine UA TRACE-INTACT (Negative); pH Urine UA 5.5 (4.5-8.0)
[2021-04-21 04:30] LABS: Neutrophils Absolute Manual 28724 /uL (3000-5900); Total Cells Counted 100
[2021-04-21 04:51] LABS: Bacteria Urine Occasional (0-1); Culture Indicated Urine Specimen Cultured; RBC Urine 0-1/HPF (0-5/HPF); WBC Urine 1-5/HPF (0-5/HPF)
[2021-04-21 05:01] LABS: Lactate 2HR (Lactic Acid Rflx) 1.6 mmol/L (0.7-2.1)
--- NOTE | 2021-04-21 08:04 | PC.NURSE ---
transfusion reaction was documented by this RN-day shift RN, however, reaction happened for night manager and was not documented.
[2021-04-21] MEDS: predniSONE 5 MG TABLET PO (08:14)
[2021-04-21] MEDS: METOPROLOL ER 25 MG TABLET PO (08:14)
[2021-04-21] MEDS: PANTOPRAZOLE 40 MG VIAL IV ×2 (08:14→21:12)
[2021-04-21 08:26] LABS: Troponin I 0.044 ng/mL (0.01-0.034)
[2021-04-21] MEDS: MORPHINE 2 MG/ML INJ IV (10:07)
--- NOTE | 2021-04-21 10:09 | OT.IPNOTE ---
Pt on HOLd as not appropriate for OT eval today due to low blood numbers. To check on pt tomorrow to see if pt is appropriate for OT eval.
--- NOTE | 2021-04-21 10:39 | PT-IP ANOTE ---
Pt's Hgb/Hct 4.7/14.4 on admit. Improved to 6.9/21.1 following transfusion. Pt has bedrest orders at this time. Discussed pt at interdisciplinary AM rounds and hospitalist agrees to hold therapy until H&H improves. PT will continue to follow.
[2021-04-21 11:19] LABS: Hemoglobin 5.9 g/dL (12.0-16.0)
[2021-04-21 11:20] LABS: Hematocrit 17.7 % (36-46)
[2021-04-21] MEDS: diphenhydrAMINE 50 MG/ML VIAL 12.5 MG IV (13:16)
--- NOTE | 2021-04-21 15:10 | PC.NURSE ---
Addendum entered by Autumn Canales R.N. 04/21/21 19:25: second unit of blood infusing at 115. pt tolerated well. pt started c/o burning while urinating, passed this info to health program analyst RN. Addendum entered by Autumn Canales R.N. 04/21/21 17:46: pt tolerated 1 unit of blood, will infused second unit of blood. Original Note: pt was NPO earlier, now on clear liquid. pt tolerating clear liquid. no n/v, no chest pain. she has been having head ache and spasm on her legs since health program analyst. I medicated her with morphine then she fell asleep. Pt is now on 1L 98%. blood draw was done per orders. Dr. Edmond ordered to give two more units of blood and to give 20 of lasix in between transfusion. PRBC is infusing at 105cc/hr. pt is incontinent and voiding.
--- NOTE | 2021-04-21 15:37 | CM.DANOTE ---
Patient is an 86 yo female who was READMIT on 04/20/21 for Black tarry stools. Pt has [facility] for insurance and her PCP is Jose Daniel Herrera. EMR was reviewed. Per MD, pt with likely GI Bleed and anemia and not stable for d/c today. SW was recently discharged on 04/16/21 to [facility] SNF for rehab with plan from spouse of then discharging to [facility] in [place]. SW called [facility] and confirmed that they can accept pt back when medically stable but SW will need to get [facility] for SNF again. No PASRR needed at d/c for return to SNF. SW called pt's spouse Paco and he confirms that preference is to return to [facility] at discharge. Pt resides at home with her spouse. Patient is independent with ADLs at baseline but no longer driving herself. Patient has 4WW, cane, and wheelchair available for personal use as needed; most often using the walker. Patient's home is 2 story but patient and spouse reside on the main floor and do not use stairs at home. Patient has prior used [facility] and if needed again would prefer same agency although plan is to go to [facility] after SNF now. Plan: SW to follow closely for obtaining [facility] closer to d/c for return to [facility] and possible need of updated COVID swab pending how long pt remains in the hospital. FAVIOLA Art Discharge Planning/Care Management CM Discharge Assessment Start: 04/21/21 15:35 Freq: Status: Active Protocol: Document 04/21/21 15:35 BF (Rec: 04/21/21 15:37 BF [id number]) Discharge Planning Assessment Assigned Therapeutic Case Manager FAVIOLA Galloway DPOA/Assigned Designee Name spouse Paco Jamison Contact Information [phone] Advance Directives? Yes Advance Directives on File No History Provided By Patient,Significant Other, Medical Record Has Patient been admitted in last 30 Yes days? Comment Discharged 04/16/21 to [facility], then readmit Prior Living Arrangements Skilled Nurse Facility Household Members spouse Type of transporation used prior to Relies on Others admit Facility Name Admitted From: [facility] Willing to Return to Facility? Yes Independent with ADL's Yes Is patient alert and oriented? No: some dementia Needs Assistance With Meal Prep,Managing Medications ,Home Chores / Shopping Caregiver for Another No DME Already Rented / Owned FWW / Walker,Cane Comment shower chair and grab bars at toilet Patient/Family Preference [facility] Facility Barriers to Discharge No Discharge Plan [facility] Facility Transportation Arrangement facility van Referrals Initiated [facility] If patient plan is SNF: Has PASSR been No: none needed for return to completed? SNF Medicare Choice List Provided Yes SNF/HH Preference Return to [facility] Has Agency SNF been contacted Yes Whiteboard Updated in Patient Room with Yes name and ext. # of Therapeutic Case Manager Review Status In Process Please Provide Date Initial DC 04/21/21 Assessment Was Performed Next Review Type Continued Stay Review
--- NOTE | 2021-04-21 15:42 | P.PN_ITS ---
Subjective Subjective Date Patient Seen: 04/21/21 Interval history: BRIEF HPI THIS IS A PLEASANTLY DEMENTED 86-YEAR-OLD FEMALE ADMITTED WITH PROFOUND ANEMIA. SIGNIFICANT COAGULOPATHY APPRECIATED WELL. PATIENT IS ON ELIQUIS FOR STROKE PREVENTION DUE TO ATRIAL FIBRILLATION SIGNIFICANT LEUKOCYTOSIS ALSO APPRECIATED ASSOCIATED WITH THROMBOCYTOSIS WELL SUSPECT CLL. TODAY OVERNIGHT PATIENT HAD WHAT APPEARED TO BE A REACTION TO THE BLOOD TRANSFUSION REPORTED BY NURSING STAFF THE BLOOD ORDERED WAS STOPPED LABS ORDERED BY 9 PROVIDER. PATIENT THIS MORNING DID NOT HAVE ANY SIGNIFICANT COMPLAINTS SHE DID SAY SHE FELT TIRED WHICH IS IN SLEEP TOO WELL AGAIN HER MENTATION BASELINE IS UNKNOWN NOT SURE IF HER REVIEW OF SYSTEM IS RELIABLE FULLY Exam Vital Signs (past 8 hours): - 04/21/21 07:45 04/21/21 08:14 04/21/21 12:50 Temperature 97.3 F L 97.8 F Pulse Rate 107 H 81 Respiratory Rate 20 18 Blood Pressure 141/62 H 150/68 H Pulse Oximetry 96 100 98 04/21/21 13:18 04/21/21 13:38 04/21/21 14:01 Temperature 97.8 F 97.8 F Pulse Rate 114 H 90 85 Respiratory Rate 18 20 16 Blood Pressure 125/48 L 144/50 H Pulse Oximetry 99 04/21/21 14:46 Temperature Pulse Rate 87 Respiratory Rate 20 Blood Pressure Pulse Oximetry 98 Oxygen Delivery Method Nasal Cannula Oxygen Flow Rate 1 Narrative Exam Narrative: NO ACUTE DISTRESS.? PATIENT IS ALERT, AWAKE, ORIENTED TO PLACE AND PERSON. HEAD ATRAUMATIC NORMOCEPHALIC NECK : SUPPLE WITHOUT ADENOPATHY NO CAROTID BRUITS EYE:? EOMI, PERRLA, NORMAL CONJUNCTIVA; NO JAUNDICE CHEST:? REGULAR RATE.? ? NO RUBS.? PMI IS NON DISPLACED.? NO MURMURS; NORMAL S1- S2 PULMONARY:? DECREASED BS OVER THE BASES.? MILD BIBASILAR CRACKLES NOTED; NO INCREASED DULLNESS TO PERCUSSION.? NO WHEEZING.? NO RHONCHI.? NO RALES.? NO PLEURAL RUBS ABDOMEN:? SOFT.? NONTENDER.? NONDISTENDED.? BOWEL SOUNDS ARE PRESENT IN ALL 4 QUADRANTS AND NORMOACTIVE.? NO CARDIOMEGALY EXTREMITIES: NO EDEMA..? NO CYANOSIS CLUBBING NOTED. NEURO:? CRANIAL NERVES 2-12 GROSSLY INTACT. NO FOCAL NEUROLOGICAL DEFICIT NOTED.? .? POSSIBLE DEMENTIA MSK:? NORMAL RANGE OF MOTION FOR AGE.? NO JOINT EFFUSION. SKIN:? FAIR SKIN TURGOR FOR AGE.? NO OBVIOUS LESIONS.? NO ECCHYMOSIS.? NO PETECHIAE :? NORMAL EXTERNAL GENITALIA. PSYCH :? CALM.? COOPERATIVE. Objective Labs Result Diagrams: 04/21/21 11:10 04/21/21 01:30 Labs: Laboratory Results - last 24 hr 04/20/21 04/20/21 04/20/21 15:21 15:45 15:45 WBC 29.9 H RBC 1.62 L Hgb 4.7 L* Hct 14.4 L* MCV 88.4 MCH 29.1 MCHC 33.0 RDW 16.2 H Plt Count 610 H Neut % (Auto) Not Reportable Lymph % (Auto) Not Reportable [place] % (Auto) Not Reportable Eos % (Auto) Not Reportable Baso % (Auto) Not Reportable Lymph # (Auto) Not Reportable [place] # (Auto) Not Reportable Baso # (Auto) Not Reportable Total Counted 100 Seg Neutrophils % 63.0 Band Neutrophils % 11.0 H Lymphocytes % (Manual) 14.0 L Monocytes % (Manual) 7.0 Metamyelocytes % 4.0 H Myelocytes % 1.0 H Neutrophils # (Manual) 35963 H RBC Morphology Normal morphology Dimorphic RBCs PT INR APTT ABG pH ABG pCO2 ABG pO2 ABG HCO3 ABG Total CO2 ABG O2 Saturation ABG Base Excess FiO2 Sodium 128 L Potassium 4.6 Chloride 96 L Carbon Dioxide 27 BUN 70 H Creatinine 1.03 Estimated GFR 50.8 L BUN/Creatinine Ratio 68.0 H Glucose 138 H Lactate Calcium 8.3 L Total Bilirubin 0.4 AST 40 H ALT 34 Alkaline Phosphatase 193 H Troponin I NT-Pro-B Natriuret Pep Total Protein 4.9 L Albumin 2.9 L Globulin 2.0 Albumin/Globulin Ratio 1.5 Lipase TSH Urine Color Urine Appearance Urine pH Ur Specific [place] Urine Protein Urine Glucose (UA) Urine Ketones Urine Occult Blood Urine Nitrate Urine Bilirubin Urine Urobilinogen Ur Leukocyte Esterase Urine RBC Urine WBC Urine Bacteria Ur Culture Indicated? SARS-CoV-2 (PCR) Negative Blood Type Antibody Screen Crossmatch Transfusion React Rpt Donor Unit # Lab Clerical Err Check Pre-Trans Blood Type Pre-Trans Vis Hemolysis Pre-Trans Antibody Scrn Post-Trans Blood Type Post-Tx Visible Hemolys Post-Trans Antibody Scrn Reaction Path Interpret 04/20/21 04/20/21 04/20/21 15:45 15:45 15:45 WBC RBC Hgb Hct MCV MCH MCHC RDW Plt Count Neut % (Auto) Lymph % (Auto) [place] % (Auto) Eos % (Auto) Baso % (Auto) Lymph # (Auto) [place] # (Auto) Baso # (Auto) Total Counted Seg Neutrophils % Band Neutrophils % Lymphocytes % (Manual) Monocytes % (Manual) Metamyelocytes % Myelocytes % Neutrophils # (Manual) RBC Morphology Dimorphic RBCs PT 23.0 H D INR 2.0 H APTT 27 ABG pH ABG pCO2 ABG pO2 ABG HCO3 ABG Total CO2 ABG O2 Saturation ABG Base Excess FiO2 Sodium Potassium Chloride Carbon Dioxide BUN Creatinine Estimated GFR BUN/Creatinine Ratio Glucose Lactate 2.9 H Calcium Total Bilirubin AST ALT Alkaline Phosphatase Troponin I NT-Pro-B Natriuret Pep Total Protein Albumin Globulin Albumin/Globulin Ratio Lipase 187 D TSH Urine Color Urine Appearance Urine pH Ur Specific [place] Urine Protein Urine Glucose (UA) Urine Ketones Urine Occult Blood Urine Nitrate Urine Bilirubin Urine Urobilinogen Ur Leukocyte Esterase Urine RBC Urine WBC Urine Bacteria Ur Culture Indicated? SARS-CoV-2 (PCR) Blood Type Antibody Screen Crossmatch Transfusion React Rpt Donor Unit # Lab Clerical Err Check Pre-Trans Blood Type Pre-Trans Vis Hemolysis Pre-Trans Antibody Scrn Post-Trans Blood Type Post-Tx Visible Hemolys Post-Trans Antibody Scrn Reaction Path Interpret 04/20/21 04/20/21 04/21/21 15:45 15:45 01:10 WBC RBC Hgb Hct MCV MCH MCHC RDW Plt Count Neut % (Auto) Lymph % (Auto) [place] % (Auto) Eos % (Auto) Baso % (Auto) Lymph # (Auto) [place] # (Auto) Baso # (Auto) Total Counted Seg Neutrophils % Band Neutrophils % Lymphocytes % (Manual) Monocytes % (Manual) Metamyelocytes % Myelocytes % Neutrophils # (Manual) RBC Morphology Dimorphic RBCs PT INR APTT ABG pH 7.52 H ABG pCO2 32.5 L ABG pO2 129 H ABG HCO3 27 H ABG Total CO2 28 ABG O2 Saturation 99 ABG Base Excess 4.0 H FiO2 36 Sodium Potassium Chloride Carbon Dioxide BUN Creatinine Estimated GFR BUN/Creatinine Ratio Glucose Lactate Calcium Total Bilirubin AST ALT Alkaline Phosphatase Troponin I NT-Pro-B Natriuret Pep Total Protein Albumin Globulin Albumin/Globulin Ratio Lipase TSH 7.97 H D Urine Color Urine Appearance Urine pH Ur Specific [place] Urine Protein Urine Glucose (UA) Urine Ketones Urine Occult Blood Urine Nitrate Urine Bilirubin Urine Urobilinogen Ur Leukocyte Esterase Urine RBC Urine WBC Urine Bacteria Ur Culture Indicated? SARS-CoV-2 (PCR) Blood Type A Positive Antibody Screen Negative Crossmatch See Detail Transfusion React Rpt Donor Unit # Lab Clerical Err Check Pre-Trans Blood Type Pre-Trans Vis Hemolysis Pre-Trans Antibody Scrn Post-Trans Blood Type Post-Tx Visible Hemolys Post-Trans Antibody Scrn Reaction Path Interpret 04/21/21 04/21/21 04/21/21 01:30 01:30 01:30 WBC 33.4 H* RBC 2.50 L Hgb 6.9 L* Hct 21.1 L MCV 84.3 D MCH 27.5 MCHC 32.7 RDW 16.1 H Plt Count 565 H Neut % (Auto) Not Reportable Lymph % (Auto) Not Reportable [place] % (Auto) Not Reportable Eos % (Auto) Not Reportable Baso % (Auto) Not Reportable Lymph # (Auto) Not Reportable [place] # (Auto) Not Reportable Baso # (Auto) Not Reportable Total Counted 100 Seg Neutrophils % 83.0 H Band Neutrophils % 3.0 Lymphocytes % (Manual) 5.0 L Monocytes % (Manual) 9.0 Metamyelocytes % Myelocytes % Neutrophils # (Manual) 67648 H RBC Morphology See below Dimorphic RBCs * PT INR APTT ABG pH ABG pCO2 ABG pO2 ABG HCO3 ABG Total CO2 ABG O2 Saturation ABG Base Excess FiO2 Sodium 128 L Potassium 4.0 Chloride 96 L Carbon Dioxide 27 BUN 66 H Creatinine 1.10 H Estimated GFR 47.1 L BUN/Creatinine Ratio 60.0 H Glucose 159 H Lactate Calcium 8.5 Total Bilirubin 1.8 H AST 42 H ALT 35 H Alkaline Phosphatase 213 H Troponin I 0.033 NT-Pro-B Natriuret Pep Total Protein 5.3 L Albumin 3.2 L Globulin 2.1 Albumin/Globulin Ratio 1.5 Lipase TSH Urine Color Urine Appearance Urine pH Ur Specific [place] Urine Protein Urine Glucose (UA) Urine Ketones Urine Occult Blood Urine Nitrate Urine Bilirubin Urine Urobilinogen Ur Leukocyte Esterase Urine RBC Urine WBC Urine Bacteria Ur Culture Indicated? SARS-CoV-2 (PCR) Blood Type Antibody Screen Crossmatch Transfusion React Rpt Donor Unit # Lab Clerical Err Check Pre-Trans Blood Type Pre-Trans Vis Hemolysis Pre-Trans Antibody Scrn Post-Trans Blood Type Post-Tx Visible Hemolys Post-Trans Antibody Scrn Reaction Path Interpret 04/21/21 04/21/21 04/21/21 01:30 01:30 01:30 WBC RBC Hgb Hct MCV MCH MCHC RDW Plt Count Neut % (Auto) Lymph % (Auto) [place] % (Auto) Eos % (Auto) Baso % (Auto) Lymph # (Auto) [place] # (Auto) Baso # (Auto) Total Counted Seg Neutrophils % Band Neutrophils % Lymphocytes % (Manual) Monocytes % (Manual) Metamyelocytes % Myelocytes % Neutrophils # (Manual) RBC Morphology Dimorphic RBCs PT INR APTT ABG pH ABG pCO2 ABG pO2 ABG HCO3 ABG Total CO2 ABG O2 Saturation ABG Base Excess FiO2 Sodium Potassium Chloride Carbon Dioxide BUN Creatinine Estimated GFR BUN/Creatinine Ratio Glucose Lactate 2.2 H Calcium Total Bilirubin AST ALT Alkaline Phosphatase Troponin I NT-Pro-B Natriuret Pep 1080 H Total Protein Albumin Globulin Albumin/Globulin Ratio Lipase TSH Urine Color Urine Appearance Urine pH Ur Specific [place] Urine Protein Urine Glucose (UA) Urine Ketones Urine Occult Blood Urine Nitrate Urine Bilirubin Urine Urobilinogen Ur Leukocyte Esterase Urine RBC Urine WBC Urine Bacteria Ur Culture Indicated? SARS-CoV-2 (PCR) Blood Type Antibody Screen Crossmatch Transfusion React Rpt No discrepancies Donor Unit # [id number] Lab Clerical Err Check No error found Pre-Trans Blood Type A positive Pre-Trans Vis Hemolysis No Pre-Trans Antibody Scrn Negative Post-Trans Blood Type A positive Post-Tx Visible Hemolys No Post-Trans Antibody Scrn Negative Reaction Path Interpret Bbtrmulti 04/21/21 04/21/21 04/21/21 04:00 04:42 08:00 WBC RBC Hgb Hct MCV MCH MCHC RDW Plt Count Neut % (Auto) Lymph % (Auto) [place] % (Auto) Eos % (Auto) Baso % (Auto) Lymph # (Auto) [place] # (Auto) Baso # (Auto) Total Counted Seg Neutrophils % Band Neutrophils % Lymphocytes % (Manual) Monocytes % (Manual) Metamyelocytes % Myelocytes % Neutrophils # (Manual) RBC Morphology Dimorphic RBCs PT INR APTT ABG pH ABG pCO2 ABG pO2 ABG HCO3 ABG Total CO2 ABG O2 Saturation ABG Base Excess FiO2 Sodium Potassium Chloride Carbon Dioxide BUN Creatinine Estimated GFR BUN/Creatinine Ratio Glucose Lactate 1.6 Calcium Total Bilirubin AST ALT Alkaline Phosphatase Troponin I 0.044 H NT-Pro-B Natriuret Pep Total Protein Albumin Globulin Albumin/Globulin Ratio Lipase TSH Urine Color Straw Urine Appearance Clear Urine pH 5.5 Ur Specific [place] 1.010 Urine Protein Negative Urine Glucose (UA) Negative Urine Ketones Negative Urine Occult Blood Trace-intact Urine Nitrate Negative Urine Bilirubin Negative Urine Urobilinogen 0.2 Ur Leukocyte Esterase 1+ H Urine RBC 0-1/hpf Urine WBC 1-5/hpf Urine Bacteria Occasional (0-1) Ur Culture Indicated? Specimen cultured SARS-CoV-2 (PCR) Blood Type Antibody Screen Crossmatch Transfusion React Rpt Donor Unit # Lab Clerical Err Check Pre-Trans Blood Type Pre-Trans Vis Hemolysis Pre-Trans Antibody Scrn Post-Trans Blood Type Post-Tx Visible Hemolys Post-Trans Antibody Scrn Reaction Path Interpret 04/21/21 11:10 WBC RBC Hgb 5.9 L* Hct 17.7 L* MCV MCH MCHC RDW Plt Count Neut % (Auto) Lymph % (Auto) [place] % (Auto) Eos % (Auto) Baso % (Auto) Lymph # (Auto) [place] # (Auto) Baso # (Auto) Total Counted Seg Neutrophils % Band Neutrophils % Lymphocytes % (Manual) Monocytes % (Manual) Metamyelocytes % Myelocytes % Neutrophils # (Manual) RBC Morphology Dimorphic RBCs PT INR APTT ABG pH ABG pCO2 ABG pO2 ABG HCO3 ABG Total CO2 ABG O2 Saturation ABG Base Excess FiO2 Sodium Potassium Chloride Carbon Dioxide BUN Creatinine Estimated GFR BUN/Creatinine Ratio Glucose Lactate Calcium Total Bilirubin AST ALT Alkaline Phosphatase Troponin I NT-Pro-B Natriuret Pep Total Protein Albumin Globulin Albumin/Globulin Ratio Lipase TSH Urine Color Urine Appearance Urine pH Ur Specific [place] Urine Protein Urine Glucose (UA) Urine Ketones Urine Occult Blood Urine Nitrate Urine Bilirubin Urine Urobilinogen Ur Leukocyte Esterase Urine RBC Urine WBC Urine Bacteria Ur Culture Indicated? SARS-CoV-2 (PCR) Blood Type Antibody Screen Crossmatch Transfusion React Rpt Donor Unit # Lab Clerical Err Check Pre-Trans Blood Type Pre-Trans Vis Hemolysis Pre-Trans Antibody Scrn Post-Trans Blood Type Post-Tx Visible Hemolys Post-Trans Antibody Scrn Reaction Path Interpret PFSH Medical History Anxiety Essential hypertension GERD (gastroesophageal reflux disease) History of shingles Hyperlipidemia Hypothyroidism (acquired) Osteoporosis Paroxysmal atrial fibrillation with RVR Surgical History (Updated 04/12/21 @ 00:53 by JAZ Qiu) History of bilateral hip replacements History of cholecystectomy Family History (Updated 04/12/21 @ 00:55 by JAZ Qiu) Mother Stroke Brother Diabetes mellitus Sister Heart attack Social History household members: spouse Smoking Status: Former smoker alcohol intake: former Assessment & Plan Assessment & Plan narrative: PROBLEM LIST POSSIBLE ACUTE GI BLEED.? LIKELY RELATED TO ELIQUIS COAGULOPATHY. ANEMIA OF ACUTE BLOOD LOSS VERSUS ACUTE ON CHRONIC BLOOD LOSS.? WILL ONCE AGAIN TRANSFUSE TODAY ELIQUIS COAGULOPATHY.? INR AROUND 2??? ELEVATED INR. FOLLOW CLOSELY LEUKOCYTOSIS.? DOUBT THIS IS RELATED TO INFECTIOUS PROCESS.? COULD BE LYMPHOMA LIKE PROCESS POSSIBLE ACUTE KIDNEY INJURY.? SIGNIFICANTLY ELEVATED BUN.? THIS COULD ALSO INDICATE CHRONIC BLOOD LOSS.? CONSIDER PRERENAL AZOTEMIA WELL THROMBOCYTOSIS.? CONSIDER LYMPHOMA.? COULD BE CLL HYPONATREMIA.? COULD BE DUE TO DECREASED ORAL INTAKE HYPOCHLOREMIA.? COULD BE DUE TO DECREASED ORAL INTAKE ELEVATED LIVER ENZYMES.? CAUSE IS NOT FULLY CLEAR HYPOTHYROIDISM.? TSH AROUND 8. HYPERTENSION PER HISTORY MORBID OBESITY.? LIFESTYLE CHANGES TO BE? RECOMMENDED ONCE APPROPRIATE ELEVATED TROPONIN. COULD BE NSTEMI TYPE 2 DUE TO DEMAND ISCHEMIA DUE TO LOW HEMOGLOBIN LEVEL. ACS IS NOT SUSPECTED PLAN? 04/21 PATIENT UNABLE TO TOLERATE TRANSFUSION OVERNIGHT HOWEVER THIS MORNING SHE APPEARED TO BE IMPROVED CLINICALLY LAB DONE OVERNIGHT SHOWED ELEVATED TROPONIN AND WORSENING KIDNEY WELL LIVER FUNCTIONS NOT SURE THIS ISSUE REFLECTION OF PATIENT'S LAB DUE TO THE TRANSFUSION WHICH WAS DONE RIGHT PRIOR TO THE LABS HEMOGLOBIN LEVEL REPEATED AND WAS AGAIN BELOW 6 % WILL TRANSFUSE 2 UNITS PRBC TODAY IF PATIENT IS ABLE TO TOLERATE LASIX ORDERED WELL WILL ALSO GIVE 1 DOSE OF VITAMIN K DUE TO THE ELEVATED INR INR TO BE FOLLOWED DAILY IN REGARD TO THE ELEVATED TROPONIN WILL CONTINUE TO MONITOR CLOSELY ONLY FOR NOW REPEAT TROPONIN IF INDICATED CLINICALLY ON ANY KEEP PATIENT ON TELE WILL CONSIDER ASPIRIN HOWEVER PATIENT IS ACUTELY HEMORRHAGING SO, WILL CONTINUE TO HOLD ALL ANTI-PLATELET AND ANTICOAGULANT THERAPY MEME HOSE WILL BE ORDERED TO LOWER EXTREMITIES AVOID ALL LIVER AND KIDNEY TOXIC SUBSTANCES IF POSSIBLE UNLESS BENEFIT GREATER THAN RISK PATIENT STARTED ON ANTIBIOTICS OVERNIGHT WILL ADD FLAGYL WELL LACTOBACILLUS WILL DISCONTINUE VANCOMYCIN FOR NOW WELL ADDITIONAL MANAGEMENT PER CLINICAL COURSE PROGNOSIS IS GUARDED 04/20 WILL TRANSFUSE 3 UNITS OF PRBC REPEAT H&H 1 HOUR POST TRANSFUSION ADDITIONAL TRANSFUSIONS DICTATED CLINICALLY PATIENT IS NOT EXHIBITING ANY SIGN OF RESPIRATORY FAILURE VITAL SIGNS ARE FAIRLY STABLE.? NO TACHYCARDIA APPRECIATED WILL HOLD ORAL ANTICOAGULANT/ANTI-PLATELET THERAPY FOR NOW MEME HOSE WILL BE ORDERED TO LOWER EXTREMITIES SCDS FOR DVT PROPHYLAXIS PATIENT WILL BE STARTED ON IV FLUID WELL MONITOR ELECTROLYTES CLOSELY REGARD TO HER ABNORMAL BLOOD COUNT IF INDICATED, SHE COULD BE REFERRED TO HEMATOLOGY OUTPATIENT FOR FURTHER WORKUP AT THIS POINT I SUSPECT POSSIBLE LYMPHOMA. WILL VERIFY WITH HER PRIMARY CARE PHYSICIAN AVOID ALL NEPHROTOXINS DOSE MEDS PER GFR AVOID? LIVER TOXIC SUBSTANCES WELL DUE TO ELEVATED LFTS FOLLOW CLINICALLY AND WITH SERIAL LABS FOR THE SAME MANAGEMENT PROGNOSIS IS GUARDED DURATION OF STAY COULD BE BETWEEN 2-5 DAYS Time Spent With Patient Critical Care time: I spent a total of [] minutes of critical care time on this patient's care today; this time is exclusive of procedural time. Quality VTE Deep Vein Thrombosis/Pulmonary Embolism Present on Admission: No
[2021-04-21] MEDS: PHYTONADIONE (VIT K1) 5 MG in SODIUM CHLORIDE 0.9% 100 ML 201 ML IV (16:46)
[2021-04-21] MEDS: metroNIDAZOLE 500 MG TABLET PO ×2 (16:46→21:11)
[2021-04-21] MEDS: FUROSEMIDE 20 MG/2 ML VIAL IV (17:36)
--- NOTE | 2021-04-21 17:47 | P.CONS_ITS ---
History of Present Illness Consult details Date Patient Seen: 04/21/21 Time Patient Seen: 17:47 Chief complaint: Black Stools Narrative: 86 y.o woman with dementia recent [place] within the month admitted for anemia. She is on chronic anticoagulation and per report had tarry appearing stool. Hgb at admission 4.4 baseline 11. She developed a transfusion related reaction on admission. Remains hemodynamically stable and with no further rectal bleeding per report. Meds Home Medications and Allergies Home Medications Medication Instructions Recorded Confirmed Type losartan 25 mg tablet 25 mg PO DAILY 04/10/21 04/11/21 History metoprolol succinate 25 mg 25 mg PO DAILY 04/10/21 04/11/21 History tablet,extended release 24 hr alprazolam 0.5 mg tablet 0.5 mg PO BID PRN 04/11/21 04/11/21 History calcitonin (salmon) 200 1 spray INTRANASAL DAILY 04/11/21 04/11/21 History unit/actuation nasal spray ibandronate 150 mg tablet 150 mg PO QMONTH 04/11/21 04/11/21 History levothyroxine 88 mcg tablet 88 mcg PO QAM 04/11/21 04/11/21 History omeprazole 20 mg capsule,delayed 20 mg PO QAM 04/11/21 04/11/21 History release prednisone 5 mg tablet 5 mg PO DAILY 04/11/21 04/11/21 History alprazolam 0.5 mg tablet (Xanax) 0.5 mg PO BID #30 tab 04/16/21 Rx apixaban 5 mg tablet (Eliquis) 5 mg PO BID 30 Days #60 tab 04/16/21 Rx oxycodone-acetaminophen 5 mg-325 1 tab PO BID PRN #20 tab 04/16/21 Rx mg tablet Allergies Allergy/AdvReac Type Severity Reaction Status Date / Time Sulfa (Sulfonamide Allergy Unknown Verified 04/10/21 12:03 Antibiotics) [SULFA (SULFONAMIDE ANTIBIOTICS)] Exam Vital Signs (past 8 hours): - 04/21/21 12:50 04/21/21 13:18 04/21/21 13:38 Temperature 97.8 F 97.8 F 97.8 F Pulse Rate 81 114 H 90 Respiratory Rate 18 18 20 Blood Pressure 150/68 H 125/48 L 144/50 H Pulse Oximetry 98 04/21/21 14:01 04/21/21 14:46 04/21/21 16:00 Temperature 98.4 F Pulse Rate 85 87 79 Respiratory Rate 16 20 18 Blood Pressure 131/43 L Pulse Oximetry 99 98 98 04/21/21 16:40 Temperature 97.4 F L Pulse Rate 73 Respiratory Rate 20 Blood Pressure 133/57 L Pulse Oximetry Oxygen Delivery Method Nasal Cannula Oxygen Flow Rate 0 Narrative Exam Narrative: Gen-Adult woman follows commands no distress Chest-Non labored resp Abdomen-Soft non tender. Objective Labs Result Diagrams: 04/21/21 11:10 04/21/21 01:30 Labs: Laboratory Results - last 24 hr 04/20/21 04/21/21 04/21/21 15:45 01:10 01:30 WBC RBC Hgb Hct MCV MCH MCHC RDW Plt Count Neut % (Auto) Lymph % (Auto) Bradley % (Auto) Eos % (Auto) Baso % (Auto) Lymph # (Auto) Bradley # (Auto) Baso # (Auto) Total Counted Seg Neutrophils % Band Neutrophils % Lymphocytes % (Manual) Monocytes % (Manual) Neutrophils # (Manual) RBC Morphology Dimorphic RBCs ABG pH 7.52 H ABG pCO2 32.5 L ABG pO2 129 H ABG HCO3 27 H ABG Total CO2 28 ABG O2 Saturation 99 ABG Base Excess 4.0 H FiO2 36 Sodium Potassium Chloride Carbon Dioxide BUN Creatinine Estimated GFR BUN/Creatinine Ratio Glucose Lactate Calcium Total Bilirubin AST ALT Alkaline Phosphatase Troponin I 0.033 NT-Pro-B Natriuret Pep Total Protein Albumin Globulin Albumin/Globulin Ratio Urine Color Urine Appearance Urine pH Ur Specific [place] Urine Protein Urine Glucose (UA) Urine Ketones Urine Occult Blood Urine Nitrate Urine Bilirubin Urine Urobilinogen Ur Leukocyte Esterase Urine RBC Urine WBC Urine Bacteria Ur Culture Indicated? Blood Type A Positive Antibody Screen Negative Crossmatch See Detail Transfusion React Rpt Donor Unit # Lab Clerical Err Check Pre-Trans Blood Type Pre-Trans Vis Hemolysis Pre-Trans Antibody Scrn Post-Trans Blood Type Post-Tx Visible Hemolys Post-Trans Antibody Scrn Reaction Path Interpret 04/21/21 04/21/21 04/21/21 01:30 01:30 01:30 WBC 33.4 H* RBC 2.50 L Hgb 6.9 L* Hct 21.1 L MCV 84.3 D MCH 27.5 MCHC 32.7 RDW 16.1 H Plt Count 565 H Neut % (Auto) Not Reportable Lymph % (Auto) Not Reportable Bradley % (Auto) Not Reportable Eos % (Auto) Not Reportable Baso % (Auto) Not Reportable Lymph # (Auto) Not Reportable Bradley # (Auto) Not Reportable Baso # (Auto) Not Reportable Total Counted 100 Seg Neutrophils % 83.0 H Band Neutrophils % 3.0 Lymphocytes % (Manual) 5.0 L Monocytes % (Manual) 9.0 Neutrophils # (Manual) 36214 H RBC Morphology See below Dimorphic RBCs * ABG pH ABG pCO2 ABG pO2 ABG HCO3 ABG Total CO2 ABG O2 Saturation ABG Base Excess FiO2 Sodium 128 L Potassium 4.0 Chloride 96 L Carbon Dioxide 27 BUN 66 H Creatinine 1.10 H Estimated GFR 47.1 L BUN/Creatinine Ratio 60.0 H Glucose 159 H Lactate 2.2 H Calcium 8.5 Total Bilirubin 1.8 H AST 42 H ALT 35 H Alkaline Phosphatase 213 H Troponin I NT-Pro-B Natriuret Pep Total Protein 5.3 L Albumin 3.2 L Globulin 2.1 Albumin/Globulin Ratio 1.5 Urine Color Urine Appearance Urine pH Ur Specific [place] Urine Protein Urine Glucose (UA) Urine Ketones Urine Occult Blood Urine Nitrate Urine Bilirubin Urine Urobilinogen Ur Leukocyte Esterase Urine RBC Urine WBC Urine Bacteria Ur Culture Indicated? Blood Type Antibody Screen Crossmatch Transfusion React Rpt Donor Unit # Lab Clerical Err Check Pre-Trans Blood Type Pre-Trans Vis Hemolysis Pre-Trans Antibody Scrn Post-Trans Blood Type Post-Tx Visible Hemolys Post-Trans Antibody Scrn Reaction Path Interpret 04/21/21 04/21/21 04/21/21 01:30 01:30 04:00 WBC RBC Hgb Hct MCV MCH MCHC RDW Plt Count Neut % (Auto) Lymph % (Auto) Bradley % (Auto) Eos % (Auto) Baso % (Auto) Lymph # (Auto) Bradley # (Auto) Baso # (Auto) Total Counted Seg Neutrophils % Band Neutrophils % Lymphocytes % (Manual) Monocytes % (Manual) Neutrophils # (Manual) RBC Morphology Dimorphic RBCs ABG pH ABG pCO2 ABG pO2 ABG HCO3 ABG Total CO2 ABG O2 Saturation ABG Base Excess FiO2 Sodium Potassium Chloride Carbon Dioxide BUN Creatinine Estimated GFR BUN/Creatinine Ratio Glucose Lactate Calcium Total Bilirubin AST ALT Alkaline Phosphatase Troponin I NT-Pro-B Natriuret Pep 1080 H Total Protein Albumin Globulin Albumin/Globulin Ratio Urine Color Straw Urine Appearance Clear Urine pH 5.5 Ur Specific [place] 1.010 Urine Protein Negative Urine Glucose (UA) Negative Urine Ketones Negative Urine Occult Blood Trace-intact Urine Nitrate Negative Urine Bilirubin Negative Urine Urobilinogen 0.2 Ur Leukocyte Esterase 1+ H Urine RBC 0-1/hpf Urine WBC 1-5/hpf Urine Bacteria Occasional (0-1) Ur Culture Indicated? Specimen cultured Blood Type Antibody Screen Crossmatch Transfusion React Rpt No discrepancies Donor Unit # [id number] Lab Clerical Err Check No error found Pre-Trans Blood Type A positive Pre-Trans Vis Hemolysis No Pre-Trans Antibody Scrn Negative Post-Trans Blood Type A positive Post-Tx Visible Hemolys No Post-Trans Antibody Scrn Negative Reaction Path Interpret [email or web address] 04/21/21 04/21/21 04/21/21 04:42 08:00 11:10 WBC RBC Hgb 5.9 L* Hct 17.7 L* MCV MCH MCHC RDW Plt Count Neut % (Auto) Lymph % (Auto) Bradley % (Auto) Eos % (Auto) Baso % (Auto) Lymph # (Auto) Bradley # (Auto) Baso # (Auto) Total Counted Seg Neutrophils % Band Neutrophils % Lymphocytes % (Manual) Monocytes % (Manual) Neutrophils # (Manual) RBC Morphology Dimorphic RBCs ABG pH ABG pCO2 ABG pO2 ABG HCO3 ABG Total CO2 ABG O2 Saturation ABG Base Excess FiO2 Sodium Potassium Chloride Carbon Dioxide BUN Creatinine Estimated GFR BUN/Creatinine Ratio Glucose Lactate 1.6 Calcium Total Bilirubin AST ALT Alkaline Phosphatase Troponin I 0.044 H NT-Pro-B Natriuret Pep Total Protein Albumin Globulin Albumin/Globulin Ratio Urine Color Urine Appearance Urine pH Ur Specific [place] Urine Protein Urine Glucose (UA) Urine Ketones Urine Occult Blood Urine Nitrate Urine Bilirubin Urine Urobilinogen Ur Leukocyte Esterase Urine RBC Urine WBC Urine Bacteria Ur Culture Indicated? Blood Type Antibody Screen Crossmatch Transfusion React Rpt Donor Unit # Lab Clerical Err Check Pre-Trans Blood Type Pre-Trans Vis Hemolysis Pre-Trans Antibody Scrn Post-Trans Blood Type Post-Tx Visible Hemolys Post-Trans Antibody Scrn Reaction Path Interpret [facility] Medical History Anxiety Essential hypertension GERD (gastroesophageal reflux disease) History of shingles Hyperlipidemia Hypothyroidism (acquired) Osteoporosis Paroxysmal atrial fibrillation with RVR Surgical History History of bilateral hip replacements History of cholecystectomy Family History Mother Stroke Brother Diabetes mellitus Sister Heart attack Social History household members: spouse Tobacco & Substance Use Smoking Status: Former smoker alcohol intake: former Assessment & Plan Assessment & Plan narrative: 86-year-old female with a recent myocardial infarction admitted to the hospital for anemia in the setting of chronic anticoagulation. Hemodynamically stable. I suspect that her GI bleed if ongoing is secondary to anticoagulation. Given her NSTEMI this past month she is high risk for endoscopy and would not recommend proceeding at this time unless absolutely necessary. -Diet as tolerated -Transfuse as necessary -Hold anticoagulation -PPI Time Spent With Patient Critical Care time: I spent a total of [] minutes of critical care time on this patient's care today ; this time is exclusive of procedural time.
[2021-04-21] MEDS: PHYTONADIONE (VIT K1) 10 MG/ML AMP 5 MG SUBCUT (17:48)
[2021-04-21] MEDS: SODIUM CHLORIDE 0.9% FLUSH 10 ML IV (21:13)
[2021-04-22] VITALS (15 sets, daily range): BP systolic 105–141; BP diastolic 41–98; PULSE 63–77; RESP 16–18; TEMP 36.2–37.2; O2SAT 96–100; BMI 24.5
--- NOTE | 2021-04-22 00:02 | PC.NURSE ---
Addendum entered by Marbella Navarro R.N. 04/22/21 03:51: Noted weight to be down 2kg; patient currently on bedrest so not able to rezero bed. Changed worklist to have patient reweighed on day shift after bed is rezeroed. Original Note: Patient is alert and mostly oriented; stated she is 68 and is in [place] (although knows she is in the hospital). Breath sounds CTA with sat of 93% on oxygen at 2L/min per NC. HR irregular (history of afib) and telemetry readings have been afib CVR. Denied nausea. BT present and has had no stools since admission. Has been incontinent of urine and complains of some burning when she urinates. When asked, patient states she knows when she has to pee so instructed to call when she needs to urinate so she is not incontinent. After discussion patient did put manager construction light and voided on bedpan. Is able to move self in bed. Gait not assessed as activity level is bedrest. Extensive bruising on all extremities and also note a bruise on left chest. Skin tear to right LE noted. Bilateral calf SCD's applied. Denied pain. Blood transfused at 2114. Dr. Blanton verified that no additional blood be infused tonight. Fall risk score is high and bed alarm is activated.
[2021-04-22] MEDS: CEFEPIME 1 GM in SODIUM CHLORIDE 0.9% 100 ML 200 ML IV ×2 (00:36→12:54)
[2021-04-22] MEDS: SODIUM CHLORIDE 0.9% FLUSH 10 ML IV ×3 (00:37→21:59)
[2021-04-22] MEDS: ACETAMINOPHEN 325 MG TABLET 650 MG PO ×2 (01:12→16:48)
[2021-04-22 05:57] LABS: INR 1.3 (0.9-1.3); Prothrombin Time 14.2 SECONDS (10.1-12.7)
[2021-04-22 05:59] LABS: Hemoglobin 9.2 g/dL (12.0-16.0); Mean Corpuscular HGB Conc 33.7 % (30-36); Mean Corpuscular Volume 83.2 fL (80-100); Platelet Count 414 X10^3/uL (150-400); Red Blood Cell Count 3.27 X10^6/uL (4.0-5.2); Red Cell Distribution Width 15.4 % (11.6-14.8); White Blood Cell Count 25.4 X10^3/uL (4.5-11.0)
[2021-04-22] MEDS: LEVOTHYROXINE 88 MCG TABLET PO (06:01)
[2021-04-22 06:03] LABS: Alanine Aminotransferase 29 IU/L (<35); Albumin 2.7 g/dL (3.5-5.0); Albumin Globulin Ratio 1.3 (1.0-2.8); Alkaline Phosphatase 155 U/L (38-126); Aspartate Aminotransferase 39 IU/L (14-36); Bilirubin Total 1.2 mg/dL (0.2-1.3); Blood Urea Nitrogen 43 mg/dL (7-17); Calcium 8.2 mg/dL (8.4-10.2); Carbon Dioxide 31 mmol/L (22-32); Chloride 98 mmol/L (98-107); Estimated Glomerular Filt Rate 52.6 mL/min (>60); Globulin 2.1 g/dL (1.7-4.1); Glucose 84 mg/dL (80-110); HEMOLYSIS < 15 (0-50); Phosphorous 2.9 mg/dL (2.8-4.1); Sodium 130 mmol/L (137-145); Total Protein 4.8 g/dL (6.3-8.2)
[2021-04-22 06:15] LABS: Troponin I 0.049 ng/mL (0.01-0.034)
[2021-04-22 06:21] LABS: Add Manual Diff / Slide Review YES; Hematocrit 27.2 % (36-46)
[2021-04-22 07:11] LABS: Anisocytosis 2+; Neutrophils Absolute Manual 21336 /uL (3000-5900); Nucleated Red Blood Cells 2 #/Diff; Poikilocytosis 1+; Total Cells Counted 100
[2021-04-22] MEDS: predniSONE 5 MG TABLET PO (10:12)
[2021-04-22] MEDS: metroNIDAZOLE 500 MG TABLET PO ×3 (10:12→20:47)
[2021-04-22] MEDS: METOPROLOL ER 25 MG TABLET PO (10:12)
[2021-04-22] MEDS: PANTOPRAZOLE 40 MG VIAL IV (10:13)
--- NOTE | 2021-04-22 10:20 | PT.IIE ---
Current Diagnoses Melena (04/20/21) Medical History (Last Reviewed 04/21/21 @ 17:50 by Cuauhtemoc Pleitez MD) Anxiety Essential hypertension GERD (gastroesophageal reflux disease) History of shingles Hyperlipidemia Hypothyroidism (acquired) Osteoporosis Paroxysmal atrial fibrillation with RVR Physical Therapy Inpatient Evaluation/Re-Eval M1 PT/OT-IP Prior Functional Status Start: 04/21/21 08:46 Freq: NEEDED Status: Active Protocol: Document 04/22/21 10:20 AB (Rec: 04/22/21 12:07 AB [email or web address]) Medical Review Prior Functional Status Medical History Reviewed Yes Communication able to make needs known Mobility and Gait pt was just hospitalized last 04/11/21 for NSTEMI and d/c to SNF 04/16/21. Prior to last hospitalization, pt stated that she is modified independent with all mobilities and uses a 4WW for indoor mobility but uses a w/c at night and outdoor mobility . stated that she was able to use a SPC with [employer]LAST[employer]ER on other side to get from the house to the car. Social History Household Members spouse Living Arrangements House Number of Floors (Floors) Two Floors Number of Stairs To Enter/Railing? pt stays on main level of the house has a ramp to enter Home Environment High Toilet,Tub/Shower,Ramp Home Equipment Four Wheel Walker,Straight Cane,Manual Wheelchair,Shower Seat with Backrest,Hand Held Shower,Grab Bars Near Toilet, Grab Bars In Shower Additional Social History Comment pt sleeps on a recliner Has a caregiver that comes in 5x/week for ~ 3 hours to assist with house chores M2 PT-IP Current Condition Start: 04/21/21 08:46 Freq: NEEDED Status: Active Protocol: Document 04/22/21 10:20 AB (Rec: 04/22/21 12:07 AB [email or web address]) Physical Therapy Current Condition Current Condition Evaluation Date 04/22/21 Treatment Diagnosis anemia; GI bleed; difficulty in walking Onset Date 04/20/21 M3 PT-IP Subjective Start: 04/21/21 08:46 Freq: NEEDED Status: Active Protocol: Document 04/22/21 10:20 AB (Rec: 04/22/21 12:07 AB [email or web address]) Subjective Physical Therapy Visit Type Type Initial Evaluation Visit Start Time 10:20 Visit Stop Time 10:40 Total Visit Minutes 20 Number of [employer] Visits 0 Physical Therapy Visit Comments Patient Comments able to make needs known M4 PT-IP Mobility and Gait Start: 04/21/21 08:46 Freq: NEEDED Status: Active Protocol: Document 04/22/21 10:20 AB (Rec: 04/22/21 12:07 AB [email or web address]) PT-Bed Mobility Assessment Supine to Sit Supine to Sit Standby Assistance Sit to Supine Sit to Supine Moderate Assistance,1 Person Assistance PT-Transfer Assessment Sit to and From Stand Sit to and from Stand Minimal Assistance,1 Person Assistance,Use of Upper Extremities Equipment Transfer Assistive Device Gait Belt,Front Wheeled Walker Orthotic/Prosthetic Devices or Brace: No Comments Mobility Comments pt supine in bed and c/o feeling tired but agreed to move with PT. completed supine to sit SBA. able to sit on EOB SBA. completed sit to stand min A and only able to ambulate ~ 2ft and c/o dizziness and requested to go back to bed. completed sit to supine mod A with LE elvation. unable to obtain BP . positioned pt in bed. call light and table placed within reach. Gait Assessment Gait Gait Assistance Required: Minimum Assistance Distance (Feet) 2 Able to Maintain Weight Bearing Status Yes During Gait Assistive Devices Assistive Device Gait Belt,Front Wheeled Walker Orthotic/Prosthetic Devices or Brace: No Gait Deviations General Gait Pattern Decreased Stride Length, Decreased Feet Clearance,Step- to Gait Factors Limiting Gait Function Factors Limiting Gait Function Decreased Activity Tolerance, Decreased Strength,Poor Balance,Poor Safety Awareness PT-Balance Assessment Sitting Balance and Reactions Static Sitting Balance Ability Good Dynamic Sitting Balance Ability Fair Standing Balance and Reactions Static Standing Balance Ability Fair Dynamic Standing Balance Ability Fair Device Used FWW M5 PT-IP Objective Assessments Start: 04/21/21 08:46 Freq: NEEDED Status: Active Protocol: Document 04/22/21 10:20 AB (Rec: 04/22/21 12:07 AB [email or web address]) Orientation Orientation/Cognition Level of Alertness Alert Orientation Name Safety Awareness Decreased Safety Awareness Memory Description Short Term Impaired Gross Range of Motion Lower Extremity ROM Assessment Within Functional Limits Strength Lower Extremity Strength Hip 4-/5 Knee 4-/5 Sensation Assessment Sensation Gross Sensation WNL Muscle Tone Muscle Tone WNL Yes M6 PT-IP Treatment Start: 04/21/21 08:46 Freq: NEEDED Status: Active Protocol: Document 04/22/21 10:20 AB (Rec: 04/22/21 12:07 AB [email or web address]) Physical Therapy Treatment Education Education Provided Safety M7 PT-IP Assessment and Plan Start: 04/21/21 08:46 Freq: NEEDED Status: Active Protocol: Document 04/22/21 10:20 AB (Rec: 04/22/21 12:07 AB [email or web address]) PT Summary Assessment and Plan Potential Rehabilitation Potential Fair Status of Condition at Evaluation Evolving Summary Impairments Pain,ROM,Strength,Balance, Coordination,Sensation,Tone, Cognition,Bed Mobility, Transfers,Gait,Activity Tolerance Assessment Summary pt requiring min A with transfers using FWW but unable to tolerate much activity with c/o dizziness and weakness. pt will require SNF rehab to improve overall strength and mobility independence. Goals Bed Mobility Goal Independent Transfer Goal Standby Assistance,Front Wheeled Walker Gait Goal Standby Assistance,Front Wheel Walker Gait Distance 100 Other Goals improve ambulation using 4WW 150 ft SBA Days to Meet Goals 10 Frequency of Treatment Frequency Of Treatment Once a Day Treatment Plan Physical Therapy Treatment Plan Bed Mobility Training,Transfer Training,Gait Training, Therapeutic Exercise,Balance Retraining,Discharge Planning, Hot or Cold Pack,Neuromuscular Re-ed,Coordination Retraining Precautions Other Precautions falls Recommendations To Nursing Amount of Assist Needed 1 Person Assist Discharge Recommendations PT Discharge Recommendations SNF Rehab Transportation Needs at Discharge Wheelchair/Cabulance
--- NOTE | 2021-04-22 12:30 | OT.IPNOTE ---
Pt refusing x3 today as too tired and dizzy to move for OT eval. To attempt again tomorrow.
[2021-04-22] MEDS: POTASSIUM CHLORIDE 20 MEQ TAB 40 MEQ PO ×2 (12:53→16:49)
--- NOTE | 2021-04-22 14:38 | P.PN_ITS ---
Subjective Subjective Date Patient Seen: 04/22/21 Interval history: RIEF HPI THIS IS A PLEASANTLY DEMENTED 86-YEAR-OLD FEMALE ADMITTED WITH PROFOUND ANEMIA. SIGNIFICANT COAGULOPATHY APPRECIATED WELL.? PATIENT IS ON ELIQUIS FOR STROKE PREVENTION DUE TO ATRIAL FIBRILLATION SIGNIFICANT LEUKOCYTOSIS ALSO APPRECIATED ASSOCIATED WITH THROMBOCYTOSIS WELL SUSPECT CLL VERSUS LESS LIKELY INFECTIOUS PROCESS TODAY ABLE TO STAND TO CHAIR TODAY FEELING MUCH BETTER DENIES ANY NAUSEA OR VOMITING TOLERATING P.O. WELL NO SIGNIFICANT ISSUES REPORTED BY NURSING OVERNIGHT Exam Vital Signs (past 8 hours): - 04/22/21 07:22 04/22/21 07:30 04/22/21 09:00 Temperature 97.2 F L Pulse Rate 64 Respiratory Rate 18 Blood Pressure 141/98 H Pulse Oximetry 96 98 97 04/22/21 10:12 04/22/21 11:40 04/22/21 12:37 Temperature 99 F Pulse Rate 63 Respiratory Rate 16 Blood Pressure 141/98 H 105/45 L Pulse Oximetry 98 97 04/22/21 13:00 Temperature Pulse Rate Respiratory Rate Blood Pressure Pulse Oximetry 98 Oxygen Delivery Method Room Air Oxygen Flow Rate 0 Narrative Exam Narrative: NO ACUTE DISTRESS.? PATIENT IS ALERT, AWAKE, ORIENTED X3 HEAD ATRAUMATIC NORMOCEPHALIC NECK : SUPPLE WITHOUT ADENOPATHY NO CAROTID BRUITS EYE:? EOMI, PERRLA, NORMAL CONJUNCTIVA; NO JAUNDICE CHEST:? REGULAR RATE.? ? NO RUBS.? PMI IS NON DISPLACED.? NO MURMURS; NORMAL S1- S2 PULMONARY:? DECREASED BS OVER THE BASES.? MILD BIBASILAR CRACKLES NOTED; NO INCREASED DULLNESS TO PERCUSSION.? NO WHEEZING.? NO RHONCHI.? NO RALES.? NO PLEURAL RUBS ABDOMEN:? SOFT.? NONTENDER.? NONDISTENDED.? BOWEL SOUNDS ARE PRESENT IN ALL 4 QUADRANTS AND NORMOACTIVE.? NO CARDIOMEGALY EXTREMITIES: NO EDEMA..? NO CYANOSIS CLUBBING NOTED. NEURO:? CRANIAL NERVES 2-12 GROSSLY INTACT. NO FOCAL NEUROLOGICAL DEFICIT NOTED.?? .? UNDERLYING DEMENTIA MSK:? NORMAL RANGE OF MOTION FOR AGE.? NO JOINT EFFUSION. SKIN:? FAIR SKIN TURGOR FOR AGE.? NO OBVIOUS LESIONS.? NO ECCHYMOSIS.? NO PETECHIAE :? NORMAL EXTERNAL GENITALIA. PSYCH :? CALM.? COOPERATIVE. UNDERLYING DEMENTIA Objective Labs Result Diagrams: 04/22/21 05:20 04/22/21 05:20 Labs: Laboratory Results - last 24 hr 04/20/21 04/22/21 04/22/21 15:45 05:20 05:20 WBC RBC Hgb Hct MCV MCH MCHC RDW Plt Count Neut % (Auto) Lymph % (Auto) [place] % (Auto) Eos % (Auto) Baso % (Auto) Lymph # (Auto) [place] # (Auto) Baso # (Auto) Total Counted Seg Neutrophils % Lymphocytes % (Manual) Atypical Lymphs % Monocytes % (Manual) Neutrophils # (Manual) Nucleated RBCs RBC Morphology Poikilocytosis Anisocytosis PT 14.2 H D INR 1.3 Sodium Potassium Chloride Carbon Dioxide BUN Creatinine Estimated GFR BUN/Creatinine Ratio Glucose Calcium Phosphorus Total Bilirubin AST ALT Alkaline Phosphatase Troponin I 0.049 H Total Protein Albumin Globulin Albumin/Globulin Ratio Blood Type A Positive Antibody Screen Negative Crossmatch See Detail 04/22/21 04/22/21 05:20 05:20 WBC 25.4 H RBC 3.27 L Hgb 9.2 L Hct 27.2 L MCV 83.2 MCH 28.0 MCHC 33.7 RDW 15.4 H Plt Count 414 H Neut % (Auto) Not Reportable Lymph % (Auto) Not Reportable [place] % (Auto) Not Reportable Eos % (Auto) Not Reportable Baso % (Auto) Not Reportable Lymph # (Auto) Not Reportable [place] # (Auto) Not Reportable Baso # (Auto) Not Reportable Total Counted 100 Seg Neutrophils % 84.0 H Lymphocytes % (Manual) 8.0 L Atypical Lymphs % 4.0 H Monocytes % (Manual) 4.0 Neutrophils # (Manual) 80048 H Nucleated RBCs 2 H RBC Morphology Not Reportable Poikilocytosis 1+ H Anisocytosis 2+ H PT INR Sodium 130 L Potassium 3.0 L Chloride 98 Carbon Dioxide 31 BUN 43 H Creatinine 1.00 Estimated GFR 52.6 L BUN/Creatinine Ratio 43.0 H Glucose 84 Calcium 8.2 L Phosphorus 2.9 Total Bilirubin 1.2 AST 39 H ALT 29 Alkaline Phosphatase 155 H Troponin I Total Protein 4.8 L Albumin 2.7 L Globulin 2.1 Albumin/Globulin Ratio 1.3 Blood Type Antibody Screen Crossmatch [facility] Medical History Anxiety Essential hypertension GERD (gastroesophageal reflux disease) History of shingles Hyperlipidemia Hypothyroidism (acquired) Osteoporosis Paroxysmal atrial fibrillation with RVR Surgical History History of bilateral hip replacements History of cholecystectomy Family History Mother Stroke Brother Diabetes mellitus Sister Heart attack Social History household members: spouse Smoking Status: Former smoker alcohol intake: former Assessment & Plan Assessment & Plan narrative: PROBLEM LIST POSSIBLE ACUTE GI BLEED.? LIKELY RELATED TO ELIQUIS COAGULOPATHY. APPEAR RESOLVED ANEMIA OF ACUTE BLOOD LOSS VERSUS ACUTE ON CHRONIC BLOOD LOSS.? STABLE HEMOGLOBIN TODAY POST TRANSFUSION ELIQUIS COAGULOPATHY.? ELIQUIS ON HOLD ELEVATED INR.? IMPROVED AFTER VITAMIN K LEUKOCYTOSIS.? IMPROVED POSSIBLE ACUTE KIDNEY INJURY.? SIGNIFICANTLY ELEVATED BUN.? THIS COULD ALSO INDICATE CHRONIC BLOOD LOSS.? CONSIDER PRERENAL AZOTEMIA WELL. BUN IMPROVING THROMBOCYTOSIS.? CONSIDER LYMPHOMA.? COULD BE CLL. IMPROVING HYPONATREMIA.? COULD BE DUE TO DECREASED ORAL INTAKE. IMPROVED HYPOCHLOREMIA.? COULD BE DUE TO DECREASED ORAL INTAKE. IMPROVED ELEVATED LIVER ENZYMES.? CAUSE IS NOT FULLY CLEAR HYPOTHYROIDISM.? TSH AROUND 8. MONITOR ONLY FOR NOW HYPERTENSION PER HISTORY MORBID OBESITY.? LIFESTYLE CHANGES TO BE? RECOMMENDED ONCE APPROPRIATE ELEVATED TROPONIN.? COULD BE NSTEMI TYPE 2 DUE TO DEMAND ISCHEMIA DUE TO LOW HEMOGLOBIN LEVEL.? ACS IS NOT SUSPECTED PLAN? 04/22 PATIENT LABS ARE IMPROVING WBC DID DECREASE OVER THE LAST 48 HOURS WILL HOWEVER ADD ANTIFUNGAL THERAPY DISCONTINUE VANCOMYCIN CONTINUE CEFEPIME AND FLAGYL FOR NOW IF IMPROVING CONTINUE TO BE NOTED, WILL SWITCH TO ORAL AGENT IN THE NEXT 24 HOURS WILL ALSO ADD LACTOBACILLUS TO DECREASE THE RISK OF C DIFF COLITIS FURTHER CONTINUE TO FOLLOW LAB CLOSELY DAILY PHYSICAL THERAPY AND OCCUPATIONAL THERAPY TEAMS MOBILIZING PATIENT HAS MUCH TOLERATED IF LABS CONTINUE TO IMPROVE AND THERE IS NO SIGN OF RECURRENT BLEEDING LIKELY DISCHARGE IN NEXT 24 TO 48 HOURS TO HOME WITH HOME HEALTH 04/21 PATIENT UNABLE TO TOLERATE TRANSFUSION OVERNIGHT HOWEVER THIS MORNING SHE APPEARED TO BE IMPROVED CLINICALLY LAB DONE OVERNIGHT SHOWED ELEVATED TROPONIN AND WORSENING KIDNEY WELL LIVER FUNCTIONS NOT SURE THIS ISSUE REFLECTION OF PATIENT'S LAB DUE TO THE TRANSFUSION WHICH WAS DONE RIGHT PRIOR TO THE LABS HEMOGLOBIN LEVEL REPEATED AND WAS AGAIN BELOW 6 % WILL TRANSFUSE 2 UNITS PRBC TODAY IF PATIENT IS ABLE TO TOLERATE LASIX ORDERED WELL WILL ALSO GIVE 1 DOSE OF VITAMIN K DUE TO THE ELEVATED INR INR TO BE FOLLOWED DAILY IN REGARD TO THE ELEVATED TROPONIN WILL CONTINUE TO MONITOR CLOSELY ONLY FOR NOW REPEAT TROPONIN IF INDICATED CLINICALLY ON ANY KEEP PATIENT ON TELE WILL CONSIDER ASPIRIN HOWEVER PATIENT IS ACUTELY HEMORRHAGING SO, WILL CONTINUE TO HOLD ALL ANTI-PLATELET AND ANTICOAGULANT THERAPY MEME HOSE WILL BE ORDERED TO LOWER EXTREMITIES AVOID ALL LIVER AND KIDNEY TOXIC SUBSTANCES IF POSSIBLE UNLESS BENEFIT GREATER THAN RISK PATIENT STARTED ON ANTIBIOTICS OVERNIGHT WILL ADD FLAGYL WELL LACTOBACILLUS WILL DISCONTINUE VANCOMYCIN FOR NOW WELL ADDITIONAL MANAGEMENT PER CLINICAL COURSE PROGNOSIS IS GUARDED 04/20 WILL TRANSFUSE 3 UNITS OF PRBC REPEAT H&H 1 HOUR POST TRANSFUSION ADDITIONAL TRANSFUSIONS DICTATED CLINICALLY PATIENT IS NOT EXHIBITING ANY SIGN OF RESPIRATORY FAILURE VITAL SIGNS ARE FAIRLY STABLE.? NO TACHYCARDIA APPRECIATED WILL HOLD ORAL ANTICOAGULANT/ANTI-PLATELET THERAPY FOR NOW MEME HOSE WILL BE ORDERED TO LOWER EXTREMITIES SCDS FOR DVT PROPHYLAXIS PATIENT WILL BE STARTED ON IV FLUID WELL MONITOR ELECTROLYTES CLOSELY REGARD TO HER ABNORMAL BLOOD COUNT IF INDICATED, SHE COULD BE REFERRED TO HEMATOLOGY OUTPATIENT FOR FURTHER WORKUP AT THIS POINT I SUSPECT POSSIBLE LYMPHOMA. WILL VERIFY WITH HER PRIMARY CARE PHYSICIAN AVOID ALL NEPHROTOXINS DOSE MEDS PER GFR AVOID? LIVER TOXIC SUBSTANCES WELL DUE TO ELEVATED LFTS FOLLOW CLINICALLY AND WITH SERIAL LABS FOR THE SAME MANAGEMENT PROGNOSIS IS GUARDED DURATION OF STAY COULD BE BETWEEN 2-5 DAYS Time Spent With Patient Critical Care time: I spent a total of [] minutes of critical care time on this patient's care today; this time is exclusive of procedural time. Quality VTE Deep Vein Thrombosis/Pulmonary Embolism Present on Admission: No
--- NOTE | 2021-04-22 15:15 | CM.DPC ---
DCP continued: JEFFRY spoke with patient and patients . patient wants to go home with HH and does not want to go to SNF. Patients is adamant that the patient is to go to SNF at [place]. Patient has not been working with OT and only worked with PT once today. JEFFRY explained to the patients that the patient has not been working with OT and PT regularly so [facility] may not approve her SNF auth he stated understanding and is willing to pick her up at [place] if she is not able to go to SNF at [place]. JEFFRY called Quita Zambrano with [facility] at [phone] who is reviewing for SNF auth and she requested OT and PT notes be sent to her for her review. CHIVO Gamez sent those clinicals for there review. JEFFRY will follow up with [facility] in the morning to see if they will approve SNF Auth or not. IF they do not approve Auth then patient agrees to DC home with [facility] in place. F2F signed and faxed to [facility] to Review for. JEFFRY will follow up with [facility] tomorrow after talking with [place]. JEFFRY spoke to patients who stated understanding that if [facility] denies SNF auth that patient will be DC home with he stated understanding and stated he will pick her up if that is the case. JEFFRY called October at [facility] to check on if patient can come back tomorrow she siad yes as long as the [place] auth is approved. Jeffry will follow up with patient, patients after SNF auth is determined by [facility]. Helen Valadez RN Case Manger
--- NOTE | 2021-04-22 15:32 | CM.DPNOTE ---
Faxed recent OT/PT notes & PN per to [facility] for auth. Vera Marie CM Asst.
[2021-04-22] MEDS: SUCRALFATE 1 GM TABLET PO ×2 (16:48→20:47)
[2021-04-22] MEDS: LACTOBACILLUS ACIDOPHILUS TABLET 1 EACH PO (16:48)
[2021-04-22] MEDS: FLUCONAZOLE 100 MG TABLET 200 MG PO (16:54)
[2021-04-22] MEDS: FAMOTIDINE 20 MG TABLET PO (20:47)
[2021-04-22] MEDS: MORPHINE 2 MG/ML INJ IV (21:31)
[2021-04-23] VITALS (7 sets, daily range): BP systolic 117–148; BP diastolic 43–60; PULSE 67–77; RESP 16–17; TEMP 36.7–37.1; O2SAT 96–98
[2021-04-23] MEDS: CEFEPIME 1 GM in SODIUM CHLORIDE 0.9% 100 ML 200 ML IV (00:59)
[2021-04-23] MEDS: LEVOTHYROXINE 88 MCG TABLET PO (06:07)
[2021-04-23] MEDS: METOPROLOL ER 25 MG TABLET PO (09:24)
[2021-04-23] MEDS: LACTOBACILLUS ACIDOPHILUS TABLET 1 EACH PO ×2 (09:24→12:13)
[2021-04-23] MEDS: metroNIDAZOLE 500 MG TABLET PO (09:24)
[2021-04-23] MEDS: predniSONE 5 MG TABLET PO (09:24)
[2021-04-23] MEDS: SUCRALFATE 1 GM TABLET PO ×2 (09:24→12:13)
[2021-04-23] MEDS: FLUCONAZOLE 100 MG TABLET 200 MG PO (09:24)
[2021-04-23] MEDS: SODIUM CHLORIDE 0.9% FLUSH 10 ML IV (09:24)
--- NOTE | 2021-04-23 09:27 | OT.IP.EVAL ---
Current Diagnoses Melena (04/20/21) Past Medical History (Last Reviewed 04/21/21 @ 17:50 by Cuauhtemoc Pleitez MD) Anxiety Essential hypertension GERD (gastroesophageal reflux disease) History of bilateral hip replacements History of cholecystectomy History of shingles Hyperlipidemia Hypothyroidism (acquired) Osteoporosis Paroxysmal atrial fibrillation with RVR Surgical History (Last Reviewed 04/21/21 @ 17:50 by Cuauhtemoc Pleitez MD) History of bilateral hip replacements History of cholecystectomy Occupational Therapy Inpatient Evaluation/Re-Eval M1 PT/OT-IP Prior Functional Status Start: 04/21/21 08:46 Freq: NEEDED Status: Active Protocol: Document 04/23/21 09:28 [facility] (Rec: 04/23/21 09:48 [facility] [id number]) Medical Review Prior Functional Status Medical History Reviewed Yes Communication able to make needs known Mobility and Gait pt was just hospitalized last 04/11/21 for NSTEMI and d/c to SNF 04/16/21. Prior to last hospitalization, pt stated that she is modified independent with all mobilities and uses a 4WW for indoor mobility but uses a w/c at night and outdoor mobility . stated that she was able to use a SPC with STOREROOM CLERK on other side to get from the house to the car. Activities of Daily Living and IADL's Per pt states able to care for herself prior. Pt is questionable historian as per medical chart pt has underlying dementia. Social History Household Members spouse Living Arrangements House Number of Floors (Floors) Two Floors Number of Stairs To Enter/Railing? pt stays on main level of the house has a ramp to enter Home Environment High Toilet,Tub/Shower,Ramp Home Equipment Four Wheel Walker,Straight Cane,Manual Wheelchair,Shower Seat with Backrest,Hand Held Shower,Grab Bars Near Toilet, Grab Bars In Shower Additional Social History Comment pt sleeps on a recliner Has a caregiver that comes in 5x/week for ~ 3 hours to assist with house chores M2 OT-IP Current Condition Start: 04/23/21 09:28 Freq: Status: Active Protocol: Document 04/23/21 09:28 [facility] (Rec: 04/23/21 09:48 [facility] [id number]) Occupational Therapy Current Condition Current Condition Evaluation Date 04/23/21 Treatment Diagnosis Anemia, decreased mobility Diagnosis Onset Date 04/20/21 M3 OT- IP Subjective and Pain Start: 04/23/21 09:28 Freq: Status: Active Protocol: Document 04/23/21 09:28 [facility] (Rec: 04/23/21 09:48 [facility] [id number]) OT- Subjective Occupational Therapy Visit Type Type Initial Evaluation Visit Start Time 08:56 Visit Stop Time 09:27 Total Visit Minutes 31 Occupational Therapy Visit Comments Patient Comments Pt states aware it would be too great of a burden for her 86 year old to care for her and now agreeable to go to skilled rehab. OT Pain Assessment Pain When Pain Assessed At Rest Pain Present Pain Present Pain Reported Location Left Hip Intensity 7 Scale Used Numeric (0 - 10) Pain Behaviors Facial Grimacing,Guarding, Holding Area M4 OT- IP ADL's Start: 04/23/21 09:28 Freq: Status: Active Protocol: Document 04/23/21 09:28 [facility] (Rec: 04/23/21 09:48 [facility] [id number]) OT [id number] Comments OT Self-Feeding Comments NOt at meal time. OT ADL-Grooming Comments OT Grooming Comments Pt able to wash her face after set-up of wash cloth. OT ADL-Oral Care Comments Oral Care Comments Not performed. OT ADL-Dressing General Eval Lower Body Dressing Ability Maximum Assistance Comments OT Dressing Comments Assist for socks and to help vashti clothing over her feet and hips. OT ADL-Toileting General Evaluation Toileting Ability Maximum Assistance Areas Needing Assistance Manage Clothing,Perform Perineal Hygiene Comments OT Toileting Comments Assist for clothing and hygiene needs. OT ADL-Bathing Comments OT Bathing Comments Pt too tired to attempt at this time. M5 OT- IP IADL's Start: 04/23/21 09:28 Freq: Status: Active Protocol: Document 04/23/21 09:28 [facility] (Rec: 04/23/21 09:48 [facility] [id number]) OT-Instrumental Activities of Daily Living Deficits IADL Deficits Identified Deficits Home Safety Awareness Awareness of Need for Assistance at Home Decreased Awareness Ability to Problem Solve Emergency Unable to Problem Solve Situations Home Safety Comments Pt is a bit confused and per medical chart has underlying dementia and best to have someone assist her for all needs for safety and completeness. M6 OT- IP Functional Cognition Start: 04/23/21 09:28 Freq: Status: Active Protocol: Document 04/23/21 [facility] (Rec: 04/23/21 09:48 [facility] [id number]) Cognitive Factors Limiting Selfcare Function Cognitive Ability Level of Alertness Alert,Confusional State Patient Orientation Name,Place Attention Span Ability Capable of Focused Attention, Capable of Sustained Attention Ability to Follow Commands Able to Follow One Step Commands with Increased Time, Able to Follow One Step Commands with Repetition Cognitive Comments Cognitive Assessment Comments Pt highly distracted but able to redirect the pt. Pt needing concrete cues to follow. Pt also needing encouragement to participate. M7 OT- IP Mobility and Balance Start: 04/23/21:28 Freq: Status: Active Protocol: Document 04/23/21:28 [facility] (Rec: 04/23/21 09:48 [facility] [id number]) OT- Bed Mobility Assessment Rolling Type of Rolling Roll to Left Level of Assistance Moderate Assistance,Bedrails Supine to Sit Supine to Sit Assist Moderate Assistance,1 Person Assistance Sit to Supine Sit to Supine Assist Moderate Assistance,1 Person Assistance Scooting Scooting to Edge of Bed Moderate Assistance OT-Transfer Assessment Sit to and From Stand Sit to and from Stand Moderate Assistance,1 Person Assistance Transfers Transfer Ability Minimal Assistance,Moderate Assistance Technique Transfer Destination Bed,Bedside Commode Devices Transfer Assistive Devices Gait Belt,Front Wheeled Walker Comments Mobility Comments Assist to help get her trunk upright to the edge of the bed . MOD x1 to stand and MIN/MOD A to transfer to the C , assist to keep the FWW close to her and for balance. OT- Balance Assessment Sitting Balance and Reactions Static Sitting Balance Ability Good Dynamic Sitting Balance Ability Fair Standing Balance and Reactions Static Standing Balance Ability Poor Dynamic Standing Balance Ability Poor M8 OT- IP Objective Assessments Start: 04/23/21:28 Freq: Status: Active Protocol: Document 04/23/21:28 [facility] (Rec: 04/23/21 09:48 [facility] [id number]) OT Strength Comments Strength Comments NOt able to fully assess, per pt's ability to assist with ADL's, pt is at least 3-/5 for BUE. OT-Muscle Tone Assessment Muscle Tone WNL Yes M9 OT- IP Assessment and Plan Start: 04/23/21 09:28 Freq: Status: Active Protocol: Document 04/23/21:28 [facility] (Rec: 04/23/21 09:48 [facility] [id number]) OT Summary Assessment and Plan Potential Rehabilitation Potential Fair Analytic Complexity at Evaluation Moderate Summary OT Impairments Pain,Balance,Functional Cognition,Functional Mobility, Self-Feeding,Grooming,Dressing ,Toileting,Bathing,Toilet Transfers,Shower Transfers, Activity Tolerance Progress Towards Goals Slow Progress due to Pain,Slow Progress due to Medical Issues,Slow Progress due to Activity Tolerance,Slow Progress due to Cognition Assessment Summary Pt MOD complexity and main barriers are pain, decreased activity tolerance, and needing lots of encouragement. Pt is aware that she currently is too great of care for her elderly spouse to assist at home and agreed would be best to go to go back to skilled rehab prior to going home. Goals Grooming Goal Independent Dressing Goal Independent Toileting Goal Standby Assistance Bathing Goal Minimal Assistance Toilet Transfer Goal Independent Shower Transfer Goal Contact Guard Assistance Days to Meet Goals 15 Frequency of Treatment Frequency Of Treatment Once a Day Treatment Plan OT Treatment Plan ADL Training,Functional Cognition Training,Functional Mobility,Patient/Family Education,Discharge Planning Other Treatment Recommendations and Next apartment leasing consultant front of the sink for Treatment Focus grooming needs. Discharge Recommendations OT Discharge Recommendations SNF Rehab Transportation Needs at Discharge Wheelchair/Cabulance
[2021-04-23] MEDS: MORPHINE 2 MG/ML INJ IV (09:28)
[2021-04-23 10:30] LABS: Add Manual Diff / Slide Review YES; Hematocrit 26.9 % (36-46); Hemoglobin 9.2 g/dL (12.0-16.0); Mean Corpuscular Hemoglobin 28.8 PG (26-34); Mean Corpuscular Volume 84.5 fL (80-100); Platelet Count 484 X10^3/uL (150-400); Red Blood Cell Count 3.19 X10^6/uL (4.0-5.2); Red Cell Distribution Width 15.4 % (11.6-14.8)
[2021-04-23 10:52] LABS: Anisocytosis 2+; Neutrophils Absolute Manual 12730 /uL (3000-5900); Polychromasia 1+; Total Cells Counted 100
--- NOTE | 2021-04-23 11:37 | DI.RAD.S_ITS ---
PROCEDURE: XR HIP W PEL IF DONE LT 2V INDICATIONS: PAIN TECHNIQUE: AP pelvis and lateral view of the left hip acquired. COMPARISON: [facility], CR, XR HIP W PEL IF DONE RT 2V, 04/10/2021, 10:52. FINDINGS: Bones: Patient is status post prior bilateral hip arthroplasty, with hardware components in expected positions. Bilateral hip alignment is anatomic. No gross hardware loosening or failure. There is no fracture or dislocation. No suspicious intraosseous lesion. Soft tissues: Overlying postoperative changes are noted. No suspicious soft tissue densities. IMPRESSION: Stable anatomic bilateral hip alignment. No gross hardware complication. No acute fracture or dislocation. Dictated by: Chan Kamara M.D. on 04/23/2021 at 11:57 Approved by: Chan Kamara M.D. on 04/23/2021 at 11:58
[2021-04-23 11:40] LABS: INR 1.2 (0.9-1.3)
[2021-04-23 11:47] LABS: Alanine Aminotransferase 31 IU/L (<35); Albumin 2.8 g/dL (3.5-5.0); Albumin Globulin Ratio 1.3 (1.0-2.8); Alkaline Phosphatase 166 U/L (38-126); Aspartate Aminotransferase 39 IU/L (14-36); BUN Creatinine Ratio 29.1 (6-22); Bilirubin Total 0.6 mg/dL (0.2-1.3); Blood Urea Nitrogen 25 mg/dL (7-17); Calcium 8.4 mg/dL (8.4-10.2); Carbon Dioxide 26 mmol/L (22-32); Chloride 103 mmol/L (98-107); Estimated Glomerular Filt Rate > 60.0 mL/min (>60); Globulin 2.1 g/dL (1.7-4.1); Glucose 117 mg/dL (80-110); HEMOLYSIS < 15 (0-50); Sodium 132 mmol/L (137-145); Total Protein 4.9 g/dL (6.3-8.2)
--- NOTE | 2021-04-23 11:52 | PT-IP ANOTE ---
Pt refused tx upon late am arrival due to L leg pain excruciating reported (no scale rating identified when asked), can't find a comfortable spot and asked and waiting on pain medication. She stated recently had xray taken of L leg and wanting to know what the results were before mobilizing more. Pt was agree able to [employer]CHIT[employer] coming back later.
[2021-04-23] MEDS: DOXYCYCLINE HYCLATE 100 MG TABLET PO (12:13)
[2021-04-23] MEDS: TRAMADOL 50 MG TABLET PO (12:15)
--- NOTE | 2021-04-23 12:23 | PC.NURSE ---
Addendum entered by Lizzeth Sousa R.N. 04/23/21 14:17: Report called to [facility] staff. Addendum entered by Lizzeth Sousa R.N. 04/23/21 13:58: Patient requesting a laxative, suppository given. Original Note: Patient oriented to self, date and time, c/o pain to left leg and hip, MD aware and xray ordered. Patient given 50mg tramadol with some yogurt. Patient refusing meals, had 100cc emesis about 0900 this am.Bed alarm on.
--- NOTE | 2021-04-23 12:44 | CM.DPNOTE ---
Addendum entered by Vera Marie 04/23/21 14:26: Faxed DC sum to . Vera Marie CM Asst. Addendum entered by Vera Marie 04/23/21 14:25: Faxed final SNF packet (except DC sum) to and received conf. Vera Marie CM Asst. Original Note: Quita from [place] called with [facility] auth #[id number]. Relayed to [place]. Vera Marie CM Asst.
[2021-04-23] MEDS: BISACODYL 10 MG SUPP PR (13:39)
[2021-04-23] MEDS: SODIUM,POTASSIUM PHOSPHATES PACKET 2 EACH PO (13:39)
[2021-04-23 13:45] LABS: COVID19 -Nasal RAPID Negative (Negative)
--- NOTE | 2021-04-23 13:45 | PM.DS.1 ---
History of Present Illness History of Present Illness Chief complaint: Black Stools Narrative: 86-YEAR-OLD FEMALE WHO IS A POOR HISTORIAN AND APPEARED TO HAVE SOME UNDERLYING DEMENTIA PATIENTS LIVE AT ASSISTED LIVING OR SOME TYPE OF NURSING FOR FACILITY AND WAS SENT TO THE HOSPITAL DUE TO BLACK TARRY STOOL. DUE TO HER INABILITY TO PROVIDE A RELIABLE HISTORY. THE HISTORY WAS TAKEN FROM THE ER RECORDS AND NURSING NOTES. PATIENT AGAIN WAS SENT TO THE HOSPITAL WITH REPORTED CHANGE IN MENTATION WITH WHAT THE FACILITIES DESCRIBED WORD STARTED WELL BLACK TARRY STOOL. SHE REPORTEDLY IS ON LONG-TERM ANTICOAGULANT FOR STROKE PREVENTION DUE TO ATRIAL FIBRILLATION. SHE IS ON ELIQUIS. IN THE ER, IT IS NOTED ON LAB DATA HEMOGLOBIN IS AROUND 4 %. COMPARED TO BASELINE HEMOGLOBIN OF 9 ON PRIOR ADMISSION. HAD WBC IS AROUND 30,000. HOWEVER THIS APPEARED TO BE CHRONIC IN NATURE. THROMBOCYTOSIS WITH A PLATELET LEVEL ABOVE 600,000 ALSO NOTED. HER INR IS AROUND 2. SHE IS NOT ON COUMADIN BUT ON ELIQUIS PER RECORD METABOLIC PANEL SHOWING LOW SODIUM AT 128 BUN IS 70. CREATININE IS FAIRLY REASONABLE. SHE IS ON CHRONIC PREDNISONE 5 MG. FROM AN OLD MEDICATION LIST, IT APPEARS SHE HAS HYPERTENSION, ACID REFLUX DISEASE, OSTEOPOROSIS AND HYPOTHYROIDISM. NO MENTION OF CARCINOMA DESPITE HER LAB EXHIBITING EVIDENCE OF POSSIBLE LYMPHOMA. Discharge Providers Provider Date of admission: 04/20/21 18:42 Discharge Date: 04/23/21 Primary care physician: Jose Daniel Herrera MD Consults: 04/20/21 17:23 Consult to General Surgery Stat Comment: Consulting Provider: Gary Patel Reason for consultation: GI bleed Has provider been notified: Yes 04/20/21 19:07 Consult to Discharge Planning Routine Comment: Consult to Occupational Therapy Evaluate & Treat Comment: Physician Instructions: Evaluate and treat Consult to Physical Therapy Evaluate & Treat Comment: Physician Instructions: Evaluate and Treat Discharge provider: Precious Jiménez DO Summary Hospital Course Discharge Diagnosis: ACUTE GI BLEED.? LIKELY RELATED TO ELIQUIS COAGULOPATHY.? RESOLVED ANEMIA OF ACUTE BLOOD LOSS VERSUS ACUTE ON CHRONIC BLOOD LOSS.? STABLE HEMOGLOBIN POST TRANSFUSION ELIQUIS COAGULOPATHY.? ELIQUIS DC ELEVATED INR.? IMPROVED AFTER VITAMIN K LEUKOCYTOSIS.? IMPROVED POSSIBLE ACUTE KIDNEY INJURY.? SIGNIFICANTLY ELEVATED BUN.? THIS COULD ALSO INDICATE CHRONIC BLOOD LOSS.? CONSIDER PRERENAL AZOTEMIA WELL.? BUN IMPROVING THROMBOCYTOSIS.? CONSIDER LYMPHOMA.? COULD BE CLL.? IMPROVING HYPONATREMIA.? COULD BE DUE TO DECREASED ORAL INTAKE.? IMPROVED ELEVATED LIVER ENZYMES.? CAUSE IS NOT FULLY CLEAR HYPOTHYROIDISM.? TSH AROUND 8.? MONITOR ONLY FOR NOW HYPERTENSION PER HISTORY MORBID OBESITY.? LIFESTYLE CHANGES TO BE? RECOMMENDED ONCE APPROPRIATE ELEVATED TROPONIN.? COULD BE NSTEMI TYPE 2 DUE TO DEMAND ISCHEMIA DUE TO LOW HEMOGLOBIN LEVEL.? ACS IS NOT SUSPECTED HYPOPHOSPHATEMIA. PHOSPHORUS WILL BE REPLACED ORALLY PRIOR TO DISCHARGE PAROXYSMAL ATRIAL FIBRILLATION PER HISTORY HYPERLIPIDEMIA PER HISTORY HYPERTENSION PER HISTORY HYPOTHYROIDISM PER HISTORY Hospital Course: THIS IS A PLEASANTLY DEMENTED 86-YEAR-OLD FEMALE WHO WAS ADMITTED TO THE HOSPITAL WITH SEVERE ANEMIA. THIS WAS LIKELY DUE TO GI BLEED DUE TO ELIQUIS COAGULOPATHY HER ELIQUIS WAS STOPPED. PATIENT WAS TRANSFUSED 3 UNITS OF RED BLOOD CELL SINCE THEN, HER HEMOGLOBIN HAS BEEN STABLE. NO RECURRENT BLEEDING APPRECIATED. NO BLOOD PER RECTUM. NO BLOOD IN HER SPUTUM OR IN HER URINE. IF I WILL STOP THE ELIQUIS FOR NOW. SHE IS ON THE ELIQUIS FOR STROKE PREVENTION IN REGARD TO ATRIAL FIBRILLATION DUE TO HER MENTATION AND SIGNIFICANT RISK OF FALL WELL RECENT HEMORRHAGE, THIS MEDICATION SHOULD NOT BE RESTARTED PATIENT ALSO HAD SIGNIFICANT ELEVATED WBC LEVEL WELL PLATELET ON ADMISSION. SHE WAS STARTED ON ANTIBIOTICS DESPITE OUR INABILITY TO POINT TO ANY SOURCE OF INFECTION SHE DID NOT APPEAR SEPTIC OR TOXIC. SHE HAS BEEN ON ANTIBIOTICS FOR THE LAST FEW DAYS AND WBC LEVEL HAS BEEN IMPROVING. I WILL GO AHEAD AND KEEP HER ON ANTIBIOTICS FOR NOW. HOWEVER HER PCP COULD DISCONTINUE ANTIBIOTICS IF THEY FEEL THAT THIS IS NOT NECESSARY. ALSO, PATIENT COULD HAVE A BLOOD DISEASE. SUSPECT POSSIBLE CLL. IF SO DESIRED, PATIENT COULD BE REFERRED TO MANAGER CARD FOR FURTHER WORKUP OUTPATIENT. PATIENT WAS ALSO STARTED ON RISPERDAL AND SEROQUEL. SHE WAS ON XANAX WHICH WAS DISCONTINUED. BENZOS ARE NOT INDICATED FOR USE IN A 86-YEAR-OLD FEMALE WITH DEMENTIA. Status at Discharge Cognitive/behavioral status at discharge: at baseline, confused Functional status at discharge: uses cane/walker Overall status at discharge: patient is progressing back to baseline Time Spent with Patient Time spent: Greater than 30 minutes Exam Vital Signs (past 8 hours): - 04/23/21 08:00 04/23/21 08:02 04/23/21 10:03 Temperature 98.1 F Pulse Rate 72 Respiratory Rate 16 Blood Pressure 118/52 L Pulse Oximetry 98 96 98 Oxygen Delivery Method Room Air Oxygen Flow Rate 0 Narrative Exam Narrative: NO ACUTE DISTRESS.? PATIENT IS ALERT, AWAKE, ORIENTED X3 HEAD ATRAUMATIC NORMOCEPHALIC NECK : SUPPLE WITHOUT ADENOPATHY NO CAROTID BRUITS EYE:? EOMI, PERRLA, NORMAL CONJUNCTIVA; NO JAUNDICE CHEST:? REGULAR RATE.? ? NO RUBS.? PMI IS NON DISPLACED.? NO MURMURS; NORMAL S1-S2 PULMONARY:? DECREASED BS OVER THE BASES.? MILD BIBASILAR CRACKLES NOTED; NO INCREASED DULLNESS TO PERCUSSION.? NO WHEEZING.? NO RHONCHI.? NO RALES.? NO PLEURAL RUBS ABDOMEN:? SOFT.? NONTENDER.? NONDISTENDED.? BOWEL SOUNDS ARE PRESENT IN ALL 4 QUADRANTS AND NORMOACTIVE.? NO CARDIOMEGALY EXTREMITIES: NO EDEMA..? NO CYANOSIS CLUBBING NOTED. NEURO:? CRANIAL NERVES 2-12 GROSSLY INTACT. NO FOCAL NEUROLOGICAL DEFICIT NOTED.?? .? UNDERLYING DEMENTIA MSK:? NORMAL RANGE OF MOTION FOR AGE.? NO JOINT EFFUSION. SKIN:? FAIR SKIN TURGOR FOR AGE.? NO OBVIOUS LESIONS.? NO ECCHYMOSIS.? NO PETECHIAE :? NORMAL EXTERNAL GENITALIA. PSYCH :? CALM.? COOPERATIVE.? UNDERLYING DEMENTIA Objective Labs Result Diagrams: 04/23/21 10:10 04/23/21 10:10 Labs: Laboratory Results - last 24 hr 04/23/21 04/23/21 04/23/21 10:10 10:10 10:10 WBC 19.0 H RBC 3.19 L Hgb 9.2 L Hct 26.9 L MCV 84.5 MCH 28.8 MCHC 34.0 RDW 15.4 H Plt Count 484 H Neut % (Auto) Not Reportable Lymph % (Auto) Not Reportable [place] % (Auto) Not Reportable Eos % (Auto) Not Reportable Baso % (Auto) Not Reportable Lymph # (Auto) Not Reportable [place] # (Auto) Not Reportable Baso # (Auto) Not Reportable Total Counted 100 Seg Neutrophils % 66.0 Band Neutrophils % 1.0 L Lymphocytes % (Manual) 18.0 L Atypical Lymphs % 1.0 H Monocytes % (Manual) 12.0 H Eosinophils % (Manual) 2.0 Neutrophils # (Manual) 88883 H RBC Morphology Not Reportable Polychromasia 1+ H Anisocytosis 2+ H PT 13.0 H INR 1.2 Sodium 132 L Potassium 4.0 Chloride 103 Carbon Dioxide 26 BUN 25 H Creatinine 0.86 Estimated GFR > 60.0 BUN/Creatinine Ratio 29.1 H Glucose 117 H Calcium 8.4 Phosphorus 2.0 L Total Bilirubin 0.6 AST 39 H ALT 31 Alkaline Phosphatase 166 H Total Protein 4.9 L Albumin 2.8 L Globulin 2.1 Albumin/Globulin Ratio 1.3 SARS-CoV-2 (PCR) 04/23/21 12:34 WBC RBC Hgb Hct MCV MCH MCHC RDW Plt Count Neut % (Auto) Lymph % (Auto) [place] % (Auto) Eos % (Auto) Baso % (Auto) Lymph # (Auto) [place] # (Auto) Baso # (Auto) Total Counted Seg Neutrophils % Band Neutrophils % Lymphocytes % (Manual) Atypical Lymphs % Monocytes % (Manual) Eosinophils % (Manual) Neutrophils # (Manual) RBC Morphology Polychromasia Anisocytosis PT INR Sodium Potassium Chloride Carbon Dioxide BUN Creatinine Estimated GFR BUN/Creatinine Ratio Glucose Calcium Phosphorus Total Bilirubin AST ALT Alkaline Phosphatase Total Protein Albumin Globulin Albumin/Globulin Ratio SARS-CoV-2 (PCR) Negative PFSH Medical History Anxiety Essential hypertension GERD (gastroesophageal reflux disease) History of shingles Hyperlipidemia Hypothyroidism (acquired) Osteoporosis Paroxysmal atrial fibrillation with RVR Surgical History History of bilateral hip replacements History of cholecystectomy Family History Mother Stroke Brother Diabetes mellitus Sister Heart attack Social History household members: spouse Smoking Status: Former smoker alcohol intake: former Discharge Plan Discharge Plan Patient Disposition: SNF Transfer to: [facility] Consult as needed: Dental, Hearing, Mental health, Podiatry and Vision Discharge orders & Medications Prescriptions: New Bacid 1 billion cell- 250 mg Tablet 1 tab PO TIDWM Qty: 90 0RF doxycycline hyclate 100 mg Tablet 100 mg PO BID Qty: 20 0RF famotidine 40 mg tablet 40 mg PO BEDTIME Qty: 120 0RF fluconazole [Diflucan] 100 mg Tablet 200 mg PO DAILY Qty: 10 0RF hydrocodone-acetaminophen 5-325 mg Tablet 1 tab PO Q4HR PRN (Reason: Pain, Moderate (4-6)) Qty: 20 0RF sucralfate 1 gram Tablet 1 gm PO ACHS Qty: 120 0RF tramadol 50 mg Tablet 50 mg PO Q4H PRN (Reason: Pain, Moderate (4-6)) Qty: 30 0RF amoxicillin-pot clavulanate [Augmentin] 875-125 mg Tablet 1 tab PO BID Qty: 20 0RF quetiapine [Seroquel] 25 mg tablet 12.5 mg PO BEDTIME Qty: 30 0RF risperidone [Risperdal] 0.5 mg tablet 0.5 mg PO BID Qty: 60 0RF Continued metoprolol succinate 25 mg tablet extended release 24 hr 25 mg PO DAILY 0RF losartan 25 mg tablet 25 mg PO DAILY 0RF prednisone 5 mg tablet 5 mg PO DAILY 0RF levothyroxine 88 mcg Tablet 88 mcg PO QAM 0RF calcitonin (salmon) 200 unit/actuation spray,non-aerosol 1 spray intranasal DAILY 0RF Rx Instructions: alternate nostrils ibandronate 150 mg tablet 150 mg PO QMONTH 0RF Discontinued alprazolam 0.5 mg tablet 0.5 mg PO BID PRN (Reason: Anxiety) 0RF omeprazole 20 mg capsule,delayed release(DR/EC) 20 mg PO QAM 0RF Eliquis 5 mg Tablet 5 mg PO BID 30 Days Qty: 60 0RF oxycodone-acetaminophen 5-325 mg Tablet 1 tab PO BID PRN (Reason: Pain (Scale Score 7-10)) Qty: 20 0RF alprazolam [Xanax] 0.5 mg tablet 0.5 mg PO BID Qty: 30 0RF Follow up/Referrals: Jose Daniel Herrera MD [Primary Care Provider] - Discharge Health Status Multidrug resistant organism: No MDRO Diet/Activity/Treatments Diet: Regular Liquid consistency: Normal/Thin Food texture: Soft Skin/Wound/Dressing Care Report to your healthcare provider any signs of infection, such as:: chills, fever, night sweats and increased pain Discharge Data Primary Care Provider: Jose Daniel Herrera VTE Deep Vein Thrombosis/Pulmonary Embolism Present on Admission: No
== END 2021-04-23 14:45 | DRG 377 ==
LOC: ED 18:05 → AC 18:46
PROVIDERS: Internal Medicine; Admitting Provider Hospitalist; Emergency Provider Emergency Medicine; PCP Internal Medicine; Referring Provider Emergency Medicine; Visit Provider Hospitalist
DX: K92.1 Melena (principal); I21.A1 Myocardial infarction type 2; D62 Acute posthemorrhagic anemia; E87.1 Hypo-osmolality and hyponatremia; D68.32 Hemorrhagic disorder due to extrinsic circulating anticoagulants; I48.0 Paroxysmal atrial fibrillation; E87.8 Other disorders of electrolyte and fluid balance, not elsewhere classified; D72.829 Elevated white blood cell count, unspecified; D75.839 Thrombocytosis, unspecified; F03.90 Unspecified dementia, unspecified severity, without behavioral disturbance, psychotic disturbance, mood disturbance, and anxiety; R74.01 Elevation of levels of liver transaminase levels; I10 Essential (primary) hypertension; K21.9 Gastro-esophageal reflux disease without esophagitis; E03.9 Hypothyroidism, unspecified; T45.515A Adverse effect of anticoagulants, initial encounter; T80.92XA Unspecified transfusion reaction, initial encounter; Z20.822 Contact with and (suspected) exposure to COVID-19; Z79.01 Long term (current) use of anticoagulants; Z66 Do not resuscitate; Z87.891 Personal history of nicotine dependence
CPT/HCPCS: 36415; 36430; 36569; 36592; 36600; 71045; 73502; 80053; 81001; 82805; 83605; 83690; 83880; 84100; 84443; 84484; 85007; 85014; 85018; 85025; 85610; 85730; 86078; 86850; 86900; 86901; 87040; 87086; 87635; 93005; 94760; 96374; 97162; 97166; 99232; 99284; C9803; P9016; A9270; C9113; J0692; J1200; J1642; J1940; J2270; J2405; J3430

== ENCOUNTER 2021-05-05 14:56 | Emergency (ER) | payer OTHER, SELFPAY ==
[2021-04-22 17:39] VITALS: BMI 24.5
[2021-05-05] VITALS (18 sets, daily range): BP systolic 99–195; BP diastolic 53–98; PULSE 94–128; RESP 12–36; TEMP 36.7; O2SAT 88–100
[2021-05-05 15:47] LABS: Add Manual Diff / Slide Review NO; Basophils Absolute Auto 100 /uL (0-100); Basophils Percent Auto 0.7 % (0-2); Eosinophils Absolute Auto 0 /uL (0-450); Eosinophils Percent Auto 0.1 % (2-4); Hematocrit 31.6 % (36-46); Hemoglobin 10.1 g/dL (12.0-16.0); Lymphocytes Absolute Auto 700 /uL (1100-4500); Lymphocytes Percent Auto 4.2 % (25-40); Mean Corpuscular Hemoglobin 27.4 PG (26-34); Mean Corpuscular Volume 85.4 fL (80-100); Monocytes Absolute Auto 700 /uL (0-900); Monocytes Percent Auto 4.1 % (3-14); Neutrophils Absolute Auto 14700 /uL (1500-7000); Neutrophils Percent Auto 90.9 % (50-75); Platelet Count 525 X10^3/uL (150-400); White Blood Cell Count 16.1 X10^3/uL (4.5-11.0)
[2021-05-05] MEDS: MORPHINE 2 MG/ML INJ IV (15:47)
[2021-05-05] MEDS: ONDANSETRON 4 MG/2 ML INJ IV (15:47)
[2021-05-05 15:50] LABS: INR 1.2 (0.9-1.3)
[2021-05-05 15:52] LABS: PTT Partial Thromboplastin Tim 28 SECONDS (26.4-36.2)
--- NOTE | 2021-05-05 16:05 | ED_ITS ---
HPI - General Adult <Dasha Funes MD - Last Filed: 05/06/21 08:08> General Chief complaint: Abdominal Pain Stated complaint: Abdominal pain Time Seen by Provider: 05/05/21 15:28 Source: patient and EMS Mode of arrival: EMS History of Present Illness HPI narrative: 86-year-old woman recently admitted with a GI bleed with a previous history of dementia, paroxysmal atrial fibrillation with apixaban recently discontinued, history of NSTEMI, congestive heart failure, hypothyroidism with recently significant leukocytosis. she was discharged home from the hospital on April 23. She returns today complaining of increasing lower abdominal pain with no bowel movement for the past 48 hours. Related Data Home Medications Medication Instructions Recorded Confirmed losartan 25 mg tablet 25 mg PO QAM 04/10/21 05/05/21 metoprolol succinate 25 mg 25 mg PO QAM 04/10/21 05/05/21 tablet,extended release 24 hr calcitonin (salmon) 200 1 spray INTRANASAL DAILY 04/11/21 05/05/21 unit/actuation nasal spray ibandronate 150 mg tablet 150 mg PO QMONTH 04/11/21 05/05/21 levothyroxine 88 mcg tablet 88 mcg PO QAM 04/11/21 05/05/21 prednisone 5 mg tablet 5 mg PO QAM 04/11/21 05/05/21 L.acidophilus-L.bulgar-B.bifid-S.thermoph 1 tab PO BID 05/05/21 05/05/21 1 billion cell-250 mg tablet (Bacid) albuterol sulfate 90 mcg/actuation 2 inh INHALATION Q6HR 05/05/21 05/05/21 aerosol inhaler polyethylene glycol 3350 17 gram 17 g PO QAM 05/05/21 05/05/21 oral powder packet (Miralax) Previous Rx's Medication Instructions Recorded famotidine 40 mg tablet 40 mg PO BEDTIME #120 tab 04/23/21 hydrocodone 5 mg-acetaminophen 325 1 tab PO Q4HR PRN #20 tab 04/23/21 mg tablet quetiapine 25 mg tablet (Seroquel) 12.5 mg PO BEDTIME #30 tab 04/23/21 risperidone 0.5 mg tablet 0.5 mg PO BID #60 tab 04/23/21 (Risperdal) sucralfate 1 gram tablet 1 gm PO ACHS #120 tab 04/23/21 tramadol 50 mg tablet 50 mg PO Q4H PRN #30 tab 04/23/21 Allergies Allergy/AdvReac Type Severity Reaction Status Date / Time Sulfa (Sulfonamide Allergy Unknown Verified 05/05/21 15:28 Antibiotics) [SULFA (SULFONAMIDE ANTIBIOTICS)] <Casper Mendoza DO - Last Filed: 05/05/21 23:58> History of Present Illness HPI narrative: 86-year-old woman recently admitted with a GI bleed with a previous history of dementia, paroxysmal atrial fibrillation with apixaban recently discontinued, history of NSTEMI, congestive heart failure, hypothyroidism with recently significant leukocytosis. she was discharged home from the hospital on April 23. She returns today complaining of increasing lower abdominal pain with no bowel movement for the past 48 hours. She felt like that the abdominal pain started this morning. She is not having any urinary symptoms. No vomiting. By the time I evaluated her she had received some pain medicine that she felt like her symptoms have been improving. No chest pain. No shortness of breath. She does not think that she has been on her blood thinner since her admission to the hospital a couple weeks ago for the GI bleed. <Casper Mendoza DO - Last Filed: 05/05/21 23:58> Constitutional Constitutional: Denies fever(s) and Denies headache(s) ENT Ears, Nose, Mouth, and Throat: Denies headache(s) Cardiovascular Cardiovascular: Denies chest pain and Denies dyspnea Respiratory Respiratory: Denies dyspnea Gastrointestinal Gastrointestinal: Reports as per HPI and Reports system reviewed and no additional complaints, except as documented Genitourinary Genitourinary: Denies dysuria Musculoskeletal Comments: No arm or leg pain Integumentary/Breasts Skin/Breast: Reports system reviewed and no additional complaints, except as documented Neurologic Neurologic: Denies headache(s) Psychiatric Psychiatric: Reports system reviewed and no additional complaints, except as documented Endocrine Endocrine: Reports system reviewed and no additional complaints, except as documented Hematologic/Lymphatic On Anticoagulants: No Allergic/Immunologic Allergic/Immunologic: Reports system reviewed and no additional complaints, except as documented Patient History <Dasha Funes MD - Last Filed: 05/06/21 08:08> Medical History (Updated 05/05/21 @ 21:01 by Aimee Forrest RN) Anxiety Essential hypertension GERD (gastroesophageal reflux disease) History of shingles Hyperlipidemia Hypertension Hypothyroidism (acquired) Osteoporosis Paroxysmal atrial fibrillation with RVR Surgical History (Updated 05/05/21 @ 21:01 by Aimee Forrest RN) History of bilateral hip replacements History of cholecystectomy Presence of left artificial hip joint Family History Mother Stroke Brother Diabetes mellitus Sister Heart attack Social History household members: spouse Smoking Status: Former smoker alcohol intake: former Smoking Status: Former smoker Substance Use Type: does not use Exam <Dasha Funes MD - Last Filed: 05/06/21 08:08> Initial Vital Signs Initial Vital Signs: Vital Signs Pulse Rate 120 H 05/05/21 15:03 Respiratory Rate 36 H 05/05/21 15:03 Pulse Oximetry 95 05/05/21 15:03 <Casper Mendoza DO - Last Filed: 05/05/21 23:58> Initial Vital Signs Initial Vital Signs: Vital Signs Pulse Rate 120 H 05/05/21 15:03 Respiratory Rate 36 H 05/05/21 15:03 Pulse Oximetry 95 05/05/21 15:03 Const General: cooperative, comfortable and well developed Limitations: mental status not altered HENDE Head: normal to inspection and normocephalic Eyes General: appearance normal, both eyes and all related structures Resp Effort & Inspection: normal respiratory effort Auscultation: clear to auscultation bilaterally Cardio Rate: regular rate Rhythm: regular rhythm GI Inspection: normal to inspection Palpation: soft, No firm and tender (Mild tender mid abdomen) Back/Spine/Pelvis Back: No CVA tenderness Skin General: no rashes or lesions noted Neuro General: patient alert, patient awake, patient oriented x3 and moves all extremities Speech: speech normal Extrem General: normal to inspection and capillary refill normal Psych Appearance: grossly normal and well kempt Course <Dasha Funes MD - Last Filed: 05/06/21 08:08> Orders Ordered: Discontinued Medications Heparin Sodium (Porcine) (Heparin 5,000 Unit/Ml Vial) 5,200 unit 80 unit/kg (5200 unit) IV NOW ONE Stop: 05/05/21 20:40 Last Admin: 05/05/21 20:46 Dose: 5,200 unit Documented by: DEVYN Hydromorphone HCl (Hydromorphone 0.5 Mg Inj) 0.5 mg IV Q15MIN PRN PRN Reason: Pain, Last Admin: 05/05/21 21:04 Dose: 0.5 mg Documented by: Admin: 05/05/21 17:02 Dose: 0.5 mg Documented by: Admin: 05/05/21 16:24 Dose: 0.5 mg Documented by: DEVYN Piperacillin Sod/Tazobactam (Sod 4.5 gm/ Sodium Chloride) 100 mls @ 200 mls/hr IV NOW ONE Stop: 05/05/21 16:16 Last Infusion: 05/05/21 17:35 Dose: 0 mls/hr Documented by: Admin: 05/05/21 17:02 Dose: 200 mls/hr Documented by: DEVYN Sodium Chloride (Normal Saline 0.9%) 1,000 mls @ 1,000 mls/hr IV BOLUS ONE Stop: 05/05/21 17:23 Last Infusion: 05/05/21 18:00 Dose: 0 mls/hr Documented by: Admin: 05/05/21 16:38 Dose: 1,000 mls/hr Documented by: DEVYN Sodium Chloride (Normal Saline 0.9%) 1,000 mls @ 125 mls/hr IV BOLUS ONE Stop: 05/06/21 00:55 Last Infusion: 05/05/21 21:22 Dose: 0 mls/hr Documented by: Infusion: 05/05/21 20:51 Dose: 0 mls/hr Documented by: Admin: 05/05/21 17:03 Dose: 125 mls/hr Documented by: DEVYN Heparin Sodium/Dextrose (Heparin Drip) 25,000 unit in 500 mls @ 23.4 mls/hr IV CONT RIAZ; Protocol Last Titration: 05/05/21 21:40 Dose: 0 units/kg/hr, 0 mls/hr Documented by: Admin: 05/05/21 20:47 Dose: 18 units/kg/hr, 23.4 mls/hr Documented by: DEVYN Morphine Sulfate (Morphine 2 Mg/Ml Inj) 2 mg IV NOW ONE Stop: 05/05/21 15:41 Last Admin: 05/05/21 15:47 Dose: 2 mg Documented by: DEVYN Ondansetron HCl (Ondansetron 4 Mg/2 Ml Inj) 4 mg IV NOW ONE Stop: 05/05/21 15:41 Last Admin: 05/05/21 15:47 Dose: 4 mg Documented by: DEVYN Vital Signs Vital signs: Vital Signs - 8 hr 05/05/21 16:00 05/05/21 16:01 05/05/21 16:37 Pulse Rate 112 H 102 H 122 H Respiratory Rate 33 H 32 H 23 Blood Pressure 178/81 H 180/77 H Pulse Oximetry 96 95 88 L 05/05/21 17:00 05/05/21 17:30 05/05/21 17:31 Pulse Rate 118 H 94 H 103 H Respiratory Rate 20 14 13 Blood Pressure 195/81 H 151/67 H Pulse Oximetry 96 100 100 05/05/21 18:00 05/05/21 18:30 05/05/21 18:31 Pulse Rate 95 H 105 H Respiratory Rate 12 12 Blood Pressure 162/68 H 119/53 L Pulse Oximetry 99 100 05/05/21 19:00 05/05/21 19:30 05/05/21 20:00 Pulse Rate 104 H 111 H 111 H Respiratory Rate 16 16 18 Blood Pressure 124/86 140/72 Pulse Oximetry 99 99 98 05/05/21 20:01 05/05/21 20:30 05/05/21 21:15 Pulse Rate 118 H 109 H 102 H Respiratory Rate 19 17 22 Blood Pressure 99/61 165/84 H 160/70 H Pulse Oximetry 98 100 99 <Casper Mendoza DO - Last Filed: 05/05/21 23:58> Orders Ordered: Discontinued Medications Heparin Sodium (Porcine) (Heparin 5,000 Unit/Ml Vial) 5,200 unit 80 unit/kg (5200 unit) IV NOW ONE Stop: 05/05/21 20:40 Last Admin: 05/05/21 20:46 Dose: 5,200 unit Documented by: DEVYN Hydromorphone HCl (Hydromorphone 0.5 Mg Inj) 0.5 mg IV Q15MIN PRN PRN Reason: Pain, Last Admin: 05/05/21 21:04 Dose: 0.5 mg Documented by: Admin: 05/05/21 17:02 Dose: 0.5 mg Documented by: Admin: 05/05/21 16:24 Dose: 0.5 mg Documented by: DEVYN Piperacillin Sod/Tazobactam (Sod 4.5 gm/ Sodium Chloride) 100 mls @ 200 mls/hr IV NOW ONE Stop: 05/05/21 16:16 Last Infusion: 05/05/21 17:35 Dose: 0 mls/hr Documented by: Admin: 05/05/21 17:02 Dose: 200 mls/hr Documented by: DEVYN Sodium Chloride (Normal Saline 0.9%) 1,000 mls @ 1,000 mls/hr IV BOLUS ONE Stop: 05/05/21 17:23 Last Infusion: 05/05/21 18:00 Dose: 0 mls/hr Documented by: Admin: 05/05/21 16:38 Dose: 1,000 mls/hr Documented by: DEVYN Sodium Chloride (Normal Saline 0.9%) 1,000 mls @ 125 mls/hr IV BOLUS ONE Stop: 05/06/21 00:55 Last Infusion: 05/05/21 21:22 Dose: 0 mls/hr Documented by: Infusion: 05/05/21 20:51 Dose: 0 mls/hr Documented by: Admin: 05/05/21 17:03 Dose: 125 mls/hr Documented by: DEVYN Heparin Sodium/Dextrose (Heparin Drip) 25,000 unit in 500 mls @ 23.4 mls/hr IV CONT RIAZ; Protocol Last Titration: 05/05/21 21:40 Dose: 0 units/kg/hr, 0 mls/hr Documented by: Admin: 05/05/21 20:47 Dose: 18 units/kg/hr, 23.4 mls/hr Documented by: DEVYN Morphine Sulfate (Morphine 2 Mg/Ml Inj) 2 mg IV NOW ONE Stop: 05/05/21 15:41 Last Admin: 05/05/21 15:47 Dose: 2 mg Documented by: DEVYN Ondansetron HCl (Ondansetron 4 Mg/2 Ml Inj) 4 mg IV NOW ONE Stop: 05/05/21 15:41 Last Admin: 05/05/21 15:47 Dose: 4 mg Documented by: DEVYN Vital Signs Vital signs: Vital Signs - 8 hr 05/05/21 16:00 05/05/21 16:01 05/05/21 16:37 Pulse Rate 112 H 102 H 122 H Respiratory Rate 33 H 32 H 23 Blood Pressure 178/81 H 180/77 H Pulse Oximetry 96 95 88 L 05/05/21 17:00 05/05/21 17:30 05/05/21 17:31 Pulse Rate 118 H 94 H 103 H Respiratory Rate 20 14 13 Blood Pressure 195/81 H 151/67 H Pulse Oximetry 96 100 100 05/05/21 18:00 05/05/21 18:30 05/05/21 18:31 Pulse Rate 95 H 105 H Respiratory Rate 12 12 Blood Pressure 162/68 H 119/53 L Pulse Oximetry 99 100 05/05/21 19:00 05/05/21 19:30 05/05/21 20:00 Pulse Rate 104 H 111 H 111 H Respiratory Rate 16 16 18 Blood Pressure 124/86 140/72 Pulse Oximetry 99 99 98 05/05/21 20:01 05/05/21 20:30 05/05/21 21:15 Pulse Rate 118 H 109 H 102 H Respiratory Rate 19 17 22 Blood Pressure 99/61 165/84 H 160/70 H Pulse Oximetry 98 100 99 Medical Decision Making <Dasha Funes MD - Last Filed: 05/06/21 08:08> Medical Records Medical records narrative: Patient is full code with selective treatment as of April 18, 2021 Lab Data Result diagrams: 05/05/21 15:12 05/05/21 15:12 Labs: Lab Results 05/05/21 05/05/21 05/05/21 Range/Units 15:12 15:12 15:12 WBC 16.1 H (4.5-11.0) X10^3/uL RBC 3.70 L (4.0-5.2) X10^6/uL Hgb 10.1 L (12.0-16.0) g/dL Hct 31.6 L (36-46) % MCV 85.4 (80-100) fL MCH 27.4 (26-34) PG MCHC 32.0 (30-36) % RDW 16.0 H (11.6-14.8) % Plt Count 525 H (150-400) X10^3/uL Neut % (Auto) 90.9 H (50-75) % Lymph % (Auto) 4.2 L (25-40) % [place] % (Auto) 4.1 (3-14) % Eos % (Auto) 0.1 L (2-4) % Baso % (Auto) 0.7 (0-2) % Neut # (Auto) 56976 H (5963-7428) /uL Lymph # (Auto) 700 L (3630-9287) /uL [place] # (Auto) 700 (0-900) /uL Eos # (Auto) 0 (0-450) /uL Baso # (Auto) 100 (0-100) /uL PT 13.0 H (10.1-12.7) SECONDS INR 1.2 (0.9-1.3) APTT 28 (26.4-36.2) SECONDS Sodium 138 (137-145) mmol/L Potassium 3.3 L (3.4-5.1) mmol/L Chloride 102 (98-107) mmol/L Carbon Dioxide 33 H (22-32) mmol/L BUN 14 (7-17) mg/dL Creatinine 0.55 (0.52-1.04) mg/dL Estimated GFR > 60.0 (>60) mL/min BUN/Creatinine Ratio 25.5 H (6-22) Glucose 148 H (80-110) mg/dL Lactate (0.7-2.1) mmol/L Calcium 8.9 (8.4-10.2) mg/dL Total Bilirubin 0.4 (0.2-1.3) mg/dL AST 46 H (14-36) IU/L ALT 39 H (<35) IU/L Alkaline Phosphatase 283 H (38-126) U/L Total Creatine Kinase < 20 L (30-135) U/L CK-MB (CK-2) TNP CK-MB (CK-2) Rel Index TNP Troponin I 0.023 (0.01-0.034) ng/mL Total Protein 5.8 L (6.3-8.2) g/dL Albumin 3.4 L (3.5-5.0) g/dL Globulin 2.4 (1.7-4.1) g/dL Albumin/Globulin Ratio 1.4 (1.0-2.8) Lipase 86 (23-300) U/L Procalcitonin (<0.5) ng/mL Urine Color Urine Appearance Urine pH (4.5-8.0) Ur Specific [place] (1.000-1.035) Urine Protein (Negative) Urine Glucose (UA) (Negative) g/dL Urine Ketones (NEGATIVE) Urine Occult Blood (Negative) Urine Nitrate (Negative) Urine Bilirubin (NEGATIVE) Urine Urobilinogen (0.2) E.U./dL Ur Leukocyte Esterase (NEGATIVE) Urine RBC (0-5/HPF) Urine WBC (0-5/HPF) Ur Squamous Epith Cells (0-5/HPF) Other Crystals Urine Bacteria (None) Ur Culture Indicated? SARS-CoV-2 (PCR) (Negative) 05/05/21 05/05/21 05/05/21 Range/Units 15:52 15:52 16:44 WBC (4.5-11.0) X10^3/uL RBC (4.0-5.2) X10^6/uL Hgb (12.0-16.0) g/dL Hct (36-46) % MCV (80-100) fL MCH (26-34) PG MCHC (30-36) % RDW (11.6-14.8) % Plt Count (150-400) X10^3/uL Neut % (Auto) (50-75) % Lymph % (Auto) (25-40) % [place] % (Auto) (3-14) % Eos % (Auto) (2-4) % Baso % (Auto) (0-2) % Neut # (Auto) (6488-4628) /uL Lymph # (Auto) (5497-3374) /uL [place] # (Auto) (0-900) /uL Eos # (Auto) (0-450) /uL Baso # (Auto) (0-100) /uL PT (10.1-12.7) SECONDS INR (0.9-1.3) APTT (26.4-36.2) SECONDS Sodium (137-145) mmol/L Potassium (3.4-5.1) mmol/L Chloride (98-107) mmol/L Carbon Dioxide (22-32) mmol/L BUN (7-17) mg/dL Creatinine (0.52-1.04) mg/dL Estimated GFR (>60) mL/min BUN/Creatinine Ratio (6-22) Glucose (80-110) mg/dL Lactate 1.6 (0.7-2.1) mmol/L Calcium (8.4-10.2) mg/dL Total Bilirubin (0.2-1.3) mg/dL AST (14-36) IU/L ALT (<35) IU/L Alkaline Phosphatase (38-126) U/L Total Creatine Kinase (30-135) U/L CK-MB (CK-2) CK-MB (CK-2) Rel Index Troponin I (0.01-0.034) ng/mL Total Protein (6.3-8.2) g/dL Albumin (3.5-5.0) g/dL Globulin (1.7-4.1) g/dL Albumin/Globulin Ratio (1.0-2.8) Lipase (23-300) U/L Procalcitonin 0.08 (<0.5) ng/mL Urine Color Yellow Urine Appearance Sl cloudy Urine pH 8.0 (4.5-8.0) Ur Specific [place] 1.020 (1.000-1.035) Urine Protein 1+ H (Negative) Urine Glucose (UA) Trace H (Negative) g/dL Urine Ketones Trace H (NEGATIVE) Urine Occult Blood Trace-lysed (Negative) Urine Nitrate Negative (Negative) Urine Bilirubin Negative (NEGATIVE) Urine Urobilinogen 0.2 (0.2) E.U./dL Ur Leukocyte Esterase Negative (NEGATIVE) Urine RBC 0-1/hpf (0-5/HPF) Urine WBC 0-1/hpf (0-5/HPF) Ur Squamous Epith Cells 0-1 /hpf (0-5/HPF) Other Crystals 2+ amorphous Urine Bacteria None seen (None) Ur Culture Indicated? Cult not indicated SARS-CoV-2 (PCR) (Negative) 05/05/21 Range/Units 16:54 WBC (4.5-11.0) X10^3/uL RBC (4.0-5.2) X10^6/uL Hgb (12.0-16.0) g/dL Hct (36-46) % MCV (80-100) fL MCH (26-34) PG MCHC (30-36) % RDW (11.6-14.8) % Plt Count (150-400) X10^3/uL Neut % (Auto) (50-75) % Lymph % (Auto) (25-40) % [place] % (Auto) (3-14) % Eos % (Auto) (2-4) % Baso % (Auto) (0-2) % Neut # (Auto) (3100-1924) /uL Lymph # (Auto) (6169-0567) /uL [place] # (Auto) (0-900) /uL Eos # (Auto) (0-450) /uL Baso # (Auto) (0-100) /uL PT (10.1-12.7) SECONDS INR (0.9-1.3) APTT (26.4-36.2) SECONDS Sodium (137-145) mmol/L Potassium (3.4-5.1) mmol/L Chloride (98-107) mmol/L Carbon Dioxide (22-32) mmol/L BUN (7-17) mg/dL Creatinine (0.52-1.04) mg/dL Estimated GFR (>60) mL/min BUN/Creatinine Ratio (6-22) Glucose (80-110) mg/dL Lactate (0.7-2.1) mmol/L Calcium (8.4-10.2) mg/dL Total Bilirubin (0.2-1.3) mg/dL AST (14-36) IU/L ALT (<35) IU/L Alkaline Phosphatase (38-126) U/L Total Creatine Kinase (30-135) U/L CK-MB (CK-2) CK-MB (CK-2) Rel Index Troponin I (0.01-0.034) ng/mL Total Protein (6.3-8.2) g/dL Albumin (3.5-5.0) g/dL Globulin (1.7-4.1) g/dL Albumin/Globulin Ratio (1.0-2.8) Lipase (23-300) U/L Procalcitonin (<0.5) ng/mL Urine Color Urine Appearance Urine pH (4.5-8.0) Ur Specific [place] (1.000-1.035) Urine Protein (Negative) Urine Glucose (UA) (Negative) g/dL Urine Ketones (NEGATIVE) Urine Occult Blood (Negative) Urine Nitrate (Negative) Urine Bilirubin (NEGATIVE) Urine Urobilinogen (0.2) E.U./dL Ur Leukocyte Esterase (NEGATIVE) Urine RBC (0-5/HPF) Urine WBC (0-5/HPF) Ur Squamous Epith Cells (0-5/HPF) Other Crystals Urine Bacteria (None) Ur Culture Indicated? SARS-CoV-2 (PCR) Negative (Negative) Imaging Data CT scan - abdomen/pelvis: Radiologist's Impression: ? FINDINGS:? Image quality:? Excellent.? ? Lung bases:? Low lung volumes and mild bibasilar atelectatic change. Heart:? Normal heart size.? Heavy mixed calcified and noncalcified atherosclerotic change in the descending thoracic aorta.? Moderate coronary artery calcification. ? ? ABDOMEN: Liver:? No suspicious masses. Gallbladder:? Surgically absent Biliary ducts:? Mildly dilated, appropriate post cholecystectomy. Pancreas:? Normal enhancement.? No peripancreatic inflammation. Spleen:? Lobulated and diminutive in size. Adrenal Glands:? No nodules. Kidneys and Ureters:? Ovoid cyst with a punctate peripheral calcifications arising from the lower pole of the right kidney measuring 2.0 cm in greatest diameter.? This has decreased in size.? Mildly complicated partially exophytic left upper pole cyst measuring 3.4 cm.? Faint, thin septations present.? A left lower pole perinephric cyst has increased slightly in size measuring 3.3 cm.? There is an area of cortical hypodense heterogeneity in the lower pole without surrounding perinephric inflammation.? No hydronephrosis or nephrolithiasis.? ? Stomach and Bowel:? The stomach is filled with fluid.? The mucosa is mildly hyperemic, particularly at the gastric antrum and pyloric channel.? No perigastric inflammation or extraluminal gas.? Small bowel loops are normal caliber, however there are a few bowel loops in the right lower quadrant demonstrating mild wall thickening and enhancement there are air-fluid levels in the pendant small-bowel.? The ascending colon has loss of haustral markings demonstrates mild mucosal hyperemia.? There is increased quantity of solid stool present in the distal colon and rectum. Peritoneum:? No abnormal intraperitoneal fluid.? No free air.? ? Ventral Wall: ? No hernia.? Abdominal Nodes:? No retroperitoneal or mesenteric adenopathy by size criteria.? Vessels:? Aorta and inferior vena cava are normal in size.? Heavy abdominal aortic atherosclerotic calcification.? In the mid superior mesenteric artery, there is abrupt transition from opacified non-opacified vessel.? The non-opacified vessel is slightly expansile.? This was not present on the prior study. ? PELVIS: Pelvic Organs:? The uterus is age-appropriate in size with uterine artery calcification. Bladder:? Normal wall thickness. Pelvic Nodes: No enlarged lymph nodes.? Miscellaneous: No inguinal hernias are seen. ? ? ? Bones:? There are compression fractures of T11 and L1 which have progressed in the past year.? L2 compression fracture is minimal but new.? There are bilateral hip arthroplasties in place. ? ? IMPRESSION:? ? 1. 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 Clinical correlation and CT or MR angiogram is recommended. 2. Bowel hyperemia may also be secondary to gastroenteritis or inflammatory b owel disease. 3. Mild obstipation.? 4. New and worsening thoracolumbar compression fractures. 5. Cortical hypoenhancement involving the lower pole of the left kidney.? This is new but may be due to scarring or pyelonephritis, chronicity uncertain.? ? ? Dictated by: Sindy Perdomo M.D. on 05/05/2021 at 16:40 ? ? <Casper Mendoza DO - Last Filed: 05/05/21 23:58> Medical Records Medical records reviewed: Yes I reviewed the patient's medical records. Lab Data Lab results reviewed: Yes I reviewed the patient's lab results. Labs: Lab Results 05/05/21 05/05/21 05/05/21 Range/Units 15:12 15:12 15:12 WBC 16.1 H (4.5-11.0) X10^3/uL RBC 3.70 L (4.0-5.2) X10^6/uL Hgb 10.1 L (12.0-16.0) g/dL Hct 31.6 L (36-46) % MCV 85.4 (80-100) fL MCH 27.4 (26-34) PG MCHC 32.0 (30-36) % RDW 16.0 H (11.6-14.8) % Plt Count 525 H (150-400) X10^3/uL Neut % (Auto) 90.9 H (50-75) % Lymph % (Auto) 4.2 L (25-40) % [place] % (Auto) 4.1 (3-14) % Eos % (Auto) 0.1 L (2-4) % Baso % (Auto) 0.7 (0-2) % Neut # (Auto) 68414 H (9623-9654) /uL Lymph # (Auto) 700 L (8358-7649) /uL [place] # (Auto) 700 (0-900) /uL Eos # (Auto) 0 (0-450) /uL Baso # (Auto) 100 (0-100) /uL PT 13.0 H (10.1-12.7) SECONDS INR 1.2 (0.9-1.3) APTT 28 (26.4-36.2) SECONDS Sodium 138 (137-145) mmol/L Potassium 3.3 L (3.4-5.1) mmol/L Chloride 102 (98-107) mmol/L Carbon Dioxide 33 H (22-32) mmol/L BUN 14 (7-17) mg/dL Creatinine 0.55 (0.52-1.04) mg/dL Estimated GFR > 60.0 (>60) mL/min BUN/Creatinine Ratio 25.5 H (6-22) Glucose 148 H (80-110) mg/dL Lactate (0.7-2.1) mmol/L Calcium 8.9 (8.4-10.2) mg/dL Total Bilirubin 0.4 (0.2-1.3) mg/dL AST 46 H (14-36) IU/L ALT 39 H (<35) IU/L Alkaline Phosphatase 283 H (38-126) U/L Total Creatine Kinase < 20 L (30-135) U/L CK-MB (CK-2) TNP CK-MB (CK-2) Rel Index TNP Troponin I 0.023 (0.01-0.034) ng/mL Total Protein 5.8 L (6.3-8.2) g/dL Albumin 3.4 L (3.5-5.0) g/dL Globulin 2.4 (1.7-4.1) g/dL Albumin/Globulin Ratio 1.4 (1.0-2.8) Lipase 86 (23-300) U/L Procalcitonin (<0.5) ng/mL Urine Color Urine Appearance Urine pH (4.5-8.0) Ur Specific [place] (1.000-1.035) Urine Protein (Negative) Urine Glucose (UA) (Negative) g/dL Urine Ketones (NEGATIVE) Urine Occult Blood (Negative) Urine Nitrate (Negative) Urine Bilirubin (NEGATIVE) Urine Urobilinogen (0.2) E.U./dL Ur Leukocyte Esterase (NEGATIVE) Urine RBC (0-5/HPF) Urine WBC (0-5/HPF) Ur Squamous Epith Cells (0-5/HPF) Other Crystals Urine Bacteria (None) Ur Culture Indicated? SARS-CoV-2 (PCR) (Negative) 05/05/21 05/05/21 05/05/21 Range/Units 15:52 15:52 16:44 WBC (4.5-11.0) X10^3/uL RBC (4.0-5.2) X10^6/uL Hgb (12.0-16.0) g/dL Hct (36-46) % MCV (80-100) fL MCH (26-34) PG MCHC (30-36) % RDW (11.6-14.8) % Plt Count (150-400) X10^3/uL Neut % (Auto) (50-75) % Lymph % (Auto) (25-40) % [place] % (Auto) (3-14) % Eos % (Auto) (2-4) % Baso % (Auto) (0-2) % Neut # (Auto) (7109-3971) /uL Lymph # (Auto) (4533-4247) /uL [place] # (Auto) (0-900) /uL Eos # (Auto) (0-450) /uL Baso # (Auto) (0-100) /uL PT (10.1-12.7) SECONDS INR (0.9-1.3) APTT (26.4-36.2) SECONDS Sodium (137-145) mmol/L Potassium (3.4-5.1) mmol/L Chloride (98-107) mmol/L Carbon Dioxide (22-32) mmol/L BUN (7-17) mg/dL Creatinine (0.52-1.04) mg/dL Estimated GFR (>60) mL/min BUN/Creatinine Ratio (6-22) Glucose (80-110) mg/dL Lactate 1.6 (0.7-2.1) mmol/L Calcium (8.4-10.2) mg/dL Total Bilirubin (0.2-1.3) mg/dL AST (14-36) IU/L ALT (<35) IU/L Alkaline Phosphatase (38-126) U/L Total Creatine Kinase (30-135) U/L CK-MB (CK-2) CK-MB (CK-2) Rel Index Troponin I (0.01-0.034) ng/mL Total Protein (6.3-8.2) g/dL Albumin (3.5-5.0) g/dL Globulin (1.7-4.1) g/dL Albumin/Globulin Ratio (1.0-2.8) Lipase (23-300) U/L Procalcitonin 0.08 (<0.5) ng/mL Urine Color Yellow Urine Appearance Sl cloudy Urine pH 8.0 (4.5-8.0) Ur Specific [place] 1.020 (1.000-1.035) Urine Protein 1+ H (Negative) Urine Glucose (UA) Trace H (Negative) g/dL Urine Ketones Trace H (NEGATIVE) Urine Occult Blood Trace-lysed (Negative) Urine Nitrate Negative (Negative) Urine Bilirubin Negative (NEGATIVE) Urine Urobilinogen 0.2 (0.2) E.U./dL Ur Leukocyte Esterase Negative (NEGATIVE) Urine RBC 0-1/hpf (0-5/HPF) Urine WBC 0-1/hpf (0-5/HPF) Ur Squamous Epith Cells 0-1 /hpf (0-5/HPF) Other Crystals 2+ amorphous Urine Bacteria None seen (None) Ur Culture Indicated? Cult not indicated SARS-CoV-2 (PCR) (Negative) 05/05/21 Range/Units 16:54 WBC (4.5-11.0) X10^3/uL RBC (4.0-5.2) X10^6/uL Hgb (12.0-16.0) g/dL Hct (36-46) % MCV (80-100) fL MCH (26-34) PG MCHC (30-36) % RDW (11.6-14.8) % Plt Count (150-400) X10^3/uL Neut % (Auto) (50-75) % Lymph % (Auto) (25-40) % [place] % (Auto) (3-14) % Eos % (Auto) (2-4) % Baso % (Auto) (0-2) % Neut # (Auto) (1884-4903) /uL Lymph # (Auto) (7303-2406) /uL [place] # (Auto) (0-900) /uL Eos # (Auto) (0-450) /uL Baso # (Auto) (0-100) /uL PT (10.1-12.7) SECONDS INR (0.9-1.3) APTT (26.4-36.2) SECONDS Sodium (137-145) mmol/L Potassium (3.4-5.1) mmol/L Chloride (98-107) mmol/L Carbon Dioxide (22-32) mmol/L BUN (7-17) mg/dL Creatinine (0.52-1.04) mg/dL Estimated GFR (>60) mL/min BUN/Creatinine Ratio (6-22) Glucose (80-110) mg/dL Lactate (0.7-2.1) mmol/L Calcium (8.4-10.2) mg/dL Total Bilirubin (0.2-1.3) mg/dL AST (14-36) IU/L ALT (<35) IU/L Alkaline Phosphatase (38-126) U/L Total Creatine Kinase (30-135) U/L CK-MB (CK-2) CK-MB (CK-2) Rel Index Troponin I (0.01-0.034) ng/mL Total Protein (6.3-8.2) g/dL Albumin (3.5-5.0) g/dL Globulin (1.7-4.1) g/dL Albumin/Globulin Ratio (1.0-2.8) Lipase (23-300) U/L Procalcitonin (<0.5) ng/mL Urine Color Urine Appearance Urine pH (4.5-8.0) Ur Specific [place] (1.000-1.035) Urine Protein (Negative) Urine Glucose (UA) (Negative) g/dL Urine Ketones (NEGATIVE) Urine Occult Blood (Negative) Urine Nitrate (Negative) Urine Bilirubin (NEGATIVE) Urine Urobilinogen (0.2) E.U./dL Ur Leukocyte Esterase (NEGATIVE) Urine RBC (0-5/HPF) Urine WBC (0-5/HPF) Ur Squamous Epith Cells (0-5/HPF) Other Crystals Urine Bacteria (None) Ur Culture Indicated? SARS-CoV-2 (PCR) Negative (Negative) ECG Data Attestation: I personally reviewed and interpreted this ECG as follows: Interpretation: Sinus tachycardia Ventricular rate 104 Normal axis Normal QRS Nonspecific ST T wave changes MDM Narrative Medical decision making narrative: Patient is a GCS of 15. She is alert oriented x3. She does have a PLOST form that does state DNR with limited interventions. She was initially seen by Dr. Marin mejia ED provider who initially ordered CT scan an initial labs and pain medication. By the time I saw the patient her symptoms seem to for improved. She does have a white count. Lactate unremarkable. 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 I had a discussion with her and she initially stated that she did not want to be transferred nor have invasive pr ocedures done. Dr. Pleitez with general surgery was consulted who evaluated the patient in the emergency department. There was discussion about taking her to the operating room here at this facility for an exploratory lap. I also discussed the case with Dr. Blanton who was on-call for Internal Medicine who was going to admit the patient after the surgery. Dr. Pleitez then consulted with vascular surgery at [facility]. They accepted the patient in transfer. They recommended starting the patient on heparin. Dr. Pleitez discuss this with the patient. Dr. Pleitez also signed the [facility] tele paperwork. Patient is currently stable for transport. Discharge Plan Departure Patient Disposition: [facility] Clinical Impression: Abdominal pain, Superior mesenteric artery thrombosis Prescriptions: No Action metoprolol succinate 25 mg tablet extended release 24 hr 25 mg PO QAM 0RF losartan 25 mg tablet 25 mg PO QAM 0RF prednisone 5 mg tablet 5 mg PO QAM 0RF Rx Instructions: chronic levothyroxine 88 mcg Tablet 88 mcg PO QAM 0RF calcitonin (salmon) 200 unit/actuation spray,non-aerosol 1 spray intranasal DAILY 0RF Rx Instructions: alternate nostrils ibandronate 150 mg tablet 150 mg PO QMONTH 0RF famotidine 40 mg tablet 40 mg PO BEDTIME Qty: 120 0RF hydrocodone-acetaminophen 5-325 mg Tablet 1 tab PO Q4HR PRN (Reason: Pain, Moderate (4-6)) Qty: 20 0RF sucralfate 1 gram Tablet 1 gm PO ACHS Qty: 120 0RF tramadol 50 mg Tablet 50 mg PO Q4H PRN (Reason: Pain, Moderate (4-6)) Qty: 30 0RF quetiapine [Seroquel] 25 mg tablet 12.5 mg PO BEDTIME Qty: 30 0RF risperidone [Risperdal] 0.5 mg tablet 0.5 mg PO BID Qty: 60 0RF polyethylene glycol 3350 [Miralax] 17 gram Powder In Packet 17 g PO QAM 0RF albuterol sulfate 90 mcg/actuation HFA aerosol inhaler 2 inh INHALATION Q6HR 0RF Bacid 1 billion cell- 250 mg tablet 1 tab PO BID 0RF Referrals: Jose Daniel Herrera MD [Primary Care Provider] -
[2021-05-05 16:06] LABS: Alanine Aminotransferase 39 IU/L (<35); Albumin 3.4 g/dL (3.5-5.0); Albumin Globulin Ratio 1.4 (1.0-2.8); Alkaline Phosphatase 283 U/L (38-126); Aspartate Aminotransferase 46 IU/L (14-36); BUN Creatinine Ratio 25.5 (6-22); Bilirubin Total 0.4 mg/dL (0.2-1.3); Blood Urea Nitrogen 14 mg/dL (7-17); Calcium 8.9 mg/dL (8.4-10.2); Carbon Dioxide 33 mmol/L (22-32); Chloride 102 mmol/L (98-107); Creatine Kinase < 20 U/L (30-135); Estimated Glomerular Filt Rate > 60.0 mL/min (>60); Globulin 2.4 g/dL (1.7-4.1); Glucose 148 mg/dL (80-110); HEMOLYSIS < 15 (0-50); Lipase 86 U/L (23-300); Potassium 3.3 mmol/L (3.4-5.1); Sodium 138 mmol/L (137-145); Total Protein 5.8 g/dL (6.3-8.2)
--- NOTE | 2021-05-05 16:12 | DI.CT.S_ITS ---
PROCEDURE: CT ABDOMEN PELVIS W CON INDICATIONS: acute abd pain TECHNIQUE: After the administration of oral and IV contrast, axial sections were acquired from the lung bases to the pubic symphysis. Coronal and sagittal reformats were performed. For radiation dose reduction, the following was used: automated exposure control, adjustment of mA and/or kV according to patient size. COMPARISON: [facility], CT, CT ABDOMEN PELVIS W CON, 03/22/2020, 12:52. FINDINGS: Image quality: Excellent. Lung bases: Low lung volumes and mild bibasilar atelectatic change. Heart: Normal heart size. Heavy mixed calcified and noncalcified atherosclerotic change in the descending thoracic aorta. Moderate coronary artery calcification. ABDOMEN: Liver: No suspicious masses. Gallbladder: Surgically absent Biliary ducts: Mildly dilated, appropriate post cholecystectomy. Pancreas: Normal enhancement. No peripancreatic inflammation. Spleen: Lobulated and diminutive in size. Adrenal Glands: No nodules. Kidneys and Ureters: Ovoid cyst with a punctate peripheral calcifications arising from the lower pole of the right kidney measuring 2.0 cm in greatest diameter. This has decreased in size. Mildly complicated partially exophytic left upper pole cyst measuring 3.4 cm. Faint, thin septations present. A left lower pole perinephric cyst has increased slightly in size measuring 3.3 cm. There is an area of cortical hypodense heterogeneity in the lower pole without surrounding perinephric inflammation. No hydronephrosis or nephrolithiasis. Stomach and Bowel: The stomach is filled with fluid. The mucosa is mildly hyperemic, particularly at the gastric antrum and pyloric channel. No perigastric inflammation or extraluminal gas. Small bowel loops are normal caliber, however there are a few bowel loops in the right lower quadrant demonstrating mild wall thickening and enhancement there are air-fluid levels in the pendant small-bowel. The ascending colon has loss of haustral markings demonstrates mild mucosal hyperemia. There is increased quantity of solid stool present in the distal colon and rectum. Peritoneum: No abnormal intraperitoneal fluid. No free air. Ventral Wall: No hernia. Abdominal Nodes: No retroperitoneal or mesenteric adenopathy by size criteria. Vessels: Aorta and inferior vena cava are normal in size. Heavy abdominal aortic atherosclerotic calcification. In the mid superior mesenteric artery, there is abrupt transition from opacified non-opacified vessel. The non-opacified vessel is slightly expansile. This was not present on the prior study. PELVIS: Pelvic Organs: The uterus is age-appropriate in size with uterine artery calcification. Bladder: Normal wall thickness. Pelvic Nodes: No enlarged lymph nodes. Miscellaneous: No inguinal hernias are seen. Bones: There are compression fractures of T11 and L1 which have progressed in the past year. L2 compression fracture is minimal but new. There are bilateral hip arthroplasties in place. IMPRESSION: 1. Findings suspicious for superior mesenteric artery thrombosis versus low-flow. Clinical correlation and CT or MR angiogram is recommended. 2. Bowel hyperemia may also be secondary to gastroenteritis or inflammatory bowel disease. 3. Mild obstipation. 4. New and worsening thoracolumbar compression fractures. 5. Cortical hypoenhancement involving the lower pole of the left kidney. This is new but may be due to scarring or pyelonephritis, chronicity uncertain. Dictated by: Sindy Perdomo M.D. on 05/05/2021 at 16:40 Approved by: Sindy Perdomo M.D. on 05/05/2021 at 16:57
[2021-05-05 16:13] LABS: Lactate (Lactic Acid) 1.6 mmol/L (0.7-2.1)
[2021-05-05 16:17] LABS: Troponin I 0.023 ng/mL (0.01-0.034)
[2021-05-05] MEDS: HYDROMORPHONE 0.5 MG INJ IV ×3 (16:24→21:04)
[2021-05-05 16:30] LABS: Procalcitonin 0.08 ng/mL (<0.5)
[2021-05-05] MEDS: SODIUM CHLORIDE 0.9% 1,000 ML 1000 ML IV (16:38)
--- NOTE | 2021-05-05 16:55 | PC.NURSE ---
> 400 out initially from catheter.
[2021-05-05] MEDS: PIPERACILLIN/TAZO 4.5 GM in SODIUM CHLORIDE 0.9% 100 ML 200 ML IV (17:02)
[2021-05-05] MEDS: SODIUM CHLORIDE 0.9% 1,000 ML 125 ML IV (17:03)
[2021-05-05 17:45] LABS: Appearance Urine UA SL CLOUDY; Bilirubin Urine UA NEGATIVE (NEGATIVE); Color Urine UA YELLOW; Glucose Urine UA TRACE g/dL (Negative); Ketones Urine UA TRACE (NEGATIVE); Leukocyte Esterase Urine UA NEGATIVE (NEGATIVE); Nitrite Urine UA NEGATIVE (Negative); Occult Blood Urine UA TRACE-LYSED (Negative); Protein Urine UA 1+ (Negative); Urobilinogen Urine UA 0.2 E.U./dL (0.2)
[2021-05-05 17:58] LABS: Bacteria Urine None Seen; RBC Urine 0-1/HPF (0-5/HPF); Squamous Epithelial Cell Urine 0-1 /HPF (0-5/HPF); WBC Urine 0-1/HPF (0-5/HPF)
[2021-05-05 17:59] LABS: Culture Indicated Urine Cult Not Indicated
[2021-05-05 18:54] LABS: COVID19 - ADMIT (NP swab/PCR) Negative (Negative)
--- NOTE | 2021-05-05 20:33 | P.CONS_ITS ---
History of Present Illness Consult details Date Patient Seen: 05/05/21 Time Patient Seen: 20:33 Chief complaint: Abdominal pain Narrative: 86 year old woman history of atrial fibrilation who was been off anticoagulation for the past 1 month and presented with acute onset of abdominal pain this morning. She has associated nausea emesis. At admission CT abdomen pelvis with IV contrast demonstrates occlusion of the mid SMA, in addition there are dilated loops of bowel and bowel wall thickening. WBC 16, neutrophils 91%, lactate 1.6. No episodes of abdominal pain associated with eating. She has a history of stroke 10 years ago. Currently she feels better than admission her abdominal pain has improved but not resolved. Prior abdominal surgeries include c holecystectomy. Meds Home Medications and Allergies Home Medications Medication Instructions Recorded Confirmed Type losartan 25 mg tablet 25 mg PO DAILY 04/10/21 04/11/21 History metoprolol succinate 25 mg 25 mg PO DAILY 04/10/21 04/11/21 History tablet,extended release 24 hr calcitonin (salmon) 200 1 spray INTRANASAL DAILY 04/11/21 04/11/21 History unit/actuation nasal spray ibandronate 150 mg tablet 150 mg PO QMONTH 04/11/21 04/11/21 History levothyroxine 88 mcg tablet 88 mcg PO QAM 04/11/21 04/11/21 History prednisone 5 mg tablet 5 mg PO DAILY 04/11/21 04/11/21 History famotidine 40 mg tablet 40 mg PO BEDTIME #120 tab 04/23/21 Rx hydrocodone 5 mg-acetaminophen 325 1 tab PO Q4HR PRN #20 tab 04/23/21 Rx mg tablet quetiapine 25 mg tablet (Seroquel) 12.5 mg PO BEDTIME #30 tab 04/23/21 Rx risperidone 0.5 mg tablet 0.5 mg PO BID #60 tab 04/23/21 Rx (Risperdal) sucralfate 1 gram tablet 1 gm PO ACHS #120 tab 04/23/21 Rx tramadol 50 mg tablet 50 mg PO Q4H PRN #30 tab 04/23/21 Rx L.acidophilus-L.bulgar-B.bifid-S.thermoph 1 tab PO BID 05/05/21 05/05/21 History 1 billion cell-250 mg tablet (Bacid) albuterol sulfate 90 mcg/actuation 2 inh INHALATION Q6HR 05/05/21 05/05/21 History aerosol inhaler polyethylene glycol 3350 17 gram 17 g PO QAM 05/05/21 05/05/21 History oral powder packet (Miralax) Allergies Allergy/AdvReac Type Severity Reaction Status Date / Time Sulfa (Sulfonamide Allergy Unknown Verified 05/05/21 15:28 Antibiotics) [SULFA (SULFONAMIDE ANTIBIOTICS)] Exam Vital Signs (past 8 hours): - 05/05/21 15:03 05/05/21 15:05 05/05/21 15:30 Temperature 98.1 F Pulse Rate 120 H 128 H 117 H Respiratory Rate 36 H 24 33 H Blood Pressure 145/88 H 180/98 H Pulse Oximetry 95 98 95 05/05/21 16:00 05/05/21 16:01 05/05/21 16:37 Temperature Pulse Rate 112 H 102 H 122 H Respiratory Rate 33 H 32 H 23 Blood Pressure 178/81 H 180/77 H Pulse Oximetry 96 95 88 L 05/05/21 17:00 05/05/21 17:30 05/05/21 17:31 Temperature Pulse Rate 118 H 94 H 103 H Respiratory Rate 20 14 13 Blood Pressure 195/81 H 151/67 H Pulse Oximetry 96 100 100 05/05/21 18:00 05/05/21 18:30 05/05/21 18:31 Temperature Pulse Rate 95 H 105 H Respiratory Rate 12 12 Blood Pressure 162/68 H 119/53 L Pulse Oximetry 99 100 Oxygen Delivery Method Nasal Cannula Oxygen Flow Rate 2 Narrative Exam Narrative: General elderly woman alert oriented Chest nonlabored respirations Cardiac atrial fibrillation on monitor Abdomen no peritonitis. mild epigastric tenderness Ext-WWP Objective Labs Result Diagrams: 05/05/21 15:12 05/05/21 15:12 Labs: Laboratory Results - last 24 hr 05/05/21 05/05/21 05/05/21 15:12 15:12 15:12 WBC 16.1 H RBC 3.70 L Hgb 10.1 L Hct 31.6 L MCV 85.4 MCH 27.4 MCHC 32.0 RDW 16.0 H Plt Count 525 H Neut % (Auto) 90.9 H Lymph % (Auto) 4.2 L [place] % (Auto) 4.1 Eos % (Auto) 0.1 L Baso % (Auto) 0.7 Neut # (Auto) 99179 H Lymph # (Auto) 700 L [place] # (Auto) 700 Eos # (Auto) 0 Baso # (Auto) 100 PT 13.0 H INR 1.2 APTT 28 Sodium 138 Potassium 3.3 L Chloride 102 Carbon Dioxide 33 H BUN 14 Creatinine 0.55 Estimated GFR > 60.0 BUN/Creatinine Ratio 25.5 H Glucose 148 H Lactate Calcium 8.9 Total Bilirubin 0.4 AST 46 H ALT 39 H Alkaline Phosphatase 283 H Total Creatine Kinase < 20 L CK-MB (CK-2) TNP CK-MB (CK-2) Rel Index TNP Troponin I 0.023 Total Protein 5.8 L Albumin 3.4 L Globulin 2.4 Albumin/Globulin Ratio 1.4 Lipase 86 Procalcitonin Urine Color Urine Appearance Urine pH Ur Specific [place] Urine Protein Urine Glucose (UA) Urine Ketones Urine Occult Blood Urine Nitrate Urine Bilirubin Urine Urobilinogen Ur Leukocyte Esterase Urine RBC Urine WBC Ur Squamous Epith Cells Other Crystals Urine Bacteria Ur Culture Indicated? SARS-CoV-2 (PCR) 05/05/21 05/05/21 05/05/21 15:52 15:52 16:44 WBC RBC Hgb Hct MCV MCH MCHC RDW Plt Count Neut % (Auto) Lymph % (Auto) [place] % (Auto) Eos % (Auto) Baso % (Auto) Neut # (Auto) Lymph # (Auto) [place] # (Auto) Eos # (Auto) Baso # (Auto) PT INR APTT Sodium Potassium Chloride Carbon Dioxide BUN Creatinine Estimated GFR BUN/Creatinine Ratio Glucose Lactate 1.6 Calcium Total Bilirubin AST ALT Alkaline Phosphatase Total Creatine Kinase CK-MB (CK-2) CK-MB (CK-2) Rel Index Troponin I Total Protein Albumin Globulin Albumin/Globulin Ratio Lipase Procalcitonin 0.08 Urine Color Yellow Urine Appearance Sl cloudy Urine pH 8.0 Ur Specific [place] 1.020 Urine Protein 1+ H Urine Glucose (UA) Trace H Urine Ketones Trace H Urine Occult Blood Trace-lysed Urine Nitrate Negative Urine Bilirubin Negative Urine Urobilinogen 0.2 Ur Leukocyte Esterase Negative Urine RBC 0-1/hpf Urine WBC 0-1/hpf Ur Squamous Epith Cells 0-1 /hpf Other Crystals 2+ amorphous Urine Bacteria None seen Ur Culture Indicated? Cult not indicated SARS-CoV-2 (PCR) 05/05/21 16:54 WBC RBC Hgb Hct MCV MCH MCHC RDW Plt Count Neut % (Auto) Lymph % (Auto) [place] % (Auto) Eos % (Auto) Baso % (Auto) Neut # (Auto) Lymph # (Auto) [place] # (Auto) Eos # (Auto) Baso # (Auto) PT INR APTT Sodium Potassium Chloride Carbon Dioxide BUN Creatinine Estimated GFR BUN/Creatinine Ratio Glucose Lactate Calcium Total Bilirubin AST ALT Alkaline Phosphatase Total Creatine Kinase CK-MB (CK-2) CK-MB (CK-2) Rel Index Troponin I Total Protein Albumin Globulin Albumin/Globulin Ratio Lipase Procalcitonin Urine Color Urine Appearance Urine pH Ur Specific [place] Urine Protein Urine Glucose (UA) Urine Ketones Urine Occult Blood Urine Nitrate Urine Bilirubin Urine Urobilinogen Ur Leukocyte Esterase Urine RBC Urine WBC Ur Squamous Epith Cells Other Crystals Urine Bacteria Ur Culture Indicated? SARS-CoV-2 (PCR) Negative [facility] Medical History Anxiety Essential hypertension GERD (gastroesophageal reflux disease) History of shingles Hyperlipidemia Hypothyroidism (acquired) Osteoporosis Paroxysmal atrial fibrillation with RVR Surgical History History of bilateral hip replacements History of cholecystectomy Family History Mother Stroke Brother Diabetes mellitus Sister Heart attack Social History household members: spouse Tobacco & Substance Use Smoking Status: Former smoker alcohol intake: former Assessment & Plan Assessment and plan (1) Superior mesenteric artery thrombosis: Status: Acute Assessment & Plan narrative: 86-year-old woman history of atrial fibrillation with suspected acute superior mesenteric artery thrombosis. CT abdomen pelvis reviewed demonstrates likely occlusion of the mid SMA. Laboratory studies are significant for leukocytosis of 16 with a left shift. I discussed the case with the on-call vascular surgeon at [facility]. Following discussion we will proceed with transfer the patient to [place] for likely SMA thrombectomy possible bowel resection. Consideration was given to performing a laparotomy at this institution for assessment of intestinal viability however we would be unable to perform the necessary SMA embolectomy. This plan was discussed with the patient and she is in agreement with this plan. -Zosyn -Anticoagulation now 5000 Heparin - Time Spent With Patient Critical Care time: I spent a total of [] minutes of critical care time on this patient's care today; this time is exclusive of procedural time.
[2021-05-05] MEDS: HEPARIN 5,000 UNIT/ML VIAL 5200 UNIT IV (20:46)
[2021-05-05] MEDS: HEPARIN DRIP 25,000 UNIT/500 ML IV.SOLN 23.4 UNIT IV (20:47)
--- NOTE | 2021-05-05 22:09 | PC.NURSE ---
Heparin continued w/ [facility]. Completed (discontinued) for [facility] documentation only.
== END 2021-05-05 21:34 | disposition short-term general hospital (02) ==
LOC: ED 20:01 → AC 20:38
PROVIDERS: Emergency Medicine; Emergency Provider Emergency Medicine; PCP Internal Medicine; Referring Provider Emergency Medicine
DX: R10.30 Lower abdominal pain, unspecified (principal); K55.069 Acute infarction of intestine, part and extent unspecified; I65.8 Occlusion and stenosis of other precerebral arteries; R00.0 Tachycardia, unspecified; Z20.822 Contact with and (suspected) exposure to COVID-19; Z87.891 Personal history of nicotine dependence
CPT/HCPCS: 36415; 74177; 80053; 81001; 82550; 83605; 83690; 84145; 84484; 85025; 85610; 85730; 87040; 87635; 93005; 96361; 96365; 96367; 96375; 99285; C9803; J1170; J1644; J2270; J2405; J2543; Q9967